=== PATIENT | male | born 1935 | race Hispanic/Latino ===

== ENCOUNTER 2018-04-14 13:17 | Inpatient (IN) | payer MEDICARE, MEDICAID ==
[2018-04-14 14:29] LABS: #Eosinphils 0.1 thou/uL (0.0-0.7); #Lymphocytes 1.3 thou/uL (1.20-3.40); #Monocytes 0.6 thou/uL (0.11-0.59); #Neutrophils 4.5 thou/uL (1.40-6.50); %Basophils 0.2 % (0.0-1.0); %Eosinophils 1.1 % (0.0-10.0); %Monocytes 9.2 % (0.0-10.0); %Neutrophils 69.5 % (42.0-75.0); Hemoglobin 15.2 g/dL (14.0-18.0); Mean Corpuscular HGB CONC 33.5 g/dL (32.0-36.0); Mean Corpuscular Volume 92.3 fL (78.0-98.0); Mean Platelet Volume 9.6 fL (7.4-10.4); Platelet Count 95 thou/uL (130-400); RBC Distribution Width 14.9 % (11.5-14.5); White Blood Cell (WBC) Count 6.5 thou/uL (4.8-10.8)
[2018-04-14 14:57] LABS: Troponin I Less than 0.010 ng/mL (< 0.028)
[2018-04-14 14:59] LABS: CKMB 6.8 ng/mL (0-6.6)
[2018-04-14 15:00] LABS: ALT (SGPT) 12 U/L (8-55); AST (SGOT) 22 U/L (5-34); Albumin 3.9 g/dL (3.4-4.8); Alkaline Phosphatase 89 U/L (40-150); Anion Gap 13 mmol/L (10-20); BUN (Urea Nitrogen) 18 mg/dL (8.4-25.7); Bilirubin, Total 1.6 mg/dL (0.2-1.2); Calc. Creatinine Clearance 0 mL/min (70-130); Calcium 9.3 mg/dL (7.8-10.44); Carbon Dioxide 25 mmol/L (23-31); Chloride 98 mmol/L (98-107); Estimated GFR-MDRD 78; Globulin 3.4 g/dL (2.4-3.5); Glucose 89 mg/dL (83-110); Potassium 4.6 mmol/L (3.5-5.1); Protein, Total 7.3 g/dL (5.8-8.1); Sodium 131 mmol/L (136-145)
--- NOTE | 2018-04-14 15:01 | RAD ---
AP VIEW OF THE CHEST: INDICATION: Dyspnea. COMPARISON: Prior exam dated 03/19/15. FINDINGS: There is stable elevation of the right hemidiaphragm. There is mild right basilar atelectasis. Card iomegaly persists. Vascular calcification of the aortic is similar. No acute osseous abnormality is evident. IMPRESSION: Stable exam. POS: [facility]
[2018-04-14] MEDS ORDERED: Furosemide 40 MG/4 ML VIAL ONE (15:12)
[2018-04-14] MEDS ORDERED: Nitroglycerin 2% Ointment 1 INCH/1 GM Packet ONE (15:12)
--- NOTE | 2018-04-14 15:33 | PDOC.FPRHP ---
- History of Present Illness Chief Complaint: SOB History of Present Illness: Patient is an 83 yo M presenting with SOB since last night. Patient endorses always having trouble breathing, but it worsened last night. He reports trying to go to bed but was unable to due to trouble breathing. He has had a cough but denies fever. He states he has edema in bilateral extremities for about one month. Patient denies missing any doses of medications and denies increasing sodium intake. Patient sees Ted annually and his next appointment is next Saturday. ED Course: - gave nitro and 40mg Lasix IV - Allergies/Adverse Reactions Allergies Allergy/AdvReac Type Severity Reaction Status Date / Time No Known Drug Allergies Allergy Verified 03/19/15 13:31 - Home Medications Medication Instructions Recorded Confirmed Type metFORMIN HCl 1,000 mg PO BID-WM 03/02/13 03/19/15 History Atorvastatin Calcium [Lipitor] 10 mg PO HS 03/19/15 03/19/15 History Doxazosin [Cardura] 2 mg PO HS 03/19/15 03/19/15 History Mirtazapine 7.5 mg PO HS 03/19/15 03/19/15 History traMADol HCl [Ultram] 50 mg PO TID PRN 03/19/15 03/19/15 History Aspirin 325 mg PO DAILY #0 tab 03/21/15 Rx Carvedilol [Coreg] 3.125 mg PO BID- #0 tab 03/21/15 Rx Olmesartan Medoxomil [Benicar] 40 mg PO DAILY #0 tab 03/22/15 Rx - History PMHx: DM, HLD, HTN, NSTEMI 2014 PSHx: left knee and right shoulder, bilateral cataracts FHx: non-contributory Social: denies alcohol, drug and tobacco use - Review of Systems General: denies: fever/chills, weight/appetite/sleep changes, night sweats, fatigue Eyes: denies: eye pain, vision changes ENT: denies: nasal congestion, rhinorrhea Respiratory: reports: cough, shortness of breath, exercise intolerance. denies : congestion Cardiovascular: reports: edema. denies: chest pain, palpitation Gastrointestinal: denies: nausea, vomiting, diarrhea, constipation, abdominal pain Genitourinary: denies: incontinence Skin: denies: rashes, lesions Musculoskeletal: denies: pain, tenderness, stiffness, swelling Neurological: denies: numbness, syncope, seizure, weakness - Vital signs BP: 133/70 HR: 72 RR: 20 Tmax: 98.3 Pox: 100% on 2L Wt: 70.76kg - Physical Exam Constitutional: NAD, awake, alert and oriented, well developed HEENT: normocephalic and atraumatic, EOMI, grossly normal vision, grossly normal hearing, MMM Neck: supple -Neck: JVD noted Chest: no-tender to palpation Heart: pulses present -Heart: S4 gallop -Lungs: diminished breath sounds in right lower lung Abdomen: soft, non-tender, bowel sounds present, no masses/distention Musculoskeletal: normal structure, normal tone -Musculoskeletal: +1 pitting edema in bilateral lower extremities Neurological: no focal deficit, normal sensation Psychiatric: normal mood and affect FMR H&P: Results - Labs Result Diagrams: 04/14/18 14:17 04/14/18 14:17 Lab results: WBC 6.5 thou/uL (4.8-10.8) 04/14/18 14:17 Hgb 15.2 g/dL (14.0-18.0) 04/14/18 14:17 Hct 45.3 % (42.0-52.0) 04/14/18 14:17 MCV 92.3 fL (78.0-98.0) 04/14/18 14:17 Plt Count 95 thou/uL (130-400) L 04/14/18 14:17 Neutrophils % 69.5 % (42.0-75.0) 04/14/18 14:17 Sodium 131 mmol/L (136-145) L 04/14/18 14:17 Potassium 4.6 mmol/L (3.5-5.1) 04/14/18 14:17 Chloride 98 mmol/L (98-107) 04/14/18 14:17 Carbon Dioxide 25 mmol/L (23-31) 04/14/18 14:17 BUN 18 mg/dL (8.4-25.7) 04/14/18 14:17 Creatinine 0.93 mg/dL (0.6-1.3) 04/14/18 14:17 Glucose 89 mg/dL (83-110) 04/14/18 14:17 Calcium 9.3 mg/dL (7.8-10.44) 04/14/18 14:17 Total Bilirubin 1.6 mg/dL (0.2-1.2) H 04/14/18 14:17 AST 22 U/L (5-34) 04/14/18 14:17 ALT 12 U/L (8-55) 04/14/18 14:17 Alkaline Phosphatase 89 U/L (40-150) 04/14/18 14:17 CK-MB (CK-2) 6.8 ng/mL (0-6.6) H* 04/14/18 14:17 B-Natriuretic Peptide 421.3 pg/mL (0-100) H 04/14/18 14:17 Serum Total Protein 7.3 g/dL (5.8-8.1) 04/14/18 14:17 Albumin 3.9 g/dL (3.4-4.8) 04/14/18 14:17 - EKG Interpretation EKG: Possible LA enlargement. Septal infarct. Complete RBBB, T waves, left axis - Radiology Interpretation Chest x-ray Status: image reviewed by me Additional comment: chronic lung changes, stable, right hemidiaphragm FMR H&P: A/P - Problem List (1) CHF exacerbation Current Visit: Yes Status: Acute Code(s): I50.9 - HEART FAILURE, UNSPECIFIED Assessment and Plan: - Patient received 40mg IV lasix in the ED and is already improved as compared to at arrival - Strict I/Os and daily weights - Will order Echo - Trend Trop X 3 - Hold Carvedilol - Continue ASA (2) Diabetes mellitus, type 2 Current Visit: No Status: Acute Assessment and Plan: - continue home medications: metformin and benicar - monitor daily glucose levels (3) HTN (hypertension) Current Visit: No Status: Acute Code(s): I10 - ESSENTIAL (PRIMARY) HYPERTENSION Assessment and Plan: - Continue home medications: triamterene-HCTZ, doxazosin - Monitor BPs (4) HLD (hyperlipidemia) Current Visit: No Status: Acute Code(s): E78.5 - HYPERLIPIDEMIA, UNSPECIFIED Assessment and Plan: - continue home medications: ASA, atorvastatin - Plan DISPO: likely <2 midnights Case discussed with Dr. Naranjo CODE: FULL FMR H&P: Upper Level - Pertinent history 83 yo male here for labored breathing starting last night when laying down. Pt has hx of NSTEMI in 2015, HLD, HTN, DMII, BPH. SOB started last night with no obvious exacerbating factors such as medication non-compliance, increase in fluids, or change in diet. He reports eating a low salt diet. No CP, cough, N/ V. He had NSTEMI in 2015 with ECHO of 50-55% EF. He sees Dr. Jean annually , next appt next week. - Pertinent findings 133/70 HR: 72 Temp: 98.3 Sat: 100% on 2 L Resp: 20 Gen: NAD Resp: CTAB, non labored breathing CARD: RRR, S1, S2, no m/g/r Abd: BSx4, non tender Ext: minimal/trace edema b/l, no tenderness to palpation CKMB: 6.8 Trop: <0.010 BNP: 421 Na: 131 - Plan Date/Time: 04/14/18 1531 ISaul DO, have evaluated this patient and agree with findings/plan as outlined by editing intern resident. Pertinent changes/additions are listed here. new onset CHF exacerbation -lasix 40mg iv in ER improved breathing issues -continue to monitor respiratory status -check ECHO elevated cardiac enzymes with history of NSTEMI in 2014 -trend CE -EKG unremarkable HTN - continue home meds HLD -continue home meds Hyponatremia -patient has history of taking diuretics - will check FeUrea Attending Addendum - Attending Addendum Date/Time: 04/14/18 1940 I personally evaluated the patient and discussed the management with Dr. Herzog I agree with the History, Examination, Assessment and Plan documented above with any addition or exceptions noted below.Patient SSO interviewed through educational interpreter with history of approximately one week progressive dyspnea and lower extremity edema he denies chest pain,N/V or diaphoresis. Patient with good response IV furosemide in ER will place in observation trend troponins and obtain echocardiogram to compare s/p NSTEMI 2015.
[2018-04-14] MEDS ORDERED: Acetaminophen 325 MG TAB PO PRN (18:31)
[2018-04-14] MEDS ORDERED: Acetaminophen 650 MG Suppository PR PRN (18:31)
[2018-04-14 19:28] LABS: CKMB 6.3 ng/mL (0-6.6); Troponin I Less than 0.010 ng/mL (< 0.028)
[2018-04-14 22:55] LABS: Creatinine, Urine 22.57 mg/dL (63-166)
[2018-04-14 23:22] LABS: CKMB 5.4 ng/mL (0-6.6); Troponin I Less than 0.010 ng/mL (< 0.028)
[2018-04-15 05:06] LABS: #Basophils 0.1 thou/uL (0.0-0.2); #Eosinphils 0.1 thou/uL (0.0-0.7); #Lymphocytes 1.3 thou/uL (1.20-3.40); #Monocytes 0.7 thou/uL (0.11-0.59); #Neutrophils 4.7 thou/uL (1.40-6.50); %Eosinophils 1.9 % (0.0-10.0); %Lymphocytes 18.9 % (21.0-51.0); %Monocytes 10.7 % (0.0-10.0); %Neutrophils 67.6 % (42.0-75.0); Hemoglobin 14.4 g/dL (14.0-18.0); Mean Corpuscular HGB CONC 32.3 g/dL (32.0-36.0); Mean Corpuscular Hemoglobin 30.6 pg (27.0-31.0); Mean Corpuscular Volume 94.9 fL (78.0-98.0); Mean Platelet Volume 9.9 fL (7.4-10.4); Platelet Count 91 thou/uL (130-400); RBC Distribution Width 14.9 % (11.5-14.5); White Blood Cell (WBC) Count 6.9 thou/uL (4.8-10.8)
[2018-04-15 05:32] LABS: Anion Gap 15 mmol/L (10-20); BUN (Urea Nitrogen) 20 mg/dL (8.4-25.7); Calc. Creatinine Clearance 51 mL/min (70-130); Calcium 9.4 mg/dL (7.8-10.44); Carbon Dioxide 28 mmol/L (23-31); Chloride 95 mmol/L (98-107); Estimated GFR-MDRD 68; Glucose 132 mg/dL (83-110); Potassium 4.3 mmol/L (3.5-5.1); Sodium 134 mmol/L (136-145)
--- NOTE | 2018-04-15 05:49 | PDOC.FM ---
- Subjective Subjective: Patient is an 83 yo M who has a PMH significant for a prior NSTEMI in 2015, CHF , DM, HTN, and HLD, who presented to the ED yesterday afternoon due to SOB. On exam today, the patient is comfortably resting in bed. He states that he is feeling much better and his symptoms have improved. He no longer reports SOB. Patient is pending echo today, but feels comfortable going home later today. 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 Jean next week. He denies chest pain, fever, NVD. - Objective MAR Reviewed: Yes Vital Signs & Weight: Vital Signs (12 hours) Temp Pulse Resp BP Pulse Ox 04/15/18 03:53 97.2 F L 69 17 99/55 L 93 L 04/14/18 20:15 98.3 F 67 16 98/57 L 94 L Weight Weight 65.317 kg Result Diagrams: 04/15/18 03:44 04/15/18 03:44 <Lucy Herzog - Last Filed: 04/15/18 08:26> - Objective Vital Signs & Weight: Vital Signs (12 hours) Temp Pulse Resp BP Pulse Ox 04/15/18 13:51 74 20 94 L 04/15/18 09:03 97.4 F L 68 16 95 04/15/18 07:20 97.4 F L 68 16 95/49 L 94 L Weight Weight 64.41 kg I&O: 04/14/18 04/15/18 04/16/18 06:59 06:59 06:59 Intake Total 0 Output Total 550 Balance -550 Result Diagrams: 04/15/18 12:36 04/15/18 03:44 <Carla Mirza - Last Filed: 04/15/18 17:31> Phys Exam - Physical Examination Constitutional: NAD HEENT: PERRLA, moist MMs, sclera anicteric Neck: no nodes mild JVD Respiratory: no wheezing, no rales, clear to auscultation bilateral Cardiovascular: RRR, no significant murmur, no rub Gastrointestinal: soft, non-tender, positive bowel sounds Musculoskeletal: no edema, pulses present Neurological: non-focal, normal sensation Psychiatric: normal affect, A&O x 3 Skin: no rash, normal turgor <Lucy Herzog - Last Filed: 04/15/18 08:26> Dx/Plan (1) CHF exacerbation Code(s): I50.9 - HEART FAILURE, UNSPECIFIED Status: Acute Plan: - Continue to monitor respiratory status - CKMD trended down 6.8, 6.3, 5.2 - Trops X 3 neg - CXR stable - pending ECHO today - satting 96% on 2L NC - will ween down as tolerated today (2) Diabetes mellitus, type 2 Status: Acute Plan: - continue home medications (3) HTN (hypertension) Code(s): I10 - ESSENTIAL (PRIMARY) HYPERTENSION Status: Acute Plan: - continue home medications - last BP was 90-99/55-57 (4) HLD (hyperlipidemia) Code(s): E78.5 - HYPERLIPIDEMIA, UNSPECIFIED Status: Acute Plan: - continue home medications - Plan Plan: - DISPO: likley discharge today as patient is much improved CODE: FULL <Lucy Herzog - Last Filed: 04/15/18 08:26> Attending Addendum - Attending Addendum Date/Time: 04/15/18 172 I personally evaluated the patient at 1010 am and discussed the management with Dr. Herzog I agree with the History, Examination, Assessment and Plan documented above with any addition or exceptions noted below. Elevated BNP and symptoms consistent with CHF exacerbation- edema improved to trace bilaterally and lungs ctab this am. However, O2 sats in mid 80s on room air. Continue diuresis with lasix (as bp will tolerate) and await ECHO results. No known diagnosis of CHF per patients history. CAD- troponins negative and no s/s chest pain. h/o COPD- no wheezing on exam. Will give albuterol nebs as needed for dyspnea and wean O2 as tolerated. <Carla Mirza - Last Filed: 04/15/18 17:31>
[2018-04-15] MEDS ORDERED: Aspirin 81 mg Enteric Coated Tablet PO SCH (09:00)
[2018-04-15] MEDS ORDERED: Triamterene/Hydrochlorothiazide 37.5 mg/25 mg Tablet PO SCH (09:00)
[2018-04-15] MEDS: metFORMIN 500 MG TAB PO SCH ×2 (09:03→16:13)
[2018-04-15] MEDS: Aspirin 325 mg Enteric Coated Tablet PO SCH ×2 (09:03→22:05)
[2018-04-15] MEDS: Senokot 8.6 MG TAB PO SCH (09:04)
[2018-04-15] MEDS ORDERED: Furosemide 20 MG/2 ML VIAL SLOW IVP SCH (11:15)
[2018-04-15 13:05] LABS: Band 3 % (5-11); Eosinophils 1 % (0-10); Hemoglobin 15.5 g/dL (14.0-18.0); Lymphocytes 18 % (21-51); MDiff Complete? YES; Mean Corpuscular HGB CONC 32.9 g/dL (32.0-36.0); Mean Corpuscular Hemoglobin 30.8 pg (27.0-31.0); Mean Corpuscular Volume 93.6 fL (78.0-98.0); Mean Platelet Volume 9.3 fL (7.4-10.4); Monocytes 8 % (0-10); Neutrophil 68 % (42-75); PLT Morphology Comment Appears Decreased; Platelet Count 102 thou/uL (130-400); RBC Distribution Width 15.1 % (11.5-14.5); RBC Morphology Normal; Reactive Lymphocytes 2 % (0-10); Red Blood Cell (RBC) Count 5.03 mill/uL (4.70-6.10); Stomatocytes SLIGHT = 2-5 cells (100X) (0-1/hpf)
[2018-04-15] MEDS ORDERED: Doxazosin 2 MG TAB PO SCH (21:00)
[2018-04-15] MEDS: Atorvastatin Calcium 10 MG TAB PO SCH (22:05)
--- NOTE | 2018-04-16 05:56 | PDOC.FM ---
- Subjective Subjective: Patient is an 83 yo M with new onset CHF exacerbation. The patient's SOB has steadily improved. He continues to use 2L nasal cannula, satting well. On exam today, the patient is resting comfortably in bed and in no distress. States he is feeling much better. Patient has been urinating and stooling appropriately. He denies any SOB, dizziness, chest pain, fever, NVD. - Objective MAR Reviewed: Yes Vital Signs & Weight: Vital Signs (12 hours) Temp Pulse Resp BP BP Pulse Ox 04/16/18 03:57 98.9 F 81 14 108/52 L 97 04/15/18 23:25 98.1 F 79 14 91/52 L 90 L 04/15/18 20:00 98.4 F 77 16 93/51 L 94 L Weight Weight 64.41 kg I&O: 04/14/18 04/15/18 04/16/18 06:59 06:59 06:59 Intake Total 0 Output Total 550 Balance -550 Result Diagrams: 04/16/18 06:09 04/16/18 06:09 EKG Reviewed by me: Yes <Lucy Herzog - Last Filed: 04/16/18 08:38> - Objective Vital Signs & Weight: Vital Signs (12 hours) Temp Pulse Resp BP BP Pulse Ox 04/16/18 08:00 98.5 F 84 20 94/51 L 95 04/16/18 03:57 98.9 F 81 14 108/52 L 97 04/15/18 23:25 98.1 F 79 14 91/52 L 90 L Weight Weight 67.903 kg I&O: 04/15/18 04/16/18 04/17/18 06:59 06:59 06:59 Intake Total 0 840 Output Total 550 400 Balance -550 440 Result Diagrams: 04/16/18 06:09 04/16/18 06:09 <Carla Mirza - Last Filed: 04/16/18 10:33> Phys Exam - Physical Examination Constitutional: NAD HEENT: PERRLA, moist MMs, sclera anicteric Neck: no nodes mild JVD Respiratory: no wheezing, no rales, no rhonchi, clear to auscultation bilateral Cardiovascular: no significant murmur, no rub, gallop S4 gallop Gastrointestinal: soft, non-tender, no distention, positive bowel sounds Musculoskeletal: no edema, pulses present Neurological: normal sensation, moves all 4 limbs Psychiatric: normal affect, A&O x 3 Skin: no rash, normal turgor <Lucy Herzog - Last Filed: 04/16/18 08:38> Dx/Plan (1) CHF exacerbation Code(s): I50.9 - HEART FAILURE, UNSPECIFIED Status: Acute Plan: - Continue to monitor respiratory status - Cardiac enzymes neg - CXR stable - pending ECHO results today - satting 90-97% on 2L NC - will try to ween down again today - patient continues to desaturate to the 80% when off O2; home oxygen may be necessary (2) Acute kidney injury Code(s): N17.9 - ACUTE KIDNEY FAILURE, UNSPECIFIED Status: Acute Plan: - BUN: 20->33, Cr: 1.04->1.57 - Will give 500ml fluid bolus - BMP in the AM (3) Thrombocytopenia Code(s): D69.6 - THROMBOCYTOPENIA, UNSPECIFIED Status: Acute Plan: - continuing to trend: 91->102->90 - patient is asymptomatic - pending peripheral smear - CBC in the AM (4) Diabetes mellitus, type 2 Status: Acute Plan: - continue home medications (5) HTN (hypertension) Code(s): I10 - ESSENTIAL (PRIMARY) HYPERTENSION Status: Acute Plan: - will hold triamterene/HCTZ - last BP was 90-99/55-57 - Will give fluids today for low blood pressures (6) HLD (hyperlipidemia) Code(s): E78.5 - HYPERLIPIDEMIA, UNSPECIFIED Status: Acute Plan: - continue home medications - Plan Plan: DISPO: likely discharge today pending weening from O2 CODE: FULL <Lucy Herzog - Last Filed: 04/16/18 08:38> Attending Addendum - Attending Addendum Date/Time: 04/16/18 1029 I personally evaluated the patient and discussed the management with Dr. Herzog I agree with the History, Examination, Assessment and Plan documented above with any addition or exceptions noted below. Presumed CHF but awaiting ECHO results- s/p IV lasix. O2 sats 95% on room air this am. Lungs ctab. still with trace to 1+ pedal edema. HTN- bp now on the low side. Will give 250ml of fluid and hold home bp meds. Pending echo will review home meds. AUDRA- probably secondary to lasix. Will recheck tomorrow am and hold ARB and diuretics today. Thrombocytopenia- patient is asymptomatic and platelets stable between 90-100. Await peripheral smear results. <Carla Mirza - Last Filed: 04/16/18 10:33>
[2018-04-16 06:28] LABS: #Basophils 0.1 thou/uL (0.0-0.2); #Eosinphils 0.1 thou/uL (0.0-0.7); #Lymphocytes 1.1 thou/uL (1.20-3.40); #Monocytes 0.8 thou/uL (0.11-0.59); #Neutrophils 5.4 thou/uL (1.40-6.50); %Basophils 1.2 % (0.0-1.0); %Eosinophils 1.6 % (0.0-10.0); %Lymphocytes 14.7 % (21.0-51.0); %Monocytes 10.5 % (0.0-10.0); Hemoglobin 14.2 g/dL (14.0-18.0); Mean Corpuscular HGB CONC 32.5 g/dL (32.0-36.0); Mean Corpuscular Hemoglobin 30.6 pg (27.0-31.0); Mean Corpuscular Volume 94.3 fL (78.0-98.0); Mean Platelet Volume 9.5 fL (7.4-10.4); Platelet Count 90 thou/uL (130-400); Red Blood Cell (RBC) Count 4.64 mill/uL (4.70-6.10); White Blood Cell (WBC) Count 7.5 thou/uL (4.8-10.8)
[2018-04-16 06:52] LABS: Anion Gap 11 mmol/L (10-20); BUN (Urea Nitrogen) 33 mg/dL (8.4-25.7); Calc. Creatinine Clearance 35 mL/min (70-130); Calcium 9.1 mg/dL (7.8-10.44); Carbon Dioxide 32 mmol/L (23-31); Chloride 95 mmol/L (98-107); Estimated GFR-MDRD 43; Glucose 162 mg/dL (83-110); Potassium 4.8 mmol/L (3.5-5.1); Sodium 133 mmol/L (136-145)
[2018-04-16] MEDS: Aspirin 325 mg Enteric Coated Tablet PO SCH ×2 (09:32→20:40)
[2018-04-16] MEDS: metFORMIN 500 MG TAB PO SCH ×2 (09:32→16:57)
[2018-04-16] MEDS: Senokot 8.6 MG TAB PO SCH (09:34)
[2018-04-16] MEDS ORDERED: Lactated Ringer's 250 ML IV SCH (10:00)
--- NOTE | 2018-04-16 14:39 | CON ---
DATE OF CONSULTATION: 04/16/2018 HISTORY OF PRESENT ILLNESS: Patient is an unfortunate 83-year-old gentleman who presents with dyspnea and increasing lower extremity swelling. The patient has a history of hypertension and diabetes mellitus. He was admitted with atypical chest pain in 2014. He was in his usual state of health when he noticed having increasing dyspnea. The patient denied having any chest discomfort. The patient had increasing lower extremity swelling. PAST MEDICAL HISTORY: 1. Hypertension. 2. Diabetes mellitus. 3. Dyslipidemia. 4. Benign prostatic hypertrophy. PAST SURGICAL HISTORY: Shoulder surgery and knee replacement. ALLERGIES: None. SOCIAL HISTORY: Nonsmoker. MEDICATIONS ON ADMISSION: Benicar 20 daily, aspirin 325 daily, Lipitor 10 at bedtime, doxazosin 2 mg daily, and metformin 1000 b.i.d. REVIEW OF SYSTEMS: Ten-point system otherwise unremarkable. No history of easy bruising or bleeding, bright red blood per rectum. PHYSICAL EXAMINATION: GENERAL APPEARANCE: This is a well-developed gentleman in no acute distress. VITAL SIGNS: Blood pressure 96/50. NECK: Full. LUNGS: Clear to auscultation. HEART: Regular rate and rhythm. Normal S1, S2 with right-sided S3. ABDOMEN: Nondistended. EXTREMITIES: Showed trace edema. VASCULAR: Radial pulses are 2+. NEUROLOGIC: Nonfocal. LABORATORY DATA AND IMAGING DATA: Sodium 133, potassium 4.8, chloride 95, bicarbonate 32, BUN 33, creatinine is 1.57, glucose 162. White blood count 7.5 , hemoglobin 14.2, hematocrit 43.8, platelets are 90. His EKG revealed normal sinus rhythm, right bundle branch block, T-wave abnormality suggestive of ischemia, previous septal infarct. Echocardiogram revealed normal left ejection fraction of 50%-55%. Massively enlarged right ventricular cavity with compression of the left ventricle and an elevated right ventricular systolic pressure. IMPRESSION: 1. Right-sided heart failure. 2. Massively enlarged right ventricle. 3. Diabetes mellitus. 4. Hypertension. 5. Dyslipidemia. This unfortunate gentleman has severe right-sided failure with a markedly enlarged right ventricle. The patient has been diuresed. His creatinine has subsequently been rising and he may need to be rehydrated. Would avoid diuretics and discontinue Benicar. We will obtain V/Q scan to evaluate whether he has chronic pulmonary emboli. The patient's prognosis is very guarded. [facility]
--- NOTE | 2018-04-16 14:42 | PQF ---
CLINICAL DOCUMENTATION IMPROVEMENT CLARIFICATION FORM: ICD-10 Updated PLEASE DO AN ADDENDUM TO THE PROGRESS NOTE WITH ANY DOCUMENTATION UPDATES OR ADDITIONS AND CARRY THROUGH TO DC SUMMARY. THANK YOU. DATE: 04/17/18 ATTN: DR. LANE Please exercise your independent, professional judgment in responding to the clarification form. Clinical indicators are provided on the bottom of this form for your review Please check appropriate box(s): HEART FAILURE: TYPE: [ ] Systolic / HFrEF [ X ] Diastolic / HFpEF [ ] Combined Systolic / Diastolic [ ] Other diagnosis [ ] Unable to determine In addition, please specify: Present on Admission (POA): [ X] Yes [ ] No [ ] Unable to determine For continuity of documentation, please document condition throughout progress notes and discharge summary. Thank You. CLINICAL INDICATORS - SIGNS / SYMPTOMS / LABS 04/16: "NEW ONSET CHF EXACERBATION" BNP (04/14) 421.3 RISKS: HYPERTENSION TREATMENT: CARDIOLOGY CONSULT TELEMETRY MONITORING ECHOCARDIOGRAM LASIX IV (ER 04/14) (This form is maintained as a part of the permanent medical record) 2014 Commissioner. All Rights Reserved DURAN [email or web address] Office: [phone] [facility]
[2018-04-16] MEDS ORDERED: Lorazepam 1 MG TAB PO SCH (15:30)
--- NOTE | 2018-04-16 17:11 | NM ---
NUCLEAR MEDICINE PULMONARY PERFUSION SCAN: 04/16/18 HISTORY: 83-year-old male with dyspnea. TECHNIQUE: The patient is unable to lie supine, and therefore, a ventilation scan cannot be performed. Only a pe rfusion scan could be performed. IV injection of 6.1 millicuries of technetium 99-MAA. Multiview perfusion scintigraphic images obtain ed. FINDINGS: There is elevation of the right hemidiaphragm. There is fluid or thickening of right major fissure. T here are no moderate sized or large perfusion defects otherwise. IMPRESSION: 1. Low probability for pulmonary thromboembolism. 2. Elevated right hemidiaphragm. POS: [facility]
--- NOTE | 2018-04-16 17:13 | RAD ---
TWO VIEWS CHEST: 04/16/18 HISTORY: Possible PE. COMPARISON: 11/28/12, 03/19/15. FINDINGS: Persistent elevation of the right hemidiaphragm. Findings are presumed to be chronic. No consolidatio n or masses. Enlarged cardiac silhouette. No pneumothorax or osseous abnormality. IMPRESSION: Chronic changes. Persistent elevation of the right hemidiaphragm. POS: [facility]
--- NOTE | 2018-04-16 20:09 | PDOC.EVN ---
Event Note - Event Note Event Note: 83yo M with PMH of CHF and COPD admitted for CHF exacerbation had a hypotensive event. Abena shanel called @1940, resident team responded. Pt SBP has typically been in the 90's and Dropped to 68 2.5 hours after administration of 1mg Ativan (given for agitation during attempted imaging). Pt was alert and oriented and sitting on bed on presentation and only had a complaint of headache. Denied SOB , cough, cp, and palpitations. 500ml bolus given and EKG obtained (Normal Sinus rhythm, unchanged from previous ). Pt SBP recovered to high 80's over the span of 20 minutes and pt reported his headache feeling better. Nursing advised to call if SBP < 80. <Chaz Ruiz - Last Filed: 04/16/18 19:59> - Event Note Event Note: Present for abena shanel. BP improved with IVFs. Will continue IVFs as needed. Hold benzos and other peripherally acting agents. Dennis <Юлия Noriega - Last Filed: 04/21/18 11:33>
[2018-04-16] MEDS: Atorvastatin Calcium 10 MG TAB PO SCH (20:40)
[2018-04-17] MEDS ORDERED: Sodium Chloride 0.9% 500 ML IV ONE (00:02)
[2018-04-17 05:56] LABS: #Basophils 0.1 thou/uL (0.0-0.2); #Eosinphils 0.1 thou/uL (0.0-0.7); #Lymphocytes 1.1 thou/uL (1.20-3.40); #Monocytes 0.6 thou/uL (0.11-0.59); #Neutrophils 5.8 thou/uL (1.40-6.50); %Basophils 0.7 % (0.0-1.0); %Lymphocytes 14.2 % (21.0-51.0); %Neutrophils 76.1 % (42.0-75.0); Hemoglobin 14.7 g/dL (14.0-18.0); Mean Corpuscular HGB CONC 32.7 g/dL (32.0-36.0); Mean Corpuscular Hemoglobin 30.7 pg (27.0-31.0); Mean Corpuscular Volume 93.7 fL (78.0-98.0); Mean Platelet Volume 9.8 fL (7.4-10.4); Platelet Count 98 thou/uL (130-400); RBC Distribution Width 14.9 % (11.5-14.5); Red Blood Cell (RBC) Count 4.79 mill/uL (4.70-6.10); White Blood Cell (WBC) Count 7.6 thou/uL (4.8-10.8)
[2018-04-17 05:59] LABS: Anion Gap 9 mmol/L (10-20); BUN (Urea Nitrogen) 36 mg/dL (8.4-25.7); Calc. Creatinine Clearance 43 mL/min (70-130); Calcium 8.9 mg/dL (7.8-10.44); Carbon Dioxide 31 mmol/L (23-31); Chloride 96 mmol/L (98-107); Estimated GFR-MDRD 54; Glucose 114 mg/dL (83-110); Potassium 4.8 mmol/L (3.5-5.1); Sodium 131 mmol/L (136-145)
--- NOTE | 2018-04-17 06:05 | PDOC.FM ---
- Subjective Subjective: Patient is an 83 yo M here for new onset CHF exacerbation. Overnight, patient's SBP went to 60 and 70 and required two 500 mL bolus's. The patient had complained of dizziness and a headache at that time. On exam this morning, the patient is sitting comfortably in a chair wrapped in two blankets and a jacket. He has no complaints at this time. Patient denies SOB, chest pain, fever, NVD. - Objective MAR Reviewed: Yes Vital Signs & Weight: Vital Signs (12 hours) Temp Pulse Pulse Pulse Pulse Pulse Resp 04/17/18 04:00 97.8 F 84 19 04/17/18 00:34 88 04/16/18 23:55 04/16/18 23:33 97.6 F 93 20 04/16/18 22:00 96 04/16/18 20:30 88 04/16/18 20:00 97.9 F 88 20 04/16/18 19:23 94 90 91 93 04/16/18 19:17 88 Resp Resp Resp Resp BP BP BP 04/17/18 04:00 04/17/18 00:34 04/16/18 23:55 04/16/18 23:33 04/16/18 22:00 04/16/18 20:30 04/16/18 20:00 04/16/18 19:23 18 20 18 18 62/41 L 72/50 L 75/56 L 04/16/18 19:17 BP BP BP BP Pulse Ox Pulse Ox Pulse Ox 04/17/18 04:00 93/52 L 93 L 04/17/18 00:34 85/49 L 04/16/18 23:55 70/50 L 04/16/18 23:33 92 L 04/16/18 22:00 103/52 L 04/16/18 20:30 82/48 L 04/16/18 20:00 100 04/16/18 19:23 83/48 L 94 L 100 04/16/18 19:17 68/44 L Pulse Ox 04/17/18 04:00 04/17/18 00:34 04/16/18 23:55 04/16/18 23:33 04/16/18 22:00 04/16/18 20:30 04/16/18 20:00 04/16/18 19:23 100 04/16/18 19:17 Weight Weight 67.903 kg I&O: 04/15/18 04/16/18 04/17/18 06:59 06:59 06:59 Intake Total 0 840 Output Total 550 400 Balance -550 440 Result Diagrams: 04/17/18 05:09 04/17/18 05:09 EKG Reviewed by me: Yes <Lucy Herzog - Last Filed: 04/17/18 12:15> - Objective Vital Signs & Weight: Vital Signs (12 hours) Temp Pulse Pulse Pulse Resp BP BP 04/17/18 09:10 98.2 F 82 16 04/17/18 08:50 71 83 117/65 101/56 L 04/17/18 07:46 98.2 F 82 16 04/17/18 04:00 97.8 F 84 19 04/17/18 00:34 88 BP BP Pulse Ox Pulse Ox Pulse Ox 04/17/18 09:10 94 L 04/17/18 08:50 90 L 92 L 04/17/18 07:46 132/65 94 L 04/17/18 04:00 93/52 L 93 L 04/17/18 00:34 85/49 L Weight Weight 67.903 kg I&O: 04/16/18 04/17/18 04/18/18 06:59 06:59 06:59 Intake Total 840 1400 Output Total 400 200 Balance 440 1200 Result Diagrams: 04/17/18 05:09 04/17/18 05:09 <Malcom Black - Last Filed: 04/17/18 12:24> Phys Exam - Physical Examination Constitutional: NAD HEENT: PERRLA, sclera anicteric Neck: no nodes, supple mild JVD Respiratory: no wheezing, no rales, clear to auscultation bilateral Cardiovascular: RRR, no significant murmur S3 gallop Gastrointestinal: soft, non-tender, no distention, positive bowel sounds Musculoskeletal: pulses present, edema present +1 pitting edema up to the bhatti Neurological: non-focal, normal sensation, moves all 4 limbs Psychiatric: normal affect, A&O x 3 Skin: no rash, normal turgor <Lucy Herzog - Last Filed: 04/17/18 12:15> Dx/Plan (1) CHF exacerbation Code(s): I50.9 - HEART FAILURE, UNSPECIFIED Status: Acute Plan: - Continue to monitor respiratory status - Cardiac enzymes neg - CXR stable on 04/14, repeat on 04/16 stable - Echo results showed a massive RV - Cardiology was consulted - Pulm perfusion scan on 04/16: low probability for PE - satting 92-95% on RA (2) Acute kidney injury Code(s): N17.9 - ACUTE KIDNEY FAILURE, UNSPECIFIED Status: Acute Plan: - BUN: 20->33->36, Cr: 1.04->1.57->1.27 - BMP showed lytes wnl - repeat BMP in the am - may consider another fluid bolus to help kidney fxn and BP status (3) Thrombocytopenia Code(s): D69.6 - THROMBOCYTOPENIA, UNSPECIFIED Status: Acute Plan: - continuing to trend: 91->102->90->98 - patient is asymptomatic - Peripheral smear showed low platelets: due to sequestration or low production - repeat CBC in AM (4) Diabetes mellitus, type 2 Status: Acute Plan: - Discontinued metformin and switched to SS (5) HTN (hypertension) Code(s): I10 - ESSENTIAL (PRIMARY) HYPERTENSION Status: Acute Plan: - will hold triamterene/HCTZ, doxazosin and olmsartan - patient had a blood pressure of 68/44 and then 70/50. A code green was called. The patient received two 500 ml Bolus's at those times. - Will give fluids today as needed - Cardiology is following the case; we greatly appreciate their recommendations (6) HLD (hyperlipidemia) Code(s): E78.5 - HYPERLIPIDEMIA, UNSPECIFIED Status: Acute Plan: - continue home medications - Plan Plan: DISPO: Patient likely to stay another day to watch his kidney function and blood pressure status CODE: FULL <Lucy Herzog - Last Filed: 04/17/18 12:15> Attending Addendum - Attending Addendum Date/Time: 04/17/18 1222 I personally evaluated the patient and discussed the management with Dr. Herzog. I agree with the History, Examination, Assessment and Plan documented above with any addition or exceptions noted below. Patient feels well this morning. Not requiring supplemental O2 and has no shortness of breath. He has new diagnosis of severe RV dysfunction and right sided heart failure of unknown etiology. Awaiting further cardiology recs, but would anticipate need for right heart cath either during hospitalization or as outpatient in near future. Continue O2 therapy as needed as this is likely to be his best treatment for any pulmonary HTN or PA HTN. Ruled out for PE as potential cause of pulmonary HTN. Consider Pulm consult and further chest imaging depending on cardiology recs. Will need to hold on further diuresis and medications that decrease his preload as he is preload dependent. BP low but improved with gentle fluid boluses. He has new thrombocytopenia that is likely due to sequestration from portal and splenic system congestion. Continue monitoring. Renal function somewhat improved. <Malcom Black - Last Filed: 04/17/18 12:24>
[2018-04-17] MEDS ORDERED: HumaLOG 300 UNITS/3 ML VIAL SC PRN ×2 (06:39)
[2018-04-17] MEDS ORDERED: Dextrose 50% Abboject 50 ML SYRINGE SLOW IVP PRN (06:39)
[2018-04-17] MEDS ORDERED: Dextrose 5% in Water 1,000 ML IV PRN (06:39)
--- NOTE | 2018-04-17 10:43 | EKG ---
Test Reason : CODE GREEN Blood Pressure : / mmHG Vent. Rate : 090 BPM Atrial Rate : 090 BPM P-R Int : 162 ms QRS Dur : 148 ms QT Int : 384 ms P-R-T Axes : 043 -68 -54 degrees QTc Int : 469 ms Normal sinus rhythm Left axis deviation Right bundle branch block Abnormal ECG When compared with ECG of 14-APR-2018 13:58, (Unconfirmed) Questionable change in initial forces of Septal leads Confirmed by NYA YOUNG, SKaylie ([id number]) on 04/17/2018 10:42:59 AM Referred By: CONRAD Confirmed By:DR. Shi FAY MD
[2018-04-17] MEDS: Aspirin 325 mg Enteric Coated Tablet PO SCH ×2 (10:59→21:01)
[2018-04-17] MEDS: Senokot 8.6 MG TAB PO SCH (11:00)
--- NOTE | 2018-04-17 14:19 | PDOC.CTH ---
Cardiology Progress Note - Subjective Pt doing well. No current complaints present. Pt with code green yesterday secondary to hypotension after ativan given - Objective Vital Signs Temp Pulse Pulse Pulse Resp BP BP 04/17/18 12:15 97.7 F 86 16 04/17/18 09:10 98.2 F 82 16 04/17/18 08:50 71 83 117/65 101/56 L 04/17/18 07:46 98.2 F 82 16 04/17/18 04:00 97.8 F 84 19 BP Pulse Ox Pulse Ox Pulse Ox 04/17/18 12:15 95/52 L 92 L 04/17/18 09:10 94 L 04/17/18 08:50 90 L 92 L 04/17/18 07:46 132/65 94 L 04/17/18 04:00 93/52 L 93 L Weight 149 lb 11.2 oz 04/16/18 04/17/18 04/18/18 06:59 06:59 06:59 Intake Total 840 1400 Output Total 400 200 Balance 440 1200 - Physical Examination General/Neuro: alert & oriented x3, NAD Neck: no JVD present Lungs: CTA, unlabored respirations Heart: PMI normal, RRR Abdomen: NT/ND, soft - Labs Result Diagrams: 04/17/18 05:09 04/17/18 05:09 Troponin/CKMB CK-MB (CK-2) 5.4 ng/mL (0-6.6) 04/14/18 22:42 Troponin I Less than 0.010 ng/mL (< 0.028) 04/14/18 22:42 - Assessment/Plan 1. Right sided HF 2. Edema 3. Hypotension Discussed proceeding with right and left HC with pt. Pt and family prefer medical therapy for now. VQ scan negative. EF normal. Reasonable to proceed with o/p pulmonary riggs for COPD and DEAN. Pt will likely need a RHC if pulmonary riggs negative.
[2018-04-17] MEDS: Atorvastatin Calcium 10 MG TAB PO SCH (21:01)
[2018-04-18 05:21] LABS: #Basophils 0.1 thou/uL (0.0-0.2); #Eosinphils 0.1 thou/uL (0.0-0.7); #Lymphocytes 1.2 thou/uL (1.20-3.40); #Monocytes 0.8 thou/uL (0.11-0.59); #Neutrophils 5.4 thou/uL (1.40-6.50); %Eosinophils 1.3 % (0.0-10.0); %Lymphocytes 15.7 % (21.0-51.0); %Monocytes 10.9 % (0.0-10.0); %Neutrophils 71.1 % (42.0-75.0); Hemoglobin 15.4 g/dL (14.0-18.0); Mean Corpuscular HGB CONC 33.5 g/dL (32.0-36.0); Mean Corpuscular Hemoglobin 31.1 pg (27.0-31.0); Mean Corpuscular Volume 92.8 fL (78.0-98.0); Mean Platelet Volume 9.3 fL (7.4-10.4); Platelet Count 100 thou/uL (130-400); RBC Distribution Width 15.2 % (11.5-14.5); Red Blood Cell (RBC) Count 4.97 mill/uL (4.70-6.10); White Blood Cell (WBC) Count 7.6 thou/uL (4.8-10.8)
--- NOTE | 2018-04-18 05:22 | PDOC.FM ---
- Subjective Subjective: Patient is an 83 yo M here for CHF exacerbation, accompanied by hypotension and AUDRA. The patient overall is much improved. On exam today, he is resting comfortably in bed. He has no complaints at this time. He was seen by cardiology yesterday who discussed proceeding with a right and left heart cath. The patient and family prefer medical management at this and will follow up with Dr. Jean. The patient will also get a pulmonary work up outpatient for COPD and DEAN and proceed to right heart cath is pulmonary work up is negative. Cardiology recommends close follow up with appointment in one week. This morning the patient denies chest pain, SOB, dizziness, headache, fever, or NVD. The patient states he feels ready to go home. He requests to be sent home with glucose strips and a blood pressure cuff. - Objective MAR Reviewed: Yes Vital Signs & Weight: Vital Signs (12 hours) Temp Pulse Resp BP Pulse Ox 04/17/18 20:00 98.2 F 78 15 100 04/17/18 19:48 98.2 F 78 15 136/75 100 Weight Weight 67.903 kg I&O: 04/16/18 04/17/18 04/18/18 06:59 06:59 06:59 Intake Total 840 1400 Output Total 400 200 Balance 440 1200 Result Diagrams: 04/18/18 04:43 04/18/18 04:43 EKG Reviewed by me: Yes <Lucy Herzog - Last Filed: 04/18/18 08:35> - Objective Vital Signs & Weight: Vital Signs (12 hours) Temp Pulse Resp BP Pulse Ox 04/18/18 07:45 97.4 F L 69 16 94 L 04/18/18 07:24 97.4 F L 69 16 133/75 94 L 04/18/18 04:30 97.8 F 68 15 131/70 100 Weight Weight 68.039 kg I&O: 04/17/18 04/18/18 04/19/18 06:59 06:59 06:59 Intake Total 1400 Output Total 200 Balance 1200 Result Diagrams: 04/18/18 04:43 04/18/18 04:43 <Carla Mirza - Last Filed: 04/18/18 11:56> Phys Exam - Physical Examination Constitutional: NAD HEENT: PERRLA, moist MMs, sclera anicteric Neck: no nodes mild JVD Respiratory: no wheezing, no rales, clear to auscultation bilateral Cardiovascular: RRR, no significant murmur, gallop S3 gallop Gastrointestinal: soft, non-tender, positive bowel sounds Musculoskeletal: pulses present trace edema Neurological: non-focal, normal sensation, moves all 4 limbs Psychiatric: normal affect, A&O x 3 Skin: no rash, normal turgor <Mino,Lucy - Last Filed: 04/18/18 08:35> Dx/Plan (1) CHF exacerbation Code(s): I50.9 - HEART FAILURE, UNSPECIFIED Status: Acute Plan: - Continue to monitor respiratory status - Cardiac enzymes neg - CXR stable on 04/14, repeat on 04/16 stable - Echo results showed a massive RV, EF normal - Cardiology consulted and saw patient - Cardiology recommends: right/left HC, pt and family prefer medical management at this time. Will do outpatient pulm work up for COPD and DEAN. If neg, will proceed with RHC. - Close follow up with Ted. Appointment within one week. - Pulm perfusion scan on 04/16: low probability for PE - satting 92-100% on RA - Consider consulting Pulm while pt here - start on advair and PRN albuterol - Case management consult for home health PT (2) Acute kidney injury Code(s): N17.9 - ACUTE KIDNEY FAILURE, UNSPECIFIED Status: Acute Plan: - Resolved: BUN: 20->33->36->25, Cr: 1.04->1.57->1.27->0.92 - BMP showed lytes wnl (3) Hypotension Status: Acute Plan: - will hold triamterene/HCTZ, doxazosin and olmsartan - BPs have improved: 95/52, 123/66, 136/25 - Close follow up with Ted - Case management consulted to send home BP cuff (4) Thrombocytopenia Code(s): D69.6 - THROMBOCYTOPENIA, UNSPECIFIED Status: Acute Plan: - likely 2/2 to sequestration and is a chronic problem - continuing to trend: 91->102->90->98 - patient is asymptomatic - Peripheral smear showed low platelets: due to sequestration or low production (5) Diabetes mellitus, type 2 Status: Acute Plan: - continue home medication: metformin - Case management consulted to help send Pt home with glucose strips (6) HLD (hyperlipidemia) Code(s): E78.5 - HYPERLIPIDEMIA, UNSPECIFIED Status: Acute Plan: - continue home medications - Plan Plan: - DISPO: likey discharge home today - CODE: FULL <Lucy Herzog - Last Filed: 04/18/18 08:35> Attending Addendum - Attending Addendum Date/Time: 04/18/18 1154 I personally evaluated the patient at 0950 am and discussed the management with Dr. Herzog I agree with the History, Examination, Assessment and Plan documented above with any addition or exceptions noted below. R sided heart failure- presumed secondary to COPD vs DEAN. Patient declined R heart cath at this time and prefers medical treatment. Will get pulm input this am to ensure proper f/u. HTN- bp stable off medications (was low when on ARB). Will discuss with cards prior to discharge. AUDRA-resolved Thrombocytopenia- probably secondary from R heart failure. Asymptomatic and stable plts of 100. <Carla Mirza - Last Filed: 04/18/18 11:56>
[2018-04-18 05:35] LABS: Anion Gap 10 mmol/L (10-20); BUN (Urea Nitrogen) 25 mg/dL (8.4-25.7); Calc. Creatinine Clearance 59 mL/min (70-130); Calcium 9.8 mg/dL (7.8-10.44); Carbon Dioxide 32 mmol/L (23-31); Chloride 98 mmol/L (98-107); Estimated GFR-MDRD 79; Glucose 112 mg/dL (83-110); Potassium 4.6 mmol/L (3.5-5.1); Sodium 135 mmol/L (136-145)
--- NOTE | 2018-04-18 05:50 | PDOC.CTH ---
Cardiology Progress Note - Subjective No complaints. Pt seen eating without issues. - Objective Vital Signs Temp Pulse Resp BP Pulse Ox 04/17/18 20:00 98.2 F 78 15 100 04/17/18 19:48 98.2 F 78 15 136/75 100 Weight 149 lb 11.2 oz 04/16/18 04/17/18 04/18/18 06:59 06:59 06:59 Intake Total 840 1400 Output Total 400 200 Balance 440 1200 - Physical Examination General/Neuro: alert & oriented x3, NAD Neck: no JVD present Lungs: CTA, unlabored respirations Heart: PMI normal, RRR Abdomen: NT/ND, soft - Labs Result Diagrams: 04/18/18 04:43 04/18/18 04:43 Troponin/CKMB CK-MB (CK-2) 5.4 ng/mL (0-6.6) 04/14/18 22:42 Troponin I Less than 0.010 ng/mL (< 0.028) 04/14/18 22:42 - Assessment/Plan 1. Right sided fialure 2. Edema Pt would like to pursue op riggs. Pulmonary has been consulted. Ok from my standpoint to go home with outpatient fu
[2018-04-18] MEDS: Aspirin 325 mg Enteric Coated Tablet PO SCH (09:12)
[2018-04-18] MEDS: Senokot 8.6 MG TAB PO SCH (09:12)
[2018-04-18 12:24] VITALS: BP 153/76; TEMP 97.7
--- NOTE | 2018-04-18 18:15 | CON ---
DATE OF CONSULTATION: 04/18/2018 HISTORY OF PRESENT ILLNESS: An 83-year-old gentleman who speaks no [place]. History was obtained by talking to the granddaughter who states that he has been in the hospital here now for several days with shortness of breath and coughing. No fever or chills. His x-ray showed a markedly elevated right hemidiaphragm. Additionally, a V/Q scan was done which sh ows no evidence of any pulmonary emboli. He had a PFT done in 2014, which showed very severe COPD wi th a reversible component. Patient has smoked a pack a day for at least 30 years. He states he quit smoking about 50 years ago. No prior history of TB, pneumonia or bronchial asthma. PAST MEDICAL HISTORY: Diabetes, COPD, hypertension, high cholesterol. PAST SURGICAL HISTORY: Right shoulder surgery, knee replacement surgery. CHRONIC MEDICATIONS FROM HOME: Includes Cardura 2 mg, Lipitor 10, aspirin, Benicar 20, metformin 100 0 b.i.d. ALLERGIES: None. 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 PHYSICAL EXAMINATION: VITAL SIGNS: Sats are 90% on room air, respirations 16, temperature 97.69. CHEST: Reveal decreased breath sounds with minimal wheezing. CARDIAC: Normal S1, S2, no gallops. ABDOMEN: Soft, no mass. Electrolytes are normal. Renal function normal. LABORATORY DATA: White count 7000, H and H 15 and 46. IMPRESSION: 1. Severe chronic obstructive pulmonary disease, former smoker. 2. Thrombocytopenia. 3. Right heart failure. 4. Former smoker. PLAN: He needs an outpatient full PFT as well as a sleep study if he agrees to do so. In the meanti me, I suggest bronchodilator therapy. We will discuss and follow. Consultation note 70 minutes, 50% in direct patient care.
[2018-04-18] MEDS ORDERED: Mometasone/Formoterol 120 PUFF INHALER INH SCH (18:30)
--- NOTE | 2018-04-19 00:24 | DIS-2 ---
DATE OF ADMISSION: 04/14/2018 DATE OF DISCHARGE: 04/18/2018 RESIDENT: Lucy Herzog MD ADMITTING ATTENDING: Mo Naranjo MD DISCHARGE ATTENDING: Carla Mirza MD CONSULTATIONS: 1. Cardiology - Dr. Jean. 2. Pulmonology - Dr. Hill. PROCEDURES: 1. Chest x-ray on 04/14/2018: Stable elevation of right hemidiaphragm, mild right basilar atelectasis, stable cardiomegaly. 2. Echo on 04/15/2018: EF 50%-55%, decreased left atrium, massively enlarged right ventricle, decreased left ventricle, mild mitral regurgitation, mild-to- moderate tricuspid regurgitation, right ventricular systolic pressure mildly elevated. 3. Nuclear medicine pulmonary perfusion scan on 04/16/2018: Low probability for pulmonary thromboembolism, elevated right hemidiaphragm. 4. Chest x-ray on 04/16/2018: Chronic changes, persistent elevation of right hemidiaphragm. 5. EKG on 04/17/2018: Normal sinus rhythm, left-axis deviation, right bundle branch block. PRIMARY DIAGNOSIS: Congestive heart failure exacerbation. SECONDARY DIAGNOSES: Chronic obstructive pulmonary disease, hypertension, hyperlipidemia, diabetes. DISCHARGE MEDICATIONS: 1. Fluticasone/salmeterol (Advair Diskus) 25-50 1 inhalation twice daily. 2. Albuterol sulfate HFA (Proventil HFA) 1 puff inhalation as needed. 3. Metformin HCL 1000 mg oral twice daily with meals. 4. Doxazosin 2 mg oral at bedtime. 5. Atorvastatin calcium (Lipitor) 10 mg oral at bedtime. 6. Aspirin 325 mg oral twice daily. 7. Olmesartan medoxomil (Benicar) 20 mg oral daily. DISCONTINUED MEDICATIONS: None. HISTORY OF PRESENT ILLNESS AND HOSPITAL COURSE: This is an 83-year-old male who presented on 04/14/2018 with increased shortness of breath for the last day. The patient had endorsed the shortness of breath was more while lying flat and while walking. In the ED, the patient received 40 mg IV Lasix and nitro, which improved his shortness of breath. On day 2, the shortness of breath had significantly improved. The patient was still using nasal cannula to help with oxygen saturation. Another dose of Lasix was given. It was found that the patient had thrombocytopenia - no bruising or bleeding present. On day 3, the patient continued to improve. The patient no longer needed supplemental oxygen and was saturating well on room air. The results of the echo returning, Cardiology was consulted to help with his management. They helped to adjust his medications and recommended pulmonology work up in the outpatient followed by right heart cath if necessary. Later that night, a code green was called on the patient due to low blood pressure. Two hours prior, the patient had received Ativan to ease anxiety during the perfusion scans, which may have led to his hypotension. Two 500 mL boluses were given to help with his blood pressure. Since this event, the patient's blood pressure has steadily improved and he has remained asymptomatic and expressed a desire to go home. He has been encouraged to have close followup with his facility attendant, stamp redemption clerk, and PCP. DISPOSITION: Stable. DISCHARGE INSTRUCTIONS: 1. Location: Home. 2. Diet: Heart healthy, fluid restrict, and sodium restrict. 3. Activity: Ad tangela with fall precautions. 4. Follow up with facility attendant, Dr. Jean, within 1 week. Follow up with stamp redemption clerk, Dr. Hill, in 1 week. Follow up with PCP within 1-2 weeks. TERA
--- NOTE | 2018-04-19 11:56 | EKG ---
Test Reason : SOB Blood Pressure : / mmHG Vent. Rate : 077 BPM Atrial Rate : 077 BPM P-R Int : 160 ms QRS Dur : 172 ms QT Int : 412 ms P-R-T Axes : 043 -70 -46 degrees QTc Int : 466 ms Normal sinus rhythm Possible Left atrial enlargement Left axis deviation Right bundle branch block Septal infarct , age undetermined T wave abnormality, consider inferolateral ischemia Abnormal ECG Confirmed by KAY PARISH ([id number]), state editor NICOLE ATKINS ([id number]) on 04/19/2018 11:56:29 AM Referred By: Confirmed By:KAY PARISH
== END 2018-04-18 14:07 | disposition home health service (06) | DRG 292 ==
LOC: ERS 13:17 → 2NO 15:20
PROVIDERS: ADMIT Family Medicine; ATTEND Family Medicine
DX: I11.0 Hypertensive heart disease with heart failure (principal); J98.11 Atelectasis; N17.9 Acute kidney failure, unspecified; E87.1 Hypo-osmolality and hyponatremia; I50.33 Acute on chronic diastolic (congestive) heart failure; I08.1 Rheumatic disorders of both mitral and tricuspid valves; I45.10 Unspecified right bundle-branch block; J44.9 Chronic obstructive pulmonary disease, unspecified; E78.5 Hyperlipidemia, unspecified; E11.9 Type 2 diabetes mellitus without complications; D69.6 Thrombocytopenia, unspecified; I95.9 Hypotension, unspecified; Z87.891 Personal history of nicotine dependence; I50.810 Right heart failure, unspecified; G47.33 Obstructive sleep apnea (adult) (pediatric); I25.2 Old myocardial infarction
CPT/HCPCS: 36415; 36416; 71045; 71046; 78582; 80048; 80053; 82553; 82570; 83880; 84484; 84540; 85025; 85060; 93005; 93010; 93306; 93798; 94640; 96374; A9540; A9558; J1940; J7620

== ENCOUNTER 2018-07-15 12:42 | Outpatient (CLI) | payer MEDICARE, MEDICAID ==
--- NOTE | 2018-07-15 14:22 | RAD ---
CHEST TWO VIEWS: History: 83-year-old male with history of dyspnea. Comparison: 04-16-18 FINDINGS: Marked right hemidiaphragm elevation with some linear parenchymal changes in the right base, probably some chronic subsegmental atelectasis or fibrosis. Heart size is borderline. Atherosclerosis of the aorta with some ectasia. Old granulomatous disease. IMPRESSION: No significant acute intrathoracic disease. Right hemidiaphragm elevation with chronic stable linear and parenchymal changes in the right base. Atherosclerosis of the aorta with ectasia. POS: SONA
== END 2018-07-15 12:43 | disposition home or self-care (01) ==
LOC: RAD 12:42
PROVIDERS: ATTEND Internal Medicine
DX: R06.00 Dyspnea, unspecified (principal); I70.0 Atherosclerosis of aorta; I77.819 Aortic ectasia, unspecified site
CPT/HCPCS: 71046

== ENCOUNTER 2018-09-03 19:30 | Outpatient (CLI) | payer MEDICARE, MEDICAID | END 2018-09-03 19:31 | disposition home or self-care (01) | LOC: SLEEPLAB 19:30 | PROVIDERS: ATTEND Internal Medicine Pulmonary Disease | DX: G47.33 Obstructive sleep apnea (adult) (pediatric) (principal); E66.9 Obesity, unspecified; I50.9 Heart failure, unspecified; J44.9 Chronic obstructive pulmonary disease, unspecified; Z68.29 Body mass index [BMI] 29.0-29.9, adult | CPT/HCPCS: 95811 ==

== ENCOUNTER 2018-09-11 14:11 | Outpatient (CLI) | payer MEDICARE, MEDICAID ==
--- NOTE | 2018-09-17 11:13 | PFT ---
PATIENT HISTORY: HEIGHT: 62 IN WEIGHT: 154 LBS SMOKER: NO HOW LON YRS PACKS PER DAY PRODUCTIVE COUGH: LUNG DISEASE: PHYSICIAN INTERPRETATION Patient had good effort and cooperation. PATIENT WAS UNABLE TO EXHALE FULLY OR HOLD BREATH DURING DLCO. THOSE DATA MAYBE INACCURATE. PFT data: FVC 1.37 (51%), FEV1 0.98 (50%), FEV1/FVC 0.71 There is a reduction the both the FEV1 and the FVC. The ratio is suggestive of a restrictive profile. Lung volumes and diffusion capacity could not be interpreted. IMPRESSION: Overall, These pulmonary function studies are suggestive of moderate restrictive lung disease lung volumes would be required to clearly establish this. Grinder Operator External Tool: Deputy Assessor: YOLANDE HALEY
== END 2018-09-11 14:12 | disposition home or self-care (01) ==
LOC: CP 14:11
PROVIDERS: ATTEND Internal Medicine Pulmonary Disease
DX: R06.02 Shortness of breath (principal)
CPT/HCPCS: 94060; 94727

== ENCOUNTER 2018-09-30 14:03 | Inpatient (IN) | payer MEDICARE, MEDICAID ==
[2018-09-30] MEDS ORDERED: Furosemide 40 MG/4 ML VIAL ONE (14:39)
[2018-09-30 14:52] LABS: Actual Bicarbonate (HCO3a) 20.8 mEq/L (22-28); Analyzer IN Cardio ER; Base Excess (BEa) -6.4 mEq/L (-2.0 to +3.0); CO2 Tension 47.2 mmHg (35.0-45.0); Calcium, Ionized 1.18 mmol/L (1.12-1.30); Carboxyhemoglobin (COHb) 1.5 gm% (0.0-3.0); Hemoglobin (Hb) 14.2 g/dL (14.0-18.0); O2 Tension (PaO2) 64.3 mmHg (> 60.0); Potassium - ABG Lab 5.19 mmol/L (3.70-5.30); pH, Arterial 7.26 (7.35-7.45)
[2018-09-30 14:54] LABS: Puncture Site L.R.
[2018-09-30 15:00] LABS: #Basophils 0.1 thou/uL (0.0-0.2); #Eosinphils 0.1 thou/uL (0.0-0.7); #Lymphocytes 1.3 thou/uL (1.20-3.40); #Neutrophils 5.9 thou/uL (1.40-6.50); %Eosinophils 1.7 % (0.0-10.0); %Lymphocytes 15.6 % (21.0-51.0); %Monocytes 12.1 % (0.0-10.0); %Neutrophils 69.6 % (42.0-75.0); Hemoglobin 14.3 g/dL (14.0-18.0); Mean Corpuscular HGB CONC 32.2 g/dL (32.0-36.0); Mean Corpuscular Hemoglobin 29.7 pg (27.0-31.0); Mean Corpuscular Volume 92.2 fL (78.0-98.0); Mean Platelet Volume 11.4 fL (7.4-10.4); Platelet Count 88 thou/uL (130-400); RBC Distribution Width 17.4 % (11.5-14.5); Red Blood Cell (RBC) Count 4.81 mill/uL (4.70-6.10); White Blood Cell (WBC) Count 8.5 thou/uL (4.8-10.8)
[2018-09-30] MEDS ORDERED: Atropine Sulfate 1 mg/10 ml Syringe ONE (15:05)
[2018-09-30] MEDS ORDERED: Rocuronium Bromide 10 MG/ML (10ML VIAL) ONE (15:09)
[2018-09-30] MEDS ORDERED: Calcium Chloride 1 GM/10 ML Abboject SYRINGE ONE (15:14)
[2018-09-30] MEDS ORDERED: DOPamine 400 MG/D5W 250 ML 250 ML ONE (15:18)
[2018-09-30] MEDS ORDERED: fentaNYL Citrate/PF 2,000 MCG in Sodium Chloride 0.9% 60 ML IV SCH (15:35)
[2018-09-30 16:00] LABS: ALT (SGPT) 16 U/L (8-55); AST (SGOT) 27 U/L (5-34); Acetaminophen Less than 6.0 mcg/mL (10.0-30.0); Albumin 3.8 g/dL (3.4-4.8); Alcohol Less than 10 mg/dL (Less than 10); Alkaline Phosphatase 129 U/L (40-150); Anion Gap 16 mmol/L (10-20); BUN (Urea Nitrogen) 49 mg/dL (8.4-25.7); Bilirubin, Total 2.1 mg/dL (0.2-1.2); CK (CPK) 69 U/L (30-200); Calc. Creatinine Clearance 0 mL/min (70-130); Calcium 9.4 mg/dL (7.8-10.44); Carbon Dioxide 23 mmol/L (23-31); Chloride 96 mmol/L (98-107); Estimated GFR-MDRD 45; Globulin 3.4 g/dL (2.4-3.5); Glucose 119 mg/dL (83-110); Lipase 70 U/L (8-78); Potassium 5.8 mmol/L (3.5-5.1); Protein, Total 7.2 g/dL (5.8-8.1); Salicylate Less than 8.0 mg/dL (15.0-30.0); Sodium 129 mmol/L (136-145)
[2018-09-30 16:07] LABS: Actual Bicarbonate (HCO3a) 24.1 mEq/L (22-28); Analyzer IN Cardio ER; Base Excess (BEa) -1.2 mEq/L (-2.0 to +3.0); CO2 Tension 42.8 mmHg (35.0-45.0); Calcium, Ionized 1.33 mmol/L (1.12-1.30); Carboxyhemoglobin (COHb) 1.6 gm% (0.0-3.0); O2 Tension (PaO2) 85.7 mmHg (> 60.0); Potassium - ABG Lab 5.42 mmol/L (3.70-5.30); pH, Arterial 7.37 (7.35-7.45)
[2018-09-30 16:09] LABS: Puncture Site LRA
[2018-09-30 16:21] LABS: Bilirubin Negative (Negative); Blood, Urine Small (Negative); Clarity CLEAR (Clear); Glucose, Urine (Dipstick) Negative (Negative); Leukocyte Small (Negative); Nitrite Negative (Negative); Protein, Urine (Dipstick) Negative (Neg-Trace); Specific Gravity, Urine 1.007 (1.002-1.036); Urobilinogen 0.2 mg/dL (0.2-1.0)
[2018-09-30 16:23] LABS: Bacteria/HPF None Seen HPF (None Seen); Hyaline Casts/LPF 0-3 HYALINE CAST LPF (0-3 Hyaline); Pathc Cast-AUWi Flag 0.43 (0-2.49); Squamous Epithelial 0-3 HPF (0-3); WBC/HPF None Seen HPF (0-3)
[2018-09-30 16:30] LABS: Amphetamine Not Detected (NotDetected); Barbiturates Screen Not Detected (NotDetected); Benzodiazepine Screen Not Detected (NotDetected); Cocaine Metabolite Screen Not Detected (NotDetected); Medtox Control Line Valid? VALID (VALID); Medtox Reader # READER 1; Methadone Not Detected (NotDetected); Methamphetamine Not Detected (NotDetected); Opiate Screen Not Detected (NotDetected); Oxycodone Screen Not Detected (NotDetected); Phencyclidine (PCP) Not Detected (NotDetected); THC/Cannabinoid Screen Not Detected (NotDetected); Tricyclic Screen Not Detected (NotDetected)
[2018-09-30] MEDS ORDERED: DOBUTamine 500 mg/250 ml 250 ML ONE (16:54)
[2018-09-30] MEDS ORDERED: Bisacodyl 10 MG SUPP PR PRN (17:07)
[2018-09-30] MEDS ORDERED: Ondansetron ODT 4 MG TAB PO PRN (17:07)
[2018-09-30] MEDS ORDERED: Dextrose 5% in Water 1,000 ML IV PRN (17:07)
[2018-09-30] MEDS ORDERED: Bisacodyl 5 MG TAB PO PRN (17:07)
[2018-09-30] MEDS ORDERED: Acetaminophen 650 MG Suppository PR PRN (17:07)
[2018-09-30] MEDS ORDERED: Dextrose 50% Abboject 50 ML SYRINGE SLOW IVP PRN (17:07)
[2018-09-30] MEDS ORDERED: Senokot S 8.6-50 MG TAB PO PRN (17:07)
[2018-09-30] MEDS ORDERED: Ondansetron PF 4 MG/2 ML Vial IVP PRN (17:07)
--- NOTE | 2018-09-30 17:13 | PDOC.FPRHP ---
- History of Present Illness Chief Complaint: Neck Pain History of Present Illness: Mr. Marvin presents to the ED with a headache, the following history has been obtained from EMS/Medical records as pt is intubated on exam He has had a headache since his fall 6 days ago, since that time the family also reports fatigue, altered mentation, dyspnea on exertion and orthopnea. Denies chest pain, palpitations, syncope, fever, chills, abdominal upset, weakness, or visual disturbance. He recently had PFTs done with Dr. Hill, no reported follow up or testing/procedures with cardiology. He has been taking his medication as prescribed and has no known exposures or sick contacts. ED Course: Atropine, Lasix 40mg IV, CaCl. Persistent respiratory distress, intubated in ED. Aden placed, adequate sedation obtained CBC, CMP, BNP, TSH, Trop, CK, ABG, BCx, Ammonia, Lipase, CT brain/cspine - Allergies/Adverse Reactions Allergies Allergy/AdvReac Type Severity Reaction Status Date / Time No Known Drug Allergies Allergy Verified 03/19/15 13:31 - Home Medications Medication Instructions Recorded Confirmed Type metFORMIN HCl 1,000 mg PO BID- 03/02/13 09/30/18 History Atorvastatin Calcium [Lipitor] 10 mg PO HS 03/19/15 09/30/18 History Doxazosin [Cardura] 2 mg PO HS 03/19/15 09/30/18 History Aspirin 325 mg PO BID 04/14/18 09/30/18 History Olmesartan Medoxomil [Benicar] 20 mg PO DAILY 04/14/18 09/30/18 History Albuterol Sulfate HFA (OR) 1 puff INH PRN PRN #1 inh 04/18/18 09/30/18 Rx [Proventil Hfa (or)] Fluticasone/Salmeterol [Advair 1 inh IH BID #1 disk.w.dev 04/18/18 09/30/18 Rx Diskus 250/50] Benzonatate 100 mg PO DAILY 09/30/18 09/30/18 History Celecoxib 200 mg PO DAILY 09/30/18 09/30/18 History Tamsulosin HCl 0.4 mg PO DAILY 09/30/18 09/30/18 History Triamterene/Hydrochlorothiazid 1 tablet PO DAILY 09/30/18 09/30/18 History [Triamterene-Hctz 37.5-25 mg Tb] - History PMHx:DM, HLD, HTN, NSTEMI 2015 PSHx: left knee and right shoulder, bilateral cataracts FHx: NC Social: denies TAD - Review of Systems ROS unobtainable: due to endotracheal tube - Vital signs BP: 123/60 HR: 62 RR: 16 Tmax: 97.3 Pox: 100% on vent Wt: 71.67kg - Physical Exam Constitutional: other (intubated and sedated) HEENT: normocephalic and atraumatic, conjunctiva clear, no scleral icterus, MMM Neck: supple, trachea midline, other (JVD present) Chest: no lesions Heart: RRR, other (murmer present, pitting edema present) Lungs: other (crackles/ronchi present) Abdomen: soft, no masses/distention, other (fluid wave present) Musculoskeletal: normal structure Skin: no rash/lesions, good turgor Heme/Lymphatic: no unusual bruising or bleeding, no LAD FMR H&P: Results - Labs Result Diagrams: 10/01/18 05:10 10/01/18 05:10 Lab results: WBC 8.5 thou/uL (4.8-10.8) 09/30/18 14:30 Hgb 14.3 g/dL (14.0-18.0) 09/30/18 14:30 Hct 44.4 % (42.0-52.0) 09/30/18 14:30 MCV 92.2 fL (78.0-98.0) 09/30/18 14:30 Plt Count 88 thou/uL (130-400) L 09/30/18 14:30 Neutrophils % 69.6 % (42.0-75.0) 09/30/18 14:30 ABG pH 7.37 (7.35-7.45) 09/30/18 16:03 ABG pCO2 42.8 mmHg (35.0-45.0) 09/30/18 16:03 ABG pO2 85.7 mmHg (> 60.0) H 09/30/18 16:03 Sodium 129 mmol/L (136-145) L 09/30/18 14:30 Potassium 5.8 mmol/L (3.5-5.1) H 09/30/18 14:30 Chloride 96 mmol/L (98-107) L 09/30/18 14:30 Carbon Dioxide 23 mmol/L (23-31) 09/30/18 14:30 BUN 49 mg/dL (8.4-25.7) H 09/30/18 14:30 Creatinine 1.50 mg/dL (0.7-1.3) H 09/30/18 14:30 Glucose 119 mg/dL (83-110) H 09/30/18 14:30 Calcium 9.4 mg/dL (7.8-10.44) 09/30/18 14:30 Total Bilirubin 2.1 mg/dL (0.2-1.2) H 09/30/18 14:30 AST 27 U/L (5-34) 09/30/18 14:30 ALT 16 U/L (8-55) 09/30/18 14:30 Alkaline Phosphatase 129 U/L (40-150) 09/30/18 14:30 Ammonia 60 umol/L (18-72) 09/30/18 14:59 Creatine Kinase 69 U/L (30-200) 09/30/18 14:30 B-Natriuretic Peptide 1026.2 pg/mL (0-100) H 09/30/18 14:30 Serum Total Protein 7.2 g/dL (5.8-8.1) 09/30/18 14:30 Albumin 3.8 g/dL (3.4-4.8) 09/30/18 14:30 Lipase 70 U/L (8-78) 09/30/18 14:30 Urine Ketones Negative mg/dL (Negative) 09/30/18 16:10 Urine Blood Small (Negative) H 09/30/18 16:10 Urine Nitrite Negative (Negative) 09/30/18 16:10 Ur Leukocyte Esterase Small (Negative) H 09/30/18 16:10 Urine RBC 4-6 HPF (0-3) 09/30/18 16:10 Urine WBC None Seen HPF (0-3) 09/30/18 16:10 Ur Squamous Epith Cells 0-3 HPF (0-3) 09/30/18 16:10 Urine Bacteria None Seen HPF (None Seen) 09/30/18 16:10 FMR H&P: A/P - Problem List (1) Acute hypercapnic respiratory failure Current Visit: Yes Status: Acute Code(s): J96.02 - ACUTE RESPIRATORY FAILURE WITH HYPERCAPNIA (2) CHF exacerbation Current Visit: No Status: Acute Code(s): I50.9 - HEART FAILURE, UNSPECIFIED (3) Acute kidney injury Current Visit: No Status: Acute Code(s): N17.9 - ACUTE KIDNEY FAILURE, UNSPECIFIED (4) Third degree atrioventricular block Current Visit: Yes Status: Acute Code(s): I44.2 - ATRIOVENTRICULAR BLOCK, COMPLETE (5) Diabetes mellitus, type 2 Current Visit: No Status: Acute (6) HLD (hyperlipidemia) Current Visit: No Status: Acute Code(s): E78.5 - HYPERLIPIDEMIA, UNSPECIFIED (7) HTN (hypertension) Current Visit: No Status: Chronic Code(s): I10 - ESSENTIAL (PRIMARY) HYPERTENSION (8) Restrictive lung disease Current Visit: Yes Status: Chronic Code(s): J98.4 - OTHER DISORDERS OF LUNG - Plan Acute Hypercapnic respiratory failure with Acidosis - persistent hypoxia and respiratory distress, ABG pH 7.2, intubated in ED with annika and etomidate. - intubation sedation protocol initiated, sedation vacation q12hr, suction airway as needed - monitor repeat ABG - pulmonology consulted, appreciate recommendations CHF exacerbation - primarily R sided failure, EF 50-60% in 04/09 echocardiogram - acute decompensation with hypotension and bradycardia POA, continue dobutamine drip - consider Lasix 40 mg BID IV - strict IOs, monitor vital signs - cardiology consulted, appreciate recommendations - consider ECHO in AM if no cath/echo tonight AUDRA - Lasix and fluid restriction indicated at this time - monitor with daily BMP, hold other nephrotoxic meds - consider dialysis with continued elevation 3rd degree heart block - probable, noted on EKG in ED - possible AICD/pacer placement Restrictive lung disease - noted on recent PFTs, pulmonology consulted - currently intubated DMII - aware, continue home meds - mild SSI HTN - blood pressures low on admission - hold home medications for now HLD - aware, continue home medications Code: full ppx: lovenox, famotidine Disposition/LOS: admit to ICU, maintain perfusion, diurese, monitor pressures. FMR H&P: Upper Level - Pertinent history Patrice Marvin is an 83 year old M with a PMH of right heart failure, COPD, DEAN, HTN, HLD, DM2, BPH who presented to the ED with a 1 day history of headache and malaise. History was obtained primarily from family/ERMD/Medical records as patient was intubated in the ED, prior to admission. states that patient has had headache for about a week, with associated altered mental status and worsened orthopnea and MALAGON. Patient was admitted for CHF exacerbation about 6 months ago. Had Echo done at that time that showed LVEF of 50-55%, but right heart failure with severely dilated RV. Dr. Jean managed patient during that stay, as well as Dr. Hill, pulmonology. Patient recently had outpatient PFTs that showed decreased FEV1 and FVC, suggestive of restrictive process and also had sleep study done, showing severe DEAN. states that patient has not recently been complaining of fevers, chills, chest pain, palpitations, abd pain/n/v/d. In the ED, the patient was hypotensive and bradycardic. EKG in the ED showed 3rd degree heart block. Patient was given atropine, 40 mg IV lasix and CaCl. He had continued respiratory distress and was intubated. Dr. Jean was consulted by ERMD. Patient was started on Dopamine and Dobutamine ggt. BP and HR improved after starting the ggt and patient to be transferred to CCU. - Pertinent findings VS: BP 123/60, HR 53, RR 16, T 97.0, O2 sat 98 on Mech Vent PE: Gen: Intubed on mech ventilation HEENT: PERRL, MMM, JVD present, no lymphadenopathy CV: Bradycardic, regular rhythm, no murmurs Resp: Mild rales, good air movement, b/l breath sounds Abd: soft, nondistended Ext: 2+ pitting edema, no cyanosis Skin: no rashes, lesions Laboratory Tests 09/30/18 09/30/18 09/30/18 14:30 14:30 14:30 WBC 8.5 Hgb 14.3 Hct 44.4 Plt Count 88 L ABG pH ABG pCO2 ABG pO2 Sodium 129 L Potassium 5.8 H Chloride 96 L Carbon Dioxide 23 BUN 49 H Creatinine 1.50 H Estimated GFR (MDRD) 45 Glucose 119 H Total Bilirubin 2.1 H AST 27 ALT 16 Ammonia Creatine Kinase 69 Troponin I B-Natriuretic Peptide 1026.2 H Lipase 70 TSH 3rd Generation Urine pH Urine Protein Urine Glucose (UA) Urine Ketones Urine Blood Urine Nitrite Urine Bilirubin Ur Leukocyte Esterase Urine RBC Urine WBC Ur Squamous Epith Cells Urine Bacteria 09/30/18 09/30/18 09/30/18 14:30 14:30 14:48 WBC Hgb Hct Plt Count ABG pH 7.26 L ABG pCO2 47.2 H ABG pO2 64.3 H Sodium Potassium Chloride Carbon Dioxide BUN Creatinine Estimated GFR (MDRD) Glucose Total Bilirubin AST ALT Ammonia Creatine Kinase Troponin I 0.016 B-Natriuretic Peptide Lipase TSH 3rd Generation 2.8697 Urine pH Urine Protein Urine Glucose (UA) Urine Ketones Urine Blood Urine Nitrite Urine Bilirubin Ur Leukocyte Esterase Urine RBC Urine WBC Ur Squamous Epith Cells Urine Bacteria 09/30/18 09/30/18 09/30/18 14:59 16:03 16:10 WBC Hgb Hct Plt Count ABG pH 7.37 ABG pCO2 42.8 ABG pO2 85.7 H Sodium Potassium Chloride Carbon Dioxide BUN Creatinine Estimated GFR (MDRD) Glucose Total Bilirubin AST ALT Ammonia 60 Creatine Kinase Troponin I B-Natriuretic Peptide Lipase TSH 3rd Generation Urine pH 6.0 Urine Protein Negative Urine Glucose (UA) Negative Urine Ketones Negative Urine Blood Small H Urine Nitrite Negative Urine Bilirubin Negative Ur Leukocyte Esterase Small H Urine RBC 4-6 Urine WBC None Seen Ur Squamous Epith Cells 0-3 Urine Bacteria None Seen EKrd degree heart block, no ST changes CT brain and cervical spine: neg CXR: ET tip 2 cm above andrei, uncomplicated placement of R CVC, new right pleural effusion and mild pulmonary edema - Plan Date/Time: 09/30/18 1711 Bayron Cardoso, have evaluated this patient and agree with findings/plan as outlined by director internal audit resident. Pertinent changes/additions are listed here. 1) Acute hypercapneic, hypoxic respiratory failure: - Likely 2/2 right heart failure exacerbation vs copd exacerbation - Initial ABG: pH 7.236, CO2 47, pO2 64 - Intubated, placed on Mech Vent in ED, Right IJ CVC placed in ED - ABG 1 hr after intubation: pH 7.37, pCO2 42, pO2 85 - Goal to reduce pulmonary vascular resistance, continue mech vent, dopamine ggt, dobumine ggt - Pulmonology, Dr. Delcid, consulted 2) Cardiogenic Shock - likely 2/2 acute decompensated right heart failure - Bradycardic and hypotensive in the ED - EKG showed 3rd degree AV block - Started on dopamine and dobutamine ggt - BP improved in ED after starting ggts, will continue in CCU - Dr. Jean consulted in ED, appreciate recs - strict I/Os, daily weights - holding home BP meds, beta rufina 3) Acute decompensated right heart failure - see above 4) 3rd degree AV block - no hx of AV block on previous EKGs - continuous cardiac monitoring - Cardiology, Dr. Jean, consulted 5) AUDRA - likely hypoperfusion - continue to monitor - AM BMP 6) Electrolyte imbalance - like 2/2 #2 - hyperkalemia and hyponatremia - repeat CMP in AM 7) COPD - 30 pk year smoking hx - duonebs 8) HTN - holding home meds at this time 9) DM2 - Hold home metformin - HgA1c - Accuchecks - consider SSI 10) HLD - increase to high intensity statin 11) Hyperbilirubinemia - likely hepatic congestion 2/2 right heart failure - monitor CODE STATUS: FULL CODE Dispo: Admit to CCU, patient's prognosis is guarded Addendum - Attending - Attending Attestation Date/Time: 09/30/181811 I personally evaluated the patient and discussed the management with Dr. Blanchard and Zac I agree with the History, Examination, Assessment and Plan documented above with any addition or exceptions noted below. 83 yo male admitted for cardiogenic shock with repiratory failure Patient on vent. Admit to ICU. Consult critical care. Cardiogenic shock 2/2 3rd degree heart block and severe cor pulmonale. On pressor support and inotropic support. Cards consulted and managing. Rule out ischemia. Manage other co-morbidities. Adjust home meds as needed. Infectious workup pending. Follow closely throughout the night. Dennis
--- NOTE | 2018-09-30 17:28 | RAD ---
CHEST 1 VIEW: HISTORY: Central line and intubation. COMPARISON: Radiograph 07/15/2018. FINDINGS: Central venous catheter is in place with tip at the right atrium. No pneumothorax. Endotracheal tube tip is poorly seen, although it is felt to be above the clarita approximately 2 cm. Enteric tube tip is in good position. Layering right effusion. Mild edema. Heart size is enlarged. IMPRESSION: 1. Endotracheal tube tip is felt to be approximately 2 cm above the clarita. Repeat a repeat exam wi th removal of the defibrillator pads. 2. New right effusion. 3. Mild pulmonary edema. 4. Uncomplicated placement of a right internal jugular central venous catheter. POS: TPC
[2018-09-30] MEDS ORDERED: DOBUTamine 500 mg/250 ml 250 ML IVPB SCH (18:15)
--- NOTE | 2018-09-30 18:23 | CT ---
NONCONTRAST CT HEAD: 09/30/18 HISTORY: Altered mental status and headache. COMPARISON: None available. FINDINGS: There is no evidence of hemorrhage, acute infarction, mass effect, or midline shift. There is cerebra l volume loss. The ventricular system is normal in size, shape, and position for the degree of sulcal atrophy. A few scattered low density areas are seen in the periventricular white matter which are no nspecific but likely reflective of chronic small vessel ischemic changes. There is scalp soft tissue swelling seen within the right occipital region. No underlying calvarial f racture is present. There is a small increased density focus in a right mastoid air cell which may represent a tiny osteo ma. IMPRESSION: 1. No acute intracranial abnormalities demonstrated. 2. Right parietal scalp hematoma. 3. Cerebral volume loss and mild chronic small vessel ischemic changes. POS: NATASHAH
--- NOTE | 2018-09-30 18:35 | CT ---
NONCONTRAST CT CERVICAL SPINE: 09/30/18 HISTORY: Posterior neck pain which started last night. Patient had a fall six days ago. Trauma. FINDINGS: There are generalized heterogeneity of the bone marrow with multilevel degenerative changes present i ncluding prominent facet hypertrophic changes at multiple levels. There is fusion of the C6 and C7 v ertebral bodies. There is narrowing of the intervertebral disc spaces at all levels with posterior o steophyte formation at multiple levels. The patient's head is rotated to the left. The predental space as well as interspinous distances are within normal limits. There are varying degrees of moderate and severe neural foraminal narrowing sec ondary to bone encroachment and prominent degenerative changes seen throughout the cervical spine. A ventriculoperitoneal shunt catheter is seen on the right partially imaged. Vascular calcifications are seen in the carotid arteries. Endotracheal tube and nasogastric tubes are noted in place. Prevertebral soft tissues are within normal limits. There is varying degrees of central canal narrowing due to bony encroachment. IMPRESSION: 1. Multilevel degenerative changes seen throughout the cervical spine. There is a mottled appear ance of the osseous structures of the cervical spine which is most likely attributable to the degener ative changes and probable osteoporosis. 2. No acute fracture or subluxation is delineated. 3. Fusion of the C6 and C7 vertebral bodies. POS: SONA
--- NOTE | 2018-09-30 19:39 | CON ---
DATE OF CONSULTATION: REASON FOR CONSULTATION: Third degree AV block. HISTORY OF PRESENT ILLNESS: Mr. Marvin is a very pleasant 83-year-old gentleman, last seen and evaluated in the past. He has a history of RV dilatation with mildly elevated pulmonary pressures. He also has a history of lower extremity edema. He has been seen and evaluated for pulmonary workup, which is currently in progress. His states he recently felt weak and fatigued. He had a fall, but she is unknown whether he had a true passing-out spell. She states he has been in a recliner, sleeping. No chest pain or pressure noted. He has had posterior neck discomfort, but no chest pain. He also denies shortness of breath. He has had chronic intermittent lower extremity edema. He was seen and evaluated in the emergency room. The details are vague. He did require intubation, although, states he had no history of shortness of breath. He was in the emergency room, where he was found to be bradycardic with heart rate in the 30s to 40s. He was given atropine, dopamine, and dobutamine with appropriate response. During my visit, he is following commands and awaking to a voice. He also appears to be urinating appropriately. HOME MEDICATIONS: Include: 1. Lasix. 2. Flonase. 3. Aspirin. 4. Celebrex. 5. Benicar. 6. Doxazosin. 7. Metformin. 8. Atorvastatin. 9. Tamsulosin. SOCIAL HISTORY: No current tobacco or alcohol use. ALLERGIES: NONE. PAST MEDICAL HISTORY: Diabetes mellitus, hypertension, RV enlargement, shortness of breath, abnormal stress study with mild ischemia in the anteroseptal region with normal LVEF, and COPD. REVIEW OF SYSTEMS: Not obtainable. He is currently intubated. PHYSICAL EXAMINATION: GENERAL: Patient is a pleasant male, who is in no acute distress. The patient appears their stated age. He is currently intubated and somewhat sedated, but he is following commands. Moving upper and lower extremities to command. VITAL SIGNS: Blood pressure 160/70, pulse 68, respirations 20. NEUROLOGIC: The patient is alert and oriented x3 with no focal neurologic deficits. HEENT: Sclerae without icterus. Mouth has moist mucous membranes with normal pallor. NECK: No JVD. Carotid upstroke brisk. No bruits bilaterally. LUNGS: Clear to auscultation with unlabored respirations. BACK: No scoliosis or kyphosis. CARDIAC: Regular rate and rhythm with normal S1 and S2. No S3 or S4 noted. No significant rubs, murmurs, thrills, or gallops noted throughout the precordium. PMI is not displaced. There is no parasternal heave. ABDOMEN: Soft, nontender, nondistended. No peritoneal signs present. No hepatosplenomegaly. No abnormal striae. EXTREMITIES: 3+ pitting edema. 2+ femoral and 2+ dorsalis pedis pulses. No cyanosis or clubbing. SKIN: No gross abnormalities. PERTINENT LABORATORY DATA: White blood cell count 8.5, hemoglobin 13.3, hematocrit 44.4, platelet count 88. Sodium 129, potassium 5.8, chloride 96, creatinine 1.5, and BUN 49. EKG shows third-degree AV block. IMPRESSION: 1. Third-degree AV block. 2. Right ventricular enlargement. 3. ? syncope. 4. Abnormal stress study. 5. Diabetes mellitus. 6. Respiratory failure. RECOMMENDATIONS: At this point, Mr. Marvin' symptoms may all be related to underlying third-degree AV block. He has lower extremity edema, which may be related to third-degree AV block as well as RV dilation. Pulmonary workup is currently in progress. At this point, I would recommend low-dose diuretic therapy. Continue with dopamine and dobutamine support. He appears to be urinating and answering questions appropriately. At this point, there is no indication for temporary pacemaker. We will need to consider permanent pacemaker once he is improved. I did spend 40 minutes of critical care time both with family, nursing support, and the patient. Job ID: [id number]
[2018-09-30 20:28] LABS: CKMB 9.3 ng/mL (0-6.6)
[2018-09-30] MEDS ORDERED: Famotidine/PF 20 mg/2ml Vial SLOW IVP SCH (21:00)
[2018-09-30] MEDS ORDERED: Propofol 1,000 MG/100 ML VIAL IV ONE (22:34)
[2018-09-30] MEDS ORDERED: Propofol BOLUS 1,000 MG/100 ML VIAL IV PRN (22:55)
[2018-09-30] MEDS: Propofol 1,000 MG/100 ML VIAL IV PRN (23:15)
[2018-09-30 23:17] LABS: Actual Bicarbonate (HCO3a) 25.8 mEq/L (22-28); Base Excess (BEa) -2.4 mEq/L (-2.0 to +3.0); CO2 Tension 58.9 mmHg (35.0-45.0); Calcium, Ionized 1.27 mmol/L (1.12-1.30); Carboxyhemoglobin (COHb) 1.6 gm% (0.0-3.0); Hemoglobin (Hb) 14.7 g/dL (14.0-18.0); Potassium - ABG Lab 5.32 mmol/L (3.70-5.30); pH, Arterial 7.26 (7.35-7.45)
[2018-09-30 23:24] LABS: O2 Tension (PaO2) 47.5 mmHg (> 60.0)
[2018-09-30 23:25] LABS: ALV-art Gradient 306.675 (0-20); Puncture Site LBA
--- NOTE | 2018-10-01 00:26 | CON ---
DATE OF CONSULTATION: 09/30/2018 CONSULTING PHYSICIAN: [facility]. The following encompassed 35 minutes critical care time. HISTORY OF PRESENT ILLNESS: The patient is an 83-year-old male who has been seen by Dr. Hill in the hospital. He was brought in today headache and malaise. He apparently had fallen at some point 6 days ago. When he presented to the emergency room today, he was profoundly bradycardic and had altered mental status. He was intubated. He was placed on dopamine and dobutamine drip. PAST MEDICAL HISTORY: 1. Hyperlipidemia. 2. Hypertension. 3. Chronic obstructive pulmonary disease. PAST SURGICAL HISTORY: 1. Right shoulder surgery. 2. Knee replacement surgery. ALLERGIES: NONE. SOCIAL HISTORY: Not sure about tobacco consumption in the past. Previous PFTs have shown a restrictive pulmonary impairment. Previous sleep study has shown severe obstructive sleep apnea. REVIEW OF SYSTEMS: Cannot be obtained as the patient is on mechanical ventilation. FAMILY MEDICAL HISTORY: Unremarkable. PHYSICAL EXAMINATION: VITAL SIGNS: Pulse 71, blood pressure 141/74, O2 saturation 94%, respiratory rate 16. He is currently obtunded. HEENT: Pupils reactive. Sclerae anicteric. Oropharynx clear. NECK: No JVD. LUNGS: Coarse breath sounds bilaterally. CARDIOVASCULAR: S1 and S2, wide complex but regular. ABDOMEN: Soft and nontender. EXTREMITIES: 2+ edema on the feet. LABORATORY DATA: White blood cell count 8.5, hematocrit 44.4, and platelet count 88. PH 7.37, pCO2 42, PO2 85 on SIMV rate 16, tidal volume 500, PEEP 5, pressure support 10, FiO2 50%. Sodium 129, potassium 5.8, chloride 96, CO2 of 23, BUN 49, creatinine 1.5, glucose 119. BNP 1026. UDS was negative. Previous echocardiogram from 04/16 demonstrated ejection fraction of 50% to 55% with a massively enlarged right ventricle. His chest x-ray shows a chronically elevated right hemidiaphragm. There may be some component of fusion over there. He has a right IJ in place. His ET tube is in good position. ASSESSMENT: 1. Symptomatic bradycardia, now requiring dobutamine and dopamine. 2. History of right-sided heart failure. 3. Severe obstructive sleep apnea. 4. Underlying chronic obstructive pulmonary disease. PLAN: 1. The patient will be weaned off the dopamine as tolerated. He will continue with dobutamine. 2. He is being diuresed. 3. Hopefully, his electrolytes will correct with the Lasix. 4. Breeden nebulization treatments. 5. Continue mechanical ventilation at current settings. Check blood gas in the morning. Check chest x-ray in the morning. Consider CT of the chest to further workup right lower lobe abnormalities. Job ID: [id number]
[2018-10-01] MEDS: DOPamine 400 MG/D5W 250 ML 250 ML IVPB SCH ×3 (05:27→21:32)
[2018-10-01 05:39] LABS: Hemoglobin A1c 6.6 % (4.0-6.0)
[2018-10-01 06:01] LABS: ALT (SGPT) 17 U/L (8-55); AST (SGOT) 26 U/L (5-34); Albumin 3.4 g/dL (3.4-4.8); Alkaline Phosphatase 115 U/L (40-150); Anion Gap 15 mmol/L (10-20); BUN (Urea Nitrogen) 47 mg/dL (8.4-25.7); Bilirubin, Total 3.7 mg/dL (0.2-1.2); Calc. Creatinine Clearance 42 mL/min (70-130); Calcium 9.8 mg/dL (7.8-10.44); Carbon Dioxide 25 mmol/L (23-31); Chloride 94 mmol/L (98-107); Cholesterol 116 mg/dl (< 200 Desired); Estimated GFR-MDRD 47; Globulin 3.1 g/dL (2.4-3.5); Glucose 175 mg/dL (83-110); HDL Cholesterol 58 mg/dL (>60 Neg Risk); LDL Cholesterol, Calculated 42 mg/dL; Potassium 5.5 mmol/L (3.5-5.1); Protein, Total 6.5 g/dL (5.8-8.1); Sodium 128 mmol/L (136-145); Triglycerides 81 mg/dL (Less than 150)
[2018-10-01 06:25] LABS: #Lymphocytes 0.7 thou/uL (1.20-3.40); #Monocytes 1.7 thou/uL (0.11-0.59); #Neutrophils 10.1 thou/uL (1.40-6.50); %Basophils 0.2 % (0.0-1.0); %Eosinophils 0.1 % (0.0-10.0); %Lymphocytes 5.7 % (21.0-51.0); %Monocytes 13.3 % (0.0-10.0); %Neutrophils 80.7 % (42.0-75.0); Hemoglobin 13.9 g/dL (14.0-18.0); Mean Corpuscular HGB CONC 33.1 g/dL (32.0-36.0); Mean Corpuscular Hemoglobin 29.2 pg (27.0-31.0); Mean Corpuscular Volume 88.3 fL (78.0-98.0); Platelet Count 105 thou/uL (130-400); RBC Distribution Width 17.3 % (11.5-14.5); Red Blood Cell (RBC) Count 4.75 mill/uL (4.70-6.10); White Blood Cell (WBC) Count 12.6 thou/uL (4.8-10.8)
[2018-10-01] MEDS: HumaLOG 300 UNITS/3 ML VIAL SC PRN ×3 (06:26→21:30)
[2018-10-01] MEDS ORDERED: Furosemide 20 MG/2 ML VIAL SLOW IVP SCH (06:30)
--- NOTE | 2018-10-01 06:37 | PDOC.FM ---
- Subjective Subjective: Patrice Marvin seen at bedside this morning. Sedated and Intubated on mechanical ventilation. Has continued to require dopamine and dobutamine gtts to maintain adequate HRs and BPs. Patient did have a Temp of 101 early this morning. Blood cultures drawn in ED are pending. Vent Settings: SIMV, FiO2 60, Vt 500, RR 25, PEEP 10 AM ABG: pH- 7.56, pCO2 26.5, pO2 104.9 Lines: Right IJ CVC Day #2 - Objective NOV Reviewed: Yes Vital Signs & Weight: Vital Signs (12 hours) Temp Pulse Resp Pulse Ox 10/01/18 06:00 24 H 10/01/18 04:00 101 F H 24 H 10/01/18 02:40 59 L 24 H 10/01/18 02:00 24 H 10/01/18 00:00 100.6 F H 24 H 09/30/18 23:44 62 24 H 96 09/30/18 22:00 20 09/30/18 20:00 97.2 F L 16 93 L 09/30/18 19:35 59 L 16 95 Weight Weight 75.4 kg Most Recent Monitor Data Heart Rate from ECG 59 NIBP 106/72 NIBP BP-Mean 83 Respiration from ECG 24 SpO2 95 I&O: 09/29/18 09/30/18 10/01/18 06:59 06:59 06:59 Output Total 1645 Balance -1645 Result Diagrams: 10/01/18 05:10 10/01/18 05:10 Phys Exam - Physical Examination Constitutional: NAD HEENT: sclera anicteric, TM's clear Neck: supple, full ROM rales b/l, adequate air movement, b/l breath sounds Cardiovascular: RRR, no significant murmur Gastrointestinal: soft, no distention, positive bowel sounds Musculoskeletal: no edema, pulses present Skin: no rash Dx/Plan (1) Acute hypercapnic respiratory failure Code(s): J96.02 - ACUTE RESPIRATORY FAILURE WITH HYPERCAPNIA Status: Acute (2) CHF exacerbation Code(s): I50.9 - HEART FAILURE, UNSPECIFIED Status: Acute (3) Acute kidney injury Code(s): N17.9 - ACUTE KIDNEY FAILURE, UNSPECIFIED Status: Acute (4) Third degree atrioventricular block Code(s): I44.2 - ATRIOVENTRICULAR BLOCK, COMPLETE Status: Acute (5) Diabetes mellitus, type 2 Status: Acute (6) HLD (hyperlipidemia) Code(s): E78.5 - HYPERLIPIDEMIA, UNSPECIFIED Status: Acute (7) HTN (hypertension) Code(s): I10 - ESSENTIAL (PRIMARY) HYPERTENSION Status: Chronic (8) Restrictive lung disease Code(s): J98.4 - OTHER DISORDERS OF LUNG Status: Chronic - Plan Plan: 1) Acute hypercapneic, hypoxic respiratory failure: - Likely 2/2 right heart failure exacerbation vs copd exacerbation - Initial ABG: pH 7.236, CO2 47, pO2 64 - Intubated, placed on Mech Vent in ED, Right IJ CVC placed in ED - ABG 1 hr after intubation: pH 7.37, pCO2 42, pO2 85 - Goal to reduce pulmonary vascular resistance, continue mech vent, dopamine ggt, dobumine ggt - Pulmonology, Dr. Delcid, consulted 2) Cardiogenic Shock - likely 2/2 acute decompensated right heart failure - Bradycardic and hypotensive in the ED, EKG showed 3rd degree AV block - Started on dopamine and dobutamine ggt - Dr. Jean consulted in ED, appreciate recs - Recommends permanent pacemaker placement when pt is more stable - strict I/Os, daily weights - holding home BP meds, beta rufina - elevated troponins overnight, likely demand ischemia 3) Acute decompensated right heart failure - see above 4) 3rd degree AV block - no hx of AV block on previous EKGs - continuous cardiac monitoring - Cardiology, Dr. Jean, consulted 5) AUDRA - likely hypoperfusion - continue to monitor - AM BMP 6) Electrolyte imbalance - like 2/2 #2, will hopefully correct with diuresis - hyperkalemia and hyponatremia - repeat CMP in AM 7) COPD - 30 pk year smoking hx - duonebs 8) HTN - holding home meds at this time 9) DM2 - Hold home metformin - HgA1c - Accuchecks - consider SSI 10) HLD - increase to high intensity statin 11) Hyperbilirubinemia - likely hepatic congestion 2/2 right heart failure - monitor Addendum - Attending - Attending Attestation Date/Time: 10/01/18 1040 I personally evaluated the patient and discussed the management with Dr. Frank. I agree with the History, Examination, Assessment and Plan documented above with any addition or exceptions noted below. Patient here for suspected cardiovascular compromise 2/2 RV heart failure in setting of untreated COPD and restrictive lung disease. He is also in 3rd degree heart block. Intubated and stable from respiratory standpoint. HR at 60 on Dopamine and Dobutamine and Cardiology has plans for PM placement once stable. Will need to keep close eye on fluid status since he would be pre-load dependent. Trops increased but suspect demand ischemia. He did spike fever overnight, will check FLu and cultures if he re-fevers. Hyperkalemic but hope this improves with gentle diuresis. Further mgmt per Cards recs. Pulm on board.
[2018-10-01 07:49] LABS: CKMB 5.4 ng/mL (0-6.6)
[2018-10-01 08:00] LABS: Base Excess (BEa) 2.2 mEq/L (-2.0 to +3.0); CO2 Tension 26.5 mmHg (35.0-45.0); Carboxyhemoglobin (COHb) 1.6 gm% (0.0-3.0); Hemoglobin (Hb) 14.5 g/dL (14.0-18.0); O2 Tension (PaO2) 104.9 mmHg (> 60.0); Potassium - ABG Lab 5.05 mmol/L (3.70-5.30)
[2018-10-01 08:01] LABS: ALV-art Gradient 289.775 (0-20); Puncture Site LRA; pH, Arterial 7.56 (7.35-7.45)
[2018-10-01] MEDS ORDERED: Famotidine 20 MG TAB PO SCH (09:00)
[2018-10-01] MEDS ORDERED: Enoxaparin Sodium 30 MG/0.3 ML SYRINGE SC SCH (09:00)
--- NOTE | 2018-10-01 09:14 | RAD ---
AP CHEST: Date: 10/01/18 INDICATION: CCU follow-up. COMPARISON: 09/30/18. FINDINGS: Opacification in the right lung base again seen, indicating right effusion and right basilar atelecta sis or consolidation. Mild vascular engorgement. Mild cardiomegaly. Central line unchanged. IMPRESSION: Above findings show no significant change from yesterday. POS: [facility]
--- NOTE | 2018-10-01 09:35 | PRG ---
DATE OF SERVICE: 10/01/2018 SUBJECTIVE: Patrice Marvin is an 83-year-old gentleman, intubated in the vent, sedated. He came into the hospital yesterday after he had headache, he had fallen down several days earlier. He had a bruise on his left leg. He has had difficulty breathing. He was apparently confused. He has marked respiratory distress. He is intubated for symptomatic bradycardia and respiratory failure. He now has dobutamine and dopamine on board. He has history of severe right-sided heart failure, underlying COPD, and sleep apnea. OBJECTIVE: VITAL SIGNS: Blood pressure is 97/34, pulse 61, saturations 97%, respirations 10. CHEST: Decreased breath sounds, extensive rhonchi. CARDIAC: Normal S1 and S2. No gallops. ABDOMEN: No masses. LABORATORY DATA: White count 12,000, hemoglobin and hematocrit of 13 and 42, platelet count is 105. His pO2 is 104, pCO2 creatinine is 1.45. Sodium is 128. IMPRESSION: 1. Respiratory failure. 2. Chronic obstructive pulmonary disease. 3. Congestive heart failure. 4. Abnormal x-ray. 5. Sleep apnea. 6. Renal failure. PLAN: He is not weanable at this stage. Pulmonary youssef, continue neb treatments, steroids, and empiric antibiotics. Await input from Cardiology. Further recommendation thereafter. This is one half hour critical time. Job ID: [id number]
[2018-10-01] MEDS: Propofol 1,000 MG/100 ML VIAL IV PRN ×2 (10:03→21:32)
[2018-10-01] MEDS: cefTRIAXone\\ROCEPHIN 1 GM in Sodium Chloride 0.9% 100 ML IVPB SCH (10:05)
[2018-10-01] MEDS ORDERED: Iopamidol 370 76% 50 ML VIAL FS ONE (13:10)
[2018-10-01] MEDS ORDERED: CEFAZOLIN 2 GM/50 ML BAG ONE (13:55)
[2018-10-01] MEDS ORDERED: Furosemide 40 MG/4 ML VIAL SLOW IVP SCH ×2 (14:00)
--- NOTE | 2018-10-01 15:45 | CON ---
DATE OF CONSULTATION: 10/01/2018 This is an electrophysiology followup note. REFERRING PHYSICIAN: Dr. Dutch Jean. HISTORY OF PRESENT ILLNESS: I am seeing Mr. 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 His problems are: 1. Complete AV block. 2. Right ventricular failure with RV dilation and elevated pulmonary pressures. 3. History of COPD and sleep apnea. 4. Respiratory failure, on ventilator. 5. Risk factors including diabetes and hypertension. 6. Prior history of mild ischemia in anteroseptal region, but normal LVEF in the past. ALLERGIES: NONE NOTED. MEDICATIONS: At home included: 1. Metformin. 2. Doxazosin. 3. Atorvastatin. 4. Aspirin. 5. Olmesartan. 6. Fluticasone. 7. Albuterol. 8. Celecoxib. 9. Tamsulosin. 10. Triamterene/hydrochlorothiazide. 11. Benzonatate. SUBJECTIVE: Mr. Marvin is intubated and sedated. History obtained from the chart. This gentleman had significant headaches for the last 6 days, significant fatigue, and altered mentation, dyspnea was noted mostly on exertion, but also some orthopnea seen. The patient was brought to the ER and found to be markedly bradycardic. Atropine was given. He was found to be acidotic with acute hypercapnic respiratory failure and eventually was intubated. Workup revealed normal LVEF, but right sided failure, required dopamine for heart rate and blood pressure support. Currently, he is reasonably stable in the ICU, but still has EKG suggestive of complete AV block with ventricular escape rhythm. REVIEW OF SYSTEMS: Rest of review of systems, otherwise unremarkable. PAST MEDICAL HISTORY: As above. The patient had prior history of right-sided heart failure with normal EF as noted above. He had a sleep study in August 2018, positive for obstructive sleep apnea. SOCIAL HISTORY: The patient denies smoking, EtOH, or drug use. FAMILY HISTORY: Not contributory. OBJECTIVE DATA: VITAL SIGNS: Blood pressure is 103/50, heart rate 54, respiratory rate 16, and temperature 98.6 degrees Fahrenheit. GENERAL: Reveals intubated and sedated man, in no apparent distress. NECK: Supple. Jugular veins distended. CHEST: No crackles. HEART: Sounds are regular, but bradycardic. No murmur or gallop. ABDOMEN: Benign. Bowel sounds positive. EXTREMITIES: Lower extremities without edema, clubbing, or cyanosis. Pulses are adequate. NEUROLOGIC: The patient is nonfocal. MUSCULOSKELETAL: Without joint swelling or deformity. SKIN: Without rash. DATABASE: Chest x-ray from this morning reveals right lung base opacification indicating right effusion and some atelectasis, mild vascular engorgement, mild cardiomegaly, central line in place. LABORATORY DATA: Reveals white cell count initially 8.5, now 12.6; hemoglobin 14.3, now 13.9; platelet count is 88, now 105. Blood gas; initial pH 7.26, now 7.56; the pCO2 of 47, now 26.5; pO2 of 64, now 104.9. Two sets of blood cultures obtained are not resulted yet, overall to date from yesterday. Sodium 128 this morning, potassium 5.5, BUN is 47, creatinine is 1.45. Troponin levels are 0.86 and 1.3 consecutively. AST and ALT are 26 and 17. Estimated GFR is 47. TSH 2.86. BNP is 1026. ASSESSMENT AND PLAN: Mr. Marvin is an 83-year-old man with prior history of right-sided heart failure with preserved LV systolic function, chronic obstructive pulmonary disease, obstructive sleep apnea, who now presents with a complete AV block. His symptoms are largely explainable by his marked bradycardia and progressive cardiac decompensation. At this point, he is reasonably stable on intubated state and with pressor support. I discussed with nurse and Dr. Jean the case. I think it is reasonable to proceed with a pacemaker implantation near date and I am not expecting recovery without pacing support. As a preserved LV function, single-chamber pacemaker likely is reasonable to proceed with. Monitor for LV dysfunction in the future. At this point, I do not see any major reversible cause of his bradycardia. It is likely senile progression. Obstructive sleep apnea, as for primary speciality. Renal insufficiency, stable, monitor. We will schedule him for a pacemaker placement in the near date. Job ID: [id number]
[2018-10-01] MEDS: Heparin 5,000 UNITS/ML VIAL SC SCH (21:27)
[2018-10-02 04:38] LABS: #Basophils 0.1 thou/uL (0.0-0.2); #Lymphocytes 1.3 thou/uL (1.20-3.40); #Monocytes 0.5 thou/uL (0.11-0.59); #Neutrophils 11.7 thou/uL (1.40-6.50); %Basophils 0.4 % (0.0-1.0); %Eosinophils 0.1 % (0.0-10.0); %Lymphocytes 9.4 % (21.0-51.0); %Monocytes 3.4 % (0.0-10.0); %Neutrophils 86.7 % (42.0-75.0); Hemoglobin 14.8 g/dL (14.0-18.0); Mean Corpuscular HGB CONC 32.3 g/dL (32.0-36.0); Mean Corpuscular Hemoglobin 28.9 pg (27.0-31.0); Mean Corpuscular Volume 89.6 fL (78.0-98.0); Mean Platelet Volume 11.6 fL (7.4-10.4); Platelet Count 92 thou/uL (130-400); RBC Distribution Width 17.5 % (11.5-14.5); Red Blood Cell (RBC) Count 5.11 mill/uL (4.70-6.10); White Blood Cell (WBC) Count 13.5 thou/uL (4.8-10.8)
[2018-10-02 05:08] LABS: Anion Gap 14 mmol/L (10-20); BUN (Urea Nitrogen) 35 mg/dL (8.4-25.7); Calc. Creatinine Clearance 54 mL/min (70-130); Carbon Dioxide 29 mmol/L (23-31); Chloride 98 mmol/L (98-107); Estimated GFR-MDRD 62; Glucose 200 mg/dL (83-110); Sodium 137 mmol/L (136-145)
--- NOTE | 2018-10-02 06:03 | PDOC.FM ---
- Subjective Subjective: Patrice Marvin seen at bedside this morning. He is sedated and intubated on mechanical ventilation. Had single chamber pace maker placed yesterday by Dr. Gan. His dobutamine was discontinued yesterday, this morning he is being titrated down on the dopamine. Dr. Hill plans to wean patient off mechanical ventilation this morning. - Objective MAR Reviewed: Yes Vital Signs & Weight: Vital Signs (12 hours) Temp Pulse Resp BP Pulse Ox 10/02/18 04:00 98.0 F 10/02/18 02:44 81 115/68 10/02/18 02:43 82 15 94 L 10/02/18 00:00 98.7 F 10/01/18 22:45 98 134/80 10/01/18 22:44 98 15 94 L 10/01/18 20:00 98.7 F 95 10/01/18 18:47 63 130/74 10/01/18 18:45 64 15 97 Weight Admit Weight 75.296 kg Weight 75.5 kg Most Recent Monitor Data Heart Rate from ECG 91 NIBP 118/73 NIBP BP-Mean 88 Respiration from ECG 15 SpO2 92 I&O: 09/30/18 10/01/18 10/02/18 06:59 06:59 06:59 Intake Total 472.7 812.2 Output Total 1870 5125 Balance -1397.3 -4312.8 Result Diagrams: 10/02/18 04:26 10/02/18 04:26 Phys Exam - Physical Examination Constitutional: NAD HEENT: moist MMs, sclera anicteric Neck: supple, full ROM Respiratory: no wheezing, no rales, no rhonchi, clear to auscultation bilateral Cardiovascular: RRR, no significant murmur Gastrointestinal: soft, no distention Musculoskeletal: no edema, pulses present Skin: no rash Dx/Plan (1) Acute hypercapnic respiratory failure Code(s): J96.02 - ACUTE RESPIRATORY FAILURE WITH HYPERCAPNIA Status: Acute (2) CHF exacerbation Code(s): I50.9 - HEART FAILURE, UNSPECIFIED Status: Acute (3) Acute kidney injury Code(s): N17.9 - ACUTE KIDNEY FAILURE, UNSPECIFIED Status: Acute (4) Third degree atrioventricular block Code(s): I44.2 - ATRIOVENTRICULAR BLOCK, COMPLETE Status: Acute (5) Diabetes mellitus, type 2 Status: Acute (6) HLD (hyperlipidemia) Code(s): E78.5 - HYPERLIPIDEMIA, UNSPECIFIED Status: Acute (7) HTN (hypertension) Code(s): I10 - ESSENTIAL (PRIMARY) HYPERTENSION Status: Chronic (8) Restrictive lung disease Code(s): J98.4 - OTHER DISORDERS OF LUNG Status: Chronic - Plan Plan: 1) Acute hypercapneic, hypoxic respiratory failure: - Likely 2/2 right heart failure exacerbation vs copd exacerbation - Initial ABG: pH 7.236, CO2 47, pO2 64 - Intubated, placed on Mech Vent in ED, Right IJ CVC placed in ED - ABG 1 hr after intubation: pH 7.37, pCO2 42, pO2 85 - - Pulmonology, Dr. Delcid, consulted 2) Cardiogenic Shock - likely 2/2 acute decompensated right heart failure - Bradycardic and hypotensive in the ED, EKG showed 3rd degree AV block - Started on dopamine and dobutamine ggt - Dr. Jean consulted in ED, appreciate recs - Dr. Gan, EP, consulted - Plan to get single chamber pace maker - strict I/Os, daily weights - holding home BP meds, beta rufina - elevated troponins overnight, likely demand ischemia 3) Acute decompensated right heart failure - see above 4) 3rd degree AV block - no hx of AV block on previous EKGs - continuous cardiac monitoring - Cardiology, Dr. Jean, consulted - EP, Dr. Gan, consulted 5) AUDRA-stable - likely hypoperfusion - continue to monitor - AM BMP 6) Electrolyte imbalance - like 2/2 #2, will hopefully correct with diuresis - hyperkalemia and hyponatremia - repeat CMP in AM 7) COPD - 30 pk year smoking hx - duonebs 8) HTN - holding home meds at this time 9) DM2 - Hold home metformin - HgA1c - Accuchecks - consider SSI 10) HLD - increase to high intensity statin 11) Hyperbilirubinemia - likely hepatic congestion 2/2 right heart failure - monitor Addendum - Attending - Attending Attestation Date/Time: 10/02/18 1121 I personally evaluated the patient and discussed the management with Dr. Frank. I agree with the History, Examination, Assessment and Plan documented above with any addition or exceptions noted below. Patient doing well, s/p recent extubation. He went for PM placement yesterday and HR is stable. Awaiting further recs from Cardiology and Pulm. Diuresed well yesterday and BP stable.
[2018-10-02] MEDS: HumaLOG 300 UNITS/3 ML VIAL SC PRN ×2 (06:30→11:30)
[2018-10-02 07:30] LABS: Actual Bicarbonate (HCO3a) 27.6 mEq/L (22-28); Base Excess (BEa) 4.4 mEq/L (-2.0 to +3.0); CO2 Tension 36.6 mmHg (35.0-45.0); Calcium, Ionized 1.24 mmol/L (1.12-1.30); Carboxyhemoglobin (COHb) 1.4 gm% (0.0-3.0); Hemoglobin (Hb) 15.3 g/dL (14.0-18.0); O2 Tension (PaO2) 61.6 mmHg (> 60.0); Potassium - ABG Lab 3.92 mmol/L (3.70-5.30)
[2018-10-02 07:31] LABS: Puncture Site LRA
[2018-10-02] MEDS ORDERED: DC Sedation Protocol FS ONE (08:37)
--- NOTE | 2018-10-02 08:45 | RAD ---
PORTABLE CHEST: History: CCU follow up. On ventilator. Comparison: 10-01-18 FINDINGS/IMPRESSION: ET tube, NG tube, and central line unchanged. Elevated right hemidiaphragm with atelectasis in the right lung base, unchanged. The lungs otherwise appear clear and unchanged in appearance. POS: [facility]
--- NOTE | 2018-10-02 09:50 | PRG ---
DATE OF SERVICE: 10/02/2018 SUBJECTIVE: This morning, he is awake, alert, and responsive. OBJECTIVE: VITAL SIGNS: Blood pressure is 111/84, pulse 103, sats 90%, and respirations 20. CHEST: Decreased breath sounds without any wheezing. CARDIAC: Normal S1 and S2. No gallops. ABDOMEN: No masses. LABORATORY DATA: White count 13,000, H and H 14 and 45, platelet count is low 92. PO2 of 61, pCO2 of 30, pH 7.50 on a rate of 10. Creatinine 1.3. X-ray shows hemidiaphragm elevation. IMPRESSION: 1. Respiratory failure. 2. Chronic obstructive pulmonary disease. 3. Sick sinus. PLAN: Continue steroids, neb treatment, and antibiotics. Wean and extubate. One half hour critical time. Job ID: [id number]
[2018-10-02] MEDS: cefTRIAXone\\ROCEPHIN 1 GM in Sodium Chloride 0.9% 100 ML IVPB SCH (09:59)
[2018-10-02] MEDS: Famotidine/PF 20 mg/2ml Vial SLOW IVP SCH (10:00)
[2018-10-02] MEDS: Heparin 5,000 UNITS/ML VIAL SC SCH ×2 (10:58→22:17)
--- NOTE | 2018-10-02 14:05 | PDOC.CTH ---
Cardiology Progress Note - Subjective Pt intubated. Plan on extubation this am - Objective Vital Signs Temp Pulse Resp BP Pulse Ox 10/02/18 12:00 98.8 F 10/02/18 11:56 93 L 10/02/18 11:39 113 H 30 H 93 L 10/02/18 09:13 112 H 24 H 88 L 10/02/18 08:45 92 L 10/02/18 08:00 98.8 F 15 10/02/18 07:04 90 150/86 H 10/02/18 07:03 90 15 93 L 10/02/18 04:00 98.0 F 10/02/18 02:44 81 115/68 10/02/18 02:43 82 15 94 L Admit Weight 166 lb Weight 166 lb 7.184 oz 10/01/18 10/02/18 10/03/18 06:59 06:59 06:59 Intake Total 472.7 812.2 148.4 Output Total 1870 5185 600 Balance -1397.3 -4372.8 -451.6 - Physical Examination General/Neuro: alert & oriented x3, NAD, other: (follwoing commands) Neck: carotid US brisk, no JVD present Lungs: CTA, unlabored respirations Heart: RRR Abdomen: NT/ND, soft Extremities: + femoral B - Telemetry Telemetry Rhythm: paced - Labs Result Diagrams: 10/02/18 04:26 10/02/18 04:26 Troponin/CKMB CK-MB (CK-2) 5.4 ng/mL (0-6.6) 10/01/18 05:10 Troponin I 1.130 ng/mL (< 0.028) H* 10/01/18 05:10 - Assessment/Plan 3rd degree AVB Pulmonary HTN COPD Respiratory failure Plan is extubation today pacer placed yesterday lasix pulmonary support per Dr. ann
--- NOTE | 2018-10-02 17:02 | EKG ---
Test Reason : Blood Pressure : / mmHG Vent. Rate : 070 BPM Atrial Rate : 111 BPM P-R Int : 000 ms QRS Dur : 156 ms QT Int : 522 ms P-R-T Axes : 000 110 -66 degrees QTc Int : 563 ms Ventricular-paced rhythm with occasional AV dual-paced complexes Abnormal ECG When compared with ECG of 30-SEP-2018 14:20, (Unconfirmed) Electronic ventricular pacemaker has replaced Sinus rhythm Vent. rate has increased BY [address] Mariusz WILKINSON ([id number]) on 10/02/2018 5:02:12 PM Referred By: KAL Confirmed By:DR. Mariusz WILKINSON
[2018-10-02] MEDS: Acetaminophen 325 MG TAB PO PRN (23:27)
[2018-10-03 04:50] LABS: #Lymphocytes 0.3 thou/uL (1.20-3.40); #Monocytes 0.4 thou/uL (0.11-0.59); #Neutrophils 11.8 thou/uL (1.40-6.50); %Basophils 0.1 % (0.0-1.0); %Eosinophils 0.1 % (0.0-10.0); %Lymphocytes 2.7 % (21.0-51.0); %Monocytes 3.2 % (0.0-10.0); Hemoglobin 12.9 g/dL (14.0-18.0); Mean Corpuscular HGB CONC 32.7 g/dL (32.0-36.0); Mean Corpuscular Hemoglobin 29.7 pg (27.0-31.0); Mean Corpuscular Volume 90.8 fL (78.0-98.0); Mean Platelet Volume 11.8 fL (7.4-10.4); Platelet Count 77 thou/uL (130-400); RBC Distribution Width 17.1 % (11.5-14.5); Red Blood Cell (RBC) Count 4.36 mill/uL (4.70-6.10); White Blood Cell (WBC) Count 12.5 thou/uL (4.8-10.8)
[2018-10-03 05:18] LABS: Anion Gap 16 mmol/L (10-20); BUN (Urea Nitrogen) 40 mg/dL (8.4-25.7); Calc. Creatinine Clearance 57 mL/min (70-130); Calcium 9.4 mg/dL (7.8-10.44); Carbon Dioxide 28 mmol/L (23-31); Chloride 100 mmol/L (98-107); Estimated GFR-MDRD 67; Glucose 132 mg/dL (83-110); Potassium 4.6 mmol/L (3.5-5.1); Sodium 139 mmol/L (136-145)
--- NOTE | 2018-10-03 06:15 | PDOC.FM ---
- Subjective Subjective: Patrice Marvin seen at bedside this morning. Per RN, no acute events overnight, discontinued Dopamine ggt at about 11 pm last night. MAP since that time has remained above 65. Family has been very present during this hospital stay. Single chamber pacer placed on 10/01. - Objective MAR Reviewed: Yes Vital Signs & Weight: Vital Signs (12 hours) Temp Pulse Resp Pulse Ox 10/03/18 04:00 98.2 F 10/03/18 01:50 91 L 10/03/18 01:49 103 H 24 H 91 L 10/03/18 00:00 98.7 F 10/02/18 22:20 107 H 22 H 90 L 10/02/18 20:00 94 L 10/02/18 19:00 98.8 F 10/02/18 18:16 108 H 20 92 L Weight Admit Weight 75.296 kg Weight 75.5 kg Most Recent Monitor Data Heart Rate from ECG 103 NIBP 111/59 NIBP BP-Mean 76 Respiration from ECG 17 SpO2 95 I&O: 10/01/18 10/02/18 10/03/18 06:59 06:59 06:59 Intake Total 472.7 812.2 644.1 Output Total 1870 5185 1055 Balance -1397.3 -4372.8 -410.9 Result Diagrams: 10/03/18 04:40 10/03/18 04:40 Phys Exam - Physical Examination Constitutional: NAD HEENT: moist MMs, sclera anicteric Neck: supple, full ROM Respiratory: no wheezing, no rales, no rhonchi, clear to auscultation bilateral Cardiovascular: RRR, no significant murmur Gastrointestinal: soft, non-tender Musculoskeletal: no edema, pulses present Neurological: normal sensation, moves all 4 limbs Psychiatric: normal affect Skin: no rash Dx/Plan (1) Acute hypercapnic respiratory failure Code(s): J96.02 - ACUTE RESPIRATORY FAILURE WITH HYPERCAPNIA Status: Resolved (2) CHF exacerbation Code(s): I50.9 - HEART FAILURE, UNSPECIFIED Status: Acute (3) Acute kidney injury Code(s): N17.9 - ACUTE KIDNEY FAILURE, UNSPECIFIED Status: Resolved (4) Third degree atrioventricular block Code(s): I44.2 - ATRIOVENTRICULAR BLOCK, COMPLETE Status: Acute (5) Diabetes mellitus, type 2 Status: Chronic (6) HLD (hyperlipidemia) Code(s): E78.5 - HYPERLIPIDEMIA, UNSPECIFIED Status: Chronic (7) HTN (hypertension) Code(s): I10 - ESSENTIAL (PRIMARY) HYPERTENSION Status: Chronic (8) Restrictive lung disease Code(s): J98.4 - OTHER DISORDERS OF LUNG Status: Chronic - Plan Plan: 1) Acute hypercapneic, hypoxic respiratory failure: - Likely 2/2 right heart failure exacerbation vs copd exacerbation - Initial ABG: pH 7.236, CO2 47, pO2 64 - Intubated, placed on Mech Vent in ED, Right IJ CVC placed in ED - Pulmonology, Dr. Delcid, consulted - Patient extubated on 10/02 - Patient maintaining sats in low 90s on high flow nasal canula 2) Cardiogenic Shock - likely 2/2 acute decompensated right heart failure - Bradycardic and hypotensive in the ED, EKG showed 3rd degree AV block - Started on dopamine and dobutamine ggt - Dr. Jean consulted in ED, appreciate recs - Dr. Gan, EP, consulted - strict I/Os, daily weights - Single chamber pacer placed on 10/01 - Dobutamine d/c'd on 10/01, dopamine d/c'd night of 10/02 - BPs have been low but MAP >65 3) Acute decompensated right heart failure - see above - management per Dr. Jean 4) 3rd degree AV block - no hx of AV block on previous EKGs - continuous cardiac monitoring - Cardiology, Dr. Jean, consulted - EP, Dr. Gan, consulted - s/p placement of single chamber pacemaker 5) AUDRA-stable - likely hypoperfusion - continue to monitor - AM BMP 6) Electrolyte imbalance-resolved - like 2/2 #2, will hopefully correct with diuresis - hyperkalemia and hyponatremia on admission - repeat CMP in AM 7) COPD - 30 pk year smoking hx - duonebs 8) HTN - holding home meds at this time 9) DM2 - Hold home metformin - HgA1c - Accuchecks - consider SSI 10) HLD - increase to high intensity statin 11) Hyperbilirubinemia - likely hepatic congestion 2/2 right heart failure - monitor Addendum - Attending - Attending Attestation Date/Time: 10/03/18 1016 I personally evaluated the patient and discussed the management with Dr. Frank. I agree with the History, Examination, Assessment and Plan documented above with any addition or exceptions noted below. Patient improved, doing well s/p extubation. His HR continues to be elevated and will discuss the need for beta blockade with cardiology but allow them to make final decision on that. Otherwise doing well, anticipate he can be transferred from CCU today. Platelets low but stable, possible due to sequestration as no other identifiable cause at this time. May need outpatient workup if persists.
--- NOTE | 2018-10-03 07:22 | PRG ---
DATE OF SERVICE: 10/02/2018 SUBJECTIVE: Mr. Marvin continues to be intubated and sedated. He seems to be doing well with no new issues. He has spent the night without events. After his pacemaker implantation, he continues to receive low-dose dopamine administration, for BP support. OBJECTIVE: VITAL SIGNS: Blood pressure is 106/71, heart rate 110, respiration is 12. The patient is afebrile. GENERAL: Reveals alert and oriented man, in no apparent distress. NECK: Supple. Jugular veins mildly distended. CHEST: Coarse without crackles. The pacemaker site is without reaction. ABDOMEN: Benign. Bowel sounds are positive. EXTREMITIES: Lower extremities; no edema, clubbing, or cyanosis. DATABASE: The pacemaker interrogation revealed adequately functioning [employer] dual chamber pacemaker. The parameters are adequate, impedence 475 and 589 ohms respectively. He has underlying atrial fibrillation at 115 to 120 beats per minute currently. DIAGNOSTIC DATA: The chest x-ray from this morning reveals no new changes, no pneumothorax. Pacemaker is in adequate position. ASSESSMENT AND PLAN: Mr. Marvin is a pleasant 83-year-old man with history of RV dilation, elevated pulmonary pressures possibly related to pulmonary disease. He is presented with mental status changes and near syncope. He was found to have complete AV block and underwent a dual-chamber pacemaker implantation yesterday. This morning, he is recovering well from procedure. Of note, atrial fibrillation is noted to be present in the atrial channel, but ventricular rates are adequate. If continues, would consider anticoagulation as elevated CHADS-VASc score is due to the patient's age and comorbidities unless bleeding issues occur. We will see the patient back in 2 weeks for wound check. A one-week oral antibiotic prophylaxis is requested. Job ID: [id number] [facility]
--- NOTE | 2018-10-03 09:22 | RAD ---
PORTABLE CHEST: History: CCU follow up. Recent extubation. Comparison: 10-02-18 FINDINGS/IMPRESSION: Elevated right hemidiaphragm again noted. There is now confluent infiltrate seen in the left midlung field which is a new finding when compared to yesterday. Right CP angle is blunted consistent with possible subpulmonary effusion on the right with right basi lar atelectasis or consolidation. ET tube and NG tube have been removed. Pacemaker leads and central line unchanged. New infiltrate in the left midlung field is seen today. POS: OFF
--- NOTE | 2018-10-03 10:00 | PRG ---
DATE OF SERVICE: 10/03/2018 SUBJECTIVE: This morning, he is in the ICU, on high-flow nasal O2. OBJECTIVE: VITAL SIGNS: Saturations 95%, pulse 101, blood pressure 133/45, and respiratory rate 28. LUNGS: Denies any difficulty breathing. CHEST: Decreased breath sounds. No wheezing. CARDIAC: Normal S1 and S2. No gallops. ABDOMEN: Soft. LABORATORY DATA: His BUN and creatinine are unremarkable. White count 12,000. His chest x-ray shows a new left-sided infiltrate, status post pacemaker for bradycardia. IMPRESSION: 1. Respiratory failure. 2. Chronic obstructive pulmonary disease. 3. Pneumonia. PLAN: He can be transferred out of the ICU to a monitored bed. Continue PT and supportive care. We will follow. Job ID: [id number]
[2018-10-03] MEDS: Heparin 5,000 UNITS/ML VIAL SC SCH ×2 (11:12→21:10)
[2018-10-03] MEDS: Famotidine/PF 20 mg/2ml Vial SLOW IVP SCH (11:13)
[2018-10-03] MEDS: cefTRIAXone\\ROCEPHIN 1 GM in Sodium Chloride 0.9% 100 ML IVPB SCH (11:25)
--- NOTE | 2018-10-03 14:00 | PDOC.CTH ---
Cardiology Progress Note - Subjective EP PROGRESS NOTE: 10/03/18 Seeing patient as follow up for third degree heart block s/p pacemaker implantation on 10/01/18. He is extubated and on HF O2. Awaiting transfer to tele. Family bedside. feeling well. minimal pain at PPM implant site. No new cardiac concerns or complaints - Objective Vital Signs Temp Pulse Resp Pulse Ox 10/03/18 12:12 96 10/03/18 12:11 100 28 H 10/03/18 08:23 91 L 10/03/18 08:21 101 H 27 H 10/03/18 08:00 97.9 F 10/03/18 04:00 98.2 F Admit Weight 166 lb Weight 166 lb 7.184 oz 10/02/18 10/03/18 10/04/18 06:59 06:59 06:59 Intake Total 812.2 948.2 Output Total 5185 1135 65 Balance -4372.8 -186.8 -65 - Physical Examination General/Neuro: alert & oriented x3, NAD Neck: carotid US brisk, no JVD present Lungs: unlabored respirations Heart: PMI normal, RRR Abdomen: NT/ND - Telemetry Telemetry Rhythm: SR, demand pacing - Labs Result Diagrams: 10/03/18 04:40 10/03/18 04:40 Troponin/CKMB CK-MB (CK-2) 5.4 ng/mL (0-6.6) 10/01/18 05:10 Troponin I 1.130 ng/mL (< 0.028) H* 10/01/18 05:10 - Assessment/Plan 1. Third degree heart block s/p dual chamber PPM 2. Pneumonia 3. COPD Device check stable yesterday. Rhythm stable with demand pacing when appropriate. Ok with EP to transfer or discharge when ok with other providers. Wound check at [facility] in 10-14 days. Continue Keflex 500mg PO QID x 7 days post implant. Signing off. If further EP issues are seen do not hesitate to contact me.
--- NOTE | 2018-10-03 14:04 | PDOC.CTH ---
Cardiology Progress Note - Subjective Pt extubated. Doing well. Following commands. - Objective Vital Signs Temp Pulse Resp Pulse Ox 10/03/18 12:12 96 10/03/18 12:11 100 28 H 10/03/18 08:23 91 L 10/03/18 08:21 101 H 27 H 10/03/18 08:00 97.9 F 10/03/18 04:00 98.2 F Admit Weight 166 lb Weight 166 lb 7.184 oz 10/02/18 10/03/18 10/04/18 06:59 06:59 06:59 Intake Total 812.2 948.2 Output Total 5185 1135 65 Balance -4372.8 -186.8 -65 - Physical Examination General/Neuro: alert & oriented x3, NAD Neck: carotid US brisk, no JVD present Lungs: unlabored respirations Heart: RRR Abdomen: NT/ND, soft Extremities: + femoral B - Labs Result Diagrams: 10/03/18 04:40 10/03/18 04:40 Troponin/CKMB CK-MB (CK-2) 5.4 ng/mL (0-6.6) 10/01/18 05:10 Troponin I 1.130 ng/mL (< 0.028) H* 10/01/18 05:10 - Assessment/Plan 3rd degree AVB Respiratory failure RV dilation 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
[2018-10-03] MEDS: HumaLOG 300 UNITS/3 ML VIAL SC PRN (16:21)
[2018-10-03] MEDS: Atorvastatin Calcium 10 MG TAB PO SCH (21:10)
[2018-10-04 04:23] LABS: #Lymphocytes 0.4 thou/uL (1.20-3.40); #Monocytes 0.3 thou/uL (0.11-0.59); #Neutrophils 9.9 thou/uL (1.40-6.50); %Basophils 0.1 % (0.0-1.0); %Eosinophils 0.1 % (0.0-10.0); %Lymphocytes 3.8 % (21.0-51.0); %Neutrophils 93.1 % (42.0-75.0); Hemoglobin 13.3 g/dL (14.0-18.0); Mean Corpuscular HGB CONC 31.6 g/dL (32.0-36.0); Mean Corpuscular Hemoglobin 29.1 pg (27.0-31.0); Mean Corpuscular Volume 92.3 fL (78.0-98.0); Mean Platelet Volume 7.3 fL (7.4-10.4); Platelet Count 72 thou/uL (130-400); RBC Distribution Width 17.1 % (11.5-14.5); Red Blood Cell (RBC) Count 4.56 mill/uL (4.70-6.10); White Blood Cell (WBC) Count 10.6 thou/uL (4.8-10.8)
[2018-10-04 04:28] LABS: Anion Gap 13 mmol/L (10-20); BUN (Urea Nitrogen) 58 mg/dL (8.4-25.7); Calc. Creatinine Clearance 44 mL/min (70-130); Calcium 9.4 mg/dL (7.8-10.44); Carbon Dioxide 30 mmol/L (23-31); Chloride 99 mmol/L (98-107); Estimated GFR-MDRD 50; Glucose 210 mg/dL (83-110); Potassium 4.6 mmol/L (3.5-5.1); Sodium 137 mmol/L (136-145)
--- NOTE | 2018-10-04 06:18 | PDOC.FM ---
- Subjective Subjective: Patient with SBP's in 70's at periods during the night. MAPs less than 65. This AM, BP's and MAPs improved. Patient up at bedside this AM. He states that he is feeling fine. He denies chest pain or shortness of breath. Patient does endorse right arm pain this morning. He states he is having difficulty raising his right arm. - Objective MAR Reviewed: Yes Vital Signs & Weight: Vital Signs (12 hours) Temp Pulse Resp Pulse Ox 10/04/18 02:32 93 L 10/04/18 02:22 102 H 20 93 L 10/04/18 00:00 98.9 F 10/03/18 22:30 108 H 22 H 93 L 10/03/18 19:10 94 L 10/03/18 19:00 99.3 F Weight Admit Weight 75.296 kg Weight 75.5 kg Most Recent Monitor Data Heart Rate from ECG 102 NIBP 90/58 NIBP BP-Mean 68 Respiration from ECG 31 SpO2 94 I&O: 10/02/18 10/03/18 10/04/18 06:59 06:59 06:59 Intake Total 812.2 948.2 985 Output Total 5185 1135 780 Balance -4372.8 -186.8 205 Result Diagrams: 10/04/18 04:00 10/04/18 04:00 EKG Reviewed by me: Yes Radiology Reviewed by me: Yes Phys Exam - Physical Examination Constitutional: NAD Up at bedside this AM. HEENT: moist MMs JVD Rales on lower left lung base. Rhonchi throughout anteriorly. Cardiovascular: RRR, no significant murmur Heart sounds difficult to assess Gastrointestinal: soft, non-tender Musculoskeletal: no edema, pulses present Neurological: non-focal Difficulty raising right arm 2/2 pain Psychiatric: normal affect, A&O x 3 Skin: no rash, cap refill <2 seconds Dx/Plan (1) Third degree atrioventricular block Code(s): I44.2 - ATRIOVENTRICULAR BLOCK, COMPLETE Status: Acute (2) Restrictive lung disease Code(s): J98.4 - OTHER DISORDERS OF LUNG Status: Chronic (3) Acute hypercapnic respiratory failure Code(s): J96.02 - ACUTE RESPIRATORY FAILURE WITH HYPERCAPNIA Status: Resolved (4) Thrombocytopenia Code(s): D69.6 - THROMBOCYTOPENIA, UNSPECIFIED Status: Acute (5) Diabetes mellitus, type 2 Status: Chronic (6) HLD (hyperlipidemia) Code(s): E78.5 - HYPERLIPIDEMIA, UNSPECIFIED Status: Chronic (7) HTN (hypertension) Code(s): I10 - ESSENTIAL (PRIMARY) HYPERTENSION Status: Chronic (8) Pneumonia Code(s): J18.9 - PNEUMONIA, UNSPECIFIED ORGANISM Status: Suspected (9) Pneumothorax on left Code(s): J93.9 - PNEUMOTHORAX, UNSPECIFIED Status: Acute - Plan Plan: 1) Acute hypercapneic, hypoxic respiratory failure: - Likely 2/2 right heart failure 2/2 COPD exacerbation vs. severe DEAN vs. underlying lung disease - Initial ABG: pH 7.236, CO2 47, pO2 64; Most recent ABG: pH 7.5, CO2 36.6, pO2 61.6 - Intubated, placed on Mech Vent in ED from 09/30-10/02, Right IJ CVC placed in ED on 09/30 (day #5) - Pulmonology consulted; appreciate recs - Patient maintaining sats in low 90s on high flow nasal canula; patient did not require O2 previously - CT of chest may be beneficial to further evaluate elevation in right hemidiaphragm and underlying etiology of lung disease - Will order CT chest to further investigate - Moderate size left pneumothorax seen on CXR this morning; patient stable currently, Dr. Dye has been notified 2) Cardiogenic Shock - likely 2/2 acute decompensated right heart failure - Bradycardic and hypotensive in the ED, EKG showed 3rd degree AV block - Dopamine (09/30-10/02) and dobutamine ggt (09/30-10/01) have been d/c'd; patient with a few low BP's in 70's with MAPs <65 last night; improved this AM - Dr. Jean consulted in ED, appreciate recs - Dr. Gan, EP, consulted - strict I/Os, daily weights - Single chamber pacer placed on 10/01 3) Acute decompensated right heart failure - see above - management per Dr. Jean 4) 3rd degree AV block - no hx of AV block on previous EKGs - continuous cardiac monitoring - Cardiology, Dr. Jean, consulted - EP, Dr. Gan, consulted - s/p placement of single chamber pacemaker on 10/01 5) AUDRA - likely hypoperfusion - continue to monitor - Cr 1.37 form 1.06; this may be secondary to hypoperfusion overnight; continue to monitor 6) Electrolyte imbalance-resolved - like 2/2 #2 - hyperkalemia and hyponatremia on admission 7) COPD - 30 pk year smoking hx - duonebs 8) HTN - holding home meds at this time 9) DM2 - Hold home metformin - HgA1c - Accuchecks 10) HLD - increase to high intensity statin 11) Hyperbilirubinemia - likely hepatic congestion 2/2 right heart failure - monitor 12) Possible PNA - New left lobe infiltrate - Patient has been on rocephin since admission - Remains afebrile, some episodes of tachycardia and hypotension overnight - WBC 10.6 this AM which is improved from admission - Will check procalcitonin - Will do CT chest to further investigate right sided hemidiaphragm, new infiltrates, and pneumothorax - Continue rocephin, consider addition of broad spectrum antibiotic for possible HAP should patient become febrile or acutely decompensate 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 CT chest pending. Will continue to follow pulm recs. Anticipate LOS >48 hours. Addendum - Attending - Attending Attestation Date/Time: 10/04/18 1632 I personally evaluated the patient and discussed the management with Dr. Prado. I agree with the History, Examination, Assessment and Plan documented above with any addition or exceptions noted below. The patient has a pneumothorax on CXR this morning. He is stable on high flow O2. Pulmonology is aware and I believe plans a chest tube. Checked procal with the new infiltrate. Considering CT chest.
[2018-10-04] MEDS: Famotidine/PF 20 mg/2ml Vial SLOW IVP SCH (08:35)
[2018-10-04] MEDS: Heparin 5,000 UNITS/ML VIAL SC SCH ×2 (08:35→21:03)
--- NOTE | 2018-10-04 08:50 | RAD ---
FRONTAL RADIOGRAPH CHEST: DATE: 10/04/2018. COMPARISON: 10/03/2018 and prior. HISTORY: Ventilated patient. FINDINGS: There is a pneumothorax on the left with an apical component and a basilar component extending into t he left costophrenic angle, evidence of a moderate-size left-sided pneumothorax. No mediastinal shif t. There is a dual-lead transvenous pacing device, inserted via left subclavian approach. There is a right-sided vascular catheter, distal tip overlying the region of the proximal right atrium. There is airspace disease in the left perihilar region. There is increased density in the right base with obscuration of the right heart border and right costophrenic angle suggesting right middle lobe and right lower lobe collapse with associated right pleural fluid. IMPRESSION: Moderate left-sided pneumothorax. Dense opacity in right base and left perihilar airspace disease no josé miguel. Moderate-sized pneumothorax called to CCU nurse, Myla Call, at 8:05 a.m. 10/04/2018. CODE CR POS: SONA
[2018-10-04] MEDS: cefTRIAXone\\ROCEPHIN 1 GM in Sodium Chloride 0.9% 100 ML IVPB SCH (09:02)
--- NOTE | 2018-10-04 10:26 | PRG ---
DATE OF SERVICE: 10/04/2018 SUBJECTIVE: This morning, he is awake, alert, and responsive. OBJECTIVE: VITAL SIGNS: High-flow O2 saturations 98, blood pressure 101/65, temperature 99, and respirations 30. CHEST: Decreased breath sounds left lung and right unremarkable. CARDIAC: Normal S1 and S2. No gallops. ABDOMEN: No masses. LABORATORY DATA: White count 10,000, H and H 13 and 42, and platelet count is 72,000. His creatinine 1.37. IMPRESSION: Left-sided pneumothorax, status post pacemaker insertion. PLAN: Continue antibiotics, neb treatments, and steroids. Consider insertion of a small-bore chest tube. Job ID: [id number]
[2018-10-04 10:43] LABS: Bilirubin, Direct 1.6 mg/dL (0.1-0.3); Bilirubin, Total 2.3 mg/dL (0.2-1.2)
[2018-10-04] MEDS: Acetaminophen 325 MG TAB PO PRN (11:54)
[2018-10-04] MEDS: HumaLOG 300 UNITS/3 ML VIAL SC PRN ×3 (12:36→21:04)
--- NOTE | 2018-10-04 13:10 | RAD ---
FRONTAL RADIOGRAPH CHEST: DATE: 10/04/2018. TIME: 11:32 a.m. COMPARISON: 10/04/2018, 4:00 a.m. HISTORY: Status post left-sided chest tube placement. FINDINGS: Interval placement of a small caliber chest tube present in left lung apex. No definite residual lef t-sided pneumothorax is seen. There is elevation of the right hemidiaphragm limiting evaluation of t he right base. Dual-lead transvenous pacing device present on the left. Increased density in the le ft lower lobe suggests consolidation/collapse. IMPRESSION: Interval placement of a left-sided chest tube with resolution of previously noted left pneumothorax. POS: NATASHA
[2018-10-04] MEDS: Atorvastatin Calcium 10 MG TAB PO SCH (21:03)
--- NOTE | 2018-10-04 23:13 | EKG ---
Test Reason : Blood Pressure : / mmHG Vent. Rate : 046 BPM Atrial Rate : 046 BPM P-R Int : 168 ms QRS Dur : 146 ms QT Int : 530 ms P-R-T Axes : 047 015 -71 degrees QTc Int : 463 ms Sinus bradycardia 2nd degree AV block Indeterminate axis Right bundle branch block Septal infarct , age undetermined T wave abnormality, consider inferolateral ischemia Abnormal ECG No changes from MAR 2018 Confirmed by MARITZA YOUNG, JIM ([id number]), newspaper or periodical editor VIC PARR ([id number]) on 10/04/2018 11:12:59 PM Referred By: Confirmed By:JIM SALAS MD
[2018-10-05 04:31] LABS: #Lymphocytes 0.5 thou/uL (1.20-3.40); #Monocytes 0.3 thou/uL (0.11-0.59); #Neutrophils 8.1 thou/uL (1.40-6.50); %Lymphocytes 5.8 % (21.0-51.0); %Monocytes 3.2 % (0.0-10.0); %Neutrophils 90.9 % (42.0-75.0); Hemoglobin 13.2 g/dL (14.0-18.0); Mean Corpuscular HGB CONC 30.8 g/dL (32.0-36.0); Mean Corpuscular Volume 94.2 fL (78.0-98.0); Mean Platelet Volume 11.9 fL (7.4-10.4); Platelet Count 62 thou/uL (130-400); RBC Distribution Width 17.1 % (11.5-14.5); Red Blood Cell (RBC) Count 4.57 mill/uL (4.70-6.10); White Blood Cell (WBC) Count 8.9 thou/uL (4.8-10.8)
[2018-10-05 04:47] LABS: Anion Gap 10 mmol/L (10-20); BUN (Urea Nitrogen) 67 mg/dL (8.4-25.7); Calc. Creatinine Clearance 44 mL/min (70-130); Calcium 9.3 mg/dL (7.8-10.44); Carbon Dioxide 33 mmol/L (23-31); Chloride 100 mmol/L (98-107); Estimated GFR-MDRD 49; Glucose 224 mg/dL (83-110); Potassium 5.1 mmol/L (3.5-5.1); Sodium 138 mmol/L (136-145)
--- NOTE | 2018-10-05 06:30 | PDOC.FM ---
- Subjective Subjective: Patient doing well this AM. No significant overnight events. BP improved. Patient resting comfortably in bed. - Objective MAR Reviewed: Yes Vital Signs & Weight: Vital Signs (12 hours) Temp Pulse Resp Pulse Ox 10/05/18 02:27 91 20 100 10/04/18 21:54 90 18 100 10/04/18 19:00 98.8 F 10/04/18 18:50 100 Weight Admit Weight 75.296 kg Weight 75.5 kg Most Recent Monitor Data Heart Rate from ECG 90 NIBP 112/66 NIBP BP-Mean 81 Respiration from ECG 14 SpO2 100 I&O: 10/03/18 10/04/18 10/05/18 06:59 06:59 06:59 Intake Total 948.2 1443 1004 Output Total 1135 820 761 Balance -186.8 623 243 Result Diagrams: 10/05/18 04:08 10/05/18 04:08 EKG Reviewed by me: Yes Radiology Reviewed by me: Yes Phys Exam - Physical Examination Constitutional: NAD HEENT: moist MMs Neck: supple decreased breath sounds in left lung base Cardiovascular: RRR, no significant murmur Gastrointestinal: soft, non-tender, no distention Musculoskeletal: no edema, pulses present Neurological: non-focal Psychiatric: normal affect, A&O x 3 Skin: no rash, cap refill <2 seconds Dx/Plan (1) Third degree atrioventricular block Code(s): I44.2 - ATRIOVENTRICULAR BLOCK, COMPLETE Status: Acute (2) Restrictive lung disease Code(s): J98.4 - OTHER DISORDERS OF LUNG Status: Chronic (3) Acute hypercapnic respiratory failure Code(s): J96.02 - ACUTE RESPIRATORY FAILURE WITH HYPERCAPNIA Status: Resolved (4) Thrombocytopenia Code(s): D69.6 - THROMBOCYTOPENIA, UNSPECIFIED Status: Acute (5) Diabetes mellitus, type 2 Status: Chronic (6) HLD (hyperlipidemia) Code(s): E78.5 - HYPERLIPIDEMIA, UNSPECIFIED Status: Chronic (7) HTN (hypertension) Code(s): I10 - ESSENTIAL (PRIMARY) HYPERTENSION Status: Chronic (8) Pneumonia Code(s): J18.9 - PNEUMONIA, UNSPECIFIED ORGANISM Status: Suspected (9) Pneumothorax on left Code(s): J93.9 - PNEUMOTHORAX, UNSPECIFIED Status: Acute - Plan Plan: 1) Acute hypercapneic, hypoxic respiratory failure: - Likely 2/2 right heart failure 2/2 COPD exacerbation vs. severe DEAN vs. underlying lung disease - Initial ABG: pH 7.236, CO2 47, pO2 64; Most recent ABG: pH 7.5, CO2 36.6, pO2 61.6 - Intubated, placed on Mech Vent in ED from 09/30-10/02, Right IJ CVC placed in ED on 09/30-10/04 - Pulmonology consulted; appreciate recs - Patient maintaining sats in low 90s on high flow nasal canula; patient did not require O2 previously - CT of chest in 2014 showed granulomatous disease - Heimlich valve placed yesterday for left sided pneumothorax; lung expansion noted on CXR - Continue steroids PO 2) Cardiogenic Shock, resolved - likely 2/2 acute decompensated right heart failure - Bradycardic and hypotensive in the ED, EKG showed 3rd degree AV block - Dopamine (09/30-10/02) and dobutamine ggt (09/30-10/01) have been d/c'd; patient with a few low BP's in 70's with MAPs <65 last night; improved this AM - Dr. Jean consulted in ED, appreciate recs - Dr. Gan, EP, consulted - strict I/Os, daily weights - Single chamber pacer placed on 10/01 3) Acute decompensated right heart failure - see above - management per Dr. Jean 4) 3rd degree AV block - no hx of AV block on previous EKGs - continuous cardiac monitoring - Cardiology, Dr. Jean, consulted - EP, Dr. Gan, consulted - s/p placement of single chamber pacemaker on 10/01 5) AUDRA - likely hypoperfusion - continue to monitor - Cr 1.37 form 1.39; patient may need maintenance fluids at this time 6) Electrolyte imbalance-resolved - like 2/2 #2 - hyperkalemia and hyponatremia on admission 7) COPD exacerbation - 30 pk year smoking hx - duonebs - Continue steroids PO 8) HTN - holding home meds at this time 9) DM2 - Hold home metformin - HgA1c - Accuchecks 10) HLD - increase to high intensity statin 11) Hyperbilirubinemia - likely hepatic congestion 2/2 right heart failure - Isolated conjugated hyperbilirubinemia with elevated GTT, indicating liver etiology - May be 2/2 bebeto mc or rotor syndrome 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 BP's improved. Transition to PO medications. Will transfer to telemetry. Addendum - Attending - Attending Attestation Date/Time: 10/05/18 1232 I personally evaluated the patient and discussed the management with Dr. Prado. I agree with the History, Examination, Assessment and Plan documented above with any addition or exceptions noted below. The patient is doing well after chest tube yesterday. Lung re-expanded. Blood pressure is stable. He can transfer to telemetry.
--- NOTE | 2018-10-05 09:10 | RAD ---
PORTABLE SEMIUPRIGHT FRONTAL CHEST RADIOGRAPH: DATE: 10/05/2018. COMPARISON: 10/04/2018. HISTORY: Respiratory distress. FINDINGS: Stable left-sided chest tube. No pneumothorax is apparent on either side. Inspiration is shallow, l imiting assessment of both lung bases. Increased density in bilateral lung bases suggests infiltrate or volume loss. There is atherosclerotic calcification in the aortic arch. IMPRESSION: No significant interval change when compared to the most recent prior examination. POS: SONA
--- NOTE | 2018-10-05 09:26 | PRG ---
DATE OF SERVICE: 10/05/2018 SUBJECTIVE: This morning, he is awake, alert, and responsive. No pain, no shortness of breath. OBJECTIVE: VITAL SIGNS: Pulse 90, blood pressure 106/68, sats 90% on 2 L, respiratory rate 23. CHEST: Decreased breath sounds without any wheezing. CARDIAC: Normal S1 and S2. No gallops. ABDOMEN: No masses. LABORATORY DATA: X-ray shows resolution of his left-sided pneumothorax, elevated right hemidiaphragm, chronic. Creatinine 1.3, potassium 5. White count 8000, H and H . IMPRESSION: 1. Status post permanent pacemaker. 2. Left pneumothorax, resolved with small bore chest tube, Heimlich. 3. Chronic obstructive pulmonary disease. PLAN: He can be transferred out of the ICU. Antibiotics, neb treatments, supportive care. Job ID: [id number]
[2018-10-05] MEDS: Cefdinir 300 MG CAP PO SCH ×2 (10:22→21:31)
[2018-10-05] MEDS: Heparin 5,000 UNITS/ML VIAL SC SCH ×2 (10:22→21:32)
[2018-10-05] MEDS: Famotidine/PF 20 mg/2ml Vial SLOW IVP SCH (10:22)
[2018-10-05] MEDS: Lactated Ringer's 1,000 ML IV SCH ×2 (10:23→22:33)
[2018-10-05] MEDS ORDERED: Benzonatate 100 MG CAP PO SCH (11:00)
[2018-10-05] MEDS ORDERED: Tamsulosin HCl 0.4 MG CAP PO SCH (11:00)
[2018-10-05] MEDS ORDERED: PROVENTIL INHALER 6.7 G (200 INHALATIONS) INH PRN (11:15)
[2018-10-05] MEDS: HumaLOG 300 UNITS/3 ML VIAL SC PRN ×2 (12:47→17:52)
[2018-10-05] MEDS: metFORMIN 500 MG TAB PO SCH (17:49)
[2018-10-05] MEDS: Mometasone/Formoterol 120 PUFF INHALER INH SCH (20:12)
--- NOTE | 2018-10-05 20:41 | PDOC.EVN ---
Event Note - Event Note Event Note: S- 83yo M here with acute hypercapnic respiratory failure 2/2 decompensated R heart failure. Jolly ugarte was called on pt immediately after transfer from CCU as pt had decreased BPs (SBP 72) and complaint of SOB requiring increased O2 requirement (up to 4L from 2L). SBP had remained above 100 throughout the day. On arrival of residents pt BP was 83/54 and pt was complaining of some chest discomfort although he was referring to the site of his chest heimlich valve ( placed for pneumo after placement of pacemaker). CXR was ordered which showed no evidence of pneumothorax, fluid, or other acute processes. O- Vt: BP 83/54 -> 100/60 over the span of 10 min while in the room with pt. GEN: no acute distress CARD: RRR no rhythm PULM: slight diminished breath sounds. CTAB, no cracles or wheezing A/P- Pt has had intermittent low pressures throughout hospital stay, though not any throughout today. Case was discussed with Cardiology Dr. Rodriguez who recommended CXR to r/o pneumothorax and give small bolus IVF - f/u on BMP, BNP, and cardiac enzymes - give 250ml bolus NS - monitor respiratory status - will consider transfer back to unit if pt has another episode Addendum - Attending - Attending Attestation Date/Time: 10/06/18 0841 I personally evaluated the patient and discussed the management with Dr. Ruiz and Mickey on 10/05/2018 at time of code green. I agree with and repeated the History, Examination, Assessment and Plan documented above with any addition or exceptions noted below. Patient stable and asymptomatic on my arrival. Nearly tachy, regular, with crackles and rhonchi bilaterally. Edema BLE. BP had increased with SBP > 100. 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 I would monitor his fluid status closely and consider POCUS if any further episodes. Continue O2 for pulm HTN. I would evaluate closely for diuresis in AM. Guarded prognosis.
[2018-10-05 20:51] LABS: Anion Gap 15 mmol/L (10-20); BUN (Urea Nitrogen) 67 mg/dL (8.4-25.7); Calc. Creatinine Clearance 36 mL/min (70-130); Calcium 9.5 mg/dL (7.8-10.44); Carbon Dioxide 28 mmol/L (23-31); Chloride 102 mmol/L (98-107); Estimated GFR-MDRD 39; Glucose 256 mg/dL (83-110); Sodium 140 mmol/L (136-145)
[2018-10-05 21:15] LABS: CKMB 2.9 ng/mL (0-6.6)
[2018-10-05] MEDS: Aspirin 325 MG TAB PO SCH (21:31)
[2018-10-05] MEDS: Atorvastatin Calcium 10 MG TAB PO SCH (21:31)
--- NOTE | 2018-10-05 22:53 | RAD ---
CHEST ONE VIEW: History: Respiratory distress. Comparison: 10-05-18 FINDINGS: Marked right hemidiaphragm elevation. Left ICD. Small caliber tube overlies the left upper chest cons istent with a small chest tube. Stable from most recent study. No significant residual pneumothorax. IMPRESSION: Stable chest. Marked right hemidiaphragm elevation. Small caliber left chest tube in place with no si gnificant residual pneumothorax. Continued short term follow up. POS: SONA
[2018-10-05] MEDS: Acetaminophen 325 MG TAB PO PRN (22:54)
[2018-10-06 05:36] LABS: #Lymphocytes 0.4 thou/uL (1.20-3.40); #Monocytes 0.9 thou/uL (0.11-0.59); #Neutrophils 10.5 thou/uL (1.40-6.50); %Eosinophils 0.1 % (0.0-10.0); %Lymphocytes 3.2 % (21.0-51.0); %Neutrophils 88.7 % (42.0-75.0); Hemoglobin 13.3 g/dL (14.0-18.0); Mean Corpuscular HGB CONC 30.5 g/dL (32.0-36.0); Mean Corpuscular Hemoglobin 28.7 pg (27.0-31.0); Mean Corpuscular Volume 94.2 fL (78.0-98.0); Platelet Count 61 thou/uL (130-400); RBC Distribution Width 17.1 % (11.5-14.5); Red Blood Cell (RBC) Count 4.65 mill/uL (4.70-6.10); White Blood Cell (WBC) Count 11.9 thou/uL (4.8-10.8)
[2018-10-06 05:52] LABS: Anion Gap 10 mmol/L (10-20); BUN (Urea Nitrogen) 70 mg/dL (8.4-25.7); Calc. Creatinine Clearance 37 mL/min (70-130); Calcium 9.6 mg/dL (7.8-10.44); Carbon Dioxide 32 mmol/L (23-31); Chloride 102 mmol/L (98-107); Estimated GFR-MDRD 40; Glucose 231 mg/dL (83-110); Potassium 5.2 mmol/L (3.5-5.1); Sodium 139 mmol/L (136-145)
[2018-10-06] MEDS: Mometasone/Formoterol 120 PUFF INHALER INH SCH ×2 (06:46→19:52)
--- NOTE | 2018-10-06 07:42 | PDOC.CTH ---
Cardiology Progress Note - Subjective Doing much better. Seen on tele. Doing well. - Objective Vital Signs Temp Pulse Pulse Pulse Pulse Pulse Pulse 10/06/18 06:46 100 10/06/18 03:56 10/06/18 03:39 98 F 88 10/05/18 23:28 10/05/18 20:13 10/05/18 20:12 10/05/18 20:11 86 10/05/18 20:02 90 99 90 96 97 Pulse Pulse Pulse Resp Resp Resp Resp 10/06/18 06:46 14 10/06/18 03:56 10/06/18 03:39 18 10/05/18 23:28 10/05/18 20:13 10/05/18 20:12 10/05/18 20:11 21 H 10/05/18 20:02 97 97 99 20 20 20 Resp Resp Resp Resp Resp BP BP 10/06/18 06:46 10/06/18 03:56 10/06/18 03:39 10/05/18 23:28 10/05/18 20:13 10/05/18 20:12 10/05/18 20:11 10/05/18 20:02 22 H 24 H 20 20 20 70/42 L 78/48 L BP BP BP BP BP BP Pulse Ox 10/06/18 06:46 10/06/18 03:56 93 L 10/06/18 03:39 133/83 96 10/05/18 23:28 93 L 10/05/18 20:13 90 L 10/05/18 20:12 90 L 10/05/18 20:11 86 L 10/05/18 20:02 83/54 L 84/51 L 95/53 L 100/60 102/61 95 Pulse Ox Pulse Ox Pulse Ox Pulse Ox Pulse Ox Pulse Ox Pulse Ox 10/06/18 06:46 10/06/18 03:56 10/06/18 03:39 10/05/18 23:28 10/05/18 20:13 10/05/18 20:12 10/05/18 20:11 10/05/18 20:02 94 L 94 L 87 L 94 L 94 L 96 96 Pulse Ox 10/06/18 06:46 10/06/18 03:56 10/06/18 03:39 10/05/18 23:28 10/05/18 20:13 10/05/18 20:12 10/05/18 20:11 10/05/18 20:02 97 Admit Weight 166 lb Weight 160 lb 4 oz 10/05/18 10/06/18 10/07/18 06:59 06:59 06:59 Intake Total 1004 1350 Output Total 761 475 Balance 243 875 - Physical Examination General/Neuro: alert & oriented x3, NAD Neck: carotid US brisk, no JVD present Lungs: unlabored respirations Heart: RRR Abdomen: NT/ND, soft Extremities: + femoral B - Labs Result Diagrams: 10/06/18 04:48 10/06/18 04:48 Troponin/CKMB CK-MB (CK-2) 2.9 ng/mL (0-6.6) 10/05/18 20:23 Troponin I 0.075 ng/mL (< 0.028) H 10/05/18 20:23 - Assessment/Plan 3rd degree AVB Respiratory failure RV dilation Likely DEAN s/p pacer Slowly improving on cv meds Will need o/p sleep study
--- NOTE | 2018-10-06 08:14 | PDOC.FM ---
- Subjective Subjective: Pt is doing well this morning, he has some anxiety about being out of the [facility]. He did have a code green overnight with some hypoxia (high 80's) and hypotension (initially hypotensive to 70's systolic then up to 100's systolic). Was given 250ml bolus. reports he was off oxygen for some time after his transfer from [facility] and thinks this is what prompted code green. Today feeling better, BP 120's systolic in exam room, AOx4, in NAD. Denies CP, MANJARREZ and reports no trouble with bowels or bladder. - Objective MAR Reviewed: Yes Vital Signs & Weight: Vital Signs (12 hours) Temp Pulse Resp BP Pulse Ox 10/06/18 06:46 100 14 10/06/18 03:56 93 L 10/06/18 03:39 98 F 88 18 133/83 96 10/05/18 23:28 93 L 10/05/18 20:13 90 L Weight Admit Weight 75.296 kg Weight 72.688 kg Most Recent Monitor Data Heart Rate from ECG 104 NIBP 132/69 NIBP BP-Mean 90 Respiration from ECG 26 SpO2 95 I&O: 10/05/18 10/06/18 10/07/18 06:59 06:59 06:59 Intake Total 1004 1350 Output Total 761 475 Balance 243 875 Result Diagrams: 10/06/18 04:48 10/06/18 04:48 Radiology Reviewed by me: Yes Phys Exam - Physical Examination Constitutional: NAD HEENT: moist MMs Neck: no nodes Respiratory: clear to auscultation bilateral distant breath sounds Cardiovascular: RRR, no significant murmur Gastrointestinal: soft, non-tender 2+ edema b/l Neurological: non-focal Psychiatric: normal affect, A&O x 3 Skin: cap refill <2 seconds Dx/Plan (1) Right heart failure Status: Acute (2) Pneumothorax on left Code(s): J93.9 - PNEUMOTHORAX, UNSPECIFIED Status: Acute (3) Third degree atrioventricular block Code(s): I44.2 - ATRIOVENTRICULAR BLOCK, COMPLETE Status: Acute (4) Acute hypercapnic respiratory failure Code(s): J96.02 - ACUTE RESPIRATORY FAILURE WITH HYPERCAPNIA Status: Resolved (5) Thrombocytopenia Code(s): D69.6 - THROMBOCYTOPENIA, UNSPECIFIED Status: Acute (6) HLD (hyperlipidemia) Code(s): E78.5 - HYPERLIPIDEMIA, UNSPECIFIED Status: Chronic (7) HTN (hypertension) Code(s): I10 - ESSENTIAL (PRIMARY) HYPERTENSION Status: Chronic - Plan Plan: Acute hypercapneic, hypoxic respiratory failure: - Likely 2/2 right heart failure 2/2 COPD exacerbation vs. severe DEAN vs. underlying lung disease (consider TB with prior evidence of granulomatous disease on CT and spontaneous pneumothorax) - Initial ABG: pH 7.236, CO2 47, pO2 64; Most recent ABG: pH 7.5, CO2 36.6, pO2 61.6 - Intubated, placed on Mech Vent in ED from 09/30-10/02, Right IJ CVC placed in ED on 09/30-10/04 - Pulmonology consulted; appreciate recs - Patient maintaining sats in low 90s on 4L, patient did not require O2 previously - CT of chest in 2014 showed granulomatous disease - Heimlich valve placed yesterday for left sided pneumothorax; lung expansion noted on CXR, plan to dc chest tube today - Continue steroids PO 2) Cardiogenic Shock, resolved - likely 2/2 acute decompensated right heart failure - Bradycardic and hypotensive in the ED, EKG showed 3rd degree AV block - Dopamine (09/30-10/02) and dobutamine ggt (09/30-10/01) have been d/c'd; patient with continued low pressures overnight, improved this AM - Dr. Jean consulted in ED, appreciate recs - Dr. Gan, EP, consulted - strict I/Os, daily weights - Single chamber pacer placed on 10/01 Acute decompensated right heart failure - see above - management per Dr. Jean 3rd degree AV block - no hx of AV block on previous EKGs - continuous cardiac monitoring - Cardiology, Dr. Jean, consulted - EP, Dr. Gan, consulted - s/p placement of single chamber pacemaker on 10/01 AUDRA - likely hypoperfusion - continue to monitor - Improving Electrolyte imbalance-resolved - like 2/2 #2 - hyperkalemia and hyponatremia on admission COPD exacerbation - 60 pk year smoking hx - duonebs - Continue steroids PO - Cefdinir per pulm recs HTN - holding home meds at this time DM2 - Restart home metformin - Accuchecks running high but likely 2/2 prednisone. Mild SSI. 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 Thrombocytopenia - Downtrending, continue to monitor Dispo: Patient stable. BP's improved. Continue to monitor for further improvement. Likely will need to go home on O2 and need placement for rehab.
--- NOTE | 2018-10-06 08:35 | RAD ---
PORTABLE UPRIGHT FRONTAL CHEST RADIOGRAPH; Date: 10/06/18 COMPARISON: 10/05/18. HISTORY: Respiratory distress. FINDINGS: There is hazy increased density in both lung bases, right greater than left. Findings may signify ple ural fluid, volume loss, or infectious pneumonitis. PA and lateral chest imaging could better assess opacity within the lung bases. Heart and mediastinal contours are stable. Stable left-sided chest tub e. Stable dual lead transvenous pacing device. IMPRESSION: Nonspecific bibasilar density as above. No pneumothorax seen. POS: [facility]
[2018-10-06] MEDS: Tamsulosin HCl 0.4 MG CAP PO SCH (10:26)
[2018-10-06] MEDS: metFORMIN 500 MG TAB PO SCH ×2 (10:26→17:24)
[2018-10-06] MEDS: Cefdinir 300 MG CAP PO SCH ×2 (10:27→21:52)
[2018-10-06] MEDS: Aspirin 325 MG TAB PO SCH ×2 (10:27→21:52)
[2018-10-06] MEDS: Famotidine 20 MG TAB PO SCH (10:29)
[2018-10-06] MEDS: predniSONE 20 MG TAB PO SCH (10:29)
[2018-10-06] MEDS: Benzonatate 100 MG CAP PO SCH (10:29)
[2018-10-06] MEDS: Heparin 5,000 UNITS/ML VIAL SC SCH ×2 (10:30→21:53)
--- NOTE | 2018-10-06 11:08 | PRG ---
DATE OF SERVICE: 10/06/2018 SUBJECTIVE: This morning his x-ray shows resolution of his pneumothorax. OBJECTIVE: VITAL SIGNS: Saturations are 100% on room air, respiratory rate 20, temperature 99, blood pressure 120/80. CHEST: Decreased breath sounds. No wheezing. CARDIAC: Normal S1 and S2. ABDOMEN: Negative mass. LABORATORY DATA: White count unremarkable. BUN and creatinine are 70 and 1.64. IMPRESSION: Chronic obstructive pulmonary disease, left pneumothorax, azotemia. PLAN: Continue present treatment. Remove small bore chest tube tomorrow. Job ID: [id number]
[2018-10-06] MEDS ORDERED: Iopamidol 370 76% 100 ML VIAL ONE (11:18)
--- NOTE | 2018-10-06 11:56 | OP ---
DATE OF PROCEDURE: 10/04/2018 PROCEDURE PERFORMED: Insertion of a small-bore chest tube, 8-[place] catheter with a Heimlich valve. INDICATION: Left-sided pneumothorax secondary to a pacemaker insertion. DESCRIPTION OF PROCEDURE: After informed consent from the patient, the left infraclavicular area was cleaned with chlorhexidine. 1% Xylocaine was infiltrated in this second intercostal space in the midclavicular area up to the pleura. A small incision was made with a #15 blade and a small-bore chest tube was placed inside the second intercostal space. The catheter was threaded in and attached to a Heimlich valve with good fluctuation of Heimlich valve. Stat chest x-ray was obtained, which showed the lung had expanded. The patient tolerated the procedure well. The catheter was sutured in place. Job ID: [id number]
[2018-10-06 13:35] VITALS: BMI 31.3
--- NOTE | 2018-10-06 16:15 | CT ---
CONTRAST ENHANCED CTA CHEST: HISTORY: Patient with low blood pressure, shortness of breath, and chest pain. TECHNIQUE: Contrast enhanced CTA chest performed, and 2D and 3D reconstructed images performed. FINDINGS: CTA images demonstrate no evidence of filling defects seen within the pulmonary arteries to suggest p ulmonary emboli. No definite evidence of a lung parenchymal mass is seen. Calcifications seen in th e aorta and coronary arteries. 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 No acute intrathoracic abnormality is seen. There do appear to be numerous left shoulder collateral venous formations. I suspect there is left s ubclavian stenosis at the insertion site of the intracardiac pacing leads, with secondary subclavian stenosis. There does appear to be some elevation of the right hemidiaphragm. IMPRESSION: No evidence of pulmonary emboli seen. POS: [facility]
[2018-10-06] MEDS: HumaLOG 300 UNITS/3 ML VIAL SC PRN ×2 (17:26→21:55)
[2018-10-06] MEDS: Atorvastatin Calcium 10 MG TAB PO SCH (21:52)
[2018-10-06] MEDS: Acetaminophen 325 MG TAB PO PRN (22:46)
[2018-10-06] MEDS ORDERED: Menthol/Camphor Lotion 222 ml Bottle TOP PRN (23:30)
[2018-10-07] MEDS ORDERED: Melatonin 3 MG TAB PO PRN (00:25)
--- NOTE | 2018-10-07 05:30 | PDOC.CTH ---
Cardiology Progress Note - Objective Vital Signs Temp Pulse Resp BP Pulse Ox 10/07/18 04:00 98.5 F 92 18 135/75 97 10/07/18 02:02 90 16 91 L 10/06/18 23:58 100 16 95 10/06/18 21:51 95 10/06/18 19:52 77 16 96 10/06/18 19:48 77 16 96 Admit Weight 166 lb 3.657 oz Weight 160 lb 4 oz 10/05/18 10/06/18 10/07/18 06:59 06:59 06:59 Intake Total 1004 1350 Output Total 761 475 Balance 243 875 - Physical Examination General/Neuro: alert & oriented x3, NAD Neck: carotid US brisk, no JVD present Lungs: unlabored respirations Heart: RRR Abdomen: NT/ND, soft Extremities: + femoral B - Labs Result Diagrams: 10/06/18 04:48 10/06/18 04:48 Troponin/CKMB CK-MB (CK-2) 2.9 ng/mL (0-6.6) 10/05/18 20:23 Troponin I 0.075 ng/mL (< 0.028) H 10/05/18 20:23 - Assessment/Plan SSS s/p pacer pneumothorax right sided failure likely secondary to DEAN hypotension
[2018-10-07 05:32] LABS: #Lymphocytes 0.7 thou/uL (1.20-3.40); #Monocytes 1.1 thou/uL (0.11-0.59); #Neutrophils 10.4 thou/uL (1.40-6.50); %Basophils 0.1 % (0.0-1.0); %Eosinophils 0.3 % (0.0-10.0); %Lymphocytes 5.9 % (21.0-51.0); %Monocytes 8.7 % (0.0-10.0); Hemoglobin 12.8 g/dL (14.0-18.0); Mean Corpuscular HGB CONC 29.1 g/dL (32.0-36.0); Mean Corpuscular Hemoglobin 27.2 pg (27.0-31.0); Mean Corpuscular Volume 93.3 fL (78.0-98.0); Mean Platelet Volume 11.7 fL (7.4-10.4); Platelet Count 63 thou/uL (130-400); Red Blood Cell (RBC) Count 4.73 mill/uL (4.70-6.10); White Blood Cell (WBC) Count 12.3 thou/uL (4.8-10.8)
[2018-10-07 05:44] LABS: Anion Gap 9 mmol/L (10-20); BUN (Urea Nitrogen) 48 mg/dL (8.4-25.7); Calc. Creatinine Clearance 57 mL/min (70-130); Calcium 9.6 mg/dL (7.8-10.44); Carbon Dioxide 35 mmol/L (23-31); Chloride 102 mmol/L (98-107); Estimated GFR-MDRD 69; Glucose 183 mg/dL (83-110); Potassium 4.9 mmol/L (3.5-5.1); Sodium 141 mmol/L (136-145)
--- NOTE | 2018-10-07 07:52 | PDOC.FM ---
- Subjective Subjective: Pt is doing well this morning, family reports waxing and waning mental status overnight with fidgiting and pulling on tele leads and o2 cannula. On further questioning is Aox2 today and reports baseline- likely has underlying dementia. Tolerating diet, breathing is unlabored. - Objective MAR Reviewed: Yes Vital Signs & Weight: Vital Signs (12 hours) Temp Pulse Resp BP Pulse Ox 10/07/18 07:07 100 14 10/07/18 04:00 98.5 F 92 18 135/75 97 10/07/18 02:02 90 16 91 L 10/06/18 23:58 100 16 95 10/06/18 21:51 95 10/06/18 19:52 77 16 96 Weight Admit Weight 75.4 kg Weight 73.936 kg Most Recent Monitor Data Heart Rate from ECG 104 NIBP 132/69 NIBP BP-Mean 90 Respiration from ECG 26 SpO2 95 I&O: 10/06/18 10/07/18 10/08/18 06:59 06:59 06:59 Intake Total 1350 300 Output Total 475 Balance 875 300 Result Diagrams: 10/07/18 04:45 10/07/18 04:45 Phys Exam - Physical Examination Constitutional: NAD HEENT: moist MMs Neck: no nodes Respiratory: no wheezing, no rales, clear to auscultation bilateral Cardiovascular: RRR, no significant murmur Gastrointestinal: soft, non-tender 2+ pitting edema Neurological: non-focal, normal sensation, moves all 4 limbs Psychiatric: normal affect Deviation from normal: aox2 Skin: cap refill <2 seconds Dx/Plan (1) Right heart failure Status: Acute (2) Pneumothorax on left Code(s): J93.9 - PNEUMOTHORAX, UNSPECIFIED Status: Acute (3) Third degree atrioventricular block Code(s): I44.2 - ATRIOVENTRICULAR BLOCK, COMPLETE Status: Acute (4) Acute hypercapnic respiratory failure Code(s): J96.02 - ACUTE RESPIRATORY FAILURE WITH HYPERCAPNIA Status: Resolved (5) Thrombocytopenia Code(s): D69.6 - THROMBOCYTOPENIA, UNSPECIFIED Status: Acute (6) HLD (hyperlipidemia) Code(s): E78.5 - HYPERLIPIDEMIA, UNSPECIFIED Status: Chronic (7) HTN (hypertension) Code(s): I10 - ESSENTIAL (PRIMARY) HYPERTENSION Status: Chronic (8) Delirium Code(s): R41.0 - DISORIENTATION, UNSPECIFIED Status: Acute - Plan Plan: Acute hypercapneic, hypoxic respiratory failure: - Likely 2/2 right heart failure 2/2 COPD exacerbation vs. severe DEAN vs. underlying lung disease (consider TB with prior evidence of granulomatous disease on CT and spontaneous pneumothorax) - Initial ABG: pH 7.236, CO2 47, pO2 64; Most recent ABG: pH 7.5, CO2 36.6, pO2 61.6 - Intubated, placed on Mech Vent in ED from 09/30-10/02, Right IJ CVC placed in ED on 09/30-10/04 - Pulmonology consulted; appreciate recs - Patient maintaining sats in high 90s on 2L, patient did not require O2 previously - CT of chest in 2014 showed granulomatous disease - Heimlich valve in place for left sided pneumothorax; lung expansion noted on CXR, plan to dc chest tube today - Continue steroids PO 2) Cardiogenic Shock, resolved - likely 2/2 acute decompensated right heart failure - Bradycardic and hypotensive in the ED, EKG showed 3rd degree AV block - Dopamine (09/30-10/02) and dobutamine ggt (09/30-10/01) have been d/c'd; patient with continued low pressures overnight, improved this AM - Dr. Jean consulted in ED, appreciate recs - Dr. Gan, EP, consulted - strict I/Os, daily weights - Single chamber pacer placed on 10/01 Acute decompensated right heart failure - see above - management per Dr. Jean SSS s/p pacemaker and 3rd Degree AV block - no hx of AV block on previous EKGs - continuous cardiac monitoring - Cardiology, Dr. Jean, consulted - EP, Dr. Gan, consulted - s/p placement of single chamber pacemaker on 10/01 AUDRA, improving - likely hypoperfusion - continue to monitor COPD exacerbation - 60 pk year smoking hx - duonebs - Continue steroids PO - Cefdinir per pulm recs HTN - holding home meds at this time DM2 - Restart home metformin - Accuchecks running high but likely 2/2 prednisone. Mild SSI. 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 Thrombocytopenia - Downtrending, continue to monitor Electrolyte imbalance-resolved - like 2/2 #2 - hyperkalemia and hyponatremia on admission Delirium - orientation, shades up during the day - remove tele monitor and tx to medical - outpt eval for dementia Dispo: Patient stable. BP's improved. Continue to monitor for further improvement. Likely will need to go home on O2. Has placement at SNF when ready for d/c. Likely 1 more hospital day.
--- NOTE | 2018-10-07 08:09 | RAD ---
CHEST 1 VIEW: Date: 10/07/18 HISTORY: Pneumothorax. Chest tube. Follow-up. COMPARISON: 10/06/18 at 0631 hours. FINDINGS: Cardiac silhouette is magnified, enlarged, and partially obscured by the elevated right hemidiaphragm . Left hemidiaphragm is better defined on the current exam. Mediastinum is midline with aortic calcif ication and a dual lead cardiac electronic device. Small caliber left anterior thoracostomy tube remains in place. No evidence of pneumothorax. IMPRESSION: 1. No evidence of recurrent left pneumothorax. 2. Interval clearing of left lung base. POS: [facility]
--- NOTE | 2018-10-07 09:02 | PRG ---
DATE OF SERVICE: 10/06/2018 SUBJECTIVE: Mr. Marvin this morning is pleasant, awake, and alert. He is not speaking [place]. He had initially been admitted with an acute hypercapnic respiratory failure secondary to restrictive lung disease and probable COPD. He has an approximate [id number] history of smoking, although, he quit. He states approximately 30 years ago. He did have a mild drop in his blood pressure yesterday when not wearing his O2. OBJECTIVE: VITAL SIGNS: His vital signs this morning have improved. GENERAL: He is awake and alert. We will continue to follow with Dr. Hill as well. This is an addendum to the note of Dr. Ivana Interiano. Job ID: [id number]
[2018-10-07] MEDS: Cefdinir 300 MG CAP PO SCH ×2 (10:11→20:51)
[2018-10-07] MEDS: predniSONE 20 MG TAB PO SCH (10:12)
[2018-10-07] MEDS: metFORMIN 500 MG TAB PO SCH ×2 (10:12→17:22)
[2018-10-07] MEDS: Benzonatate 100 MG CAP PO SCH (10:12)
[2018-10-07] MEDS: Tamsulosin HCl 0.4 MG CAP PO SCH (10:12)
[2018-10-07] MEDS: Famotidine 20 MG TAB PO SCH (10:12)
[2018-10-07] MEDS: Aspirin 325 MG TAB PO SCH ×2 (10:13→20:51)
[2018-10-07] MEDS: Heparin 5,000 UNITS/ML VIAL SC SCH ×2 (10:13→20:55)
[2018-10-07] MEDS: Mometasone/Formoterol 120 PUFF INHALER INH SCH ×2 (10:45→19:29)
--- NOTE | 2018-10-07 11:53 | PRG ---
DATE OF SERVICE: 10/07/2018 SUBJECTIVE: Mr. Marvin is sitting quietly in his chair, receiving a breathing treatment. There have been no significant changes in his condition. We will continue to follow with Dr. Hill. Job ID: [id number]
--- NOTE | 2018-10-07 12:09 | PRG ---
DATE OF SERVICE: 10/07/2018 SUBJECTIVE: This morning, he is awake, alert, and responsive. X-ray shows still no evidence for pneumothorax. OBJECTIVE: VITAL SIGNS: Temperature is 97, sats are 97% on 3 L, pulse 91, blood pressure 158/84. CHEST: Good breath sounds. Left lung and right lung unremarkable. CARDIAC: Normal S1 and S2. No gallops. ABDOMEN: No masses. LABORATORY DATA: White count 12,000. Lytes are normal. IMPRESSION: 1. Status post pacemaker for bradycardia. 2. Left pneumothorax following pacemaker insertion, small-bore chest tube. PLAN: The patient appears to be improved. No further air leak. Small bore chest tube is removed. Continue neb treatment and supportive care. Follow up chest x-ray, empiric antibiotics. Job ID: [id number]
[2018-10-07] MEDS: HumaLOG 300 UNITS/3 ML VIAL SC PRN (17:21)
[2018-10-07] MEDS: Atorvastatin Calcium 10 MG TAB PO SCH (20:51)
[2018-10-08] MEDS: Mometasone/Formoterol 120 PUFF INHALER INH SCH (07:44)
--- NOTE | 2018-10-08 08:03 | RAD ---
PORTABLE CHEST: HISTORY: Respiratory distress. COMPARISON: Prior day's exam. FINDINGS: Heart size is enlarged with a pacemaker in place. Elevation of the right hemidiaphragm and parenchym al changes in the right base are stable. IMPRESSION: Stable overall exam. POS: [facility]
[2018-10-08] MEDS: Benzonatate 100 MG CAP PO SCH (08:26)
[2018-10-08] MEDS: Famotidine 20 MG TAB PO SCH (08:26)
[2018-10-08] MEDS: Aspirin 325 MG TAB PO SCH (08:26)
[2018-10-08] MEDS: Cefdinir 300 MG CAP PO SCH (08:26)
[2018-10-08] MEDS: predniSONE 20 MG TAB PO SCH (08:27)
[2018-10-08] MEDS: Tamsulosin HCl 0.4 MG CAP PO SCH (08:27)
--- NOTE | 2018-10-08 08:32 | PDOC.FM ---
- Subjective Subjective: Patient just completed a breathing treatment. He reports some continued SOB, but states that he feels overall improved from yesterday. He denies any chest pain. He does endorse a cough, but states that it is mild. He denies any fever, chills. He does reports some LE swelling, but states that it has not worsened. He reports tolerating PO well and denies N/V. - Objective MAR Reviewed: Yes Vital Signs & Weight: Vital Signs (12 hours) Temp Pulse Resp BP BP Pulse Ox 10/08/18 08:00 98.1 F 92 18 137/74 95 10/08/18 07:35 95 10/08/18 07:32 93 16 93 L 10/08/18 04:00 97.8 F 92 20 164/73 H 95 10/08/18 02:34 90 16 93 L 10/08/18 00:00 97.8 F 106 H 20 163/80 H 10/07/18 22:15 88 16 92 L Weight Admit Weight 75.4 kg Weight 73.936 kg Most Recent Monitor Data Heart Rate from ECG 104 NIBP 132/69 NIBP BP-Mean 90 Respiration from ECG 26 SpO2 95 I&O: 10/07/18 10/08/18 10/09/18 06:59 06:59 06:59 Intake Total 300 Balance 300 Result Diagrams: 10/07/18 04:45 10/07/18 04:45 Radiology Reviewed by me: Yes (Stable CXR) Phys Exam - Physical Examination Constitutional: NAD HEENT: moist MMs, sclera anicteric Respiratory: no wheezing, no rales, no rhonchi diminished breath sounds in all lung tolentino. Cardiovascular: RRR, no significant murmur, no rub Gastrointestinal: soft, non-tender, no distention, positive bowel sounds 2+ pitting edema in bilateral lower extremities to the lower tibia Neurological: non-focal, moves all 4 limbs Psychiatric: normal affect, A&O x 3 Skin: normal turgor, cap refill <2 seconds Dx/Plan (1) Acute hypercapnic respiratory failure Code(s): J96.02 - ACUTE RESPIRATORY FAILURE WITH HYPERCAPNIA Status: Resolved (2) COPD exacerbation Code(s): J44.1 - CHRONIC OBSTRUCTIVE PULMONARY DISEASE W (ACUTE) EXACERBATION Status: Acute (3) Delirium Code(s): R41.0 - DISORIENTATION, UNSPECIFIED Status: Acute (4) Pneumothorax on left Code(s): J93.9 - PNEUMOTHORAX, UNSPECIFIED Status: Acute (5) Right heart failure Status: Acute Qualifiers: Heart failure chronicity: acute on chronic Qualified Code(s): I50.813 - Acute on chronic right heart failure (6) Third degree atrioventricular block Code(s): I44.2 - ATRIOVENTRICULAR BLOCK, COMPLETE Status: Acute (7) CHF exacerbation Code(s): I50.9 - HEART FAILURE, UNSPECIFIED Status: Acute Qualifiers: Heart failure type: diastolic Qualified Code(s): I50.33 - Acute on chronic diastolic (congestive) heart failure (8) Thrombocytopenia Code(s): D69.6 - THROMBOCYTOPENIA, UNSPECIFIED Status: Acute (9) Diabetes mellitus, type 2 Status: Chronic (10) HLD (hyperlipidemia) Code(s): E78.5 - HYPERLIPIDEMIA, UNSPECIFIED Status: Chronic Qualifiers: Hyperlipidemia type: unspecified Qualified Code(s): E78.5 - Hyperlipidemia , unspecified (11) HTN (hypertension) Code(s): I10 - ESSENTIAL (PRIMARY) HYPERTENSION Status: Chronic Qualifiers: Hypertension type: essential hypertension Qualified Code(s): I10 - Essential (primary) hypertension (12) Acute kidney injury Code(s): N17.9 - ACUTE KIDNEY FAILURE, UNSPECIFIED Status: Resolved - Plan Plan: Acute hypercapneic, hypoxic respiratory failure Likely 2/2 right heart failure and COPD exacerbation vs. severe DEAN - Initial ABG: pH 7.236, CO2 47, pO2 64; Most recent ABG: pH 7.5, CO2 36.6, pO2 61.6 - Intubated, placed on Mech Vent in ED from 09/30-10/02, Right IJ CVC 09/30-10/04 - Pulmonology consulted; appreciate recs - Patient maintaining sats in mid 90s on 2L, patient did not require O2 previously - CT of chest in 2014 showed granulomatous disease - Heimlich valve in place for left sided pneumothorax; lung expansion noted on CXR, Heimlich valve removed on 10/07 - Continue steroids PO and duonebs Cardiogenic Shock, resolved likely 2/2 acute decompensated right heart failure - Bradycardic and hypotensive in the ED, EKG showed 3rd degree AV block - Dopamine (09/30-10/02) and dobutamine ggt (09/30-10/01) have been d/c'd; patient with improved BP's. - Dr. Jean consulted in ED, appreciate recs - Dr. Gan, EP, consulted - strict I/Os, daily weights - Single chamber pacer placed on 10/01 Acute decompensated right heart failure - see above - management per Dr. Jean Sick Sinus Syndrome s/p pacemaker and 3rd Degree AV block no hx of AV block on previous EKGs - Cardiology, Dr. Jean, consulted - EP, Dr. Gan, consulted - s/p placement of single chamber pacemaker on 10/01 COPD exacerbation 60 pk year smoking hx - duonebs - Continue steroids PO - Cefdinir per pulm recs HTN - holding home meds at this time DM2 - Cont metformin - Accuchecks running high but likely 2/2 prednisone. Mild SSI. HLD - increased to high intensity statin Hyperbilirubinemia Isolated conjugated hyperbilirubinemia with elevated GTT, indicating liver etiology. 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 BP's improved. Continue to monitor for further improvement. Likely will need to go home on O2. Has placement at SNF when ready for d/c. Possible d/c today vs tomorrow.
[2018-10-08] MEDS ORDERED: metFORMIN 500 MG TAB PO SCH ×3 (08:46→17:00)
[2018-10-08] MEDS ORDERED: predniSONE 20 MG TAB PO SCH (09:00)
--- NOTE | 2018-10-08 09:30 | PRG ---
DATE OF SERVICE: 10/08/2018 SUBJECTIVE: This morning, he is awake, alert, and responsive. He is doing well. His x-ray shows complete resolution of pneumothorax. A small-bore chest tube was removed yesterday. OBJECTIVE: VITAL SIGNS: Saturations are 95% on 1 L, respiratory rate 18, temperature 98, blood pressure 137/74. CHEST: Decreased breath sounds. No wheezing. CARDIAC: Normal S1 and S2. No gallops. ABDOMEN: No masses. IMPRESSION: 1. Chronic obstructive pulmonary disease. 2. Left pneumothorax status post pacemaker insertion. 3. Elevated diaphragm. PLAN: Pulmonary youssef, he can be discharged home or to rehab. Antibiotics for 5 days. Taper prednisone. Job ID: [id number]
[2018-10-08] MEDS: Heparin 5,000 UNITS/ML VIAL SC SCH (09:53)
[2018-10-08] MEDS: metFORMIN 500 MG TAB PO SCH (09:54)
[2018-10-08 11:15] VITALS: TEMP 97.9
--- NOTE | 2018-10-08 12:12 | PRG ---
DATE OF SERVICE: 10/08/2018 ADDENDUM: This is an addendum to the note of Dr. Kiki Baez. Mr. Marvin is sitting quietly in bed, in no distress. Evidently, he did not get much sleep last night, but otherwise no new complaints. He is not short of breath. He does not have any chest discomfort. He still has a mild thrombocytopenia, which we are working up by reviewing his medications. Given the fact that he has had heparin in the past, this could still be hip, and we will stop his Lovenox. From a pulmonary standpoint, Dr. Hill says he is ready for discharge. If discharged, we will continue his thrombocytopenic workup as an outpatient and notify the patient's PCP. Job ID: [id number]
[2018-10-08] MEDS: HumaLOG 300 UNITS/3 ML VIAL SC PRN (13:10)
[2018-10-08 15:54] VITALS: BP 152/78
[2018-10-08] MEDS ORDERED: Melatonin 3 MG TAB PO SCH (21:00)
--- NOTE | 2018-10-09 02:30 | DIS ---
DATE OF ADMISSION: 09/30/2018 DATE OF DISCHARGE: 10/08/2018 CONSULTS: 1. Dr. Hill with Pulmonology. 2. Dr. Jean with Cardiology. 3. Dr. Gan with electrophysiology. PROCEDURES: 1. Intubation on 10/10/2018. 2. Right IJ central line on 09/30/2018. 3. Single chamber pacemaker placement on 10/01/2018. 4. Chest tube with Heimlich valve placement on 10/04/2018. PRIMARY DIAGNOSES: 1. Acute hypoxic hypercapnic respiratory failure. 2. Cardiogenic shock. 3. Sick sinus syndrome. 4. Third-degree arteriovenous block. 5. Restrictive lung disease. 6. Thrombocytopenia. 7. Chronic obstructive pulmonary disease exacerbation. 8. Heart failure with preserved ejection fraction exacerbation. 9. Delirium. 10. Left-sided pneumothorax. 11. Acute kidney injury. SECONDARY DIAGNOSIS: Hypertension. DISCHARGE MEDICATIONS: 1. Albuterol sulfate 1 puff inhaled p.r.n. shortness of breath or wheezing. 2. Aspirin 325 mg p.o. b.i.d. 3. Atorvastatin 10 mg p.o. at bedtime. 4. Benzonatate 100 mg p.o. daily. 5. Cefdinir 300 mg p.o. b.i.d. for 2 days. 6. Advair Diskus 1 inhaled b.i.d. 7. DuoNeb q.4 hours p.r.n. 8. Melatonin 30 mg p.o. at bedtime p.r.n. 9. Insomnia. 10. Tamsulosin 0.4 mg p.o. daily. 11. Celecoxib 200 mg p.o. daily. 12. Doxazosin 2 mg p.o. at bedtime. 13. Metformin 1000 mg p.o. b.i.d. with meals. 14. Prednisone 5 mg p.o. daily for 3 days followed by 2.5 mg p.o. daily for 4 days. DISCONTINUED MEDICATIONS: 1. Triamterene/hydrochlorothiazide. 2. Benicar. HISTORY OF PRESENT ILLNESS/ HOSPITAL COURSE: This is an 83-year-old gentleman who presented to the ER in acute respiratory failure that has persisted and required intubation. The patient developed cardiogenic shock secondary to third-degree AV block that is decompensating and required dobutamine and dopamine. The patient had a pacemaker placed on 10/01/2018 and was able to extubated on 10/02/2018. The patient continued to have respiratory symptoms requiring nasal cannula oxygen supplementation. The patient has likely obstructive sleep apnea and would benefit from an outpatient sleep study. The patient was able to be weaned off dopamine and dobutamine. The patient continued to have blood pressures on the lower side during his hospitalization until last day, so his home blood pressure medicines remained held. The patient developed a left-sided pneumothorax on 10/04/2018 and had a chest tube with Heimlich valve placed at that time. The patient continued to symptomatically improve. He was on Rocephin and then Cefdinir for antibiotic therapy after his surgeries. The patient was started on prednisone and DuoNebs for COPD exacerbation. Of note, the patient did have a thrombocytopenia. The patient's initial platelet count was 88 and this throughout the course of his hospitalization trended to low as 61. There was no definitive reason found for this during his hospitalization, only speculation regarding medications versus HIT. The chest tube was able to removed on 10/07/2018 and the patient did not have recurrence of his pneumothorax. The patient was able to be discharged to [facility] facility on continuous oxygen supplementation at about 2 liters. DISPOSITION: Guarded. DISCHARGE INSTRUCTIONS: Location: [facility] [place]. Activity as tolerated. Diet: Heart healthy. Follow up with Dr. Sequeira in 7 days and continue discussing options for outpatient sleep study and causes of thrombocytopenia. Job ID: [id number]
[2018-10-09] MEDS ORDERED: predniSONE 20 MG TAB PO SCH (08:00)
== END 2018-10-08 17:10 | DRG 242 ==
LOC: ERS 14:03 → CCU 16:20 → 2NO 10-05 19:03 → T4-A 10-07 15:27
PROVIDERS: ADMIT Student in an Organized Health Care Education/Training Program; ATTEND Student in an Organized Health Care Education/Training Program
PROC: 5A1945Z Respiratory Ventilation, 24-96 Consecutive Hours (ICD-10-PCS; principal; 2018-09-30)
PROC: 0BH17EZ Insertion of Endotracheal Airway into Trachea, Via Natural or Artificial Opening (ICD-10-PCS; 2018-09-30)
PROC: 05HM33Z Insertion of Infusion Device into Right Internal Jugular Vein, Percutaneous Approach (ICD-10-PCS; 2018-09-30)
PROC: B513ZZA Fluoroscopy of Right Jugular Veins, Guidance (ICD-10-PCS; 2018-09-30)
PROC: 0JH604Z Insertion of Pacemaker, Single Chamber into Chest Subcutaneous Tissue and Fascia, Open Approach (ICD-10-PCS; 2018-10-01)
PROC: 02H63JZ Insertion of Pacemaker Lead into Right Atrium, Percutaneous Approach (ICD-10-PCS; 2018-10-01)
PROC: 02HK3JZ Insertion of Pacemaker Lead into Right Ventricle, Percutaneous Approach (ICD-10-PCS; 2018-10-01)
PROC: 0W9B30Z Drainage of Left Pleural Cavity with Drainage Device, Percutaneous Approach (ICD-10-PCS; 2018-10-04)
DX: I49.5 Sick sinus syndrome (principal); J96.02 Acute respiratory failure with hypercapnia; I50.33 Acute on chronic diastolic (congestive) heart failure; R57.0 Cardiogenic shock; J18.9 Pneumonia, unspecified organism; J96.01 Acute respiratory failure with hypoxia; I44.2 Atrioventricular block, complete; I24.8 Other forms of acute ischemic heart disease; J93.9 Pneumothorax, unspecified; N17.9 Acute kidney failure, unspecified; J44.1 Chronic obstructive pulmonary disease with (acute) exacerbation; E87.1 Hypo-osmolality and hyponatremia; I10 Essential (primary) hypertension; E78.5 Hyperlipidemia, unspecified; E11.9 Type 2 diabetes mellitus without complications; D69.6 Thrombocytopenia, unspecified; R41.0 Disorientation, unspecified; Z79.84 Long term (current) use of oral hypoglycemic drugs; Z79.899 Other long term (current) drug therapy; Z79.82 Long term (current) use of aspirin; Z79.51 Long term (current) use of inhaled steroids; G47.33 Obstructive sleep apnea (adult) (pediatric); E87.5 Hyperkalemia; I27.20 Pulmonary hypertension, unspecified; J98.4 Other disorders of lung; I25.2 Old myocardial infarction; Z96.652 Presence of left artificial knee joint
CPT/HCPCS: 31500; 33208; 36005; 36415; 36416; 36556; 51702; 70450; 71045; 71275; 72125; 75820; 80048; 80053; 80061; 80306; 80307; 81003; 81015; 82140; 82247; 82550; 82553; 82805; 82977; 83036; 83690; 83880; 84145; 84443; 84484; 85025; 87040; 93005; 93010; 93798; 94002; 94003; 94640; 94664; 96365; 96366; 96375; C1785; C1898; J0461; J0696; J1250; J1265; J1610; J1644; J1940; J2704; J2920; J3010; J3490; J7050; J7506; J7620; S0028

== ENCOUNTER 2018-10-17 22:35 | Inpatient (IN) | payer MEDICARE, MEDICAID ==
[2018-10-17 23:01] LABS: #Eosinphils 0.1 thou/uL (0.0-0.7); #Lymphocytes 0.7 thou/uL (1.20-3.40); #Monocytes 1.1 thou/uL (0.11-0.59); #Neutrophils 7.7 thou/uL (1.40-6.50); %Basophils 0.4 % (0.0-1.0); %Lymphocytes 7.4 % (21.0-51.0); %Monocytes 11.2 % (0.0-10.0); Hemoglobin 11.9 g/dL (14.0-18.0); Mean Corpuscular HGB CONC 31.1 g/dL (32.0-36.0); Mean Corpuscular Hemoglobin 29.2 pg (27.0-31.0); Mean Corpuscular Volume 93.7 fL (78.0-98.0); Platelet Count 118 thou/uL (130-400); RBC Distribution Width 17.3 % (11.5-14.5); Red Blood Cell (RBC) Count 4.08 mill/uL (4.70-6.10); White Blood Cell (WBC) Count 9.6 thou/uL (4.8-10.8)
--- NOTE | 2018-10-17 23:14 | RAD ---
CHEST ONE VEIW: 10/17/18 HISTORY: CHF. Dyspnea. COMPARISON: 10/08/18. FINDINGS: The cardiac silhouette is magnified and remains predominantly obscured by an elevated right hemidiaph ragm. Atelectasis at the lung bases is similar in appearance to the prior study. Mediastinum is midli ne with aortic calcification and a dual lead left subclavian cardiac electronic device. No evidence o f pneumothorax. IMPRESSION: Atherosclerosis. Chronic type findings are stable. No radiographic evidence of active CHF. POS: SONA
[2018-10-17 23:19] LABS: ALT (SGPT) 19 U/L (8-55); AST (SGOT) 24 U/L (5-34); Albumin 3.4 g/dL (3.4-4.8); Alkaline Phosphatase 140 U/L (40-150); Anion Gap 16 mmol/L (10-20); BUN (Urea Nitrogen) 21 mg/dL (8.4-25.7); Bilirubin, Total 2.3 mg/dL (0.2-1.2); Calc. Creatinine Clearance 0 mL/min (70-130); Calcium 9.1 mg/dL (7.8-10.44); Carbon Dioxide 28 mmol/L (23-31); Chloride 99 mmol/L (98-107); Estimated GFR-MDRD 87; Glucose 173 mg/dL (83-110); Potassium 4.5 mmol/L (3.5-5.1); Protein, Total 6.4 g/dL (5.8-8.1); Sodium 138 mmol/L (136-145)
[2018-10-17 23:20] LABS: Bilirubin Small (Negative); Blood, Urine Negative (Negative); Clarity CLEAR (Clear); Glucose, Urine (Dipstick) Negative (Negative); Leukocyte Small (Negative); Nitrite Negative (Negative); Protein, Urine (Dipstick) Trace mg/dL (Neg-Trace); Specific Gravity, Urine 1.016 (1.002-1.036)
[2018-10-17 23:21] LABS: Bacteria/HPF None Seen HPF (None Seen); Hyaline Casts/LPF 0-3 HYALINE CAST LPF (0-3 Hyaline); Squamous Epithelial None Seen HPF (0-3); WBC/HPF 0-3 HPF (0-3)
[2018-10-17] MEDS ORDERED: Furosemide 40 MG/4 ML VIAL ONE (23:59)
[2018-10-17] MEDS ORDERED: Clindamycin/D5W 900 mg/50 ml Premix Bag ONE (23:59)
[2018-10-17] MEDS ORDERED: Piperacillin/Tazobactam 4.5 GM VIAL ONE (23:59)
[2018-10-18 01:10] LABS: Actual Bicarbonate (HCO3a) 32.7 mEq/L (22-28); Analyzer IN Cardio ER; Base Excess (BEa) 6.3 mEq/L (-2.0 to +3.0); CO2 Tension 56.1 mmHg (35.0-45.0); Calcium, Ionized 1.15 mmol/L (1.12-1.30); Carboxyhemoglobin (COHb) 0.8 gm% (0.0-3.0); Hemoglobin (Hb) 12.2 g/dL (14.0-18.0); O2 Tension (PaO2) 79.7 mmHg (> 60.0); pH, Arterial 7.38 (7.35-7.45)
[2018-10-18] MEDS ORDERED: Vancomycin HCl 1.5 GM in Sodium Chloride 0.9% 250 ML 300 ML IVPB SCH (01:15)
[2018-10-18 01:17] LABS: ALV-art Gradient 78.335 (0-20); Puncture Site LRA
--- NOTE | 2018-10-18 01:31 | PDOC.FPRHP ---
- History of Present Illness Chief Complaint: Urinary complaint History of Present Illness: 83 yo M with PMH COPD, DM, HTN, HFpEF presented from inpatient rehab for acute urinary retention x6 days. ED report says he had been urinating minimally with inability to feel like he could fully empty bladder. While in ED patient's respiratory status decline with significant tachypnea, respiratory distress, requiring bipap. History difficult to obtain from patient as he was lethargic and tachypneic. Denies fever, CP, difficulty breathing, N/V. Only complaint is chills. Nephew notes decreased PO intake over past couple days but otherwise no new complaints. Nephew says LE edema is same if not better compared to prior admission. No acute worsening. Patient was admitted earlier this month with acute hypoxic hypercap respiratory failure requiring intubation, 3rd degree AV block, SSS and cardiogenic shock on dopamine and dobutamine drips, pacemaker placement 10/01, L pneumothorax with chest tube placed for 3 days. Discharge summary notes pt likely has DEAN and could benefit from sleep study. Also had thrombocytopenia, platelets in 70s, possibly 2/2 heparin though full workup deferred to outpatient setting. Discharge problem list includes both COPD exacerbation and restrictive lung disease. ED Course: lasix 40, clindamycin, vanc, zosyn - Allergies/Adverse Reactions Allergies Allergy/AdvReac Type Severity Reaction Status Date / Time No Known Drug Allergies Allergy Verified 10/18/18 02:35 - Home Medications Medication Instructions Recorded Confirmed Type metFORMIN HCl 1,000 mg PO BID- 03/02/13 10/18/18 History Atorvastatin Calcium [Lipitor] 10 mg PO HS 03/19/15 10/18/18 History Aspirin 325 mg PO BID 04/14/18 10/18/18 History Albuterol Sulfate HFA (OR) 1 puff INH PRN PRN #1 inh 04/18/18 10/18/18 Rx [Proventil Hfa (or)] Benzonatate 100 mg PO DAILY 09/30/18 10/18/18 History Tamsulosin HCl 0.4 mg PO DAILY 09/30/18 10/18/18 History Ipratropium/Albuterol Sulfate 3 ml NEB X1SI-SE #60 neb 10/08/18 10/18/18 Rx [DuoNeb] Melatonin 3 mg PO HS #30 tab 10/08/18 10/18/18 Rx Fluticasone/Salmeterol [Advair 1 inh IH BID 10/18/18 10/18/18 History Diskus 250/50] Magnesium Hydroxide [Milk of 400 mg PO BID PRN 10/18/18 10/18/18 History Magnesia] Menthol [Biofreeze 4% Gel] 1 applic TOP TID PRN 10/18/18 10/18/18 History Olmesartan Medoxomil [Benicar] 20 mg PO DAILY 10/18/18 10/18/18 History Psyllium Husk [Metamucil] 0.4 gm PO BID 10/18/18 10/18/18 History Sennosides/Docusate Sodium 2 tab PO BID PRN 10/18/18 10/18/18 History [Senokot S] Triamterene/Hydrochlorothiazid 1 tablet PO DAILY 10/18/18 10/18/18 History [Triamterene-Hctz 37.5-25 mg Tb] - History PMHx: DM2, HLD, HTN, NSTEMI 2014, SSS, COPD, HFpEF, cardiogenic shock with 3rd degree AV block 09/2018, hx pneumothorax w/ chest tube, BPH PSHx: L knee, R shoulder, bilateral cataract, pacemaker 10/01/18 FHx: Unknown Social: No current tobacco, alcohol, drug use - Review of Systems General: reports: fever/chills (chills only), weight/appetite/sleep changes ENT: denies: nasal congestion Respiratory: reports: shortness of breath. denies: cough Cardiovascular: reports: edema. denies: chest pain, palpitation Gastrointestinal: denies: nausea, vomiting, diarrhea, abdominal pain Genitourinary: reports: other (retention) Skin: denies: rashes Musculoskeletal: denies: pain, tenderness Neurological: denies: syncope - Vital signs BP: 100/77 HR: 109 RR: 58 Tmax: 98.6 Pox: 97% on bipap Wt: 70 kg - Physical Exam Constitutional: other (respiratory distress, lethargic, follows commands, speaks in short phrases) HEENT: normocephalic and atraumatic, PERRLA, grossly normal vision, grossly normal hearing, other (mucus membranes dry) Heart: RRR, normal S1/S2, no murmurs/rubs/gallops, other (4+ pitting edema b/l LE. edema extends up to knees) Lungs: other (respiratory distress, supraclavicular retractions, tachypnea, decreased air movement) Abdomen: soft, non-tender, bowel sounds present Musculoskeletal: normal structure, normal tone Neurological: no focal deficit Skin: other (b/l LE edema, mild erythema more consistent with venous stasis) Heme/Lymphatic: no unusual bruising or bleeding FMR H&P: Results - Labs Result Diagrams: 10/18/18 03:23 10/18/18 03:23 Lab results: WBC 9.6 thou/uL (4.8-10.8) 10/17/18 22:56 Hgb 11.9 g/dL (14.0-18.0) L 10/17/18 22:56 Hct 38.3 % (42.0-52.0) L 10/17/18 22:56 MCV 93.7 fL (78.0-98.0) 10/17/18 22:56 Plt Count 118 thou/uL (130-400) L 10/17/18 22:56 Neutrophils % 80.0 % (42.0-75.0) H 10/17/18 22:56 Sodium 138 mmol/L (136-145) 10/17/18 22:48 Potassium 4.5 mmol/L (3.5-5.1) 10/17/18 22:48 Chloride 99 mmol/L (98-107) 10/17/18 22:48 Carbon Dioxide 28 mmol/L (23-31) 10/17/18 22:48 BUN 21 mg/dL (8.4-25.7) 10/17/18 22:48 Creatinine 0.84 mg/dL (0.7-1.3) 10/17/18 22:48 Glucose 173 mg/dL (83-110) H 10/17/18 22:48 Lactic Acid 3.5 mmol/L (0.5-2.2) H 10/17/18 22:50 Calcium 9.1 mg/dL (7.8-10.44) 10/17/18 22:48 Total Bilirubin 2.3 mg/dL (0.2-1.2) H 10/17/18 22:48 AST 24 U/L (5-34) 10/17/18 22:48 ALT 19 U/L (8-55) 10/17/18 22:48 Alkaline Phosphatase 140 U/L (40-150) 10/17/18 22:48 B-Natriuretic Peptide 410.5 pg/mL (0-100) H 10/17/18 22:48 Serum Total Protein 6.4 g/dL (5.8-8.1) 10/17/18 22:48 Albumin 3.4 g/dL (3.4-4.8) 10/17/18 22:48 Urine Ketones Negative mg/dL (Negative) 10/17/18 23:07 Urine Blood Negative (Negative) 10/17/18 23:07 Urine Nitrite Negative (Negative) 10/17/18 23:07 Ur Leukocyte Esterase Small (Negative) H 10/17/18 23:07 Urine RBC 4-6 HPF (0-3) 10/17/18 23:07 Urine WBC 0-3 HPF (0-3) 10/17/18 23:07 Ur Squamous Epith Cells None Seen HPF (0-3) 10/17/18 23:07 Urine Bacteria None Seen HPF (None Seen) 10/17/18 23:07 FMR H&P: A/P - Problem List (1) Acute hypercapnic respiratory failure Current Visit: Yes Status: Resolved Code(s): J96.02 - ACUTE RESPIRATORY FAILURE WITH HYPERCAPNIA (2) COPD (chronic obstructive pulmonary disease) Current Visit: Yes Status: Acute (3) Lactic acidosis Current Visit: Yes Status: Acute Code(s): E87.2 - ACIDOSIS (4) Heart failure with preserved left ventricular function (HFpEF) Current Visit: Yes Status: Acute Code(s): I50.30 - UNSPECIFIED DIASTOLIC ( CONGESTIVE) HEART FAILURE (5) Thrombocytopenia Current Visit: No Status: Acute Code(s): D69.6 - THROMBOCYTOPENIA, UNSPECIFIED (6) Diabetes mellitus, type 2 Current Visit: No Status: Chronic (7) HLD (hyperlipidemia) Current Visit: No Status: Chronic Code(s): E78.5 - HYPERLIPIDEMIA, UNSPECIFIED Qualifiers: Hyperlipidemia type: unspecified Qualified Code(s): E78.5 - Hyperlipidemia , unspecified (8) HTN (hypertension) Current Visit: No Status: Chronic Code(s): I10 - ESSENTIAL (PRIMARY) HYPERTENSION Qualifiers: Hypertension type: essential hypertension Qualified Code(s): I10 - Essential (primary) hypertension - Plan Acute Hypoxic Hypercapneic Respiratory Failure likely 2/2 COPD exacerbation - On 2L at rehab. In ED has increase O2 requirement of 3-4L then Bipap. ABG prior to bipap 7.38//. - in ED was treated as fluid overload, received 40 mg IV Lasix. However, CXR with no signs of vol overload, BNP 415 (1900 on previous admission). Patient appeared clinically volume down with dry MM and very dark perfecto urine. - CTA ordered to rule out PE, but unable to obtain - suspect COPD exacerbation etiology more likely. - s/p 1 dose solumedrol. Continue PO prednisone - Received vanc, zosyn, clindamycin in ED 10/18. Transition to PO doxy tomorrow. - duoneb q4h blas, q2h prn - pending procalcitonin Lactic acidosis - 3.5 in ED, will trend - blood and urine cultures pending - Given 250 bolus, then LR @ 75 Urinary Retention - catheter in place - UA pos only for small leuks - discharged on tamsulosin previously. BPH possible cause. Continue tamsulosin. HFpEF - BNP 410, significantly less than previous - do not suspect exacerbation Thrombocytopenia - Platelets 118, improved compared to discharge - unknown cause, heparin previously suspected with deferral to outpatient workup. This has not been completed - SCDs for VTE ppx T2DM - accuchecks, SSI - continue home metformin HTN - continue home olmesartan, triamterene/hctz Normocytic anemia - Hgb 11.9 - stable, at baseline HLD - continue home statin CAD - continue home aspirin Hyperbilirubinemia - T bili 2.3. At baseline. Hx SSS s/p pacemaker Diet: CC Ppx: SCDs FMR H&P: Upper Level - Pertinent history 83 y/o M w/ PMHx of recent hospitalization for acute hypoxic respiratory failure requiring intubation and sebsequent development of cardiogenic shock presents to the ER for eval of urinary retention from inpatient rehab. Pt denies any SOB/CP/F/Chills/LE Pain, but notes that he feels cold and like he cant move. Per son, pt has had a cold over the past few days and notes that there was an issue w/ his hernandez possibly coming out some and them being unable to put it back in. Son notes LE swelling is significantly improved from recent hospitalization. Reportedly doing well at rehab. Per Son. In the ER patient was given 40 IV lasix, Vanc, Zosyn, Clinda for presumed CHF exacerbation and LE cellulitus. - Pertinent findings BP 100/77 Pulse 112 RR 48 - 54 O2Sat 95% on BiPap CXR - NAD. No pulmonary edema or pulmonary vascular congestion noted BNP - 410 (BNP was 1945 on 10/05/18) Trop I - 0.013 LA - 3.5 BUN - 21 Cr - 0.84 GEN: Sitting slumped to the right in bed, shallow rapid breathing. Only giving short answers to questions. Unable to speak in full sentences HEENT: Normocephalic, atraumatic. Dry MM. CARD: Tachycardic, no mumurs PULM: Shollow breaths, no rales, wheezes, or rhonci noted. Poor air movement. Pt w/ supraclavicular retractions noted EXT: 3+ pitting edema LE b/l to knees, mild redness top of feet b/l. No signficant erythema or drainage noted. TTP MCP joint L-foot. : Dark urine noted in hernandez bag - Plan Date/Time: 10/18/18 010 I, B. David Conde MD, have evaluated this patient and agree with findings/plan as outlined by marketing intern resident. Pertinent changes/additions are listed here. 83 y/o M w/: 1) Acute on Chronic Hypoxic Hypercapneic Resp Failure - Pt w/ significant tachypnea during interview w/ manual measurements up to 54 and noted supraclavicular retractions noted - ABG was obtained showing slight respiratory acidosis, but patient appared to be compensating w/ pH of 7.38. However, w/ signficant tachypnea, there is signficant concern for impending respiratory failure in the 89 y/o M who is DNR/ DNI - Patient was placed on BiPap and upgraded from initial tele from ER to IMCU for close monitoring. DuoNeb was also administered during this time - We will go ahead and schedule Duonebs q4 hours w/ q2hr PRN available and wean off BiPap as tolerated - Will obtain CTA as well w/ persistent tachycardia and recent hospitalization and immobility 2/2 significant LE edema - Concern for possible COPD exacerbation and son notes patient has had a cold recently. Will go ahead and administer IV solu-medrol 125 mg and treat as a COPD exacerbation as patient is likely not moving enough air for significant wheezing to be noticed on exam. - Will plan on consulting pulmonology in the AM for further recommendations. 2) Elevated Lactic Acid - There was initially concern for LE cellulitus in the ER and patient was started on broad spectrum abx - Due to pt w/ hx of CHF and mildly elevated BNP (as compared to 10/05/18 read), he was not given any IVF and administered 40 mg of IV lasix in the ER prior to admission - Pt's urine is perfecto in color and w/ dry MM on exam, my concern is LA is due to him being volume down and 3rd spacing fluid into his LE's given his normal CXR and dry MM on exam - Will give baby bolus of 250 cc of LR and place on gentle IVF w/ repeat LA in 3 -4 hours - Monitor fluid status w/ strict I/O's - Can give small doses of lasix if pt starts becoming overloaded 3) dCHF - Pt w/ BNP of 410 and noted LE edema improved from recent hospitalization per son and no evidence of pulmonary vascular congestion noted on CXR and no rales noted on exam - Pt was given 40 mg of lasix 2/2 this w/ notes worsening of his tachycardia - Will give patient baby bolus of 250 mL of fluid and place on gentle fluid to help prevent iatrogenic exacerbation/overload - Pt does have hx of hypotension requiring dobutamine gtt during recent hosptalization. Will monitor BP closely as he recieved 40 mg of IV lasix in the ER prior to admission in likely an already volume depleted state 4) Venous Stasis Dermatitis vs Gout - Pt's exam consistent w/ stasis dermatitis and not cellulitis w/ bilateral nature and no erythema noted - Pt does not have a WBC and no left shift indicative of systemic disease - Will obtain a pro-yaya to further eval possible bacterial infection that the ER was concerned about - As he already received broad spectrum abx in the ER, will hold off on further abx administration pending procal and uric acid 4) LBBB - EKG stable from prior admission, negative trops x1. Will continue to monitor w / continuous telemetry and cardiac enzymes x3 5) Other chronic medical conditions per marketing intern note Assessment and Plan Discussed w/ Dr. Mirza who is in agreement Addendum - Attending - Attending Attestation Date/Time: 10/18/18 0221 I personally evaluated the patient in the ICU from [id number] and discussed the management with Drs. Mclaughlin and Amaya. H&P reviewed and repeated by me. I agree with the History, Examination, Assessment and Plan documented above with any addition or exceptions noted below. Acute on chronic hypoxic and hypercapnic respiratory failure secondary to COPD exacerbation- patient requiring 3-4L NC to keep sats >90% (baseline 2L) and tachypnia to 40-50s with CO2 of 56 on ABG. Poor air movement on exam. Will treat with IV solumedrol, duonebs and if air movement doesn't increase give IV mag. Bipap has improved RR and patient much more alert and comfortable. Thought about PE as recent hospitalization- pt didn't tolerate CTA secondary to tachypnea. Will check d-dimer for now. h/o HFpEF- bnp lower than baseline and no crackles on exam and cxr without overload- received lasix in ER. Will give sm amount of IVF as not consistent with CHF and elevated lactic acid (see below) Elevated lactic acid- give small fluid bolus (250 ml) and then 75 ml per hour and recheck lactate in the am. Check procalcitonin. L foot erythema over MTP- ER called it cellulitis and started Clinda/Vanc/ Zosyn. Will check uric acid as it is tender and consistent with gout location. Blood cx pending Urinary retention- no sign of infection on UA- hernandez for now and start flomax. Will attempt voiding trial once respiratory status improves. Patient seen again at 925 am and was on bipap but still tachypneic- Mg had been started and he had received solumedrol. Air movement improved slightly. Had long discussion with patients two daughters and granddaughter about his prognosis and options of continued bipap vs hospice/comfort measures. The patient is DNR but family wants to talk about options before removing bipap.
[2018-10-18 01:34] LABS: Troponin I 0.016 ng/mL (< 0.028)
[2018-10-18] MEDS ORDERED: Ondansetron ODT 4 MG TAB PO PRN (01:36)
[2018-10-18] MEDS ORDERED: Acetaminophen 325 MG TAB PO PRN ×2 (01:36→02:19)
[2018-10-18] MEDS ORDERED: Lactated Ringer's 250 ML IV SCH (01:45)
[2018-10-18] MEDS ORDERED: Ondansetron ODT 4 MG TAB SL PRN (02:19)
[2018-10-18] MEDS ORDERED: Ondansetron PF 4 MG/2 ML Vial IVP PRN (02:19)
[2018-10-18] MEDS ORDERED: HYDROcodone/Acetaminophen 5/325 mg Tablet PO PRN ×2 (02:19)
[2018-10-18] MEDS ORDERED: Tamsulosin HCl 0.4 MG CAP PO SCH (02:30)
[2018-10-18] MEDS ORDERED: methylPREDNISolone Sod Succ/PF 125 MG/2 ML VIAL IVP SCH (02:45)
[2018-10-18] MEDS ORDERED: Enoxaparin Sodium 40 MG/0.4 ML SYRINGE SC SCH (03:00)
[2018-10-18 03:27] VITALS: BMI 26.8
[2018-10-18 03:35] LABS: #Basophils 0.1 thou/uL (0.0-0.2); #Eosinphils 0.1 thou/uL (0.0-0.7); #Lymphocytes 0.7 thou/uL (1.20-3.40); #Monocytes 1.3 thou/uL (0.11-0.59); #Neutrophils 8.9 thou/uL (1.40-6.50); %Basophils 0.7 % (0.0-1.0); %Eosinophils 0.8 % (0.0-10.0); %Lymphocytes 6.4 % (21.0-51.0); %Monocytes 11.9 % (0.0-10.0); %Neutrophils 80.3 % (42.0-75.0); Hemoglobin 11.7 g/dL (14.0-18.0); Mean Corpuscular HGB CONC 31.6 g/dL (32.0-36.0); Mean Corpuscular Hemoglobin 29.9 pg (27.0-31.0); Mean Corpuscular Volume 94.7 fL (78.0-98.0); Platelet Count 118 thou/uL (130-400); RBC Distribution Width 17.2 % (11.5-14.5); White Blood Cell (WBC) Count 11.1 thou/uL (4.8-10.8)
[2018-10-18 03:50] LABS: Anion Gap 12 mmol/L (10-20); BUN (Urea Nitrogen) 20 mg/dL (8.4-25.7); Calc. Creatinine Clearance 66 mL/min (70-130); Calcium 9.1 mg/dL (7.8-10.44); Carbon Dioxide 33 mmol/L (23-31); Chloride 97 mmol/L (98-107); Estimated GFR-MDRD 85; Glucose 118 mg/dL (83-110); Potassium 4.1 mmol/L (3.5-5.1); Sodium 138 mmol/L (136-145)
[2018-10-18] MEDS: Lactated Ringer's 1,000 ML IV SCH ×2 (04:01→16:25)
[2018-10-18] MEDS ORDERED: Milk Of Magnesia 30 ML UDCUP PO PRN (04:56)
[2018-10-18] MEDS ORDERED: Senokot S 8.6-50 MG TAB PO PRN (04:56)
[2018-10-18] MEDS ORDERED: Dextrose 5% in Water 1,000 ML IV PRN (05:27)
[2018-10-18] MEDS ORDERED: Dextrose 50% Abboject 50 ML SYRINGE SLOW IVP PRN (05:27)
[2018-10-18] MEDS ORDERED: HumaLOG 300 UNITS/3 ML VIAL SC PRN (05:27)
[2018-10-18 05:38] LABS: Lactic Acid 1.1 mmol/L (0.5-2.2)
[2018-10-18 05:47] LABS: Troponin I 0.023 ng/mL (< 0.028)
[2018-10-18] MEDS ORDERED: Magnesium 2 GM/50 ML 2 GM in Premix Bag 1 BAG IVPB SCH (07:30)
[2018-10-18 08:32] LABS: Troponin I 0.021 ng/mL (< 0.028)
[2018-10-18] MEDS: metFORMIN 500 MG TAB PO SCH ×2 (08:56→16:21)
[2018-10-18] MEDS: Triamterene/Hydrochlorothiazide 37.5 mg/25 mg Tablet PO SCH (08:57)
[2018-10-18] MEDS: Benzonatate 100 MG CAP PO SCH (08:57)
[2018-10-18] MEDS: predniSONE 20 MG TAB PO SCH (08:57)
[2018-10-18] MEDS: Aspirin 325 MG TAB PO SCH ×2 (08:57→20:36)
[2018-10-18] MEDS ORDERED: Enoxaparin Sodium 30 MG/0.3 ML SYRINGE SC SCH (09:00)
--- NOTE | 2018-10-18 14:18 | CON ---
DATE OF CONSULTATION: 10/18/2018 This is 50 minutes of the time, of that time, greater than 50% spent with the patient and/or the patient's unit in the hospital. CONSULT PHYSICIANS: [facility]. REASON FOR CONSULTATION: COPD with exacerbation. HISTORY OF PRESENT ILLNESS: This is an 83-year-old male with an extensive history, who came in last night with difficulty emptying his bladder. He is found to be in respiratory distress. He was placed on BiPAP. PAST MEDICAL HISTORY: 1. Hyperlipidemia. 2. Hypertension. 3. Chronic obstructive pulmonary disease. 4. Recent third-degree AV block with sick sinus syndrome. 5. Recent left pneumothorax. PAST SURGICAL HISTORY: 1. Right shoulder surgery. 2. Knee replacement. ALLERGIES: NONE. SOCIAL HISTORY: Previous smoker. Does not currently smoke. FAMILY MEDICAL HISTORY: Unremarkable. REVIEW OF SYSTEMS: Twelve-point review of systems is otherwise negative. MEDICATIONS: Prior to admission; 1. Triamterene/hydrochlorothiazide. 2. Benicar. 3. Tamsulosin. 4. Senokot. 5. Milk of magnesia. 6. ProAir. 7. Metformin. 8. Metamucil. 9. Melatonin. 10. Ipratropium/albuterol. 11. Benzonatate. 12. Atorvastatin. 13. Advair. 14. Aspirin. PHYSICAL EXAMINATION: VITAL SIGNS: Temperature 96.9, pulse 78, respirations 20, O2 sat 92% on BiPAP, and blood pressure 131/63. GENERAL: He is awake and alert and does not appear to be in any distress. He is wearing the BiPAP comfortably. HEENT: Unremarkable. NECK: No adenopathy, JVD, or bruits. LUNGS: He has fairly poor air movement. CARDIAC: S1 and S2. Regular. ABDOMEN: Soft. EXTREMITIES: No edema. IMAGING DATA: His chest x-ray shows a persistently elevated right hemidiaphragm. LABORATORY DATA: White blood cell count 11, hematocrit 36.9, and platelet count 118. PH of 7.38, pCO2 of 56, pO2 of 79. D-dimer 1.25. ASSESSMENT: 1. Acute on chronic hypercapnic respiratory failure, requiring noninvasive mechanical ventilation. 2. Extreme deconditioning. 3. Congestive heart failure, acute diastolic. RECOMMENDATIONS: 1. Come off BiPAP as tolerated. 2. Nebulization treatments as needed. 3. Wean steroids rapidly. Job ID: [id number]
[2018-10-18] MEDS: Atorvastatin Calcium 10 MG TAB PO SCH (20:35)
[2018-10-18] MEDS: Tamsulosin HCl 0.4 MG CAP PO SCH (20:36)
[2018-10-18] MEDS: Melatonin 3 MG TAB PO SCH (20:36)
[2018-10-19] MEDS: Lactated Ringer's 1,000 ML IV SCH (04:03)
[2018-10-19 05:01] LABS: #Lymphocytes 0.3 thou/uL (1.20-3.40); #Monocytes 0.4 thou/uL (0.11-0.59); #Neutrophils 8.2 thou/uL (1.40-6.50); %Basophils 0.4 % (0.0-1.0); %Lymphocytes 2.8 % (21.0-51.0); %Monocytes 4.6 % (0.0-10.0); %Neutrophils 92.2 % (42.0-75.0); Hemoglobin 10.8 g/dL (14.0-18.0); Mean Corpuscular Hemoglobin 29.7 pg (27.0-31.0); Mean Platelet Volume 9.8 fL (7.4-10.4); Platelet Count 104 thou/uL (130-400); RBC Distribution Width 16.9 % (11.5-14.5); Red Blood Cell (RBC) Count 3.64 mill/uL (4.70-6.10); White Blood Cell (WBC) Count 8.9 thou/uL (4.8-10.8)
[2018-10-19 05:19] LABS: Anion Gap 9 mmol/L (10-20); BUN (Urea Nitrogen) 21 mg/dL (8.4-25.7); Calc. Creatinine Clearance 71 mL/min (70-130); Carbon Dioxide 34 mmol/L (23-31); Chloride 95 mmol/L (98-107); Estimated GFR-MDRD Greater than 90; Glucose 180 mg/dL (83-110); Potassium 4.3 mmol/L (3.5-5.1); Sodium 134 mmol/L (136-145)
--- NOTE | 2018-10-19 06:01 | PDOC.FM ---
Addendum entered and electronically signed by Babak Lau MD 10/19/18 07: 50: Patient has not required BIPAP overnight or this AM. Patient having O2 saturations in high 90s on NC and will continue to titrate back to his 2L baseline. Original Note: - Subjective Subjective: Patient's daughter used as online producer this AM. Patient doing much better than yesterday. Currently sitting on the the side of the bed getting a nebulizer. He states he is doing much better. He is asking to have a diet of food from his . He is cautioned on salt intake as well as fluid intake. He states that he is not having chest pain, n/v/d, cough, or fevers. No other complaints. - Objective Vital Signs & Weight: Vital Signs (12 hours) Temp Pulse Resp BP Pulse Ox 10/19/18 04:03 98.2 F 83 20 99/56 L 98 10/19/18 02:25 98 10/19/18 00:00 98.2 F 86 17 96/57 L 98 10/18/18 23:29 97 10/18/18 19:33 98.3 F 89 29 H 131/64 97 10/18/18 18:56 97 10/18/18 18:55 97 Weight Weight 70.817 kg I&O: 10/17/18 10/18/18 10/19/18 06:59 06:59 06:59 Intake Total 741 2550 Output Total 1200 1950 Balance -459 600 Result Diagrams: 10/19/18 04:45 10/19/18 04:45 Phys Exam - Physical Examination Constitutional: NAD HEENT: moist MMs Nebulizer mask in place Neck: no nodes Diminished breath sounds bilaterally. No wheezing Cardiovascular: RRR, no significant murmur Gastrointestinal: soft, non-tender, no distention, positive bowel sounds Musculoskeletal: edema present Neurological: non-focal, normal sensation, moves all 4 limbs Psychiatric: A&O x 3 Skin: no rash Dx/Plan (1) Acute hypercapnic respiratory failure Code(s): J96.02 - ACUTE RESPIRATORY FAILURE WITH HYPERCAPNIA Status: Resolved (2) Physical deconditioning Code(s): R53.81 - OTHER MALAISE Status: Acute (3) COPD exacerbation Code(s): J44.1 - CHRONIC OBSTRUCTIVE PULMONARY DISEASE W (ACUTE) EXACERBATION Status: Acute (4) COPD (chronic obstructive pulmonary disease) Status: Acute (5) Heart failure with preserved left ventricular function (HFpEF) Code(s): I50.30 - UNSPECIFIED DIASTOLIC (CONGESTIVE) HEART FAILURE Status: Acute (6) Thrombocytopenia Code(s): D69.6 - THROMBOCYTOPENIA, UNSPECIFIED Status: Acute (7) Diabetes mellitus, type 2 Status: Chronic (8) HLD (hyperlipidemia) Code(s): E78.5 - HYPERLIPIDEMIA, UNSPECIFIED Status: Chronic Qualifiers: Hyperlipidemia type: unspecified Qualified Code(s): E78.5 - Hyperlipidemia , unspecified (9) HTN (hypertension) Code(s): I10 - ESSENTIAL (PRIMARY) HYPERTENSION Status: Chronic Qualifiers: Hypertension type: essential hypertension Qualified Code(s): I10 - Essential (primary) hypertension (10) Lactic acidosis Code(s): E87.2 - ACIDOSIS Status: Acute (11) Urinary retention Code(s): R33.9 - RETENTION OF URINE, UNSPECIFIED Status: Acute - Plan Plan: Acute Hypoxic Hypercapneic Respiratory Failure likely 2/2 COPD exacerbation and severe deconditioning - On 2L at rehab. In ED has increase O2 requirement of 3-4L then Bipap. ABG prior to bipap 7.38/56/79. - in ED was treated as fluid overload, received 40 mg IV Lasix. However, CXR with no signs of vol overload, BNP 415 (1900 on previous admission). Patient appeared clinically volume down with dry MM and very dark perfecto urine. - CTA ordered to rule out PE, but unable to obtain due to patient condition - suspect COPD exacerbation etiology more likely. - s/p 1 dose solumedrol. Continue PO prednisone - Continue Doxycycline. - duoneb q4h blas, q2h prn - Procalcitonin negative. Lactic acidosis - Resolved - blood and urine cultures pending - IVF discontinued Urinary Retention - catheter in place - UA pos only for small leuks, culture pending - discharged on tamsulosin previously. BPH possible cause. Continue tamsulosin. - Will consider voiding trial today. HFpEF - BNP 410, significantly less than previous - do not suspect exacerbation - continue home medications Thrombocytopenia - Platelets 104, improved compared to discharge - unknown cause, heparin previously suspected with deferral to outpatient workup. This has not been completed - SCDs for VTE ppx T2DM - accuchecks, SSI - continue home metformin HTN - continue home olmesartan, triamterene/hctz Normocytic anemia - Hgb 10.8 - stable, at baseline HLD - continue home statin CAD - continue home aspirin Hyperbilirubinemia - T bili 2.3. At baseline. Disposition: Stable, will likely be stable for transfer to medical floor today. Patient plans to return to inpatient rehab on discharge. Addendum - Attending - Attending Attestation Date/Time: 10/19/18 9914 I personally evaluated the patient at 1010am and discussed the management with Dr. Lau. I agree with the History, Examination, Assessment and Plan documented above with any addition or exceptions noted below. Acute on chronic hypoxic resp failure secondary to COPD exac- steroids, nebs, doxycycline Low normal bp- patient asymptomatic- hold meds as needed- if bp improves stable for transfer to medical floor. chronic CHF- no acute exacerbation-continue home meds
[2018-10-19] MEDS: Benzonatate 100 MG CAP PO SCH (10:37)
[2018-10-19] MEDS: Triamterene/Hydrochlorothiazide 37.5 mg/25 mg Tablet PO SCH (10:37)
[2018-10-19] MEDS: metFORMIN 500 MG TAB PO SCH ×2 (10:38→17:12)
[2018-10-19] MEDS: predniSONE 20 MG TAB PO SCH (10:38)
[2018-10-19] MEDS: Aspirin 325 MG TAB PO SCH ×2 (10:38→21:37)
[2018-10-19] MEDS: Doxycycline 100 MG CAP PO SCH ×2 (10:38→21:42)
--- NOTE | 2018-10-19 14:08 | PRG ---
DATE OF SERVICE: 10/19/2018 SUBJECTIVE: He is off the BiPAP, looks good, has no complaints. OBJECTIVE: VITAL SIGNS: On exam, temperature 98.5, pulse 94, respirations 25, O2 saturation 96%, and blood pressure 102/51. HEENT: Unremarkable. NECK: No JVD. CHEST: Clear. CARDIAC: S1, S2. Regular. ABDOMEN: Soft. EXTREMITIES: No edema. LABORATORY DATA: White blood cell count 8.9, hematocrit 34, platelet count 104. Sodium 134, potassium 4.3, BUN 21, creatinine 0.8, glucose 180. ASSESSMENT: 1. Status post acute respiratory failure. 2. Congestive heart failure-acute diastolic. PLAN: He no longer needs the BiPAP. I think he can be safely transferred out to the medical floor. I would not think he needs BiPAP anymore at this point. Job ID: [id number]
[2018-10-19] MEDS: Melatonin 3 MG TAB PO SCH (21:37)
[2018-10-19] MEDS: Tamsulosin HCl 0.4 MG CAP PO SCH (21:37)
[2018-10-19] MEDS: Atorvastatin Calcium 10 MG TAB PO SCH (21:37)
[2018-10-20] MEDS ORDERED: predniSONE 20 MG TAB PO SCH (09:14)
[2018-10-20] MEDS: metFORMIN 500 MG TAB PO SCH ×2 (09:15→16:58)
[2018-10-20] MEDS: Benzonatate 100 MG CAP PO SCH (09:15)
[2018-10-20] MEDS: Aspirin 325 MG TAB PO SCH ×2 (09:15→19:56)
[2018-10-20] MEDS: Doxycycline 100 MG CAP PO SCH ×2 (09:15→19:56)
[2018-10-20] MEDS: Enoxaparin Sodium 40 MG/0.4 ML SYRINGE SC SCH (09:16)
[2018-10-20] MEDS: predniSONE 20 MG TAB PO SCH ×2 (09:17→09:29)
--- NOTE | 2018-10-20 09:37 | PRG ---
DATE OF SERVICE: 10/20/2018 OBJECTIVE: This morning, his saturations are 99% on 3 L, respiratory rate 20, temperature 98, pulse 81, blood pressure . CHEST: Decreased breath sounds. No wheezing. CARDIAC: Normal S1 and S2. No gallops. ABDOMEN: No masses. IMPRESSION: 1. Kjlkh-rm-xkjtekn respiratory failure pneumonia. 2. Congestive heart failure. 3. Chronic obstructive pulmonary disease. 4. Elevated diaphragm. 5. Diabetes. 6. Urinary tract infection. PLAN: From pulmonary standpoint of view, he appears to be stable enough to be [facility]. Continue neb treatments, Dulera, supportive care. We will follow while in the hospital. Job ID: [id number]
--- NOTE | 2018-10-20 09:48 | PDOC.FM ---
- Subjective Subjective: Pt questioned with poll clerk. Pt reports doing well. Denies any acute events overnight. Denies any chest pain or acute SOB. Denies any fever or chills. Pt having blood in his hernandez. Pt states he is not having any pain. States he has never noticed blood in his urine before. Pt having some bilateral swelling in his LE. Pt reports he has had that for awhile. States it is about the same. - Objective MAR Reviewed: Yes Vital Signs & Weight: Vital Signs (12 hours) Temp Pulse Resp BP BP Pulse Ox 10/20/18 08:00 99 10/20/18 07:52 97.4 F L 81 20 124/69 99 10/20/18 07:44 83 16 100 10/20/18 04:00 97.7 F 83 16 135/73 100 10/20/18 00:50 16 10/20/18 00:45 98.6 F 90 20 126/75 97 10/19/18 22:28 88 16 94 L Weight Weight 70.817 kg I&O: 10/19/18 10/20/18 10/21/18 06:59 06:59 06:59 Intake Total 2550 1890 240 Output Total 1950 1450 Balance 600 440 240 Result Diagrams: 10/20/18 12:41 10/20/18 12:41 Radiology Reviewed by me: Yes (No new imaging to review) Phys Exam - Physical Examination Constitutional: NAD HEENT: PERRLA, moist MMs Neck: no nodes, supple, full ROM Some mild rales noted bilaterally Cardiovascular: RRR, no significant murmur, no rub Gastrointestinal: soft, non-tender, no distention, positive bowel sounds Has bloody urine in his hernandez Musculoskeletal: pulses present Neurological: normal sensation, moves all 4 limbs Lymphatic: no nodes Psychiatric: normal affect Skin: no rash Dx/Plan (1) Acute hypercapnic respiratory failure Code(s): J96.02 - ACUTE RESPIRATORY FAILURE WITH HYPERCAPNIA Status: Resolved (2) COPD exacerbation Code(s): J44.1 - CHRONIC OBSTRUCTIVE PULMONARY DISEASE W (ACUTE) EXACERBATION Status: Acute (3) Urinary retention Code(s): R33.9 - RETENTION OF URINE, UNSPECIFIED Status: Acute (4) Lactic acidosis Code(s): E87.2 - ACIDOSIS Status: Acute (5) Thrombocytopenia Code(s): D69.6 - THROMBOCYTOPENIA, UNSPECIFIED Status: Acute (6) Diabetes mellitus, type 2 Status: Chronic (7) HLD (hyperlipidemia) Code(s): E78.5 - HYPERLIPIDEMIA, UNSPECIFIED Status: Chronic Qualifiers: Hyperlipidemia type: unspecified Qualified Code(s): E78.5 - Hyperlipidemia , unspecified (8) HTN (hypertension) Code(s): I10 - ESSENTIAL (PRIMARY) HYPERTENSION Status: Chronic Qualifiers: Hypertension type: essential hypertension Qualified Code(s): I10 - Essential (primary) hypertension - Plan Plan: Acute Hypoxic Hypercapneic Respiratory Failure likely 2/2 COPD exacerbation and severe deconditioning - On 2L at rehab. In ED has increase O2 requirement of 3-4L then Bipap. ABG prior to bipap 7.38/56/79. Weaned off BIPAP. On 3 L O2 at this time. - in ED was treated as fluid overload, received 40 mg IV Lasix. However, CXR with no signs of vol overload, BNP 415 (1900 on previous admission). Patient appeared clinically volume down with dry MM and very dark perfecto urine. - suspect COPD exacerbation etiology more likely. - s/p 1 dose solumedrol. Continue PO prednisone - Continue Doxycycline. -Pulmonology consulted- Dr. Hill- States pt stable to transition back to rehab from his point. - duoneb q4h blas, q2h prn - Procalcitonin negative. Lactic acidosis - Resolved - blood and urine cultures pending- NGTD - IVF discontinued Urinary Retention - catheter in place - UA pos only for small leuks, culture pending - Pt having bloody urine in hernandez today. -Urology- Dr. Ashton consulted- follow recs. - discharged on tamsulosin previously. BPH possible cause. Continue tamsulosin. HFpEF - BNP 410, significantly less than previous - do not suspect exacerbation - continue home medications Thrombocytopenia - Platelets 104, improved compared to discharge. CBC pending today. - unknown cause, heparin previously suspected with deferral to outpatient workup. This has not been completed - SCDs for VTE ppx T2DM - accuchecks, SSI - continue home metformin HTN - continue home olmesartan, triamterene/hctz. BP stable will continue to monitor and adjust as needed. Normocytic anemia - stable, at baseline. continue to monitor HLD - continue home statin CAD - continue home aspirin Hyperbilirubinemia - T bili 2.3. At baseline. Addendum - Attending - Attending Attestation Date/Time: 10/20/18 526 I personally evaluated the patient and discussed the management with Dr. Morse I agree with the History, Examination, Assessment and Plan documented above with any addition or exceptions noted below.
[2018-10-20 12:57] LABS: #Lymphocytes 0.4 thou/uL (1.20-3.40); #Monocytes 0.4 thou/uL (0.11-0.59); #Neutrophils 7.6 thou/uL (1.40-6.50); %Basophils 0.1 % (0.0-1.0); %Eosinophils 0.2 % (0.0-10.0); %Lymphocytes 4.9 % (21.0-51.0); %Monocytes 5.1 % (0.0-10.0); %Neutrophils 89.8 % (42.0-75.0); Hemoglobin 11.6 g/dL (14.0-18.0); Mean Corpuscular HGB CONC 31.9 g/dL (32.0-36.0); Mean Corpuscular Hemoglobin 29.8 pg (27.0-31.0); Mean Corpuscular Volume 93.5 fL (78.0-98.0); Mean Platelet Volume 10.4 fL (7.4-10.4); Platelet Count 118 thou/uL (130-400); Red Blood Cell (RBC) Count 3.89 mill/uL (4.70-6.10); White Blood Cell (WBC) Count 8.5 thou/uL (4.8-10.8)
[2018-10-20 13:05] LABS: Anion Gap 15 mmol/L (10-20); BUN (Urea Nitrogen) 24 mg/dL (8.4-25.7); Calc. Creatinine Clearance 68 mL/min (70-130); Carbon Dioxide 27 mmol/L (23-31); Chloride 96 mmol/L (98-107); Estimated GFR-MDRD 87; Glucose 168 mg/dL (83-110); Potassium 4.6 mmol/L (3.5-5.1); Sodium 133 mmol/L (136-145)
[2018-10-20] MEDS: Mometasone/Formoterol 120 PUFF INHALER INH SCH (19:31)
[2018-10-20] MEDS: Melatonin 3 MG TAB PO SCH (19:56)
[2018-10-20] MEDS: Atorvastatin Calcium 10 MG TAB PO SCH (19:56)
[2018-10-20] MEDS: Tamsulosin HCl 0.4 MG CAP PO SCH (19:56)
[2018-10-20 21:58] LABS: Bilirubin Negative (Negative); Blood, Urine Large (Negative); Clarity CLOUDY (Clear); Glucose, Urine (Dipstick) Negative (Negative); Leukocyte Moderate (Negative); Nitrite Negative (Negative); Protein, Urine (Dipstick) 30 mg/dL (Neg-Trace); Specific Gravity, Urine 1.017 (1.002-1.036); pH, Urine 5.5 (5.0-9.0)
[2018-10-20 22:01] LABS: Bacteria/HPF None Seen HPF (None Seen); Hyaline Casts/LPF 0-3 HYALINE CAST LPF (0-3 Hyaline); Pathc Cast-AUWi Flag 0.43 (0-2.49); RBC/HPF GREATER THAN 50-TNTC HPF (0-3); Squamous Epithelial 0-3 HPF (0-3)
[2018-10-20 22:15] LABS: Transitional Epithelial 0-3 HPF (0-3)
--- NOTE | 2018-10-21 02:29 | CON ---
DATE OF CONSULTATION: 10/20/2018 REASON FOR CONSULTATION: 1. Urinary retention. 2. Gross hematuria. HISTORY OF PRESENT ILLNESS: Mr. Patrice Marvin is a very pleasant 83-year-old, Slovak-speaking only male with a past history of 9-fhec-hyr-day cigarette smoking, who underwent catheter placement for urinary retention. The patient subsequently developed gross hematuria. The patient was brought to the emergency room on 10/18/2018 apparently for urinary retention present for about six days. The patient has had a longstanding history of obstructive voiding symptoms and was on Flomax as an outpatient. He has in addition heart disease and has undergone a recent pacemaker implant. The patient has a history of COPD secondary to cigarette smoking, diabetes mellitus, hypertension, and his BPH history. The patient was admitted with respiratory failure earlier in the month with intubation, third-degree AV block and cardiogenic shock. He did undergo a pacemaker placement on October 01 and also he had a left pneumothorax with a chest tube which was placed for three days as well. The patient reports that he feels well and felt that he was voiding normally at home. ALLERGIES: NO KNOWN DRUG ALLERGIES. HOME MEDICATION LIST: 1. Metformin. 2. Hydrochloride. 3. Atorvastatin 10 mg p.o. at bedtime. 4. Aspirin 325 mg twice daily. 5. Albuterol sulfate one puff inhalation p.r.n. 6. Benzonatate 100 mg p.o. daily. 7. Tamsulosin 0.4 mg p.o. daily, started on 09/30/2018. 8. Ipratropium/albuterol, DuoNeb nebulizers 3 mL q.4 hours. 9. Melatonin 3 mg p.o. at bedtime. 10. Advair Diskus 250/50 one inhalation b.i.d. 11. Milk of magnesia 400 mg twice daily. 12. Benicar 20 mg per day. 13. Psyllium. 14. Docusate. 15. Triamterene/hydrochlorothiazide 37.5/25 mg p.o. daily. PAST MEDICAL HISTORY: Significant for 1. Recent cardiogenic shock with third-degree AV block in September of 2018. 2. History of associated pneumothorax and chest tube. 3. History of BPH, treated as outpatient on Flomax. No history of urologic consultation. 4. Diabetes mellitus, type 2. 5. Hypertension. 6. Non ST elevation CA in 2014. 7. COPD. PAST SURGICAL HISTORY: 1. The patient has had a left total knee replacement. 2. Right shoulder replacement. 3. Bilateral cataract surgery. 4. Pacemaker placement on 10/01/2018. FAMILY HISTORY: Unknown. SOCIAL HISTORY: The patient has in excess of a 50-pack year cigarette smoking history and quit about 20 years ago. He was a 3-dgqf-xtt-day smoker. Does not currently consume alcohol, but exam findings suggest he may have been a significant alcohol drinker in the past. REVIEW OF SYSTEMS: CONSTITUTIONAL: The patient has had complained of some chills at home. No overt fevers. HEAD, EARS, NOSE, AND THROAT: Negative. PULMONARY: Does report ongoing issues with shortness of breath secondary to COPD. CARDIOVASCULAR: The patient reports edema and/or orthopnea. No current complaints of chest pain or lateralizing chest pain symptoms. GASTROINTESTINAL: Negative for diarrhea, vomiting, and nausea. GENITOURINARY: The patient had frequent small volume voids prior to catheter placement. He does not report gross blood in his urine prior to his hospital admission. He does report that he did not have any gross hematuria, but did have frequent small volume voids and was having progressively more trouble voiding at home. MUSCULOSKELETAL: Negative. NEUROLOGIC: Negative. No history of stroke. PHYSICAL EXAMINATION: VITAL SIGNS: Pulse is 81, respirations 18, temperature is 98 Fahrenheit, O2 saturations 98% on 3 L by nasal cannula, blood pressure is 128/70. GENERAL: This is a pleasant, normocephalic, male, in no apparent distress. He is ambulatory with assistance. HEAD, EARS, NOSE AND THROAT: Extraocular movements are intact. Sclerae are anicteric. Oropharynx is clear. NECK: Supple. LUNGS: Clear to auscultation bilaterally. CARDIAC: Regular rate and rhythm. A left chest wall pacemaker is present, this appears relatively fresh. ABDOMEN: Soft, obese, nontender with some varices present, overall abdominal wall is relatively thin. GENITOURINARY: Testes are found present bilaterally in the scrotum. They are smooth, anodular, and nontender to palpation. The inguinal canal has no evidence of hernia. Phallus is uncircumcised. There is a fair amount of smegma about the patient's urethral meatus. An indwelling Aden catheter is in place. The urine has a more or less urine type coloration with some blood present. Digital rectal examination is performed, finds a massively enlarged prostate gland which is conservatively more than 60 g in size. It is rock hard and highly suspicious for malignancy. EXTREMITIES: There has been a left knee replacement operation. There is some edema of the bilateral lower extremities. LABORATORY STUDIES: A urinalysis showed a small amount of bilirubin and a small amount of leukocyte esterase at admission, there were 4 to 6 red cells per high-power field and 0 to 3 white cells per high-power field. No bacteria were seen on the urinalysis from 10/17/2018. At admission, urine gravity was 1.016. A urine culture from 10/17/2018 shows no growth at 36 hours. Blood cultures x2 were also negative at 48 hours. The patient does not appear to have had a PSA test performed in the [facility]. Estimated glomerular filtration rate is 87, creatinine of 0.84, blood urea nitrogen of 24. BNP was markedly elevated on 10/17/2018 at 410. ASSESSMENT AND PLAN: 1. Gross hematuria, likely secondary to catheter placement. At present time, the patient requires a catheter and I would recommend leaving this indwelling. The patient does have prostate specific issues based on physical examination findings with a rock-hard induration of the prostate gland present. Although this could represent chronic prostatitis, this is possibly a malignancy. Ordinarily, we do not check PSA in a setting where a catheter was placed or in the presence of an acute infection. This patient does not appear to be acutely infected and requires catheter drainage. At the present time, I think it would be appropriate to check his PSA to see what his baseline number is. If this is markedly elevated, then this would point a direction toward his problem. 2. Gross hematuria. The patient does have substantial cigarette smoking history, which is in excess of 50-pack years. He is at high risk for developing bladder cancer. Based on that, should undergo cystoscopic evaluation in an appropriate setting. 3. Short-term management of urinary retention will be initially with Aden catheter. The patient may benefit from being on both finasteride and tamsulosin in addition to a possible course of antibiotics. The patient should undergo appropriately monitored voiding trial as well. These suggestions can be followed as an outpatient in the urology clinic. Over 80 minutes of initial consultation and assessment time was spent in evaluation and assessment of the patient and his multiple records. Job ID: [id number]
[2018-10-21] MEDS: Mometasone/Formoterol 120 PUFF INHALER INH SCH (05:51)
--- NOTE | 2018-10-21 06:33 | PDOC.FM ---
- Subjective Subjective: Pt reports doing well this morning. No acute concerns overnight. no acute SOB. denies any fever or chills. Denies any pain with urination. Pt has no other questions or concerns at this time. - Objective MAR Reviewed: Yes Vital Signs & Weight: Vital Signs (12 hours) Temp Pulse Resp BP Pulse Ox 10/21/18 05:51 81 13 99 10/21/18 05:49 81 13 99 10/20/18 22:15 82 12 10/20/18 20:05 98 F 81 18 128/70 98 10/20/18 20:00 96 10/20/18 19:31 90 16 94 L 10/20/18 19:17 12 Weight Weight 70.817 kg I&O: 10/19/18 10/20/18 10/21/18 06:59 06:59 06:59 Intake Total 2550 1890 1320 Output Total 1950 1450 2200 Balance 600 440 -880 Result Diagrams: 10/21/18 08:33 10/21/18 08:33 Radiology Reviewed by me: Yes (No new imaging to review) Phys Exam - Physical Examination Constitutional: NAD HEENT: PERRLA, moist MMs Neck: no nodes, supple, full ROM Some mild rales noted bilaterally Cardiovascular: RRR, no significant murmur, no rub Gastrointestinal: soft, no distention, positive bowel sounds some blood and small clots still noted in hernandez. Musculoskeletal: pulses present Some trace edema noted Neurological: non-focal, normal sensation, moves all 4 limbs Lymphatic: no nodes Psychiatric: normal affect Skin: no rash, normal turgor Dx/Plan (1) Acute hypercapnic respiratory failure Code(s): J96.02 - ACUTE RESPIRATORY FAILURE WITH HYPERCAPNIA Status: Resolved (2) COPD exacerbation Code(s): J44.1 - CHRONIC OBSTRUCTIVE PULMONARY DISEASE W (ACUTE) EXACERBATION Status: Acute (3) Urinary retention Code(s): R33.9 - RETENTION OF URINE, UNSPECIFIED Status: Acute (4) Lactic acidosis Code(s): E87.2 - ACIDOSIS Status: Acute (5) Thrombocytopenia Code(s): D69.6 - THROMBOCYTOPENIA, UNSPECIFIED Status: Acute (6) Diabetes mellitus, type 2 Status: Chronic (7) HLD (hyperlipidemia) Code(s): E78.5 - HYPERLIPIDEMIA, UNSPECIFIED Status: Chronic Qualifiers: Hyperlipidemia type: unspecified Qualified Code(s): E78.5 - Hyperlipidemia , unspecified (8) HTN (hypertension) Code(s): I10 - ESSENTIAL (PRIMARY) HYPERTENSION Status: Chronic Qualifiers: Hypertension type: essential hypertension Qualified Code(s): I10 - Essential (primary) hypertension - Plan Plan: Acute Hypoxic Hypercapneic Respiratory Failure likely 2/2 COPD exacerbation and severe deconditioning - On 2L at rehab. In ED has increase O2 requirement of 3-4L then Bipap. ABG prior to bipap 7.38/56/79. Weaned off BIPAP. On 2L O2 at this time - in ED was treated as fluid overload, received 40 mg IV Lasix. However, CXR with no signs of vol overload, BNP 415 (1900 on previous admission). Patient appeared clinically volume down with dry MM and very dark perfecto urine. - suspect COPD exacerbation etiology more likely. - s/p 1 dose solumedrol. Continue PO prednisone - Continue Doxycycline. -Pulmonology consulted- Dr. Hill- States pt stable to transition back to rehab from his point. - duoneb q4h blas, q2h prn - Procalcitonin negative. Lactic acidosis (Resolved) - Resolved - blood and urine cultures-NGTD - IVF discontinued Urinary Retention - catheter in place - UA pos only for small leuks. Culture negative at this point - Pt having bloody urine in hernandez yesterday. -Urology- Dr. Ashton consulted- follow recs. PSA pending. Recommends keeping hernandez in place for short term. - On tamsulosin. Added finasteride as well. HFpEF - BNP 410, significantly less than previous - do not suspect exacerbation - continue home medications Thrombocytopenia - Platelets 118 yesterday, improved compared to discharge. CBC pending today. - unknown cause, heparin previously suspected with deferral to outpatient workup. This has not been completed - SCDs for VTE ppx T2DM - accuchecks, SSI - continue home metformin HTN - continue home olmesartan, triamterene/hctz. BP stable will continue to monitor and adjust as needed. Normocytic anemia - stable, at baseline. continue to monitor HLD - continue home statin CAD - continue home aspirin Hyperbilirubinemia - T bili 2.3. At baseline. Addendum - Attending - Attending Attestation Date/Time: 10/21/18 1166 I personally evaluated the patient and discussed the management with Dr. Morse I agree with the History, Examination, Assessment and Plan documented above with any addition or exceptions noted below.
[2018-10-21 08:52] LABS: #Lymphocytes 0.9 thou/uL (1.20-3.40); #Monocytes 0.8 thou/uL (0.11-0.59); #Neutrophils 6.2 thou/uL (1.40-6.50); %Basophils 0.4 % (0.0-1.0); %Eosinophils 0.6 % (0.0-10.0); %Lymphocytes 11.7 % (21.0-51.0); %Monocytes 9.5 % (0.0-10.0); %Neutrophils 77.8 % (42.0-75.0); Hemoglobin 11.4 g/dL (14.0-18.0); Mean Corpuscular Hemoglobin 28.6 pg (27.0-31.0); Mean Corpuscular Volume 92.3 fL (78.0-98.0); Platelet Count 125 thou/uL (130-400); RBC Distribution Width 16.9 % (11.5-14.5); Red Blood Cell (RBC) Count 3.99 mill/uL (4.70-6.10)
[2018-10-21] MEDS ORDERED: Finasteride 5 MG TAB PO SCH (09:00)
[2018-10-21] MEDS: predniSONE 20 MG TAB PO SCH (09:16)
[2018-10-21] MEDS: Doxycycline 100 MG CAP PO SCH (09:16)
[2018-10-21] MEDS: metFORMIN 500 MG TAB PO SCH (09:16)
[2018-10-21] MEDS: Benzonatate 100 MG CAP PO SCH (09:16)
[2018-10-21 09:17] LABS: Anion Gap 9 mmol/L (10-20); BUN (Urea Nitrogen) 20 mg/dL (8.4-25.7); Calc. Creatinine Clearance 71 mL/min (70-130); Calcium 9.4 mg/dL (7.8-10.44); Carbon Dioxide 34 mmol/L (23-31); Chloride 95 mmol/L (98-107); Estimated GFR-MDRD Greater than 90; Glucose 116 mg/dL (83-110); Potassium 4.1 mmol/L (3.5-5.1); Sodium 134 mmol/L (136-145)
[2018-10-21] MEDS: Aspirin 325 MG TAB PO SCH (09:17)
[2018-10-21] MEDS: Enoxaparin Sodium 40 MG/0.4 ML SYRINGE SC SCH (09:17)
--- NOTE | 2018-10-21 11:28 | PRG ---
DATE OF SERVICE: 10/21/2018 SUBJECTIVE: This morning, he is better, less short of breath. OBJECTIVE: VITAL SIGNS: His sats are 99% on 2 L, temperature 96, pulse 87, and blood pressure 104/60. CHEST: Decreased breath sounds. No wheezing. CARDIAC: Normal S1 and S2. No gallops. ABDOMEN: Soft. LABORATORY DATA: His lytes are normal. White count 8000. IMPRESSION: 1. Chronic obstructive pulmonary disease. 2. Respiratory failure. 3. Abnormal chest x-ray. 4. Diastolic dysfunction. PLAN: He is going to the rehab. Continue supportive care, PT. Job ID: [id number]
[2018-10-21 12:04] VITALS: BP 117/64; TEMP 98.4
--- NOTE | 2018-10-21 22:14 | DIS ---
DATE OF ADMISSION: 10/18/2018 DATE OF DISCHARGE: 10/21/2018 RESIDENT: Foster Morse MD, PGY-2. CONSULTS: Include Pulmonology Group, Dr. Bhavin Ashton and Dr. Hill; Urology, Dr. Sherwin Ashton. PROCEDURES: None. IMAGING: Chest x-ray on 10/17/2018 showed atherosclerosis, chronic type. Findings are stable. Non-radiographic evidence of active congestive heart failure. DISCHARGE DIAGNOSES: Include: 1. Acute hypoxic hypercapnic respiratory failure, secondary to chronic obstructive pulmonary disease exacerbation. 2. Lactic acidosis. 3. Urinary retention, likely secondary to BPH. 4. Heart failure with preserved ejection fraction. 5. Thrombocytopenia, stable from previous hospitalization. 6. Type 2 diabetes mellitus. 7. Hypertension. 8. Normocytic anemia, stable. 9. Hyperlipidemia. 10. Hyperbilirubinemia, stable. DISCHARGE MEDICATION: 1. No medicines were discontinued. The patient was started on finasteride 5 mg p.o. daily. We will continue his prednisone 20 mg for 2 more days. 2. Tamsulosin 0.4 mg daily. 3. Aspirin 325 mg p.o. b.i.d. 4. Lipitor 10 mg p.o. at bedtime. 5. Benzonatate 100 mg p.o. daily. 6. He would continue his doxycycline 100 mg b.i.d. for 4 more days. 7. Milk of Mag 400 mg p.o. b.i.d. 8. Melatonin 3 mg p.o. at bedtime. 9. Metformin 1000 mg p.o. b.i.d. 10. Senokot 2 tabs p.o. b.i.d. 11. Albuterol sulfate HFA one puff inhaler p.r.n. 12. Advair Diskus 250/50 one inhaler b.i.d. 13. DuoNeb 3 mL nebs q.4 hours as needed. 14. Menthol Biofreeze 4% gel one application topical p.r.n. t.i.d. as needed. 15. Benicar 20 mg p.o. daily. 16. Metamucil PO b.i.d. 17. Triamterene HCTZ 37.5-25 mg tab, one tab p.o. daily. HISTORY OF PRESENT ILLNESS/BRIEF HOSPITAL COURSE: This is an 83-year-old male, who came in from inpatient rehab for acute urinary retention x6 days. He was found to be distended with minimal irritating. While he was in the ED, his respiratory status declined with significant tachypnea and respiratory distress, eventually required him to be put on BiPAP. His ABG at that time showed a pH of 7.38, CO2 of 56.7, and O2 of 79.7. The patient was then admitted to [facility] for BiPAP, would get DuoNeb and breathing treatments as needed. They gave him some Lasix in the ER thinking he was fluid overloaded, but his BNP was 415 and from previous admission was 1900. They gave him a dose of Solu-Medrol and then continued him on prednisone, started him on doxycycline. He received vancomycin, Zosyn and clindamycin in the ER. On 10/18 , we transitioned him to oral doxy. On 10/19, procalcitonin was negative. White blood cell count was never really elevated. Lactic acid was 3.5 in the ED, but would then trend down into normal range by the next day. We got UA which was only positive for small leuks. Urinary culture would come back negative. They placed a catheter in place for urinary retention. On 10/20/2018, his catheter started to have bloody urine. The patient denied any pain. At this time, we consulted Dr. Sherwin Ashton , who suggested catheter placement. We would start the patient on finasteride along with tamsulosin and Dr. Ashton would get a PSA level. Dr. Ashton recommended keeping the catheter in place for another week and following up with him outpatient with followup with RN PSY[facility]IATR[facility]. There is concern for possible cancer process, but Dr. Ashton will continue to follow this up outpatient. His urine was still little bit bloody today, but the Aden was still draining appropriately. The patient would wean off BiPAP by 10/19, would be transferred to the floor later that day. The patient came in on 2 L of oxygen from rehab facility. He was on 3 to 4 L and then was weaned down to 2 L by the end of 10/20/2018, satting at his baseline. The patient did not have any complaints. No fevers or anything like that. Dr. Hill recommended on 2018 from his standpoint, the patient was stable for discharge. We would continue his prednisone for 2 more days. He will receive 3 days of it and will continue his doxy for 4 days for a total of 7 days of antibiotic treatment. The patient will transition back to rehab. DISPOSITION: Fair. DISCHARGE LOCATION: Back to [facility]. ACTIVITY: Will need to continue with PT and OT and Rehab as needed. DIET: Will have a heart healthy diet. FOLLOWUP: Will need to follow up with primary care within 2 weeks for hospital followup visit. Job ID: [id number] TERA
== END 2018-10-21 15:49 | DRG 189 ==
LOC: ERS 22:35 → IMCU/EMU 10-18 01:58 → T4-A 10-19 20:25
PROVIDERS: ADMIT Family Medicine; ATTEND Family Medicine
DX: J96.21 Acute and chronic respiratory failure with hypoxia (principal); E87.2 Acidosis; J44.1 Chronic obstructive pulmonary disease with (acute) exacerbation; E11.9 Type 2 diabetes mellitus without complications
CPT/HCPCS: 36415; 36416; 51703; 71045; 71275; 80048; 80053; 81001; 81003; 81015; 82805; 83605; 83880; 84145; 84153; 84484; 84550; 85025; 85379; 87040; 87086; 93005; 94640; 94760; 96365; 96367; 96368; 96375; J1650; J1940; J2543; J2930; J3370; J3475; J3490; J7050; J7506; J7620

== ENCOUNTER 2018-11-03 08:31 | Inpatient (IN) | payer MEDICARE, MEDICAID ==
[2018-11-03 09:09] LABS: #Eosinphils 0.1 thou/uL (0.0-0.7); #Monocytes 1.3 thou/uL (0.11-0.59); #Neutrophils 15.3 thou/uL (1.40-6.50); %Basophils 0.2 % (0.0-1.0); %Eosinophils 0.3 % (0.0-10.0); %Lymphocytes 5.4 % (21.0-51.0); %Monocytes 7.2 % (0.0-10.0); Hemoglobin 13.2 g/dL (14.0-18.0); Mean Corpuscular HGB CONC 32.2 g/dL (32.0-36.0); Mean Corpuscular Hemoglobin 29.7 pg (27.0-31.0); Mean Platelet Volume 9.2 fL (7.4-10.4); Platelet Count 143 thou/uL (130-400); RBC Distribution Width 17.1 % (11.5-14.5); Red Blood Cell (RBC) Count 4.46 mill/uL (4.70-6.10); White Blood Cell (WBC) Count 17.6 thou/uL (4.8-10.8)
--- NOTE | 2018-11-03 09:19 | RAD ---
PORTABLE CHEST 1 VIEW: Date: 11/03/18 Time: 0846 hours HISTORY: Dyspnea. FINDINGS: Comparison made with exam of 10/17/18. There is continued elevation of the right hemidiaphragm. Heart size is stable. Left-sided pacing martha ce remains in place. The aorta is tortuous. Calcified granuloma is again seen in the right upper lobe . No confluent areas of consolidation, pneumothoraces, alo pulmonary edema, or pleural effusions ar e seen. IMPRESSION: No acute process. POS: [facility]
[2018-11-03 09:22] LABS: Bilirubin Negative (Negative); Blood, Urine Large (Negative); Glucose, Urine (Dipstick) Negative (Negative); Leukocyte Trace (Negative); Nitrite Negative (Negative); Protein, Urine (Dipstick) Trace mg/dL (Neg-Trace); Specific Gravity, Urine 1.015 (1.005-1.030)
[2018-11-03 09:23] LABS: Clarity Hazy (Clear)
[2018-11-03 09:31] LABS: ALT (SGPT) 21 U/L (8-55); AST (SGOT) 26 U/L (5-34); Albumin 3.7 g/dL (3.4-4.8); Alkaline Phosphatase 119 U/L (40-150); Anion Gap 14 mmol/L (10-20); BUN (Urea Nitrogen) 33 mg/dL (8.4-25.7); Bilirubin, Total 1.6 mg/dL (0.2-1.2); Calc. Creatinine Clearance 0 mL/min (70-130); Calcium 9.9 mg/dL (7.8-10.44); Carbon Dioxide 27 mmol/L (23-31); Chloride 92 mmol/L (98-107); Estimated GFR-MDRD 79; Glucose 97 mg/dL (83-110); Potassium 4.9 mmol/L (3.5-5.1); Protein, Total 6.7 g/dL (5.8-8.1); Sodium 128 mmol/L (136-145)
[2018-11-03 09:42] LABS: Actual Bicarbonate (HCO3a) 30.3 mEq/L (22-28); Base Excess (BEa) 5.7 mEq/L (-2.0 to +3.0); Calcium, Ionized 1.19 mmol/L (1.12-1.30); Carboxyhemoglobin (COHb) 1.3 gm% (0.0-3.0); Hemoglobin (Hb) 13.3 g/dL (14.0-18.0); O2 Tension (PaO2) 89.2 mmHg (> 60.0); Potassium - ABG Lab 4.83 mmol/L (3.70-5.30); pH, Arterial 7.46 (7.35-7.45)
[2018-11-03] MEDS ORDERED: Acetaminophen 500 MG TAB ONE (09:42)
[2018-11-03 09:43] LABS: Puncture Site RA
[2018-11-03 09:44] LABS: Bacteria/HPF None Seen HPF (None Seen); Hyaline Casts/LPF NONE SEEN LPF (0-3 Hyaline); Squamous Epithelial 0-3 HPF (0-3)
[2018-11-03] MEDS ORDERED: Piperacillin/Tazobactam 4.5 GM VIAL ONE (10:27)
[2018-11-03] MEDS ORDERED: Vancomycin HCl 1.5 GM in Sodium Chloride 0.9% 250 ML 300 ML IVPB SCH (10:45)
--- NOTE | 2018-11-03 12:16 | PDOC.PN ---
- Subjective Encounter Start Date: 11/03/18 Encounter Start Time: 10:39 - Objective Vital Signs & Weight: Weight Weight 67.7 kg Result Diagrams: 11/03/18 08:40 11/03/18 08:40 Dx/Plan - Plan * .
[2018-11-03] MEDS ORDERED: HumaLOG 300 UNITS/3 ML VIAL SC PRN (15:44)
[2018-11-03] MEDS ORDERED: Bisacodyl 5 MG TAB PO PRN (15:44)
[2018-11-03] MEDS ORDERED: cloNIDine 0.1 MG TAB PO PRN ×2 (15:44→16:31)
[2018-11-03] MEDS ORDERED: Ondansetron PF 4 MG/2 ML Vial IVP PRN (15:44)
[2018-11-03] MEDS ORDERED: Dextrose 5% in Water 1,000 ML IV PRN (15:44)
[2018-11-03] MEDS ORDERED: Ondansetron ODT 4 MG TAB PO PRN (15:44)
[2018-11-03] MEDS ORDERED: Dextrose 50% Abboject 50 ML SYRINGE SLOW IVP PRN (15:44)
[2018-11-03] MEDS ORDERED: hydrALAZINE 20 MG/ML VIAL SLOW IVP PRN (15:44)
[2018-11-03] MEDS ORDERED: Vancomycin HCl 1 GM in Sodium Chloride 0.9% 250 ML 300 ML IVPB SCH (21:00)
--- NOTE | 2018-11-03 21:12 | HP ---
PRIMARY CARE PROVIDER: Dr. Sequeira. Primary attending at [facility], Dr. Forbes. CHIEF COMPLAINT: Fever and confusion. HISTORY OF PRESENT ILLNESS: This is an 83-year-old male, who is a current resident at [facility] over the last 4 to 5 weeks. The history is obtained after discussions with the patient's family at the bedside as well as discussion with the emergency room attending. The patient was recently admitted 10/18/2018 to 10/21/2018 to [facility] after a diagnosis of hypercapnic and hypoxic respiratory failure due to chronic obstructive pulmonary disease exacerbation. The patient was also noted with urinary retention with a chronic Aden catheter placement due to benign prostatic hyperplasia. The patient has been receiving physical therapy at [facility], ambulating with a rolling walker according the patient's son. The patient was noted with some altered mentation, confusion, as well as a rectal temperature of 101 degrees Fahrenheit. The patient was transferred to the emergency room for further evaluation. In the emergency room, the patient was noted with elevated temperature of 101 degrees Fahrenheit as well as tachycardia, tachypnea, and elevated white blood cell count concerning for sepsis. The patient received IV vancomycin, Zosyn, Tylenol, and intravenous normal saline in the emergency room. Initial urinalysis suspicious for possible urinary tract infection in the context of indwelling Aden catheter. The patient's family reports the patient had the catheter placed approximately 2 weeks prior to this evaluation due to urinary retention. PAST MEDICAL HISTORY: 1. Chronic obstructive pulmonary disease. 2. Chronic hypercapnic respiratory failure. 3. Urinary retention secondary to benign prostatic hyperplasia. 4. Thrombocytopenia, chronic. 5. Diabetes mellitus, type 2. 6. Hypertension. 7. Chronic normocytic anemia. 8. Hyperlipidemia. 9. Insomnia. 10. Deconditioning. 11. [id number] myocardial infarction in 2014. PAST SURGICAL HISTORY: 1. Status post left knee surgery. 2. Status post right shoulder repair. 3. Status post bilateral cataract removal. CURRENT MEDICATIONS: 1. Aspirin 325 mg daily. 2. Lipitor 10 mg p.o. at bedtime. 3. Advair Diskus 250/50 one inhalation b.i.d. 4. Metformin 1000 mg p.o. b.i.d. 5. Olmesartan 20 mg p.o. daily. 6. Tamsulosin 0.4 mg p.o. daily. 7. Triamterene/hydrochlorothiazide 37.5/25 mg one tablet p.o. daily. 8. Albuterol sulfate 1 puff inhaled daily p.r.n. 9. Doxycycline 100 mg p.o. b.i.d. 10. Prednisone 20 mg p.o. daily. 11. Melatonin 10 mg p.o. at bedtime. ALLERGIES: NO KNOWN DRUG ALLERGIES. FAMILY HISTORY: Positive for hypertension and diabetes. SOCIAL HISTORY: The patient resides in the [facility]. No current alcohol, tobacco, or illicit drug use. Accompanied by multiple family members in the emergency department. Ambulates with the use of a rolling walker. Currently resides at [facility]. REVIEW OF SYSTEMS: CONSTITUTIONAL: Negative for weight loss or gain, ability to conduct usual activities. SKIN: Negative for rash, itching. EYES: Negative for double vision, pain. ENT/MOUTH: Negative for nose bleeding, neck stiffness, pain, tenderness. CARDIOVASCULAR: Negative for palpitations, dyspnea on exertion, orthopnea. RESPIRATORY: Negative for shortness of breath, wheezing, cough, hemoptysis, fever or night sweats. GASTROINTESTINAL: Negative for poor appetite, abdominal pain, heartburn, nausea, vomiting, constipation, or diarrhea. GENITOURINARY: Negative for urgency, frequency, dysuria, nocturia. MUSCULOSKELETAL: Negative for pain, swelling. NEUROLOGIC/PSYCHIATRIC: Negative for anxiety, depression. ALLERGY/IMMUNOLOGIC: Negative for skin rash, bleeding tendency. Otherwise negative except as stated per HPI. PHYSICAL EXAMINATION: VITAL SIGNS: Currently, blood pressure 105/61, pulse 90, respiratory rate 18, temperature 98 degrees Fahrenheit, T-max 101.7 degrees Fahrenheit rectally, and O2 saturation 98% on room air. GENERAL APPEARANCE: This is an 83-year-old male, alert, responsive, and smiling, in no acute distress. HEENT: Pupils are equal, round, and reactive to light and accommodation. Extraocular muscles are intact. No scleral icterus. No conjunctival injection. Nares patent. OP is clear. Teeth in fair repair. NECK: Supple. No cervical adenopathy. No thyromegaly. No carotid bruits. No JVD appreciated. Cervical spine with full active and passive range of motion. No meningeal signs noted. CHEST: Lungs are clear to auscultation bilaterally. CARDIOVASCULAR: S1 and S2 without noted murmur, rub, or gallop. ABDOMEN: Rounded, soft, and protuberant. Bowel sounds positive in all 4 quadrants. No palpable mass. No rebound or guarding appreciated. EXTREMITIES: Warm and dry with fair turgor. Edema noted at the distal shins and ankle region bilaterally. Pulses palpable distally at the dorsalis pedis, posterior tibial, and popliteal arteries bilaterally. Capillary refill less than 2 seconds. NEUROLOGIC: Cranial nerves 2 through 12 are grossly intact. No focal or lateralizing signs appreciated. : Aden catheter in place with dark perfecto urine. PERTINENT LAB AND X-RAY FINDINGS: Sodium 128, potassium 4.9, chloride 92, CO2 of 27, BUN 33, creatinine 0.92, estimated GFR 79, glucose 97. Lactic acid level 1.3, calcium 9.9, total bilirubin 1.6. LFTs within normal limits. BNP 380 previously noted 411 on 10/17/2018. Troponin I negative x1. CBC showed a white blood cell count of 17.6, hemoglobin 13.2, hematocrit 41, platelet count 143 with 87% neutrophilia. ABG dated 11/03/2018 showed a pH 7.46, pCO2 of 44, pO2 of 89, bicarb of 30, O2 saturation 97% on 2 L/minute by nasal cannula. Urinalysis dated 11/03/2018 showed positive blood and trace leukocyte esterase with 7 to 10 rbc's per high-power field and 4 to 6 wbc's per high-power field. Influenza A and B antigen dated 11/03/2018, negative. Portable chest x-ray dated 11/03/2018 showed no acute cardiopulmonary process. EKG dated 11/03/2018 by my interpretation shows sinus tachycardia with heart rates in the 120s. Attenuated R-waves noted in the precordial leads. Left axis deviation. Right bundle branch block pattern noted. ASSESSMENT AND PLAN: 1. Sepsis. The patient will be admitted to the telemetry unit. Suspected urinary source, though given chronic indwelling Aden catheter. We will continue general sepsis protocol. Continue cefepime 2 g IV q.12 hours with additional vancomycin 1 g IV q.12 hours. The patient received initial fluid resuscitation in the emergency department. Lactic acid level 1.3 initially. Continue to monitor blood and urine culture results. 2. Acute metabolic encephalopathy. Suspect secondary to #1. Improved with volume resuscitation and IV antibiotics. Continue general supportive management and monitor clinically. 3. Chronic indwelling Aden catheter secondary to urinary retention. We will consult Urology Service for further evaluation and determination of ongoing need for catheter placement. 4. Hyponatremia. Suspect multifactorial given the patient's presentation. Status post 2 L of intravenous normal saline. Repeat sodium level in the a.m. 5. Sick sinus syndrome. Status post pacemaker placement, 10/01/2018. We will consult for pacemaker interrogation. Continue telemetry monitoring. 6. Deconditioning. PT/OT consultation in the a.m. General fall risk precautions. 7. Diabetes mellitus, type 2. Insulin sliding scale for reflexive coverage. ADA diet. Serial Accu-Cheks before meals and at bedtime. 8. Prophylaxis. SCDs while in bed. Pepcid 20 mg p.o. b.i.d. General fall risk precautions. CODE STATUS: Full. Surrogate medical decision maker is the patient's spouse. Job ID: [id number]
[2018-11-03] MEDS: Acetaminophen 500 MG TAB PO PRN (22:28)
[2018-11-03] MEDS: Cefepime 2 GM in Sodium Chloride 0.9% 100 ML IVPB SCH (22:28)
[2018-11-03] MEDS: Temazepam 15 MG CAP PO PRN (22:28)
[2018-11-03] MEDS: Famotidine 20 MG TAB PO SCH (22:28)
[2018-11-04 05:47] LABS: Band 11 % (5-11); Hemoglobin 13.6 g/dL (14.0-18.0); Lymphocytes 13 % (21-51); MDiff Complete? YES; Mean Corpuscular HGB CONC 31.5 g/dL (32.0-36.0); Mean Corpuscular Hemoglobin 29.4 pg (27.0-31.0); Mean Corpuscular Volume 93.5 fL (78.0-98.0); Mean Platelet Volume 10.1 fL (7.4-10.4); Monocytes 5 % (0-10); Neutrophil 70 % (42-75); Platelet Count 121 thou/uL (130-400); Platelet Morphology Comment Appears Decreased; RBC Distribution Width 17.2 % (11.5-14.5); Reactive Lymphocytes 1 % (0-10); Red Blood Cell (RBC) Count 4.62 mill/uL (4.70-6.10)
[2018-11-04 06:02] LABS: Anion Gap 14 mmol/L (10-20); BUN (Urea Nitrogen) 35 mg/dL (8.4-25.7); Calc. Creatinine Clearance 57 mL/min (70-130); Calcium 9.3 mg/dL (7.8-10.44); Carbon Dioxide 24 mmol/L (23-31); Chloride 95 mmol/L (98-107); Estimated GFR-MDRD 76; Glucose 120 mg/dL (83-110); Potassium 4.6 mmol/L (3.5-5.1); Sodium 128 mmol/L (136-145)
[2018-11-04] MEDS: Famotidine 20 MG TAB PO SCH ×2 (08:37→22:51)
[2018-11-04] MEDS: Cefepime 2 GM in Sodium Chloride 0.9% 100 ML IVPB SCH ×2 (08:37→22:51)
[2018-11-04] MEDS: Acetaminophen 500 MG TAB PO PRN (08:50)
[2018-11-04] MEDS: Senokot S 8.6-50 MG TAB PO PRN (08:53)
--- NOTE | 2018-11-04 09:43 | PDOC.PN ---
- Subjective Encounter Start Date: 11/04/18 Encounter Start Time: 09:35 Subjective: f/u for sepsis suspected from UTI with initial blood cx 1 of 2 with gram -: + cocci. Currently on Cefepime/Vancomycin. PM interrogation showed -: normal functioning device. Pt feels much better today. - Objective Resuscitation Status - Order Detail: 11/03/18 14:18 Resuscitation Status Routine Resuscitation Status: FULL: Full Resuscitation MAR Reviewed: Yes Vital Signs & Weight: Vital Signs (12 hours) Temp Pulse Resp BP Pulse Ox 11/04/18 07:54 97.7 F 100 18 104/71 90 L 11/04/18 04:00 97.6 F 95 16 88/61 L 94 L 11/04/18 00:00 98.5 F 104 H 16 85/54 L 97 11/03/18 22:20 99 Weight Weight 149 lb 4.047 oz I&O: 11/03/18 11/04/18 11/05/18 06:59 06:59 06:59 Intake Total 360 Output Total 700 Balance -340 Result Diagrams: 11/04/18 05:02 11/04/18 05:02 Additional Labs: Accuchecks 11/04/18 11/04/18 05:17 00:32 POC Glucose 119 H 176 H Microbiology 11/03/18 08:46 Nasal swab Influenza Types A,B Direct EIA - Final 11/03/18 08:50 Venous blood - Left Arm Blood Culture - Preliminary Gram Positive Cocci 11/03/18 08:40 Venous blood - Right Arm Blood Culture - Preliminary Enterococcus faecalis Laboratory Tests 11/03/18 11/03/18 11/04/18 08:40 08:40 05:02 WBC 17.6 H Plt Count 143 Neutrophils % 87.0 H Neutrophils % (Manual) 70 Sodium 128 L EKG Reviewed by me: Yes (Tele - Sinus tachycardia) Phys Exam - Physical Examination Constitutional: NAD smiling, alert HEENT: PERRLA, sclera anicteric, oral pharynx no lesions Neck: no nodes, no JVD, supple, full ROM L upper chest wall with PM device in place, no fluctuance, +ecchymosis Respiratory: no wheezing, no rales, no rhonchi, clear to auscultation bilateral + tachycardia Cardiovascular: no significant murmur, no rub, gallop Gastrointestinal: soft, non-tender, no distention, positive bowel sounds mild peripheral edema Musculoskeletal: pulses present, edema present Neurological: normal sensation, moves all 4 limbs Skin: normal turgor, cap refill <2 seconds Deviation from normal: Aden with perfecto urine Dx/Plan (1) Sepsis Code(s): A41.9 - SEPSIS, UNSPECIFIED ORGANISM Status: Acute Comment: Secondary to Enterococcus spp in 2/2 blood cx, continue Vancomycin, consult ID service, concern for bacteremia in context of recent PM insertion (2) Bacteremia due to Enterococcus Code(s): R78.81 - BACTEREMIA; B95.2 - ENTEROCOCCUS THE CAUSE OF DISEASES CLASSIFIED ELSEWHERE Status: Acute Comment: See above, may need removal of PM device given bacteremia (3) Chronic indwelling Aden catheter Code(s): Z92.89 - PERSONAL HISTORY OF OTHER MEDICAL TREATMENT Status: Acute Comment: Continue Cefepime, await final Ucx results, catheter placed due to urinary retention and BPH (4) Physical deconditioning Code(s): R53.81 - OTHER MALAISE Status: Chronic Comment: PT for mobilization and ambulation (5) Third degree atrioventricular block Code(s): I44.2 - ATRIOVENTRICULAR BLOCK, COMPLETE Status: Acute Comment: s/ p PM placement, normal functioning device after interrogation, consult EP service regarding bacteremia and potential need to remove (6) Diabetes mellitus, type 2 Status: Chronic Comment: ISS, hold Metformin another 24h, ADA - Plan plan discussed w/ family, continue antibiotics, PT/OT, health care social worker, out of bed/ambulate, DVT proph w/SCDs Stable currently -: Continue Cefepime/Vancomycin -: Consult ID service regarding Enterococcus bacteremia/Pacemaker -: Consult EP service -: AM lab: BMP, CBC * 2D echo to assess PM leads, r/o endocarditis
[2018-11-04] MEDS: Vancomycin HCl 1 GM in Premix Bag 1 BAG IVPB SCH (09:52)
[2018-11-04] MEDS ORDERED: Non-Formulary Item 1 EACH (Albuterol Sulfate Hfa (Or) 1 PUFF) INH PRN (09:55)
[2018-11-04] MEDS ORDERED: PROVENTIL INHALER 6.7 G (200 INHALATIONS) INH PRN (10:47)
[2018-11-04] MEDS: HumaLOG 300 UNITS/3 ML VIAL SC PRN (11:41)
--- NOTE | 2018-11-04 17:06 | CON ---
DATE OF CONSULTATION: 11/04/2018 REASON FOR CONSULTATION: Bacteremia, recent pacemaker implantation. HISTORY OF PRESENT ILLNESS: Mr. Marvin is an 83-year-old gentleman initially referred to EP for intermittent complete heart block, right ventricular failure with RV dilation and elevated PAP and underwent a dual-chamber pacemaker implantation on 10/01/2018. He did not follow up for 2-week wound check with an outpatient clinic. He was prescribed a 1-week course of cephalexin following device implant. Mr. Marvin presented to [facility] from a senior living facility with a chief complaint of fever and confusion. This has been a progressive issue, eventually prompting further evaluation. He is currently a resident at [facility] for the past 4 to 5 weeks. As mentioned above, he was recently hospitalized for hypercapnic and hypoxic respiratory failure secondary to COPD exacerbation. He also had urinary retention and chronic Aden catheter that was placed a few weeks ago secondary to BPH. He was also found to have a fever of 101 in the ER with tachycardia, tachypnea and elevated white blood cell count. He had blood cultures drawn two out of two, preliminary reports are positive for gram-positive cocci. Infectious Disease has been consulted. There is concern with his bacteremia given his recent pacemaker implantation. Mr. Marvin is currently sitting upright in a chair with his daughter and at bedside to translate. He is feeling better. He denies any fevers or chills currently. He has not been aware of heart racing or palpitations, chest pain, pressure, or any dizziness today, but does endorse that he will have occasional dizziness like it can happen at anytime or with associated to position changes. REVIEW OF SYSTEMS: A 12-point review of systems is conducted and is negative except that listed above in HPI. PAST MEDICAL HISTORY: 1. Complete AV block. 2. 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 3. COPD. 4. Sleep apnea. 5. Diabetes. 6. Hypertension. 7. Paroxysmal atrial fibrillation (seen during September hospitalization). ALLERGIES: NO KNOWN DRUG ALLERGIES. HOME MEDICATIONS: Include; 1. Aspirin 325 mg daily. 2. Lipitor 10 mg at bedtime. 3. Advair Diskus 1 inhalation b.i.d. 4. Metformin 1000 mg b.i.d. 5. Olmesartan 20 mg p.o. daily. 6. Tamsulosin 0.4 mg p.o. daily. 7. Triamterene/hydrochlorothiazide 37.5-25 mg p.o. daily. 8. Albuterol sulfate 1 puff inhaled as needed. 9. Doxycycline 100 mg p.o. b.i.d. 10. Prednisone 20 mg p.o. daily. 11. Melatonin 10 mg p.o. at bedtime. FAMILY HISTORY: Positive for hypertension and diabetes. Negative for sudden cardiac . SOCIAL HISTORY: [facility] facility resident in [facility]. Denies alcohol, tobacco, or illicit drug use. Strong family support. OBJECTIVE: VITAL SIGNS: Most recent vital signs; temperature 97.8, pulse 98, blood pressure 102/68, respirations 18, and oxygen is 94% on room air. PHYSICAL EXAMINATION: GENERAL: The patient is alert and oriented. Fair historian. He is in no apparent distress. HEENT: He is normocephalic and atraumatic. Sclerae anicteric. EOMs are intact. Oral mucosa is moist and pink with fair dentition. NECK: Supple without jugular venous distention. Thyroid is not palpable. LUNGS: Clear to auscultation bilaterally. HEART: Rate is irregularly irregular without murmur, rub, or gallop. Device is seen at the left infraclavicular fossa, which shows adequate healing and no concern for infection. There is no swelling, bruising, redness, streaking, or drainage present. There are no areas of fluctuance suggesting induration or purulence/abscess. ABDOMEN: Soft and nontender without palpable masses. Hepatojugular reflux is negative. EXTREMITIES: Warm and dry to touch without clubbing, cyanosis, or edema. NEUROLOGIC: Grossly intact and nonfocal. There is a Aden catheter in place. Gait was not assessed. DATABASE: EKG today demonstrates sinus rhythm. Laboratory; WBC 16.0, hemoglobin 13.6, hematocrit 43.2, platelet count 121. Potassium 4.6 and creatinine 0.95. BNP 379 and troponin 0.022. Device check [employer] dual-chamber pacemaker with adequate functioning, currently DDDR at a temporary DDD with a lower rate limit of 60. Currently shows approximately 35% ventricular pacing. Paroxysmal atrial fibrillation is seen with a 4% burden approximately 1 hour per day. No EGMs are available for review. This initial interrogation of device is functioning normally. IMPRESSION: 1. Third-degree/complete AV block status post dual-chamber pacemaker in September of 2018 with adequate functioning after adequate function and also a well-healed site. 2. Paroxysmal atrial fibrillation. 3. Elevated CHADS-VASc score of greater than or equal to 5 (advanced age, diabetes, hypertension, and vascular disease). Oral anticoagulation is indicated, but currently not ordered. 4. Bacteremia, positive blood cultures x2 with gram-positive cocci prompting Infectious Disease consult. RECOMMENDATIONS: We will have the pacemaker lower rate limit reduced to 40 beats per minute to assess true dependence on the device. At this point, a moderate amount of ventricular pacing is required, although this may be requirement during his paroxysmal atrial fibrillation episodes. We will require more data from the device interrogation and review EGMs from AF episodes. We appreciate Infectious Disease recommendations. I suspect though a please add to the impression urinary tract infection with chronic indwelling Aden catheter. Continue recommendations we suspect that the bacteremia is secondary to his indwelling catheter and hopefully can avoid pacemaker extraction. We will continue to monitor his rhythm, currently he is in a sinus mechanism, but does have a low burden of atrial fibrillation, paroxysmal atrial fibrillation, episodes which terminated spontaneously. Ultimately, he will likely require oral anticoagulation initiated prior to discharge, but for now, we will abstain in lieu of any possible procedures clean-out. Thank you for allowing us to participate in care of this patient. Job ID: [id number]
--- NOTE | 2018-11-04 20:53 | CON ---
DATE OF CONSULTATION: 11/04/2018 REASON FOR CONSULTATION: Bacteremia. HISTORY OF PRESENT ILLNESS: An 83-year-old, who has a history of degenerative joint disease, type 2 diabetes and hypertension as well as benign prostatic hypertrophy and ischemic cardiomyopathy with a prior non ST-segment elevation MN. In September 30, he presented to the emergency room with acute respiratory failure which required an intubation. The patient had third-degree AV block, was treated with dobutamine and dopamine and a pacemaker was placed on October 01. He was weaned off pressors and remained with low blood pressures, he developed a left-sided pneumothorax on October 04, managed with a chest tube and a Heimlich valve. He was discharged to rehab and then transferred from inpatient rehab because of acute urinary retention for 6 days. In the emergency room, he developed tachypnea and was placed on BiPAP, and admitted to [facility]. He was given Lasix and inhalers and Solu-Medrol. Subsequently, vancomycin, Zosyn, and clindamycin were administered. He had a urine culture which was negative. Catheter was placed because of urinary retention with some hematuria noted. Consultation with Urology, Dr. Ashton was obtained and he recommended leaving the indwelling catheter in place. He noted that the prostate gland was markedly indurated, it could be either a chronic prostatitis or malignancy. The PSA was not elevated, was only 2.01. At this time, he was brought in yesterday from a fpc unit with altered mental status, fever, tachycardia. He was given broad-spectrum antimicrobial coverage. Initial findings included a blood pressure of 105/61, pulse 90, respirations 18, temperature 98, T-max 101.7. HEENT exam, noncontributory. Neck was supple without jugular venous distention. Chest with clear lungs. Heart exam, no findings of significance. Abdomen was soft. No tenderness. Initial sodium 128, creatinine 0.92. Lactic acid 1.3, bilirubin 1.6. BNP 380. CBC with a white cell count of 17.6, hemoglobin 13, platelets 143, 87% neutrophils, pH 7.46, pCO2 44, PO2 89. Urinalysis with fairly minor changes with only 4-6 wbc's, protein trace. There was blood, but only 7-10 rbc's. We have 2 sets of blood cultures with Enterococcus faecalis. Urine culture, no growth of 24 hours. Previous urine cultures from the end of September, no growth as well. Currently, Mr. Mavrin is sitting by the bedside. He knows that he is in [place]. He is oriented to time, I think his is in the room as well. He denies any headaches. No visual symptoms. Intermittent back pain pretty much along the thoracic and lumbar spine, but not persistent. No sore throat, odynophagia, or dysphagia. No vomiting. No dyspnea or chest pain. No abdominal pain. Had some issues with urination which were related to his BPH, managed with catheterization. Weakness in all four extremities, but no focal weakness. PAST MEDICAL HISTORY: Type 2 diabetes, ischemic cardiomyopathy, complete heart block with pacemaker placement in September of this year, urinary retention due to BPH requiring indwelling Aden catheterization, hypertension, COPD. PAST SURGICAL HISTORY: Includes left knee arthroscopy, right shoulder repair, cataracts. ALLERGIES: NONE. FAMILY HISTORY: Hypertension and diabetes. SOCIAL HISTORY: Former smoker. He used to drink daily according to the . 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 CURRENT MEDICATIONS: 1. Tylenol. 2. Proventil. 3. Lipitor. 4. Dulcolax. 5. Cefepime. 6. Clonidine. 7. Finasteride. 8. Insulin. 9. Ondansetron. 10. Senna. 11. Flomax. 12. Restoril. 13. Ultram. 14. Vancomycin. PHYSICAL EXAMINATION: VITAL SIGNS: T-max 98.5, BP 102/68, pulse 98, respirations 18, O2 saturation 94%, previously 90% on room air. SKIN: Areas of bruising in the upper extremity peripheral IV access and the area of the pacemaker without inflammatory changes. The pocket is not tender. The incision is healed and without drainage. The patient has a Aden catheter in place with urine with a little bit of red tinge. HEENT: No lymphadenopathy. Ocular movements conjugate. Sclerae white. Pupils are equal. Conjunctivae normal. Nasal and ear examination normal. Oral cavity with a few missing teeth. The remainder ones with some decay and gum disease, not much. NECK: Supple. No jugular vein distention or carotid bruits. LUNGS: With symmetric air entry. Faint basilar crackles on the left side. HEART: S1 and S2. Regular rate. No S3 or S4. No murmurs. ABDOMEN: Soft, not distended or tender. No bladder distention. No ascites. EXTREMITIES: No joint inflammatory activity noted. Pulses are 1+ in dorsalis pedis, 2+ edema in lower extremities. Moves extremities equally. Plantar responses are flexor. No clonus. NEUROLOGIC: He is awake, knows his name. He knew where he was. Recollection needs a little bit prompting. LABORATORY DATA: White cell count now is down to 16,000, hemoglobin 13, platelets 121,000, 70% neutrophils, 13% lymphocytes, previously 87% neutrophils. Chemistry with a sodium of 128, creatinine 0.95. BNP 379, albumin 3.7, globulin 3.0, bilirubin 1.6, AST 26, ALT 21. Microbiology as noted above. IMAGING STUDIES: Chest x-ray from admission, elevation of right hemidiaphragm. Heart size is stable. Pacing device is in place, left side, no acute process. ASSESSMENT: 1. Type 2 diabetes, ischemic cardiomyopathy, third-degree atrioventricular with block with recent pacemaker placement, episodes of respiratory failure requiring BiPAP and even intubation in the recent past. 2. Benign prostatic hypertrophy with urinary obstruction requiring indwelling Aden catheter. 3. Enterococcus species bacteremia, negative urine culture and minor changes in the urinalysis. DISCUSSION: Differential diagnosis includes colonization of pacemaker by E faecalis, possible endocarditis versus a urinary tract involvement with bacteremia. We will evaluate the echocardiogram results. May need a ALANNA. Await on results of urine cultures. If positive, then we would tend to blame the urinary tract for the episode. If the urine cultures are negative and the echocardiogram/ALANNA do not show vegetations, then one would assume a transient bacteremia from prostatitis perhaps without confirmatory evidence, still we might be dealing with a more complicated process. The duration of therapy will depend on the results of the above. Other sites of involvement are not apparent at this time. Job ID: [id number]
[2018-11-04] MEDS: Atorvastatin Calcium 10 MG TAB PO SCH (22:51)
[2018-11-04] MEDS: Temazepam 15 MG CAP PO PRN (22:51)
[2018-11-05 06:10] LABS: Band 1 % (5-11); Hemoglobin 12.9 g/dL (14.0-18.0); Hypochromia SLIGHT = 6-15 cells (100X) (0-5/hpf); Lymphocytes 5 % (21-51); MDiff Complete? YES; Mean Corpuscular HGB CONC 31.7 g/dL (32.0-36.0); Mean Corpuscular Hemoglobin 29.3 pg (27.0-31.0); Mean Corpuscular Volume 92.4 fL (78.0-98.0); Mean Platelet Volume 9.7 fL (7.4-10.4); Monocytes 4 % (0-10); Neutrophil 89 % (42-75); Platelet Count 114 thou/uL (130-400); Platelet Morphology Comment Appears Decreased; Reactive Lymphocytes 1 % (0-10); White Blood Cell (WBC) Count 12.6 thou/uL (4.8-10.8)
[2018-11-05 06:18] LABS: Anion Gap 12 mmol/L (10-20); BUN (Urea Nitrogen) 25 mg/dL (8.4-25.7); Calc. Creatinine Clearance 66 mL/min (70-130); Calcium 9.3 mg/dL (7.8-10.44); Carbon Dioxide 27 mmol/L (23-31); Chloride 99 mmol/L (98-107); Estimated GFR-MDRD 89; Glucose 117 mg/dL (83-110); Potassium 4.1 mmol/L (3.5-5.1); Sodium 134 mmol/L (136-145)
[2018-11-05] MEDS: Cefepime 2 GM in Sodium Chloride 0.9% 100 ML IVPB SCH ×2 (09:32→21:21)
[2018-11-05] MEDS: Finasteride 5 MG TAB PO SCH (09:35)
[2018-11-05] MEDS: Famotidine 20 MG TAB PO SCH ×2 (09:35→21:21)
[2018-11-05] MEDS: Tamsulosin HCl 0.4 MG CAP PO SCH (09:36)
[2018-11-05] MEDS: HumaLOG 300 UNITS/3 ML VIAL SC PRN (11:33)
[2018-11-05] MEDS: Vancomycin HCl 1 GM in Premix Bag 1 BAG IVPB SCH (12:53)
--- NOTE | 2018-11-05 13:03 | PDOC.CTH ---
Cardiology Progress Note - Subjective EP PROGRESS NOTE: 11/05/18 Seen as follow up for atrial fibrillation and device management. Now new cardiac concerns or complaints. - Objective Vital Signs Temp Pulse Resp BP Pulse Ox 11/05/18 11:57 97.3 F L 96 22 H 118/58 L 96 11/05/18 07:53 98.1 F 96 22 H 127/73 97 11/05/18 07:50 96 11/05/18 04:00 98.3 F 98 19 128/68 100 Weight 149 lb 4.047 oz 11/04/18 11/05/18 11/06/18 06:59 06:59 06:59 Intake Total 360 1400 300 Output Total 700 2550 500 Balance -340 -1150 -200 - Physical Examination General/Neuro: alert & oriented x3, NAD Neck: carotid US brisk, no JVD present Lungs: CTA, unlabored respirations Heart: PMI normal, RRR Abdomen: NT/ND, soft - Telemetry Telemetry Rhythm: SR - Labs Result Diagrams: 11/05/18 05:36 11/05/18 05:36 Troponin/CKMB Troponin I 0.022 ng/mL (< 0.028) 11/03/18 08:50 - Assessment/Plan 1. Bacteremia - consider ALANNA to rule out vegetation/endocarditis - vanc/cefepime. 2. Atrial fibrillation, seen after PM placed last month, not anticoagulated - consider starting lovenox for anticoagulation. Not urgent as he remains in sinus rhythm currently. - Recommend OAC started and continued upon DC 3. Third degree heart block, intermittent 4. Dual chamber PPM - lower rate limit dropped to 40bpm yesterday, no pacing seen overnight. Not device dependent in case PPM needs to be explanted 5. Urinary tract infection -correction indwelling hernandez catheter. Continue current plan of treatment. Will continue to monitor
--- NOTE | 2018-11-05 13:25 | PDOC.PN ---
- Subjective Encounter Start Date: 11/05/18 Encounter Start Time: 13:25 Subjective: f/u for enterococcus bacteremia on current Vanc/Cefepime. Feels ok -: overall. No fever noted. Appetite depressed. - Objective Resuscitation Status - Order Detail: 11/03/18 14:18 Resuscitation Status Routine Resuscitation Status: FULL: Full Resuscitation MAR Reviewed: Yes Vital Signs & Weight: Vital Signs (12 hours) Temp Pulse Resp BP Pulse Ox 11/05/18 11:57 97.3 F L 96 22 H 118/58 L 96 11/05/18 07:53 98.1 F 96 22 H 127/73 97 11/05/18 07:50 96 11/05/18 04:00 98.3 F 98 19 128/68 100 Weight Weight 149 lb 4.047 oz I&O: 11/04/18 11/05/18 11/06/18 06:59 06:59 06:59 Intake Total 360 1400 300 Output Total 700 2550 500 Balance -340 -1150 -200 Result Diagrams: 11/06/18 10:58 11/06/18 10:58 Additional Labs: Accuchecks 11/05/18 11/05/18 11/04/18 10:42 05:38 23:01 POC Glucose 238 H 109 234 H 11/04/18 16:56 POC Glucose 130 H Microbiology 11/03/18 08:49 Urine hernandez catheter Urine Culture - Final NO GROWTH AT 48 HOURS 11/03/18 08:46 Nasal swab Influenza Types A,B Direct EIA - Final 11/03/18 08:50 Venous blood - Left Arm Blood Culture - Preliminary Presumptive Enterococcus sp. 11/03/18 08:50 Venous blood - Left Arm Blood Culture - Preliminary Gram Positive Cocci 11/03/18 08:40 Venous blood - Right Arm Blood Culture - Preliminary Enterococcus faecalis 11/03/18 08:40 Venous blood - Right Arm Blood Culture - Preliminary Enterococcus faecalis Laboratory Tests 11/03/18 11/03/18 11/04/18 08:40 08:40 05:02 WBC 17.6 H Plt Count 143 Neutrophils % 87.0 H Neutrophils % (Manual) 70 Sodium 128 L Radiology Reviewed by me: Yes (2D echo - EF 60-65%, RV enlargement, mod MR/TR) EKG Reviewed by me: Yes (Tele - SR) Phys Exam - Physical Examination Constitutional: NAD smiling, alert HEENT: PERRLA, sclera anicteric, oral pharynx no lesions Neck: no nodes, no JVD, supple, full ROM few basilar crackles Respiratory: no wheezing, no rhonchi II/ DEO in RUSB Cardiovascular: RRR, no rub, gallop Gastrointestinal: soft, non-tender, no distention, positive bowel sounds mild edema LE's Musculoskeletal: pulses present Neurological: normal sensation, moves all 4 limbs Skin: normal turgor, cap refill <2 seconds Deviation from normal: Hernandez with clear urine Dx/Plan (1) Sepsis Code(s): A41.9 - SEPSIS, UNSPECIFIED ORGANISM Status: Acute Comment: Secondary to Enterococcus spp in 2/2 blood cx, continue Vancomycin, consult ID service, concern for bacteremia in context of recent PM insertion, plan for Amoxicillin po for 2 weeks with repeat blood cx after completion of abx (2) Bacteremia due to Enterococcus Code(s): R78.81 - BACTEREMIA; B95.2 - ENTEROCOCCUS THE CAUSE OF DISEASES CLASSIFIED ELSEWHERE Status: Acute Comment: See above, may need removal of PM device given bacteremia, pt declines ALANNA currently, see above for mgmt (3) Chronic indwelling Hernandez catheter Code(s): Z92.89 - PERSONAL HISTORY OF OTHER MEDICAL TREATMENT Status: Acute Comment: Continue Cefepime, Ucx neg x 48h, catheter placed due to urinary retention and BPH (4) Physical deconditioning Code(s): R53.81 - OTHER MALAISE Status: Chronic Comment: PT for mobilization and ambulation (5) Third degree atrioventricular block Code(s): I44.2 - ATRIOVENTRICULAR BLOCK, COMPLETE Status: Acute Comment: s/ p PM placement, normal functioning device after interrogation, consult EP service regarding bacteremia and potential need to remove, no current evidence to suggest endocarditis (6) Diabetes mellitus, type 2 Status: Chronic Comment: ISS, hold Metformin another 24h, ADA - Plan plan discussed w/ family, continue antibiotics, PT/OT, social work nurse, out of bed/ambulate, DVT proph w/SCDs Stable currently -: Continue Vancomycin/Cefepime -: ALANNA to r/o vegetations -: Appreciate EP/ID recommendations and assistance -: AM lab: BMP, CBC * .
--- NOTE | 2018-11-05 17:20 | PRG ---
DATE OF SERVICE: 11/05/2018 SUBJECTIVE: Mr. Marvin is seen by the bedside. Again, he does not feel very comfortable when he is lying down on his back. He complains that he does not like to have his mouth dry and he has to drink water to feel comfortable. Otherwise, he gets short of breath. No headaches. No visual symptoms. No cough. No abdominal pain or diarrhea. Voiding without difficulty. OBJECTIVE: VITAL SIGNS: Temperature max 98.3, blood pressure 111/69, pulse 86, respirations 19 to 22, and O2 saturation 93% to 96%. GENERAL: Appears in no distress. Appears chronically ill, oriented. HEENT: Ocular movements conjugate. Oral cavity moist. LUNGS: Symmetric air entry. No obvious crackles or wheezing. HEART: S1 and S2, regular rate. No S3 or S4. ABDOMEN: Soft without distention. EXTREMITIES: No joint inflammatory activity. LABORATORY DATA: White cell count is 12.6, hemoglobin 12.9, platelets 114,000 with 89% neutrophils. Sodium 134, creatinine 0.83. AST 26, ALT 21, and alkaline phosphatase is 119. DIAGNOSTIC DATA: The echocardiogram report was reviewed and it showed EF 60% to 65%, severe dilated RV with reduced RV systolic function, pacer wire in right ventricle, calcified aortic valve with reduced cusp opening, moderate tricuspid regurgitation, elevated right ventricular systolic pressure estimated at 65, consistent with pulmonary hypertension. We have these 2 blood cultures from November 03 with Enterococcus faecalis, pending final susceptibility results. Urine culture, no growth at 48 hours. ASSESSMENT AND DISCUSSION: Type 2 diabetes, ischemic cardiomyopathy with third-degree AV block with recent pacemaker placement, benign prostatic hyperplasia with urinary obstruction requiring indwelling Aden catheter, Enterococcus species bacteremia with negative urine cultures. The patient will have ALANNA. If ALANNA negative, treat as UTI with 2 weeks course of hopefully oral amoxicillin. If the ALANNA is positive, then we will have to treat with IV Rocephin, ampicillin, PICC line placement, and potential removal of the device. Job ID: [id number]
[2018-11-05] MEDS: Atorvastatin Calcium 10 MG TAB PO SCH (21:21)
[2018-11-05 22:48] VITALS: BMI 26.2
[2018-11-06] MEDS: traMADol HCl 50 MG TAB PO PRN ×2 (04:47→18:33)
[2018-11-06] MEDS: Acetaminophen 500 MG TAB PO PRN (06:21)
[2018-11-06] MEDS: Cefepime 2 GM in Sodium Chloride 0.9% 100 ML IVPB SCH ×2 (08:39→20:43)
[2018-11-06] MEDS: Finasteride 5 MG TAB PO SCH (08:44)
[2018-11-06] MEDS: Tamsulosin HCl 0.4 MG CAP PO SCH (08:44)
[2018-11-06] MEDS: Famotidine 20 MG TAB PO SCH ×2 (08:44→20:36)
[2018-11-06] MEDS: Vancomycin HCl 1 GM in Premix Bag 1 BAG IVPB SCH (10:31)
[2018-11-06] MEDS: HumaLOG 300 UNITS/3 ML VIAL SC PRN ×2 (10:58→17:35)
[2018-11-06 11:34] LABS: Vancomycin, Trough 34.4 ug/mL
[2018-11-06 11:42] LABS: Anion Gap 11 mmol/L (10-20); BUN (Urea Nitrogen) 20 mg/dL (8.4-25.7); Calc. Creatinine Clearance 67 mL/min (70-130); Calcium 9.1 mg/dL (7.8-10.44); Carbon Dioxide 25 mmol/L (23-31); Chloride 98 mmol/L (98-107); Estimated GFR-MDRD 87; Glucose 207 mg/dL (83-110); Potassium 4.3 mmol/L (3.5-5.1); Sodium 130 mmol/L (136-145)
[2018-11-06 11:43] LABS: Band 5 % (5-11); Hemoglobin 12.5 g/dL (14.0-18.0); Lymphocytes 7 % (21-51); MDiff Complete? YES; Mean Corpuscular HGB CONC 31.5 g/dL (32.0-36.0); Mean Corpuscular Hemoglobin 28.8 pg (27.0-31.0); Mean Corpuscular Volume 91.3 fL (78.0-98.0); Mean Platelet Volume 9.5 fL (7.4-10.4); Monocytes 5 % (0-10); Neutrophil 82 % (42-75); Platelet Count 105 thou/uL (130-400); Platelet Morphology Comment Appears Decreased; Promyelocytes 1 % (0-0); RBC Distribution Width 17.1 % (11.5-14.5); RBC Morphology Normal; Red Blood Cell (RBC) Count 4.33 mill/uL (4.70-6.10); White Blood Cell (WBC) Count 9.5 thou/uL (4.8-10.8)
--- NOTE | 2018-11-06 12:13 | PDOC.CTH ---
Cardiology Progress Note - Subjective EP PROGRESS NOTE: 11/06/18 Seen as follow up for atrial fibrillation and device management with concerns for infected PPM with recent bacteremia. Now new cardiac concerns or complaints. - Objective Vital Signs Temp Pulse Resp BP Pulse Ox 11/06/18 12:00 97.8 F 88 20 142/65 H 93 L 11/06/18 08:00 99 F 84 20 135/64 93 L 11/06/18 07:48 92 L 11/06/18 04:00 97.5 F L 92 19 159/86 H 90 L Weight 153 lb 11/05/18 11/06/18 11/07/18 06:59 06:59 06:59 Intake Total 1400 840 Output Total 2550 1860 Balance -1150 -1020 - Physical Examination General/Neuro: alert & oriented x3, NAD Neck: carotid US brisk, no JVD present Lungs: CTA, unlabored respirations Heart: PMI normal, RRR Abdomen: NT/ND, soft - Telemetry Telemetry Rhythm: SR - Labs Result Diagrams: 11/06/18 10:58 11/06/18 10:58 Troponin/CKMB Troponin I 0.022 ng/mL (< 0.028) 11/03/18 08:50 - Assessment/Plan 1. Bacteremia - consider ALANNA to rule out vegetation/endocarditis - vanc/cefepime. 2. Atrial fibrillation, seen after PM placed last month, not anticoagulated - consider starting lovenox for anticoagulation. Not urgent as he remains in sinus rhythm currently. - Recommend OAC started and continued upon DC 3. Third degree heart block, intermittent 4. Dual chamber PPM - lower rate limit dropped to 40bpm yesterday, no pacing seen overnight. Not device dependent in case PPM needs to be explanted 5. 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 Continue current plan of treatment. Will sign off. If ID recommends device to be explanted or further arrhythmia issues are seen do not hesitate to contact me.
--- NOTE | 2018-11-06 17:50 | PRG ---
DATE OF SERVICE: 11/06/2018 SUBJECTIVE: The patient ended up hesitating to have a ALANNA done and the procedure was not done. He does not have any chest pain, no shortness of breath. No abdominal pain or diarrhea. No genitourinary symptoms. OBJECTIVE: VITAL SIGNS: His vital signs showed a T-max of 99, blood pressure 110/55, pulse 78, respirations 16, and O2 saturation is 92%. GENERAL: He appears in no distress. LUNGS: Symmetric air entry. Faint basilar crackles. HEART: S1, S2. Regular rate. ABDOMEN: Soft, not distended or tender. No bladder distention. LABORATORY DATA: White cell count 9.5, hemoglobin 12.5, platelets 105,000 with 82% neutrophils. Sodium 130, creatinine 0.84. Blood cultures again with Enterococcus faecalis. Urine culture, no growth at 48 hours. ASSESSMENT AND DISCUSSION: Type 2 diabetes, ischemic cardiomyopathy with third-degree atrioventricular block, recent pacemaker placement, benign prostatic hyperplasia with urinary obstruction requiring indwelling Aden catheter placement and Enterococcus species bacteremia with negative urine cultures. ALANNA was not able to be done, I still think it would be a good idea before we decide on treatment course. If it cannot be done, I would put him on oral amoxicillin 1 g q.8 for 2 weeks and follow up with me in the outpatient setting where I will repeat his clinical examination, repeat blood cultures, and then re-discuss the ALANNA with the patient. Evidently, if he has recrudescence of bacteremia, then the device will have to be removed and the patient treated as endocarditis/pacer colonization. Job ID: [id number]
[2018-11-06] MEDS: Atorvastatin Calcium 10 MG TAB PO SCH (20:36)
--- NOTE | 2018-11-06 22:09 | PDOC.PN ---
- Subjective Encounter Start Date: 11/06/18 Encounter Start Time: 18:20 Subjective: f/u for Enterococcus bacteremia on Cefepime/Vancomycin. Feels ok -: overall except for some back pain. Not interested in ALANNA currently - Objective Resuscitation Status - Order Detail: 11/03/18 14:18 Resuscitation Status Routine Resuscitation Status: FULL: Full Resuscitation MAR Reviewed: Yes Vital Signs & Weight: Vital Signs (12 hours) Temp Pulse Resp BP Pulse Ox 11/06/18 19:00 98.6 F 64 16 145/65 H 94 L 11/06/18 16:00 98.3 F 78 16 110/55 L 92 L 11/06/18 12:00 97.8 F 88 20 142/65 H 93 L Weight Weight 153 lb I&O: 11/05/18 11/06/18 11/07/18 06:59 06:59 06:59 Intake Total 1400 840 600 Output Total 2550 1860 650 Balance -1150 -1020 -50 Result Diagrams: 11/06/18 10:58 11/06/18 10:58 Additional Labs: Accuchecks 11/06/18 11/06/18 11/06/18 17:23 10:41 05:59 POC Glucose 169 H 189 H 104 Microbiology 11/03/18 08:49 Urine hernandez catheter Urine Culture - Final NO GROWTH AT 48 HOURS 11/03/18 08:46 Nasal swab Influenza Types A,B Direct EIA - Final 11/03/18 08:50 Venous blood - Left Arm Blood Culture - Preliminary Presumptive Enterococcus sp. 11/03/18 08:50 Venous blood - Left Arm Blood Culture - Preliminary Gram Positive Cocci 11/03/18 08:40 Venous blood - Right Arm Blood Culture - Preliminary Enterococcus faecalis 11/03/18 08:40 Venous blood - Right Arm Blood Culture - Preliminary Enterococcus faecalis Laboratory Tests 11/03/18 11/03/18 11/04/18 08:40 08:40 05:02 WBC 17.6 H Plt Count 143 Neutrophils % 87.0 H Neutrophils % (Manual) 70 Sodium 128 L Radiology Reviewed by me: Yes (2D echo - EF 60-65%, pulm HTN, RV dilation) EKG Reviewed by me: Yes (Tele - SR) Phys Exam - Physical Examination Constitutional: NAD HEENT: PERRLA, sclera anicteric, oral pharynx no lesions Neck: no nodes, no JVD, supple, full ROM Respiratory: no wheezing, no rales, no rhonchi, clear to auscultation bilateral S1, S2 Cardiovascular: RRR, no rub, gallop Gastrointestinal: soft, non-tender, no distention, positive bowel sounds Musculoskeletal: pulses present, edema present Neurological: normal sensation, moves all 4 limbs Psychiatric: A&O x 3 Skin: normal turgor, cap refill <2 seconds Dx/Plan (1) Sepsis Code(s): A41.9 - SEPSIS, UNSPECIFIED ORGANISM Status: Acute Comment: Secondary to Enterococcus spp in 2/2 blood cx, continue Vancomycin, consult ID service, concern for bacteremia in context of recent PM insertion, plan for Amoxicillin po for 2 weeks with repeat blood cx after completion of abx (2) Bacteremia due to Enterococcus Code(s): R78.81 - BACTEREMIA; B95.2 - ENTEROCOCCUS THE CAUSE OF DISEASES CLASSIFIED ELSEWHERE Status: Acute Comment: See above, may need removal of PM device given bacteremia, pt declines ALANNA currently, see above for mgmt (3) Chronic indwelling Hernandez catheter Code(s): Z92.89 - PERSONAL HISTORY OF OTHER MEDICAL TREATMENT Status: Acute Comment: Continue Cefepime, Ucx neg x 48h, catheter placed due to urinary retention and BPH (4) Physical deconditioning Code(s): R53.81 - OTHER MALAISE Status: Chronic Comment: PT for mobilization and ambulation (5) Third degree atrioventricular block Code(s): I44.2 - ATRIOVENTRICULAR BLOCK, COMPLETE Status: Acute Comment: s/ p PM placement, normal functioning device after interrogation, consult EP service regarding bacteremia and potential need to remove, no current evidence to suggest endocarditis (6) Diabetes mellitus, type 2 Status: Chronic Comment: ISS, hold Metformin another 24h, ADA - Plan plan discussed w/ family, continue antibiotics, PT/OT, mental health social worker, out of bed/ambulate Stable currently -: Continue Vancomycin/Cefepime another 24h -: OOB with PT -: Transition to Amoxicillin in 24 -: Likely d/c to [facility] in am * .
[2018-11-07] MEDS: Famotidine 20 MG TAB PO SCH (09:20)
[2018-11-07] MEDS: Finasteride 5 MG TAB PO SCH (09:20)
[2018-11-07] MEDS: Tamsulosin HCl 0.4 MG CAP PO SCH (09:20)
[2018-11-07] MEDS: Senokot S 8.6-50 MG TAB PO PRN (09:30)
[2018-11-07] MEDS: traMADol HCl 50 MG TAB PO PRN (09:31)
[2018-11-07] MEDS: Cefepime 2 GM in Sodium Chloride 0.9% 100 ML IVPB SCH (09:31)
[2018-11-07 10:38] LABS: Vancomycin, Trough 11.5 ug/mL
--- NOTE | 2018-11-07 11:32 | DIS ---
DATE OF ADMISSION: 11/03/2018 DATE OF DISCHARGE: 11/07/2018 DISCHARGE DIAGNOSES: 1. Sepsis secondarily to bacteremia, resolving. 2. Bacteremia secondarily to Enterococcus species. 3. Chronic indwelling Adne catheter secondarily to urinary retention and benign prostatic hyperplasia. 4. Physical deconditioning. 5. Third-degree atrioventricular block, status post pacemaker placement with normal functioning device. 6. Diabetes mellitus, type 2, stable. 7. Ischemic cardiomyopathy with preserved ejection fraction of 60% to 65%. CONSULTATIONS: 1. Dr. Dickey with Infectious Disease Service. 2. Dr. Gan with Electrophysiology Service. PERTINENT LABORATORY AND X-RAY FINDINGS: Sodium ranged between 128 to 134, creatinine 0.84. Lactic acid level 1.3. BNP 380, previously noted 411 on 10/17/2018. CBC showed a white blood cell count ranging between 9.5 to 17.6, hemoglobin ranged between 12.5 to 13.6. Blood cultures x2 dated 11/03/2018, showed Enterococcus faecalis. Influenza A and B antigen dated 11/03/2018, negative. Urine culture dated 11/03/2018, showed no growth at 48 hours. Portable chest x-ray dated 11/03/2018, showed no acute cardiopulmonary process. 2D transthoracic echocardiogram dated 11/04/2018, showed ejection fraction of 60% to 65%. Severely dilated right ventricle. Right atrial enlargement. Moderate tricuspid valve regurgitation. Elevated right ventricular systolic pressure at 65 mmHg. HOSPITAL COURSE: The patient was admitted to the telemetry unit after initially presenting with fever and confusion. The patient underwent extensive evaluation including metabolic screening with evidence of meeting sepsis criteria. The patient with chronic indwelling Aden catheter with suspected urinary source of infection. The patient was placed on empiric treatment with IV cefepime and vancomycin with initial lactic acid level of 1.3. Blood cultures were positive 2/2 for Enterococcus faecalis, initially suspected from urinary source. However, urine culture was negative as stated previously. Chief concern for potential endocarditis was noted, given patient's bacteremia and recent pacemaker placement. The patient underwent evaluation by the Electrophysiology Service and Infectious Disease Service, undergoing pacemaker interrogation showing a normal functioning device. The patient had minor adjustments to his pacemaker device settings per EP Service recommendations and otherwise remained clinically stable in regard to cardiac status. The patient underwent 2D transthoracic echocardiogram showing no evidence for overt endocarditis or valvular involvement. However, the patient was recommended to undergo transesophageal echocardiogram to further define coronary anatomy and more accurate visualization of valves. The patient did not want to proceed with the transesophageal echocardiogram and declined this study at this time. Current recommendations are to transition to amoxicillin 1 g p.o. q.8 hours x2 weeks and repeat blood cultures at the end of antibiotic therapy. I have examined the patient at the time of discharge and discussed followup instructions. The patient verbalizes understanding and in agreement and ready for discharge to [facility] on 11/07/2018. DISCHARGE MEDICATIONS: 1. Lipitor 10 mg p.o. at bedtime. 2. Tessalon Perles 100 mg p.o. daily. 3. Advair Diskus one inhalation b.i.d. 4. Melatonin 10 mg p.o. at bedtime p.r.n. 5. Metformin 1000 mg p.o. b.i.d. 6. Tamsulosin 0.4 mg p.o. daily. 7. Tramadol 50 mg p.o. b.i.d. p.r.n. 8. Proventil HFA 1 puff inhaled q.6 hours p.r.n. 9. Amoxicillin 1 g p.o. q.8 hours x2 weeks, completing on 11/21/2018. 10. Proscar 5 mg p.o. daily. 11. Lisinopril 5 mg p.o. daily. 12. DuoNeb 3 mL nebulized q.4 hours p.r.n. 13. Restoril 15 mg p.o. at bedtime p.r.n. insomnia. FOLLOWUP: This patient may follow up with his primary care provider, Dr. Sequeira within 7 days of discharge. The patient will follow up with Dr. Dutch Dickey with Infectious Disease Service within 10 days of discharge. The patient may follow up with Dr. Sherwin Ashton with Urology Service and to call his office for appointment, time, and date. CONDITION ON DISCHARGE: Guarded. ACTIVITY: Ad tangela, rolling walker with standby/contact guard assistance. DIET: Heart healthy. CODE STATUS: Full. SPECIAL INSTRUCTIONS: Continue Aden catheter with plans for outpatient urology evaluation. CODE STATUS: Full. DISPOSITION: Discharged to [facility] on 11/07/2018. TIME SPENT: Total time preparing and coordinating discharge is 35 minutes. Job ID: [id number]
[2018-11-07 11:50] VITALS: BP 149/72; TEMP 97.8
[2018-11-07] MEDS ORDERED: Vancomycin HCl 1.5 GM in Sodium Chloride 0.9% 250 ML 300 ML IVPB SCH (12:00)
[2018-11-07] MEDS: HumaLOG 300 UNITS/3 ML VIAL SC PRN (12:17)
[2018-11-07] MEDS: Vancomycin HCl 1 GM in Premix Bag 1 BAG IVPB SCH (12:26)
== END 2018-11-07 14:50 | DRG 871 ==
LOC: ERS 08:31 → ERHOLD 10:33 → 2SE 14:35
PROVIDERS: ADMIT Family Medicine; ATTEND Family Medicine
DX: A41.81 Sepsis due to Enterococcus (principal); G93.41 Metabolic encephalopathy; J96.12 Chronic respiratory failure with hypercapnia; E87.1 Hypo-osmolality and hyponatremia; I44.2 Atrioventricular block, complete; J44.9 Chronic obstructive pulmonary disease, unspecified; N40.1 Benign prostatic hyperplasia with lower urinary tract symptoms; R33.8 Other retention of urine; E11.9 Type 2 diabetes mellitus without complications; I10 Essential (primary) hypertension; D64.9 Anemia, unspecified; E78.5 Hyperlipidemia, unspecified; G47.00 Insomnia, unspecified; I49.5 Sick sinus syndrome; I25.5 Ischemic cardiomyopathy; G47.30 Sleep apnea, unspecified; I48.0 Paroxysmal atrial fibrillation; Z79.82 Long term (current) use of aspirin; Z79.84 Long term (current) use of oral hypoglycemic drugs; I25.2 Old myocardial infarction; Z95.0 Presence of cardiac pacemaker; Z82.49 Family history of ischemic heart disease and other diseases of the circulatory system; Z83.3 Family history of diabetes mellitus
CPT/HCPCS: 36415; 36416; 71045; 80048; 80053; 80202; 81003; 81015; 82805; 83605; 83880; 84484; 85007; 85025; 85027; 87040; 87077; 87086; 87149; 87186; 87804; 93005; 93306; 96365; J0692; J2543; J3370; J7050

== ENCOUNTER 2019-03-07 06:30 | Inpatient (IN) | payer MEDICARE, MEDICAID ==
[2019-03-07] MEDS ORDERED: Lorazepam 2 MG/ML VIAL ONE (06:54)
[2019-03-07] MEDS ORDERED: methylPREDNISolone Sod Succ/PF 125 MG/2 ML VIAL ONE (07:19)
[2019-03-07] MEDS ORDERED: Magnesium 2 GM/50 ML BAG (IN WATER) ONE (07:19)
[2019-03-07] MEDS ORDERED: cefTRIAXone\\ROCEPHIN 1 GM VIAL ONE (07:19)
[2019-03-07] MEDS ORDERED: Furosemide 40 MG/4 ML VIAL ONE (07:19)
[2019-03-07 07:21] LABS: Hemoglobin 12.2 g/dL (14.0-18.0); Mean Corpuscular HGB CONC 31.3 g/dL (32.0-36.0); Mean Corpuscular Hemoglobin 28.7 pg (27.0-31.0); Mean Corpuscular Volume 91.8 fL (78.0-98.0); RBC Distribution Width 16.7 % (11.5-14.5); Red Blood Cell (RBC) Count 4.26 mill/uL (4.70-6.10)
[2019-03-07 07:24] LABS: Actual Bicarbonate (HCO3a) 33.8 mEq/L (22-28); Analyzer IN Cardio ER; Base Excess (BEa) 6.5 mEq/L (-2.0 to +3.0); Calcium, Ionized 1.19 mmol/L (1.12-1.30); Carboxyhemoglobin (COHb) 0.7 gm% (0.0-3.0); Hemoglobin (Hb) 12.8 g/dL (14.0-18.0); O2 Tension (PaO2) 114.9 mmHg (> 60.0); Potassium - ABG Lab 4.27 mmol/L (3.70-5.30); pH, Arterial 7.36 (7.35-7.45)
[2019-03-07 07:26] LABS: CO2 Tension 61.6 mmHg (35.0-45.0); Puncture Site RR
[2019-03-07 07:29] LABS: ALT (SGPT) 30 U/L (8-55); AST (SGOT) 37 U/L (5-34); Albumin 3.9 g/dL (3.4-4.8); Alkaline Phosphatase 210 U/L (40-150); Anion Gap 9 mmol/L (10-20); BUN (Urea Nitrogen) 26 mg/dL (8.4-25.7); Bilirubin, Total 1.7 mg/dL (0.2-1.2); Calc. Creatinine Clearance 0 mL/min (70-130); Calcium 9.6 mg/dL (7.8-10.44); Carbon Dioxide 35 mmol/L (23-31); Chloride 95 mmol/L (98-107); Estimated GFR-MDRD 84; Globulin 3.4 g/dL (2.4-3.5); Glucose 172 mg/dL (83-110); Magnesium 1.8 mg/dL (1.6-2.6); Potassium 4.2 mmol/L (3.5-5.1); Protein, Total 7.3 g/dL (5.8-8.1); Sodium 135 mmol/L (136-145)
[2019-03-07 07:51] LABS: #Basophils 0.1 thou/uL (0.0-0.2); #Eosinphils 0.1 thou/uL (0.0-0.7); #Lymphocytes 1.2 thou/uL (1.20-3.40); #Monocytes 1.4 thou/uL (0.11-0.59); #Neutrophils 10.4 thou/uL (1.40-6.50); %Basophils 0.4 % (0.0-1.0); %Eosinophils 0.5 % (0.0-10.0); %Monocytes 10.9 % (0.0-10.0); %Neutrophils 79.2 % (42.0-75.0); Hypochromia SLIGHT = 6-15 cells (100X) (0-5/hpf); MDiff Complete? YES; Mean Platelet Volume 11.4 fL (7.4-10.4); Microcytosis SLIGHT = 6-15 cells (100X) (0-5/hpf); Platelet Count 99 thou/uL (130-400); Platelet Morphology Comment Appears Decreased; Polychromasia SLIGHT = 2-3 cells (100X) (0-2/hpf); White Blood Cell (WBC) Count 13.1 thou/uL (4.8-10.8)
--- NOTE | 2019-03-07 08:21 | RAD ---
EXAM: Single view of the chest HISTORY: Dyspnea COMPARISON: 11/03/2018 FINDINGS: Single view of the chest shows a normal sized cardiomediastinal silhouette. Atheroscleroti c calcifications are seen in the aorta. There is elevation of the right hemidiaphragm. The pacemaker is unchanged in position. There is no evidence of consolidation, mass, or pleural effusion. The bones are unremarkable. IMPRESSION: No evidence of acute cardiopulmonary disease
[2019-03-07 08:38] LABS: Bilirubin Negative (Negative); Blood, Urine Negative (Negative); Clarity CLEAR (Clear); Glucose, Urine (Dipstick) Negative (Negative); Leukocyte Negative (Negative); Nitrite Negative (Negative); Protein, Urine (Dipstick) Negative (Neg-Trace); Specific Gravity, Urine 1.013 (1.002-1.036); Urobilinogen 0.2 mg/dL (0.2-1.0)
[2019-03-07 09:29] VITALS: BMI 34.1
[2019-03-07] MEDS ORDERED: Aspirin 81 mg Enteric Coated Tablet PO SCH (09:30)
[2019-03-07 10:08] LABS: Troponin I Less than 0.010 ng/mL (< 0.028)
[2019-03-07] MEDS ORDERED: Lorazepam 2 MG/ML VIAL SLOW IVP SCH (10:45)
[2019-03-07] MEDS ORDERED: Guaifenesin DM 100-10/5 ML UDCUP PO PRN (11:30)
[2019-03-07] MEDS ORDERED: Dextrose 50% Abboject 50 ML SYRINGE SLOW IVP PRN (11:30)
[2019-03-07] MEDS ORDERED: Bisacodyl 10 MG SUPP PR PRN (11:30)
[2019-03-07] MEDS ORDERED: Dextrose 5% in Water 1,000 ML IV PRN (11:30)
[2019-03-07] MEDS ORDERED: Acetaminophen 325 MG TAB PO PRN (11:30)
[2019-03-07] MEDS ORDERED: Senokot S 8.6-50 MG TAB PO PRN ×2 (11:30)
[2019-03-07] MEDS ORDERED: Ondansetron PF 4 MG/2 ML Vial IVP PRN (11:30)
--- NOTE | 2019-03-07 13:43 | CON ---
DATE OF CONSULTATION: 03/07/2019 REASON FOR CONSULTATION: Congestive heart failure with hypoxemia. HISTORY OF PRESENT ILLNESS: The patient is an 84-year-old male who is well known to our service. He has been followed by Dr. Hill in our practice in the past. He came in today with increasing shortness of breath of one day duration. He was placed on high-flow oxygen and has done reasonably well. PAST MEDICAL HISTORY: 1. Diabetes mellitus. 2. Congestive heart failure. 3. Chronic obstructive pulmonary disease. 4. Right-sided heart failure. PAST SURGICAL HISTORY: 1. Right shoulder surgery. 2. Knee replacement. ALLERGIES: NONE. SOCIAL HISTORY: Nonsmoker. Does not consume alcohol. Previous sleep study has shown severe sleep apnea. REVIEW OF SYSTEMS: The patient essentially would not talk to me at this time. 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 OBJECTIVE: VITAL SIGNS: Temperature 97.9, pulse 85, blood pressure 133/75, and O2 saturation is 100% on 100% nonrebreather. HEENT: Unremarkable. NECK: No adenopathy or JVD. LUNGS: Slight diminished breath sounds at right side, compared to left. CARDIAC: S1 and S2 regular without murmur. ABDOMEN: Soft, nontender. EXTREMITIES: No edema. DIAGNOSTIC DATA: X-ray shows cardiomegaly. He has a persistently elevated right-sided hemidiaphragm. He has pulmonary edema in the left base. LABORATORY DATA: BNP is 1147. Sodium 135, potassium 4.2, chloride 95, CO2 of 35, BUN 26, creatinine 0.8, and glucose 172. White blood cell count 13.1, hematocrit 39, and platelet count 99. The pH 7.36, PCO2 of 61, and PO2 of 115. Previous echocardiogram from October demonstrated right-sided volume overload, mild mitral regurgitation, calcified aortic valve. No mention of left-sided heart failure. ASSESSMENT: The patient is presenting with evidence of biventricular heart failure and has improved significantly with diuretics and oxygen. PLAN: Wean oxygen as tolerated. Continue diuresis. Noninvasive ventilation if he decompensates. Above encompassed 50 minutes time, of that greater than 50% spent with the patient and/or the patient's unit in the ICU. Job ID: [id number]
[2019-03-07] MEDS: methylPREDNISolone Sod Succ 40 MG VIAL IVP SCH ×2 (15:16→20:22)
[2019-03-07] MEDS: Furosemide 40 MG/4 ML VIAL SLOW IVP SCH (15:16)
--- NOTE | 2019-03-07 16:00 | HP ---
REASON FOR ADMISSION: Acute respiratory failure with hypoxia and hypercapnia, CHF exacerbation, and acute encephalopathy. HISTORY OF PRESENTING ILLNESS: Please note, majority of this history is obtained by talking to patient's granddaughter, Ms. Dann Belcher. The patient is not oriented. He is confused as well. He apparently started having shortness of breath from last 2 days. This morning, he started to wheeze badly and the family saw that he was struggling to breathe with venous engorgement in his neck as well. He was also confused, could not recognize his who was right next to him and asking for her. Mr. Marvin has not slept for 2 days per family. He has chronic cough with green sputum. He needs to wear 3 L of oxygen at home and was trying to pull it off and essentially was not wearing them. Finally, the drove him to the emergency room here. On arrival, the patient was placed on BiPAP after blood gas showed respiratory acidosis, but the patient refused to wear one. He was placed on a non-rebreather. No complaints of chest pain, fever, or palpitation. PAST MEDICAL AND SURGICAL HISTORY: COPD, dyslipidemia, diabetes mellitus type 2 , history of congestive heart failure with diastolic dysfunction, likely pulmonary hypertension/cor pulmonale, benign prostatic hypertrophy, chronic thrombocytopenia, chronic anemia, history of insomnia, left knee surgery, right shoulder repair, and bilateral cataract removal. PERSONAL HISTORY: Quit smoking more than 20 years ago. Does not abuse alcohol or drugs. The patient ambulates with a walker. FAMILY HISTORY: There is a history of hypertension and diabetes in the family. ALLERGIES: NO KNOWN DRUG ALLERGIES. CURRENT MEDICATION: The patient is on: 1. Aspirin 325 mg daily. 2. Atorvastatin 10 mg p.o. at bedtime. 3. Advair inhaler twice daily. 4. Lasix 20 mg daily. 5. Melatonin 10 mg p.o. at bedtime. 6. Metformin 500 mg p.o. daily. 7. Potassium chloride 10 mEq p.o. daily. 8. Senna 2 tablets twice daily p.r.n. 9. Flomax 0.4 mg daily. 10. Proscar 5 mg daily. 11. DuoNeb q.4 hourly p.r.n. 12. Lisinopril 5 mg daily. CODE STATUS: The patient is a do not attempt to resuscitate. This was confirmed with the patient's granddaughter, Ms. Dann Belcher and the patient's , Ms. Navya Marvin, both are POA. Number to reach Ms. Quigley is [phone]. REVIEW OF SYSTEMS: Cannot be obtained as the patient is not oriented. PHYSICAL EXAMINATION: GENERAL: The patient is an 84-year-old male, who is currently on a non- rebreather and is not in any acute distress. He is not oriented at present. The patient was very anxious prior to my examination and was given a dose of Ativan to calm him down, which has made him more somnolent at present. VITAL SIGNS: Blood pressure 122/60, pulse 94 per minute, respiratory rate 26 per minute, temperature 98.1 degrees Fahrenheit, and saturating 94% on non- rebreather. NECK: Supple. There is elevated JVD. HEENT: Eyes; extraocular muscles intact. Pupils reacting to light. Oral cavity, mucous membranes are dry. No exudates or congestion. CARDIOVASCULAR: S1 and S2 heard. Regular rhythm. RESPIRATORY: Air entry 1+ bilateral. Scattered rales plus in the infraaxillary area and infrascapular area. ABDOMEN: Soft. Bowel sounds heard. No tenderness, rigidity, or guarding. EXTREMITIES: There is peripheral edema. No calf tenderness. VASCULAR: Peripheral pulses 1+ bilateral. No ischemic ulcerations or gangrene. CENTRAL NERVOUS SYSTEM: The patient is not oriented and is confused at present. No gross focal deficits noted clinically. PSYCHIATRIC: Very anxious earlier this morning, but currently is very somnolent. No obvious hallucinations or delusions. LABORATORY DATA: EKG done shows sinus rhythm at 70 beats per minute. There are frequent PVCs seen. There are nonspecific ST-T wave changes noted. White count of 13, H and H 12 and 39, platelet count is 99, MCV is 91 with 79% neutrophils. Blood gas done shows a pH of 7.36, pCO2 of 61, pO2 of 114. Serum bicarb 35, BUN 26, creatinine 0.8, serum glucose 172, total bilirubin 1.7, AST 37, ALT 30, and alkaline phosphatase 210. BNP 1147. Albumin is 3.9. Troponin x2 is negative. Influenza A and B antigens are negative. Chest x-ray done shows pulmonary vascular congestion. CLINICAL IMPRESSION AND PLAN: The patient will be admitted to [facility] for acute respiratory failure with hypercarbia and hypoxia, acute congestive heart failure exacerbation with diastolic dysfunction. He will be gently diuresed. The patient has received 40 mg IV in the ER on arrival and will be given another dose at 2 p.m. we will continue his DuoNeb and add steroids. The patient can be slowly titrated to his 3 L nasal cannula for SpO2 of more than 90%. We will continue his aspirin, Lipitor, finasteride, metformin, lisinopril, melatonin, and Flomax as before. The patient will be on clear liquid diet and will be slowly advanced as tolerated once he is more awake and alert. I have spoken to Dr. Delcid for pulmonology consultation. Job ID: [id number] MTDD
[2019-03-07] MEDS: Mometasone/Formoterol 120 PUFF INHALER INH SCH (18:27)
[2019-03-07] MEDS: Melatonin 3 MG TAB PO SCH (20:22)
[2019-03-07] MEDS: Atorvastatin Calcium 10 MG TAB PO SCH (20:22)
[2019-03-07] MEDS: HumaLOG 300 UNITS/3 ML VIAL SC PRN (20:23)
[2019-03-08 04:16] LABS: #Lymphocytes 0.5 thou/uL (1.20-3.40); #Monocytes 0.3 thou/uL (0.11-0.59); #Neutrophils 12.8 thou/uL (1.40-6.50); %Basophils 0.1 % (0.0-1.0); %Eosinophils 0.1 % (0.0-10.0); %Lymphocytes 3.9 % (21.0-51.0); %Monocytes 2.4 % (0.0-10.0); %Neutrophils 93.6 % (42.0-75.0); Hemoglobin 12.3 g/dL (14.0-18.0); Mean Corpuscular HGB CONC 31.3 g/dL (32.0-36.0); Mean Corpuscular Hemoglobin 28.8 pg (27.0-31.0); Mean Platelet Volume 11.5 fL (7.4-10.4); Platelet Count 101 thou/uL (130-400); RBC Distribution Width 16.4 % (11.5-14.5); Red Blood Cell (RBC) Count 4.26 mill/uL (4.70-6.10); White Blood Cell (WBC) Count 13.6 thou/uL (4.8-10.8)
[2019-03-08 04:39] LABS: BUN (Urea Nitrogen) 28 mg/dL (8.4-25.7); Calc. Creatinine Clearance 65 mL/min (70-130); Calcium 9.8 mg/dL (7.8-10.44); Estimated GFR-MDRD 71; Glucose 226 mg/dL (83-110)
[2019-03-08 04:49] LABS: Anion Gap 16 mmol/L (10-20); Carbon Dioxide 36 mmol/L (23-31); Chloride 91 mmol/L (98-107); Sodium 139 mmol/L (136-145)
[2019-03-08] MEDS: Furosemide 40 MG/4 ML VIAL SLOW IVP SCH ×2 (06:17→15:53)
[2019-03-08] MEDS: HumaLOG 300 UNITS/3 ML VIAL SC PRN ×2 (06:18→17:20)
[2019-03-08] MEDS: methylPREDNISolone Sod Succ 40 MG VIAL IVP SCH ×3 (06:18→21:03)
[2019-03-08] MEDS: Acetaminophen 325 MG TAB PO PRN (06:21)
[2019-03-08] MEDS: Mometasone/Formoterol 120 PUFF INHALER INH SCH ×2 (07:31→18:29)
--- NOTE | 2019-03-08 10:04 | PRG ---
DATE OF SERVICE: 03/08/2019 SUBJECTIVE: The patient is doing better. He is up in a chair. OBJECTIVE: VITAL SIGNS: On exam; temperature 98.4, pulse 67, blood pressure 108/80, and O2 saturation 100% on nasal cannula. HEENT: Unremarkable. NECK: No adenopathy or JVD. LUNGS: Slightly diminished breath sounds at both bases. CARDIAC: S1 and S2. Regular. ABDOMEN: Soft. EXTREMITIES: Trace edema. LABORATORY DATA: Sodium 139, potassium 4, chloride 91, CO2 of 36, BUN 28, creatinine 1.0, and glucose 226. White blood cell count 13.6, hematocrit 39.2, and platelet count 101. Cultures showed no growth to date. ASSESSMENT: Acute on chronic systolic heart failure. PLAN: This patient can be transferred out to the medical floor. He is a DNR. Continue low-flow oxygen. Hopefully discharge home soon. Job ID: [id number]
[2019-03-08] MEDS: metFORMIN 500 MG TAB PO SCH (10:43)
[2019-03-08] MEDS: Lisinopril 5 MG TAB PO SCH (10:43)
[2019-03-08] MEDS: Tamsulosin HCl 0.4 MG CAP PO SCH (10:43)
[2019-03-08] MEDS: Finasteride 5 MG TAB PO SCH (10:43)
[2019-03-08] MEDS: Potassium Chloride 10 MEQ TAB PO SCH (10:43)
[2019-03-08] MEDS: Famotidine 20 MG TAB PO SCH (10:43)
[2019-03-08] MEDS: Aspirin 325 MG TAB PO SCH (10:44)
[2019-03-08] MEDS: Benzonatate 100 MG CAP PO SCH (10:44)
[2019-03-08] MEDS: Enoxaparin Sodium 40 MG/0.4 ML SYRINGE SC SCH (10:45)
--- NOTE | 2019-03-08 13:34 | PDOC.PN ---
- Subjective Encounter Start Date: 03/08/19 Encounter Start Time: 10:15 Subjective: pt up in chair feels better - Objective Resuscitation Status - Order Detail: 03/07/19 11:24 Resuscitation Status Routine Resuscitation Status: DNAR: NO Resuscitation Discussed with: d/w POA: Ms.Alandra Belcher and Mrs.Martha Marvin Vital Signs & Weight: Vital Signs (12 hours) Temp Pulse Resp Pulse Ox 03/08/19 12:04 98.0 F 03/08/19 10:43 85 03/08/19 10:32 85 20 100 03/08/19 08:00 100 03/08/19 07:36 100 03/08/19 07:35 88 20 100 03/08/19 07:34 98.4 F 03/08/19 07:31 88 20 100 03/08/19 03:00 98.2 F 03/08/19 02:47 88 14 100 Weight Weight 180 lb 12.465 oz Most Recent Monitor Data Heart Rate from ECG 101 NIBP 125/86 NIBP BP-Mean 99 Respiration from ECG 25 SpO2 97 I&O: 03/07/19 03/08/19 03/09/19 06:59 06:59 06:59 Intake Total 695 Output Total 300 100 Balance 395 -100 Result Diagrams: 03/08/19 03:45 03/08/19 03:45 Additional Labs: Accuchecks 03/08/19 03/08/19 03/07/19 10:25 05:41 20:23 POC Glucose 195 H 203 H 210 H 03/07/19 16:36 POC Glucose 203 H Phys Exam - Physical Examination Neck: no nodes, no JVD, supple, full ROM Respiratory: no wheezing, no rales, no rhonchi, wheezing present, clear to auscultation bilateral Cardiovascular: RRR, no significant murmur, no rub, gallop, irregular Gastrointestinal: soft, non-tender, no distention, positive bowel sounds Dx/Plan (1) Acute respiratory failure with hypoxia and hypercapnia Code(s): J96.01 - ACUTE RESPIRATORY FAILURE WITH HYPOXIA; J96.02 - ACUTE RESPIRATORY FAILURE WITH HYPERCAPNIA Status: Acute (2) Right heart failure Status: Acute Qualifiers: (3) HTN (hypertension) Code(s): I10 - ESSENTIAL (PRIMARY) HYPERTENSION Status: Chronic Qualifiers: - Plan will continue lasix for now -: pt has moderate pulmonary HTN -: will conitnue duonebs * . Review of Systems - Review of Systems Respiratory: Shortness of Breath Cardiovascular: negative: chest pain, palpitations, orthopnea, paroxysmal nocturnal dyspnea, edema, light headedness, other Gastrointestinal: negative: Nausea, Vomiting, Abdominal Pain, Diarrhea, Constipation, Melena, Hematochezia, Other - Medications/Allergies Allergies/Adverse Reactions: Allergies Allergy/AdvReac Type Severity Reaction Status Date / Time No Known Drug Allergies Allergy Verified 03/07/19 09:30 Medications: Current Medications Acetaminophen (Tylenol) 650 mg PO Q4H PRN PRN Reason: Headache/Fever/Mild Pain (1-3) Last Admin: 03/08/19 06:21 Dose: 650 mg Albuterol/Ipratropium (Duoneb) 3 ml NEB [id number] [facility] Last Admin: 03/08/19 10:32 Dose: 3 ml Aspirin (Aspirin) 325 mg PO DAILY [facility] Last Admin: 03/08/19 10:44 Dose: 325 mg Atorvastatin Calcium (Lipitor) 10 mg PO HS [facility] Last Admin: 03/07/19 20:22 Dose: 10 mg Benzonatate (Tessalon) 100 mg PO DAILY [facility] Last Admin: 03/08/19 10:44 Dose: 100 mg Bisacodyl (Dulcolax) 10 mg FL DAILYPRN PRN PRN Reason: Constipation Dextrose/Water (Dextrose 50%) 25 gm SLOW IVP PRN PRN PRN Reason: Hypoglycemia Enoxaparin Sodium (Lovenox) 40 mg SC 0900 [facility] Last Admin: 03/08/19 10:45 Dose: 40 mg Famotidine (Pepcid) 20 mg PO DAILY [facility] Last Admin: 03/08/19 10:43 Dose: 20 mg Finasteride (Proscar) 5 mg PO DAILY [facility] Last Admin: 03/08/19 10:43 Dose: 5 mg Furosemide (Lasix) 40 mg SLOW IVP 0600,1400 [facility] Last Admin: 03/08/19 06:17 Dose: 40 mg Glucagon (Glucagon) 1 mg IM PRN PRN PRN Reason: Hypoglycemia Guaifenesin/Dextromethorphan (Robitussin Dm) 15 ml PO Q4H PRN PRN Reason: Cough Dextrose/Water (D5w) 1,000 mls @ 0 mls/hr IV .Q0M PRN PRN Reason: Hypoglycemia Insulin Human Lispro (Humalog) 0 units SC .MODERATE SLIDING SC PRN PRN Reason: Moderate Correctional Scale Last Admin: 03/08/19 06:18 Dose: 4 units Insulin Human Lispro (Humalog) 0 units SC .BEDTIME SLIDING SC PRN PRN Reason: Bedtime Correctional Scale Last Admin: 03/07/19 20:23 Dose: 2 units Lisinopril (Zestril) 5 mg PO DAILY [facility] Last Admin: 03/08/19 10:43 Dose: 5 mg Melatonin (Melatonin) 9 mg PO HS [facility] Last Admin: 03/07/19 20:22 Dose: 9 mg Metformin HCl (Glucophage) 500 mg PO QAM-[facility] Last Admin: 03/08/19 10:43 Dose: 500 mg Methylprednisolone Sodium Succinate (Solu-Medrol) 20 mg IVP Q8HR [facility] Last Admin: 03/08/19 06:18 Dose: 20 mg Mometasone Furoate/Formoterol Fumar (Dulera 200 Mcg/5 Mcg Inhaler) 2 puff INH BID-RT [facility] Last Admin: 03/08/19 07:31 Dose: 2 puff Ondansetron HCl (Zofran) 4 mg IVP Q6H PRN PRN Reason: Nausea/Vomiting Potassium Chloride (Klor-Con 10) 10 meq PO QAM-[facility] Last Admin: 03/08/19 10:43 Dose: 10 meq Senna/Docusate Sodium (Senokot S) 2 tab PO BID PRN PRN Reason: Constipation Tamsulosin HCl (Flomax) 0.4 mg PO DAILY [facility] Last Admin: 03/08/19 10:43 Dose: 0.4 mg
[2019-03-08] MEDS: Atorvastatin Calcium 10 MG TAB PO SCH (21:02)
[2019-03-08] MEDS: Melatonin 3 MG TAB PO SCH (21:03)
[2019-03-09] MEDS: Furosemide 40 MG/4 ML VIAL SLOW IVP SCH ×2 (06:14→14:16)
[2019-03-09] MEDS: HumaLOG 300 UNITS/3 ML VIAL SC PRN ×3 (06:14→16:14)
[2019-03-09] MEDS: methylPREDNISolone Sod Succ 40 MG VIAL IVP SCH (06:14)
[2019-03-09] MEDS: Mometasone/Formoterol 120 PUFF INHALER INH SCH ×2 (07:50→18:54)
--- NOTE | 2019-03-09 08:33 | PRG ---
DATE OF SERVICE: 03/09/2019 SUBJECTIVE: This morning, he is sitting on the bedside less short of breath. He came in over the weekend with saturations of 88% on 2 L. No coughing or wheezing. His chest x-ray looks unchanged. His right hemidiaphragm is elevated , but no acute infiltrates. He has acute on chronic diastolic dysfunction with associated severe pulmonary hypertension. OBJECTIVE: VITAL SIGNS: His saturations are 94% on 4 L, respirations 18, temperature 98, pulse 95, blood pressure 120/80. CHEST: Decreased breath sounds. No wheezing. CARDIAC: Normal S1, S2 no gallops. ABDOMEN: Soft. IMPRESSION: 1. Respiratory failure, multifactorial. 2. Acute on chronic diastolic/systolic dysfunction. 3. Abnormal chest x-ray. 4. Chronic obstructive pulmonary disease. He is a DNR. We will switch him over to oral steroids. Continue PT, neb treatments, supportive care. Transferred out of the MICU to an unmonitored bed. We will follow. Job ID: [id number] [facility]
[2019-03-09] MEDS: Potassium Chloride 10 MEQ TAB PO SCH (08:43)
[2019-03-09] MEDS: Aspirin 325 MG TAB PO SCH (08:43)
[2019-03-09] MEDS: metFORMIN 500 MG TAB PO SCH (08:43)
[2019-03-09] MEDS: Benzonatate 100 MG CAP PO SCH (08:43)
[2019-03-09] MEDS: Famotidine 20 MG TAB PO SCH (08:44)
[2019-03-09] MEDS: Finasteride 5 MG TAB PO SCH (08:44)
[2019-03-09] MEDS: Enoxaparin Sodium 40 MG/0.4 ML SYRINGE SC SCH (08:44)
[2019-03-09] MEDS: Lisinopril 5 MG TAB PO SCH (08:44)
[2019-03-09] MEDS: Tamsulosin HCl 0.4 MG CAP PO SCH (08:45)
--- NOTE | 2019-03-09 12:30 | PDOC.PN ---
- Subjective Encounter Start Date: 03/09/19 Encounter Start Time: 13:10 Subjective: Patient feeling better. Decreased trouble breathing. Urinating well. - Objective Resuscitation Status - Order Detail: 03/07/19 11:24 Resuscitation Status Routine Resuscitation Status: DNAR: NO Resuscitation Discussed with: d/w POA: Ms.Alandra Belcher and Mrs.Martha Yon BEE Reviewed: Yes Vital Signs & Weight: Vital Signs (12 hours) Temp Pulse Resp BP Pulse Ox 03/09/19 12:00 96 03/09/19 11:09 79 19 97 03/09/19 10:22 98.6 F 03/09/19 08:44 95 147/77 H 03/09/19 07:50 94 L 03/09/19 07:47 95 18 94 L 03/09/19 07:19 96 03/09/19 07:07 98.4 F 03/09/19 04:00 98.7 F 03/09/19 03:00 88 18 97 Weight Weight 145 lb 15.136 oz Most Recent Monitor Data Heart Rate from ECG 90 NIBP 124/66 NIBP BP-Mean 85 Respiration from ECG 22 SpO2 92 I&O: 03/08/19 03/09/19 03/10/19 06:59 06:59 06:59 Intake Total 695 1705 Output Total 300 550 Balance 395 1155 Result Diagrams: 03/08/19 03:45 03/08/19 03:45 Additional Labs: Accuchecks 03/09/19 03/09/19 03/08/19 10:00 05:51 20:07 POC Glucose 223 H 228 H 148 H 03/08/19 16:50 POC Glucose 300 H Phys Exam - Physical Examination Constitutional: NAD HEENT: moist MMs mild increased WOB, mild rales in bases Cardiovascular: RRR Gastrointestinal: soft, positive bowel sounds Musculoskeletal: edema present 1+ edema to bilateral lower extremities (much decreased per nursing) Neurological: non-focal Psychiatric: normal affect, A&O x 3 Dx/Plan (1) Acute respiratory failure with hypoxia and hypercapnia Code(s): J96.01 - ACUTE RESPIRATORY FAILURE WITH HYPOXIA; J96.02 - ACUTE RESPIRATORY FAILURE WITH HYPERCAPNIA Status: Acute Comment: improved (2) CHF exacerbation Code(s): I50.9 - HEART FAILURE, UNSPECIFIED Status: Acute Qualifiers: Heart failure type: diastolic Qualified Code(s): I50.33 - Acute on chronic diastolic (congestive) heart failure Comment: Diuresing, fluid restriction (3) COPD exacerbation Code(s): J44.1 - CHRONIC OBSTRUCTIVE PULMONARY DISEASE W (ACUTE) EXACERBATION Status: Acute Comment: oral steroids, nebs, oxygen (4) Diabetes mellitus, type 2 Status: Chronic Comment: ISS, ADA, blood sugar elevated due to steroids (5) HLD (hyperlipidemia) Code(s): E78.5 - HYPERLIPIDEMIA, UNSPECIFIED Status: Chronic Qualifiers: Hyperlipidemia type: unspecified Qualified Code(s): E78.5 - Hyperlipidemia , unspecified (6) HTN (hypertension) Code(s): I10 - ESSENTIAL (PRIMARY) HYPERTENSION Status: Chronic Qualifiers: - Plan cont current plan of care, PT/OT, respiratory therapy, DVT proph w/lovenox * . - Discharge Day Encounter end time: 13:25
[2019-03-09] MEDS: Atorvastatin Calcium 10 MG TAB PO SCH (21:22)
[2019-03-09] MEDS: Melatonin 3 MG TAB PO SCH (21:23)
[2019-03-10] MEDS: Furosemide 40 MG/4 ML VIAL SLOW IVP SCH ×2 (06:19→13:54)
[2019-03-10 06:52] LABS: #Basophils 0.1 thou/uL (0.0-0.2); #Monocytes 1.4 thou/uL (0.11-0.59); #Neutrophils 8.6 thou/uL (1.40-6.50); %Basophils 0.5 % (0.0-1.0); %Eosinophils 0.1 % (0.0-10.0); %Lymphocytes 8.9 % (21.0-51.0); %Monocytes 12.5 % (0.0-10.0); Hemoglobin 11.6 g/dL (14.0-18.0); Mean Corpuscular HGB CONC 31.2 g/dL (32.0-36.0); Mean Corpuscular Hemoglobin 28.6 pg (27.0-31.0); Mean Corpuscular Volume 91.6 fL (78.0-98.0); Mean Platelet Volume 11.1 fL (7.4-10.4); Platelet Count 114 thou/uL (130-400); RBC Distribution Width 16.4 % (11.5-14.5); Red Blood Cell (RBC) Count 4.07 mill/uL (4.70-6.10)
[2019-03-10 07:04] LABS: BUN (Urea Nitrogen) 37 mg/dL (8.4-25.7); Calc. Creatinine Clearance 53 mL/min (70-130); Calcium 9.5 mg/dL (7.8-10.44); Estimated GFR-MDRD 74; Glucose 189 mg/dL (83-110)
[2019-03-10 07:14] LABS: Anion Gap 14 mmol/L (10-20); Carbon Dioxide 39 mmol/L (23-31); Chloride 86 mmol/L (98-107); Potassium 3.7 mmol/L (3.5-5.1); Sodium 135 mmol/L (136-145)
[2019-03-10] MEDS: Mometasone/Formoterol 120 PUFF INHALER INH SCH ×2 (08:26→18:11)
[2019-03-10] MEDS: Potassium Chloride 10 MEQ TAB PO SCH (09:26)
[2019-03-10] MEDS: metFORMIN 500 MG TAB PO SCH (09:26)
[2019-03-10] MEDS: Benzonatate 100 MG CAP PO SCH (09:27)
[2019-03-10] MEDS: Famotidine 20 MG TAB PO SCH (09:27)
[2019-03-10] MEDS: Finasteride 5 MG TAB PO SCH (09:27)
[2019-03-10] MEDS: Tamsulosin HCl 0.4 MG CAP PO SCH (09:27)
[2019-03-10] MEDS: predniSONE 20 MG TAB PO SCH (09:27)
[2019-03-10] MEDS: Lisinopril 5 MG TAB PO SCH (09:27)
[2019-03-10] MEDS: Aspirin 325 MG TAB PO SCH (09:27)
[2019-03-10] MEDS: Enoxaparin Sodium 40 MG/0.4 ML SYRINGE SC SCH (09:28)
--- NOTE | 2019-03-10 10:00 | PRG ---
DATE OF SERVICE: 03/10/2019 SUBJECTIVE: Patrice Marvin, 84-year-old gentleman, is less short of breath this morning. OBJECTIVE: VITAL SIGNS: His temperature is 98, blood pressure is 143/89, pulse is 82, oxygen saturation is 94% on 2 L, respirations 17. Denies difficulty breathing. CHEST: No wheezing or crackles. CARDIAC: Normal S1 and S2. No gallops. ABDOMEN: No masses. LABORATORY DATA: Lytes are normal. CBC unremarkable. ASSESSMENT: Chronic obstructive pulmonary disease, congestive heart failure. PLAN: He appears to have improved enough to be transferred out of the MICU to regular medical floor. Continue supportive care. Consider switching over to oral Lasix. Job ID: [id number]
[2019-03-10] MEDS: HumaLOG 300 UNITS/3 ML VIAL SC PRN ×3 (10:24→20:50)
--- NOTE | 2019-03-10 16:55 | CON ---
DATE OF CONSULTATION: REASON FOR CONSULTATION: Shortness of breath and congestive heart failure. HISTORY OF PRESENT ILLNESS: Mr. Marvin is an 84-year-old gentleman, who I have seen and evaluated in the past. He recently presented with shortness of breath and lower extremity edema. Unfortunately, Mr. Marvin has had five hospitalizations over the last year. He has a previous history of diastolic dysfunction in addition to markedly enlarged right ventricle, likely due to obstructive sleep apnea. He also has severe pulmonary hypertension. He has had a workup by Dr. Melvin Hill in the past. He states he is feeling better, but continues to be short of breath with little exertion. 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 SOCIAL HISTORY: No current tobacco or alcohol use. ALLERGIES: NONE. HOME MEDICATIONS: Include; 1. Albuterol. 2. Finasteride. 3. Tamsulosin. 4. Trazodone. 5. Ventolin. 6. Lisinopril. 7. Lasix. 8. Potassium. 9. Proventil. 10. Aspirin. 11. Metformin. 12. Atorvastatin. REVIEW OF SYSTEMS: 10-point review of systems is reviewed and as above, otherwise negative. PHYSICAL EXAMINATION: GENERAL: Patient is a pleasant male, who is in no acute distress. The patient appears their stated age. VITAL SIGNS: Blood pressure 119/58, pulse 81, temperature afebrile. NEUROLOGIC: The patient is alert and oriented x3 with no focal neurologic deficits. HEENT: Sclerae without icterus. Mouth has moist mucous membranes with normal pallor. NECK: No JVD. Carotid upstroke brisk. No bruits bilaterally. LUNGS: Crackles noted bilaterally. BACK: No scoliosis or kyphosis. CARDIAC: Regular rate and rhythm with normal S1 and S2. No S3 or S4 noted. No significant rubs, murmurs, thrills, or gallops noted throughout the precordium. PMI is not displaced. There is no parasternal heave. 2+ pitting edema noted bilaterally. ABDOMEN: Soft, nontender, nondistended. No peritoneal signs present. No hepatosplenomegaly. No abnormal striae. EXTREMITIES: 2+ femoral and 2+ dorsalis pedis pulses. No cyanosis, clubbing. SKIN: No gross abnormalities. DIAGNOSTIC DATA: Cardiac PET study dated 06/24/2018 with mild ischemia present along the anteroseptal region with LVEF 64%. IMPRESSION: 1. Congestive heart failure. 2. Abnormal stress study. RECOMMENDATIONS: Mr. Marvni' congestive heart failure type symptoms are likely multifactorial. He has a markedly enlarged right ventricle on multiple echos performed in the past. He likely has RV dysfunction. He also has severe pulmonary hypertension. He likely has a component of obstructive sleep apnea in addition to diastolic dysfunction. From my standpoint, we will recommend continued aggressive treatment from a medical standpoint. We will increase Lasix to 80 mg IV b.i.d. I would continue lisinopril. We will also consider low-dose beta rufina therapy, but the patient does have significant COPD and asthma and may worsen. We will decrease aspirin to 81 q.a.m. Job ID: [id number]
--- NOTE | 2019-03-10 17:08 | PDOC.PN ---
- Subjective Encounter Start Date: 03/10/19 Encounter Start Time: 17:00 Subjective: f/u for dyspnea likely multifactorial including COPD and diastolic -: dysfunction. Feels good overall. Ambulated with PT, remains on 3L O2 via NC - Objective Resuscitation Status - Order Detail: 03/07/19 11:24 Resuscitation Status Routine Resuscitation Status: DNAR: NO Resuscitation Discussed with: d/w POA: Ms.Alandra Belcher and Mrs.Martha Yon BEE Reviewed: Yes Vital Signs & Weight: Vital Signs (12 hours) Temp Pulse Resp BP Pulse Ox Pulse Ox Pulse Ox 03/10/19 14:51 97.0 F L 03/10/19 14:07 90 20 98 03/10/19 10:47 75 20 98 03/10/19 10:22 97.8 F 03/10/19 09:27 91 122/63 03/10/19 08:45 92 L 94 L 03/10/19 08:27 95 03/10/19 08:25 85 22 H 95 03/10/19 08:00 95 03/10/19 07:10 98.6 F Weight Weight 141 lb 15.643 oz Most Recent Monitor Data Heart Rate from ECG 81 NIBP 119/58 NIBP BP-Mean 78 Respiration from ECG 20 SpO2 98 I&O: 03/09/19 03/10/19 03/11/19 06:59 06:59 06:59 Intake Total 1705 1474 Output Total 550 450 Balance 1155 1024 Result Diagrams: 03/10/19 06:00 03/10/19 06:00 Additional Labs: Accuchecks 03/10/19 03/09/19 10:09 21:22 POC Glucose 275 H 182 H Microbiology 03/07/19 08:10 Nasal swab Influenza Types A,B Direct EIA - Final 11/03/18 08:49 Urine hernandez catheter Urine Culture - Final NO GROWTH AT 48 HOURS 11/03/18 08:46 Nasal swab Influenza Types A,B Direct EIA - Final 03/07/19 07:03 Venous blood - Right Arm Blood Culture - Preliminary NO GROWTH AT 48 HOURS 03/07/19 06:54 Venous blood - Left Arm Blood Culture - Preliminary NO GROWTH AT 48 HOURS 11/03/18 08:50 Venous blood - Left Arm Blood Culture - Preliminary Presumptive Enterococcus sp. 11/03/18 08:50 Venous blood - Left Arm Blood Culture - Preliminary Gram Positive Cocci 11/03/18 08:40 Venous blood - Right Arm Blood Culture - Preliminary Enterococcus faecalis 11/03/18 08:40 Venous blood - Right Arm Blood Culture - Preliminary Enterococcus faecalis Laboratory Tests 11/03/18 11/03/18 11/04/18 08:40 08:40 05:02 WBC 17.6 H Hgb Plt Count 143 Neutrophils % 87.0 H Neutrophils % (Manual) 70 Sodium 128 L 03/07/19 03/08/19 06:54 03:45 WBC 13.1 H 13.6 H Hgb 12.2 L 12.3 L Plt Count 99 L 101 L Neutrophils % Neutrophils % (Manual) Sodium EKG Reviewed by me: Yes (Tele - SR) Phys Exam - Physical Examination Constitutional: NAD HEENT: PERRLA, sclera anicteric, oral pharynx no lesions Neck: no nodes, no JVD, supple, full ROM diminished in bases Respiratory: no wheezing, no rales, no rhonchi S1, S2 Cardiovascular: RRR, no significant murmur, no rub, gallop Gastrointestinal: soft, non-tender, no distention, positive bowel sounds mild LE edema at ankles Musculoskeletal: pulses present Neurological: normal sensation, moves all 4 limbs Psychiatric: A&O x 3 Skin: normal turgor, cap refill <2 seconds Dx/Plan (1) Diastolic CHF, acute on chronic Code(s): I50.33 - ACUTE ON CHRONIC DIASTOLIC (CONGESTIVE) HEART FAILURE Status : Acute Comment: Continue Lasix 80mg IV BID, daily weight, I/O's, EF 60% (2) Acute respiratory failure with hypoxia and hypercapnia Code(s): J96.01 - ACUTE RESPIRATORY FAILURE WITH HYPOXIA; J96.02 - ACUTE RESPIRATORY FAILURE WITH HYPERCAPNIA Status: Acute Comment: Baseline O2 3L/ min NC, continue pulmonary support, Duonebs, Prednisone (3) Physical deconditioning Code(s): R53.81 - OTHER MALAISE Status: Chronic Comment: PT for mobilization and ambulation, Rehab screening (4) Diabetes mellitus, type 2 Status: Chronic Comment: ISS, ADA, blood sugar elevated due to steroids, Metformin - Plan plan discussed w/ family, PT/OT, licensed social worker, out of bed/ambulate, DVT proph w/SCDs Stable currently -: OOB with PT -: Rehab screening -: Continue Lasix 80mg IV BID -: AM lab: BMP, CBC * Transfer to medical floor
[2019-03-10] MEDS: Atorvastatin Calcium 10 MG TAB PO SCH (20:49)
[2019-03-10] MEDS: Melatonin 3 MG TAB PO SCH (20:49)
[2019-03-11 05:28] LABS: BUN (Urea Nitrogen) 37 mg/dL (8.4-25.7); Calc. Creatinine Clearance 53 mL/min (70-130); Calcium 9.6 mg/dL (7.8-10.44); Estimated GFR-MDRD 75; Glucose 186 mg/dL (83-110)
[2019-03-11 05:39] LABS: Anion Gap 14 mmol/L (10-20); Chloride 86 mmol/L (98-107); Potassium 3.7 mmol/L (3.5-5.1); Sodium 139 mmol/L (136-145)
[2019-03-11] MEDS: HumaLOG 300 UNITS/3 ML VIAL SC PRN ×3 (05:41→20:37)
[2019-03-11] MEDS: Furosemide 100 MG/10 ML VIAL SLOW IVP SCH ×2 (05:41→14:41)
[2019-03-11 05:42] LABS: Band 1 % (5-11); Hemoglobin 12.5 g/dL (14.0-18.0); Lymphocytes 12 % (21-51); MDiff Complete? YES; Mean Corpuscular HGB CONC 31.6 g/dL (32.0-36.0); Mean Corpuscular Hemoglobin 28.7 pg (27.0-31.0); Mean Platelet Volume 11.5 fL (7.4-10.4); Monocytes 12 % (0-10); Neutrophil 75 % (42-75); Platelet Count 122 thou/uL (130-400); Platelet Morphology Comment Appears Decreased; RBC Distribution Width 16.4 % (11.5-14.5); Red Blood Cell (RBC) Count 4.36 mill/uL (4.70-6.10); White Blood Cell (WBC) Count 10.4 thou/uL (4.8-10.8)
[2019-03-11 05:45] LABS: Carbon Dioxide 43 mmol/L (23-31)
[2019-03-11] MEDS: Mometasone/Formoterol 120 PUFF INHALER INH SCH ×2 (06:48→19:13)
[2019-03-11] MEDS ORDERED: predniSONE 20 MG TAB PO SCH ×2 (08:43→09:00)
--- NOTE | 2019-03-11 09:08 | PRG ---
DATE OF SERVICE: 03/11/2019 SUBJECTIVE: This morning, he is better. He denies any complaints. OBJECTIVE: VITAL SIGNS: His sats are 97% on 3 L, respiratory rate 24, pulse 73, blood pressure 130/61. His I's and O's have been consistently negative. CHEST: Decreased breath sounds. No wheezing. CARDIAC: Normal S1, S2. No gallops. ABDOMEN: No masses. LABORATORY DATA: His bicarb is 43, severe metabolic alkalosis secondary to marked CO2 retention. IMPRESSION: 1. Acute on chronic respiratory failure, marked respiratory acidosis. 2. Severe metabolic alkalosis, probably aggravated by diuretics and CHF. PLAN: I would add Diamox for several days. Otherwise, continue supportive care. Steroids, neb treatment, and eventually placement. Job ID: [id number]
[2019-03-11] MEDS: metFORMIN 500 MG TAB PO SCH (10:31)
[2019-03-11] MEDS: Potassium Chloride 10 MEQ TAB PO SCH (10:31)
[2019-03-11] MEDS: Tamsulosin HCl 0.4 MG CAP PO SCH (10:31)
[2019-03-11] MEDS: Benzonatate 100 MG CAP PO SCH (10:31)
[2019-03-11] MEDS: Famotidine 20 MG TAB PO SCH (10:31)
[2019-03-11] MEDS: Aspirin Chewable 81 MG TAB PO SCH (10:32)
[2019-03-11] MEDS: Lisinopril 5 MG TAB PO SCH (10:32)
[2019-03-11] MEDS: Enoxaparin Sodium 40 MG/0.4 ML SYRINGE SC SCH (10:33)
[2019-03-11] MEDS: Finasteride 5 MG TAB PO SCH (10:33)
[2019-03-11] MEDS: AcetaZOLAMIDE 250 MG TAB PO SCH (10:47)
[2019-03-11] MEDS: predniSONE 20 MG TAB PO SCH (11:23)
--- NOTE | 2019-03-11 17:30 | PDOC.PN ---
- Subjective Encounter Start Date: 03/11/19 Encounter Start Time: 17:25 Subjective: f/u for acute/chronic hypoxic resp failure, CHF. Overall feels better. -: Weak but ambulated short distances in room. Family requeting -: SNF options. - Objective Resuscitation Status - Order Detail: 03/07/19 11:24 Resuscitation Status Routine Resuscitation Status: DNAR: NO Resuscitation Discussed with: d/w POA: Ms.Alandra Belcher and Mrs.Martha Yon BEE Reviewed: Yes Vital Signs & Weight: Vital Signs (12 hours) Temp Pulse Resp BP BP Pulse Ox Pulse Ox 03/11/19 15:42 98 F 85 19 116/72 93 L 03/11/19 14:31 85 22 H 93 L 03/11/19 11:29 98 F 83 16 120/70 94 L 03/11/19 11:00 88 L 03/11/19 10:32 78 03/11/19 10:20 78 22 H 98 03/11/19 08:10 97 03/11/19 06:42 73 24 H 99 Pulse Ox 03/11/19 15:42 03/11/19 14:31 03/11/19 11:29 03/11/19 11:00 94 L 03/11/19 10:32 03/11/19 10:20 03/11/19 08:10 03/11/19 06:42 Weight Weight 140 lb 14.006 oz Most Recent Monitor Data Heart Rate from ECG 76 NIBP 135/61 NIBP BP-Mean 85 Respiration from ECG 21 SpO2 97 I&O: 03/10/19 03/11/19 03/12/19 06:59 06:59 06:59 Intake Total 1474 1340 Output Total 450 Balance 1024 1340 Result Diagrams: 03/11/19 04:40 03/11/19 04:40 Additional Labs: Accuchecks 03/11/19 03/11/19 03/11/19 15:48 11:30 05:34 POC Glucose 303 H 257 H 167 H 03/10/19 03/10/19 19:37 16:06 POC Glucose 313 H 286 H Microbiology 03/07/19 08:10 Nasal swab Influenza Types A,B Direct EIA - Final 11/03/18 08:49 Urine hernandez catheter Urine Culture - Final NO GROWTH AT 48 HOURS 11/03/18 08:46 Nasal swab Influenza Types A,B Direct EIA - Final 03/07/19 07:03 Venous blood - Right Arm Blood Culture - Preliminary NO GROWTH AT 48 HOURS 03/07/19 06:54 Venous blood - Left Arm Blood Culture - Preliminary NO GROWTH AT 48 HOURS 11/03/18 08:50 Venous blood - Left Arm Blood Culture - Preliminary Presumptive Enterococcus sp. 11/03/18 08:50 Venous blood - Left Arm Blood Culture - Preliminary Gram Positive Cocci 11/03/18 08:40 Venous blood - Right Arm Blood Culture - Preliminary Enterococcus faecalis 11/03/18 08:40 Venous blood - Right Arm Blood Culture - Preliminary Enterococcus faecalis Laboratory Tests 11/03/18 11/03/18 11/04/18 08:40 08:40 05:02 WBC 17.6 H Hgb Plt Count 143 Neutrophils % 87.0 H Neutrophils % (Manual) 70 Sodium 128 L 03/07/19 03/08/19 06:54 03:45 WBC 13.1 H 13.6 H Hgb 12.2 L 12.3 L Plt Count 99 L 101 L Neutrophils % Neutrophils % (Manual) Sodium Phys Exam - Physical Examination Constitutional: NAD HEENT: PERRLA, sclera anicteric, oral pharynx no lesions Neck: no nodes, no JVD, supple, full ROM diminished in bases Respiratory: no wheezing S1, S2 Cardiovascular: RRR, no significant murmur, no rub, gallop Gastrointestinal: soft, non-tender, no distention, positive bowel sounds Musculoskeletal: pulses present, edema present Neurological: normal sensation, moves all 4 limbs Psychiatric: A&O x 3 Skin: normal turgor, cap refill <2 seconds Dx/Plan (1) Diastolic CHF, acute on chronic Code(s): I50.33 - ACUTE ON CHRONIC DIASTOLIC (CONGESTIVE) HEART FAILURE Status : Acute Comment: Continue Lasix 80mg IV BID, daily weight, I/O's, EF 60% (2) Acute respiratory failure with hypoxia and hypercapnia Code(s): J96.01 - ACUTE RESPIRATORY FAILURE WITH HYPOXIA; J96.02 - ACUTE RESPIRATORY FAILURE WITH HYPERCAPNIA Status: Acute Comment: Baseline O2 3L/ min NC, continue pulmonary support, Duonebs, Prednisone (3) Physical deconditioning Code(s): R53.81 - OTHER MALAISE Status: Chronic Comment: PT for mobilization and ambulation, Rehab screening (4) Diabetes mellitus, type 2 Status: Chronic Comment: ISS, ADA, blood sugar elevated due to steroids, Metformin (5) Metabolic alkalosis with respiratory acidosis Code(s): E87.4 - MIXED DISORDER OF ACID-BASE BALANCE Status: Acute Comment: Trial Diamox x 72h - Plan plan discussed w/ family, PT/OT, social media editor, respiratory therapy, out of bed/ambulate, DVT proph w/SCDs Stable currently -: Trial Diamox -: PT for mobilization -: CM for SNF options -: AM lab: BMP * .
[2019-03-11] MEDS: Melatonin 3 MG TAB PO SCH (20:31)
[2019-03-11] MEDS: Atorvastatin Calcium 10 MG TAB PO SCH (20:31)
[2019-03-12] MEDS: Mometasone/Formoterol 120 PUFF INHALER INH SCH ×3 (06:45→19:08)
--- NOTE | 2019-03-12 09:16 | PRG ---
DATE OF SERVICE: 03/12/2019 SUBJECTIVE: This morning, he is awake, alert, and responsive, sitting on the side of the bed. OBJECTIVE: VITAL SIGNS: Saturations are 99% on 3 L, respirations 16, temperature 98, pulse 78, blood pressure 99/64. No lab this morning. CHEST: Decreased breath sounds. Minimal wheezing. CARDIAC: Normal S1 and S2. No gallops. No masses. ASSESSMENT: Severe pulmonary hypertension, etiology unclear, probably secondary to diastolic dysfunction versus sleep apnea versus chronic obstructive pulmonary disease, diabetes, severe metabolic alkalosis. PLAN: 1. Await lab results. 2. Disposition as per primary care physician. 3. We will follow. Job ID: [id number]
--- NOTE | 2019-03-12 09:30 | PDOC.PN ---
- Subjective Encounter Start Date: 03/12/19 Encounter Start Time: 09:15 pt is feeling better. and him would like to transition to [facility] rehab facility as soon as he is medically stable. Been working with PT and has be able to ambulate with minimal SOB. - Objective Resuscitation Status - Order Detail: 03/07/19 11:24 Resuscitation Status Routine Resuscitation Status: DNAR: NO Resuscitation Discussed with: d/w POA: Ms.Alandra Belcher and Mrs.Martha Marvin Vital Signs & Weight: Vital Signs (12 hours) Temp Pulse Resp BP Pulse Ox 03/12/19 08:00 98.1 F 78 16 99/64 99 Weight Weight 63.9 kg Most Recent Monitor Data Heart Rate from ECG 76 NIBP 135/61 NIBP BP-Mean 85 Respiration from ECG 21 SpO2 97 I&O: 03/11/19 03/12/19 03/13/19 06:59 06:59 06:59 Intake Total 1340 Balance 1340 Result Diagrams: 03/11/19 04:40 03/12/19 15:29 Additional Labs: Accuchecks 03/12/19 03/11/19 03/11/19 05:09 20:20 15:48 POC Glucose 185 H 253 H 303 H 03/11/19 11:30 POC Glucose 257 H Phys Exam - Physical Examination HEENT: PERRLA Respiratory: no wheezing, no rales, no rhonchi, clear to auscultation bilateral Cardiovascular: RRR, no significant murmur Musculoskeletal: no edema, pulses present Trace edema of BLE's Psychiatric: normal affect Dx/Plan (1) Right heart failure due to pulmonary hypertension Code(s): I27.29 - OTHER SECONDARY PULMONARY HYPERTENSION; I50.810 - RIGHT HEART FAILURE, UNSPECIFIED Status: Acute (2) Hypotension Status: Acute (3) HLD (hyperlipidemia) Code(s): E78.5 - HYPERLIPIDEMIA, UNSPECIFIED Status: Chronic Qualifiers: Hyperlipidemia type: unspecified Qualified Code(s): E78.5 - Hyperlipidemia , unspecified (4) HTN (hypertension) Code(s): I10 - ESSENTIAL (PRIMARY) HYPERTENSION Status: Chronic Qualifiers: (5) Physical deconditioning Code(s): R53.81 - OTHER MALAISE Status: Chronic Comment: PT for mobilization and ambulation, Rehab screening - Plan plan discussed w/ family, PT/OT, social media content manager * . Continue diuretics continue Nebs PRN consult with CM to get placement in [facility] if continued medical stability, consider d/c today or tomorrow I have personally seen this patient and developed the assessment and plan. I agree with the documentation by the medical student. This afternoon, he had an episode of hypotension with systolic in the 70's. Improved to 90's spontaneously. Asymptomatic. Holding diuresis. Stable for transfer to rehab when bed available.
[2019-03-12] MEDS: metFORMIN 500 MG TAB PO SCH (10:32)
[2019-03-12] MEDS: Famotidine 20 MG TAB PO SCH (10:33)
[2019-03-12] MEDS: Tamsulosin HCl 0.4 MG CAP PO SCH (10:33)
[2019-03-12] MEDS: AcetaZOLAMIDE 250 MG TAB PO SCH (10:33)
[2019-03-12] MEDS: Enoxaparin Sodium 40 MG/0.4 ML SYRINGE SC SCH (10:33)
[2019-03-12] MEDS: predniSONE 20 MG TAB PO SCH (10:33)
[2019-03-12] MEDS: Finasteride 5 MG TAB PO SCH (10:33)
[2019-03-12] MEDS: Potassium Chloride 10 MEQ TAB PO SCH (10:34)
[2019-03-12] MEDS: Benzonatate 100 MG CAP PO SCH (10:34)
[2019-03-12] MEDS: Aspirin Chewable 81 MG TAB PO SCH (10:34)
[2019-03-12] MEDS: Lisinopril 5 MG TAB PO SCH (10:35)
[2019-03-12] MEDS: Furosemide 100 MG/10 ML VIAL SLOW IVP SCH ×2 (11:19→16:30)
[2019-03-12] MEDS: HumaLOG 300 UNITS/3 ML VIAL SC PRN ×2 (12:34→20:56)
[2019-03-12] MEDS: Acetaminophen 325 MG TAB PO PRN (15:30)
[2019-03-12 16:24] LABS: BUN (Urea Nitrogen) 61 mg/dL (8.4-25.7); Calc. Creatinine Clearance 32 mL/min (70-130); Calcium 9.8 mg/dL (7.8-10.44); Chloride 87 mmol/L (98-107); Estimated GFR-MDRD 42; Glucose 139 mg/dL (83-110); Potassium 3.7 mmol/L (3.5-5.1); Sodium 137 mmol/L (136-145)
[2019-03-12 16:41] LABS: Carbon Dioxide 32 mmol/L (23-31)
[2019-03-12 16:43] LABS: Anion Gap 22 mmol/L (10-20)
--- NOTE | 2019-03-12 17:21 | PRG ---
DATE OF SERVICE: 03/12/2019 SUBJECTIVE: Mr. Valentin status is unchanged. He continues to complaint shortness of breath. No other associated ameliorating or exacerbating factors present. OBJECTIVE: VITAL SIGNS: Blood pressure 94/60, pulse 80, temperature 97.8. GENERAL: Patient is a pleasant male who is in no acute distress. The patient appears their stated age. NEUROLOGIC: The patient is alert and oriented x3 with no focal neurologic deficits. HEENT: Sclerae without icterus. Mouth has moist mucous membranes with normal pallor. NECK: No JVD. Carotid upstroke brisk. No bruits bilaterally. LUNGS: Clear to auscultation with unlabored respirations. BACK: No scoliosis or kyphosis. CARDIAC: Regular rate and rhythm with normal S1 and S2. No S3 or S4 noted. No significant rubs, murmurs, thrills, or gallops noted throughout the precordium. PMI is not displaced. There is no parasternal heave. ABDOMEN: Soft, nontender, nondistended. No peritoneal signs present. No hepatosplenomegaly. No abnormal striae. EXTREMITIES: 2+ femoral and 2+ dorsalis pedis pulses. No cyanosis, or clubbing. 1+ pitting edema. SKIN: No gross abnormalities. PERTINENT LABORATORY DATA: Hemoglobin 12.5. Creatinine 1.57. IMPRESSION: 1. Shortness of breath. 2. Lower extremity edema. 3. Right-sided failure. RECOMMENDATIONS: Mr. Valentin current symptoms likely multifactorial. He likely has obstructive sleep apnea in addition to pulmonary hypertension. His RV appears dilated. At this point, continue with medical therapy. Options appear limited. The patient would like to proceed to rehab. He does have underlying diastolic dysfunction, which again can worsen his issue. His last LVEF was 60% to 65% with severe LV dilatation in addition to moderate tricuspid regurgitation and right ventricular systolic pressure of 65 mmHg. From my standpoint, I have no further recommendations. Job ID: [id number]
[2019-03-12] MEDS ORDERED: ALPRAZolam 0.25 MG TAB PO SCH (19:00)
[2019-03-12] MEDS: Atorvastatin Calcium 10 MG TAB PO SCH (20:50)
[2019-03-12] MEDS: Melatonin 3 MG TAB PO SCH (22:37)
[2019-03-13] MEDS: HumaLOG 300 UNITS/3 ML VIAL SC PRN ×3 (05:52→16:42)
[2019-03-13] MEDS: Mometasone/Formoterol 120 PUFF INHALER INH SCH ×2 (06:40→19:34)
--- NOTE | 2019-03-13 07:29 | PDOC.PN ---
- Subjective Encounter Start Date: 03/13/19 Encounter Start Time: 07:15 pt had anxiety last night and was tachypenic with dropping BP. He was given a Xanex and that helped him get through the night. BP stayed stable in low 110 SBP throughout the night. This morning he was tachypenic and alternating between sitting and standing with his walker every few mins to remain comfortable. said he has been doing this all morning and has had anxiety and SOB. - Objective Resuscitation Status - Order Detail: 03/07/19 11:24 Resuscitation Status Routine Resuscitation Status: DNAR: NO Resuscitation Discussed with: d/w POA: Ms.Alandra Belcher and Mrs.Martha Marvin Vital Signs & Weight: Vital Signs (12 hours) Temp Pulse Resp BP Pulse Ox 03/13/19 06:51 100 03/13/19 06:42 70 16 100 03/13/19 06:40 70 16 100 03/13/19 04:19 97.3 F L 81 14 118/80 98 03/13/19 02:49 80 16 98 03/12/19 22:39 84 16 98 03/12/19 20:00 98 Weight Weight 70.851 kg Most Recent Monitor Data Heart Rate from ECG 76 NIBP 135/61 NIBP BP-Mean 85 Respiration from ECG 21 SpO2 97 I&O: 03/12/19 03/13/19 03/14/19 06:59 06:59 06:59 Intake Total 720 Output Total 100 Balance 620 Result Diagrams: 03/11/19 04:40 03/12/19 15:29 Additional Labs: Accuchecks 03/13/19 03/12/19 03/12/19 04:28 20:57 16:17 POC Glucose 216 H 368 H 186 H 03/12/19 03/12/19 03/11/19 11:43 05:09 20:20 POC Glucose 275 H 185 H 253 H Phys Exam - Physical Examination Respiratory: no wheezing, clear to auscultation bilateral tachypenic Cardiovascular: RRR Gastrointestinal: soft Slight distention minimal edema in LE Neurological: non-focal A little somnolent at times and a little anxious at times. Deviation from normal: appears distressed Dx/Plan (1) Right heart failure due to pulmonary hypertension Code(s): I27.29 - OTHER SECONDARY PULMONARY HYPERTENSION; I50.810 - RIGHT HEART FAILURE, UNSPECIFIED Status: Acute (2) Acute respiratory failure with hypoxia and hypercapnia Code(s): J96.01 - ACUTE RESPIRATORY FAILURE WITH HYPOXIA; J96.02 - ACUTE RESPIRATORY FAILURE WITH HYPERCAPNIA Status: Acute Comment: Baseline O2 3L/ min NC, continue pulmonary support, Duonebs, Prednisone (3) COPD exacerbation Code(s): J44.1 - CHRONIC OBSTRUCTIVE PULMONARY DISEASE W (ACUTE) EXACERBATION Status: Acute Comment: oral steroids, nebs, oxygen (4) Right heart failure Status: Acute Qualifiers: (5) Diabetes mellitus, type 2 Status: Chronic Comment: ISS, ADA, blood sugar elevated due to steroids, Metformin (6) HLD (hyperlipidemia) Code(s): E78.5 - HYPERLIPIDEMIA, UNSPECIFIED Status: Chronic Qualifiers: Hyperlipidemia type: unspecified Qualified Code(s): E78.5 - Hyperlipidemia , unspecified (7) HTN (hypertension) Code(s): I10 - ESSENTIAL (PRIMARY) HYPERTENSION Status: Chronic Qualifiers: (8) Pulmonary hypertension Code(s): I27.20 - PULMONARY HYPERTENSION, UNSPECIFIED Status: Acute - Plan He is have a bit of a waxing and waning with his breathing. Partially related to the anxiety component. Looks comfortable at the time of the exam. He was seen in conjunction with Dr. Hill and Dr. Jean. 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 Plan for discharge to rehab today. They had more questions. I used the [employer] to discuss the situation again. He did actually attempt a sleep study once, but was unable to do it because he could not sleep and he does not sleep in a bed. He cannot effective use CPAP/BIPAP with settings and sleep study. We could attempt it, but if the settings are not correct, he may feel worse. They do not want to try that. They are willing to go to rehab. They can follow up as OP with Pulm to see if there is anything more that can be done. Apparently could not get him going early enough today, so he will go in the morning.
[2019-03-13] MEDS: Tamsulosin HCl 0.4 MG CAP PO SCH (08:35)
[2019-03-13] MEDS: Acetaminophen 325 MG TAB PO PRN ×2 (08:35→16:45)
[2019-03-13] MEDS: AcetaZOLAMIDE 250 MG TAB PO SCH (08:35)
[2019-03-13] MEDS: Potassium Chloride 10 MEQ TAB PO SCH (08:35)
[2019-03-13] MEDS: metFORMIN 500 MG TAB PO SCH (08:35)
[2019-03-13] MEDS: predniSONE 20 MG TAB PO SCH (08:35)
[2019-03-13] MEDS: Finasteride 5 MG TAB PO SCH (08:36)
[2019-03-13] MEDS: Lisinopril 5 MG TAB PO SCH (08:36)
[2019-03-13] MEDS: Aspirin Chewable 81 MG TAB PO SCH (08:36)
[2019-03-13] MEDS: Benzonatate 100 MG CAP PO SCH (08:36)
[2019-03-13] MEDS: Enoxaparin Sodium 40 MG/0.4 ML SYRINGE SC SCH (08:36)
[2019-03-13] MEDS: Famotidine 20 MG TAB PO SCH (08:36)
[2019-03-13] MEDS ORDERED: Sodium Chloride 0.9% 500 ML IV SCH (08:45)
--- NOTE | 2019-03-13 09:18 | PRG ---
DATE OF SERVICE: 03/13/2019 SUBJECTIVE: This morning, he is awake, responsive. He is anxious. He denies difficulty breathing. OBJECTIVE: VITAL SIGNS: Saturations are 100% on 3 L, respirations 16, temperature 97, and blood pressure 118/80. CHEST: Decreased breath sounds. No wheezing. CARDIAC: Normal S1 and S2. No gallops. ABDOMEN: No masses. LABORATORY DATA: BUN and creatinine slightly elevated. ASSESSMENT: 1. Right-sided failure. 2. Hypertension probably from diuretics. PLAN: Decrease diuretics. Continue supportive care. Eventually placement. We will follow. Job ID: [id number]
--- NOTE | 2019-03-13 13:07 | PRG ---
DATE OF SERVICE: 03/13/2019 SUBJECTIVE: Mr. Marvin continues to complain of shortness of breath. He was hypotensive today at 78/45. He was given IV fluids with increased blood pressure at 109/62. OBJECTIVE: VITAL SIGNS: As above including a heart rate of 83. LUNGS: Crackles noted bilaterally at bases, felt to be minimal. HEART: Regular rate and rhythm. ABDOMEN: Soft, nontender, and . EXTREMITIES: 1 to 2+ pitting edema. PERTINENT LABORATORY DATA: Hemoglobin 12.5. Creatinine 1.57 dated 03/12/2019. IMPRESSION: 1. [id number] pulmonary hypertension. 2. Right ventricular dilatation. 3. Diastolic dysfunction. RECOMMENDATIONS: Options appear limited. His right ventricle appears markedly enlarged and likely represent a primary pulmonary issue. This is complicated by some diastolic dysfunction. He was given IV fluids due to overdiuresis. We would attempt at using BiPAP all overnight in the hospital to see if the symptoms are better. From my standpoint, it would be okay for rehab. Otherwise, I have no further recommendations. We will sign off. Dr. Daugherty will be available, if questions arise. Job ID: [id number]
[2019-03-13] MEDS: Atorvastatin Calcium 10 MG TAB PO SCH (20:49)
[2019-03-13] MEDS: Melatonin 3 MG TAB PO SCH (20:49)
[2019-03-14 04:21] VITALS: TEMP 97.6
[2019-03-14] MEDS: Mometasone/Formoterol 120 PUFF INHALER INH SCH (06:51)
[2019-03-14] MEDS: Finasteride 5 MG TAB PO SCH (07:50)
[2019-03-14] MEDS: Aspirin Chewable 81 MG TAB PO SCH (07:51)
[2019-03-14] MEDS: Famotidine 20 MG TAB PO SCH (07:51)
[2019-03-14] MEDS: Tamsulosin HCl 0.4 MG CAP PO SCH (07:51)
[2019-03-14] MEDS: Potassium Chloride 10 MEQ TAB PO SCH (07:51)
[2019-03-14] MEDS: predniSONE 20 MG TAB PO SCH (07:52)
[2019-03-14] MEDS: metFORMIN 500 MG TAB PO SCH (07:52)
[2019-03-14] MEDS: AcetaZOLAMIDE 250 MG TAB PO SCH (07:53)
[2019-03-14] MEDS: Benzonatate 100 MG CAP PO SCH (07:53)
[2019-03-14 08:54] VITALS: BP 144/67
[2019-03-14] MEDS: Lisinopril 5 MG TAB PO SCH (08:54)
[2019-03-14] MEDS ORDERED: Enoxaparin Sodium 30 MG/0.3 ML SYRINGE SC SCH (09:00)
--- NOTE | 2019-03-14 12:24 | EKG ---
Test Reason : Blood Pressure : / mmHG Vent. Rate : 091 BPM Atrial Rate : 091 BPM P-R Int : 148 ms QRS Dur : 152 ms QT Int : 404 ms P-R-T Axes : 036 -23 -21 degrees QTc Int : 496 ms Sinus rhythm with frequent Premature ventricular complexes Possible Left atrial enlargement Right bundle branch block T wave abnormality, consider lateral ischemia Abnormal ECG Confirmed by DAVID BONNER ([id number]), online content editor NICOLE ATKINS ([id number]) on 03/14/2019 12:24:10 PM Referred By: Confirmed By:DAVID BONNER
== END 2019-03-14 09:41 | DRG 291 ==
LOC: ERS 06:30 → IMCU/EMU 09:12 → T4-A 03-11 07:16
PROVIDERS: ADMIT Internal Medicine; ATTEND Internal Medicine
DX: I11.0 Hypertensive heart disease with heart failure (principal); J96.01 Acute respiratory failure with hypoxia; J96.02 Acute respiratory failure with hypercapnia; J44.1 Chronic obstructive pulmonary disease with (acute) exacerbation; E87.4 Mixed disorder of acid-base balance; Z66 Do not resuscitate; I50.43 Acute on chronic combined systolic (congestive) and diastolic (congestive) heart failure; E78.00 Pure hypercholesterolemia, unspecified; G47.33 Obstructive sleep apnea (adult) (pediatric); N40.0 Benign prostatic hyperplasia without lower urinary tract symptoms; D69.6 Thrombocytopenia, unspecified; G47.00 Insomnia, unspecified; I27.29 Other secondary pulmonary hypertension; E11.65 Type 2 diabetes mellitus with hyperglycemia; I25.10 Atherosclerotic heart disease of native coronary artery without angina pectoris; D64.9 Anemia, unspecified; I95.9 Hypotension, unspecified; F41.9 Anxiety disorder, unspecified; Z87.891 Personal history of nicotine dependence; Z79.84 Long term (current) use of oral hypoglycemic drugs; Z95.0 Presence of cardiac pacemaker; Z79.82 Long term (current) use of aspirin; Z79.899 Other long term (current) drug therapy
CPT/HCPCS: 36415; 36416; 71045; 80048; 80053; 81003; 82805; 83605; 83735; 83880; 84484; 85007; 85025; 85027; 87040; 87804; 93005; 93798; 94640; 94760; 96365; 96367; 96375; J0696; J1650; J1940; J1956; J2060; J2920; J2930; J3475; J7512; J7620

== ENCOUNTER 2019-04-14 14:01 | Inpatient (IN) | payer MEDICARE, MEDICAID ==
[2019-04-14 15:00] LABS: #Lymphocytes 0.5 thou/uL (1.20-3.40); #Monocytes 0.3 thou/uL (0.11-0.59); #Neutrophils 11.1 thou/uL (1.40-6.50); %Eosinophils 0.1 % (0.0-10.0); %Lymphocytes 3.8 % (21.0-51.0); %Monocytes 2.3 % (0.0-10.0); %Neutrophils 93.8 % (42.0-75.0); Hemoglobin 12.8 g/dL (14.0-18.0); Mean Corpuscular HGB CONC 30.3 g/dL (32.0-36.0); Mean Corpuscular Volume 92.6 fL (78.0-98.0); Platelet Count 142 thou/uL (130-400); Red Blood Cell (RBC) Count 4.57 mill/uL (4.70-6.10); White Blood Cell (WBC) Count 11.9 thou/uL (4.8-10.8)
[2019-04-14 15:01] LABS: Bilirubin Negative (Negative); Blood, Urine Negative (Negative); Clarity Clear (Clear); Glucose, Urine (Dipstick) Greater than 1000 mg/dL (Negative); Leukocyte Negative Leu/uL (Negative); Nitrite Negative (Negative); Protein, Urine (Dipstick) Negative (Neg-Trace); Urobilinogen Normal mg/dL (Less than 2)
[2019-04-14 15:19] LABS: ALT (SGPT) 24 U/L (8-55); AST (SGOT) 23 U/L (5-34); Albumin 3.4 g/dL (3.4-4.8); Alkaline Phosphatase 145 U/L (40-150); Anion Gap 16 mmol/L (10-20); BUN (Urea Nitrogen) 47 mg/dL (8.4-25.7); Bilirubin, Total 1.3 mg/dL (0.2-1.2); CK (CPK) 35 U/L (30-200); Calc. Creatinine Clearance 0 mL/min (70-130); Calcium 9.6 mg/dL (7.8-10.44); Carbon Dioxide 32 mmol/L (23-31); Chloride 87 mmol/L (98-107); Estimated GFR-MDRD 35; Globulin 2.6 g/dL (2.4-3.5); Lipase 54 U/L (8-78); Magnesium 2.1 mg/dL (1.6-2.6); Phosphorus 4.7 mg/dL (2.3-4.7); Potassium 5.7 mmol/L (3.5-5.1); Sodium 129 mmol/L (136-145)
[2019-04-14 15:37] LABS: Glucose 729 mg/dL (83-110)
[2019-04-14] MEDS ORDERED: Insulin Regular 100 units/100 ml in NS IVPB SCH (15:45)
[2019-04-14 15:53] LABS: CKMB 3.8 ng/mL (0-6.6)
[2019-04-14] MEDS ORDERED: Insulin Regular 300 UNITS/3 ML VIAL ONE (15:53)
[2019-04-14 16:22] LABS: Base Excess-Venous 2.4 mmol/L (-2.0 to 3.0); Bicarbonate (HCO3v) 28.5 mmol/L (22.0-28.0); Calcium, Ionized 1.03 mmol/L (See Comments:); Chloride 100 mmol/L (98-107); Hemoglobin - Calc 13.1 g/dL (14.0-18.0); Potassium 4.8 mmol/L (3.5-5.1); Sodium 135 mmol/L (138-145)
--- NOTE | 2019-04-14 16:23 | RAD ---
EXAM: CHEST ONE VIEW PORTABLE: 04/14/19 HISTORY: Shortness of breath, breathing treatment around noon, congestion in upper lungs. COMPARISON: 03/07/19. FINDINGS: Left ICD. Moderate right hemidiaphragm elevation. Bilateral vascular congestion with some linear and parenchymal changes in the left perihilar region and right lung base with little change from prior st udy. IMPRESSION: Poor inspiratory effort with marked right hemidiaphragm elevation and some linear and parenchymal genevieve nges in the right lower lobe and left perihilar region with little change from prior study. No signif icant new process. No confluent pneumonia. POS: RRE
[2019-04-14] MEDS ORDERED: Lorazepam 2 MG/ML VIAL ONE (17:40)
[2019-04-14] MEDS ORDERED: Piperacillin/Tazobactam 4.5 GM VIAL ONE (18:13)
[2019-04-14] MEDS ORDERED: Sodium Chloride 0.9% 100 ML ONE (18:13)
--- NOTE | 2019-04-14 19:22 | CT ---
CT HEAD WITHOUT CONTRAST: 04/14/19 INDICATIONS: Altered mental status. COMPARISON: 09/30/18. Mild cortical volume loss. Ventricles are upper normal size but stable. No mass, edema, infarct, or o ther acute process identified. No interval change apparent. On soft tissue images, there is increased density of the subcutaneous tissues of the scalp overlying the right parietal region. This is unchanged from 09/30/18 and appears to represent some chronic subcut aneous density. IMPRESSION: No acute process apparent. POS: NATASHAH
[2019-04-14] MEDS ORDERED: Ondansetron ODT 4 MG TAB PO PRN (20:41)
[2019-04-14] MEDS ORDERED: Acetaminophen 650 MG Suppository PR PRN (20:41)
[2019-04-14] MEDS ORDERED: Ondansetron PF 4 MG/2 ML Vial IVP PRN (20:41)
[2019-04-14] MEDS ORDERED: Dextrose 5% in Water 1,000 ML IV PRN (20:43)
[2019-04-14] MEDS ORDERED: Dextrose 50% Abboject 50 ML SYRINGE SLOW IVP PRN (20:43)
[2019-04-14 21:10] VITALS: BMI 25.2
--- NOTE | 2019-04-14 22:22 | HP ---
CODE STATUS: DNR/DNR as discussed with the family at bedside. CHIEF COMPLAINT: Change in mental status. TIME OF EVALUATION: 8:00 p.m. HISTORY OF PRESENT ILLNESS: This is an 84-year-old male patient with past medical history of multiple comorbidities, including diabetes, hyperlipidemia, hypertension, congestive heart failure, pacemaker placement, COPD, was brought into the hospital from [facility] since the patient was having change in mental status. As per daughters, they were told that the patient has had a change in mentation has been insidiously, has been gradually getting worse with no clear triggers, no alleviating factors. He was found to have very elevated blood sugar. In the ER, he has been given some fluids and some treatment has been started. The patient during my examination is more talkative, is lethargic, but he is able to answer simple questions. The patient has also some associated headaches. REVIEW OF SYSTEMS: CONSTITUTIONAL: The patient had no fever or chills. The patient had generalized weakness. RESPIRATORY: The patient had shortness of breath and cough. No sputum production. CARDIOVASCULAR: No chest pain or palpitations. GASTROINTESTINAL: No nausea, no vomiting, diarrhea, or abdominal pain. 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 GENITOURINARY: The patient has history of urinary retention. EXTREMITIES: Bilateral leg swelling. All other systems were reviewed and negative except for the findings mentioned above. Information was gathered from patient and from daughters since the patient is not fully cooperative due to mental status. PAST MEDICAL HISTORY: As mentioned in the HPI. PAST SURGICAL HISTORY: The patient has left knee replacement and left shoulder surgery. PSYCHIATRIC HISTORY: Anxiety, depression and insomnia. SOCIAL HISTORY: Lives in long-term care facility for rehab. As per daughters, once he is better, he can go home. FAMILY HISTORY: Reviewed and noncontributory for current presentation. KNOWN ALLERGIES: No known drug allergies. REPORTED MEDICATIONS: 1. Advair Diskus. 2. Atorvastatin. 3. Benzonatate. 4. Melatonin. 5. Milk of magnesia. 6. Proventil HFA. 7. Tamsulosin. 8. Acetaminophen. 9. Aspirin. 10. Lasix. 11. Lisinopril. 12. Metformin. 13. Potassium chloride. 14. Prednisone. 15. Proscar. 16. Dulcolax. 17. Pepcid. 18. Senokot. PHYSICAL EXAMINATION: VITAL SIGNS: On presentation, blood pressure 125/66, respiratory rate 20, temperature 98, oxygen saturation 94% on room air, heart rate 101. GENERAL: The patient is lethargic and arousal, after hydration seems to be better. HEENT: Eyes, normal conjunctivae. Dry oral mucosa. Anicteric. No JVD. RESPIRATORY: Bilateral air entry. No rales or wheezes. Symmetric expansion. CARDIOVASCULAR: Normal rate, regular rhythm. No murmurs. No gallop. Bilateral leg edema. ABDOMEN: Soft. Normal bowel sounds. MUSCULOSKELETAL: Baseline range of motion and tenderness. SKIN: Warm and intact. No pallor. No rash. No redness. Capillary refill seems to be intact. NEURO: The patient is confused, unable to fully explore. No evidence of any new focal weakness. Cranial nerves seems to be intact. PSYCH: The patient is confused, unable to fully explore. IMAGING DATA: EKG was reviewed. The patient has normal sinus rhythm with a rate of 93, T-wave inversions consistent with lateral ischemia, RBBB. RADIOLOGY: Head CT without contrast showed no bleed, no mass, no acute ischemic stroke, no acute changes. Chest x-ray shows poor inspiratory effort with marked right hemidiaphragm elevation and some linear parenchymal changes in the right lower lobe, left perihilar region, a little change from prior study. No significant new process. No cough or pneumonia. LABORATORY DATA: Reviewed. The patient has a white count 11.9, hemoglobin 12.8, MCV 92, platelet count 142. VBG was done, pH was 7.37. Sodium 129, potassium 5.7, chloride 87, carbon dioxide 32, anion gap 16, BUN 47 with creatinine 1.85, previous creatinine in February was 1.57, GFR 35, glucose 729, the repeat one corrected was 271. Lactic acid 3.7, phosphorus 4.7, magnesium 2.1, total bilirubin 1.3. LFTs were negative. Troponin initial was 0.031, the second one 0.020. Albumin 3.4, lipase 54. Urine done was negative. Beta hydroxybutyrate was 0.65. ASSESSMENT AND PLAN: The patient will be placed in the hospital with following medical problems: 1. Acute encephalopathy, likely metabolic. The patient has presented confused, with findings of severe hyperglycemia due to uncontrolled diabetes. No evidence of acidosis was found. The patient has improved after correction of the metabolic derangements. We will continue to monitor. We will give some support as inpatient. 2. Uncontrolled diabetes. The patient presented with blood sugar in the 700 range. This has corrected after initial approach in the ER. The patient has been given fluids, we gave some insulin. We will continue to monitor upstairs where we will put him on sliding scale. The patient is not eating very well. Reconcile home medications once updated. 3. Hypertonic hyponatremia secondary to hyperglycemia. This has corrected after blood sugar has been in control. 4. Hyperkalemia of 5.7. This problem has also corrected after hydration and insulin. 5. Metabolic alkalosis. This is likely secondary to contraction alkalosis secondary to dehydration. Bicarb was 32. 6. Chronic kidney disease stage 3 with GFR 35. Creatinine today is 1.8, previous admission was 1.57. No criteria for acute kidney injury. However, this increase in creatinine may be related to dehydration. We are expecting the creatinine to improve after initial IV fluids. We will continue to monitor kidney function. We will treat accordingly. 7. Lactic acidosis could be related to uncontrolled diabetes. However, sepsis has remained in the differential. We will treat underlying condition. 8. Mildly elevated troponin 0.031, the second one is normal. This is unlikely to be acute coronary syndrome. 9. Underlying dementia, unclear how much there is a change in mental status; however, [facility] [facility] and family members reported that the patient was worse. We will give support as inpatient. 10. Controlled hypertension, reconcile home medications. We will adjust accordingly. 11. History of benign prostatic hyperplasia. The patient has some difficulty urinating, however, no Ad[place] is in place at this point. We will try to avoid it. 12. Hyperlipidemia. Low-cholesterol diet is advised. Reconcile home medications. 13. History of atrioventricular block status post pacemaker. This seems to be stable, chronic, we will monitor. 14. Deep venous thrombosis prophylaxis. Job ID: [id number]
[2019-04-14 22:53] LABS: Lactic Acid 1.3 mmol/L (0.5-2.2)
[2019-04-14 22:56] LABS: Troponin I 0.036 ng/mL (< 0.028)
[2019-04-14] MEDS: Lorazepam 2 MG/ML VIAL SLOW IVP PRN (23:52)
[2019-04-15 05:33] LABS: #Eosinphils 0.1 thou/uL (0.0-0.7); #Lymphocytes 1.3 thou/uL (1.20-3.40); #Monocytes 1.1 thou/uL (0.11-0.59); #Neutrophils 11.4 thou/uL (1.40-6.50); %Basophils 0.2 % (0.0-1.0); %Eosinophils 0.4 % (0.0-10.0); %Lymphocytes 9.1 % (21.0-51.0); %Monocytes 8.1 % (0.0-10.0); %Neutrophils 82.3 % (42.0-75.0); Hemoglobin 12.7 g/dL (14.0-18.0); Mean Corpuscular HGB CONC 30.6 g/dL (32.0-36.0); Mean Corpuscular Hemoglobin 27.4 pg (27.0-31.0); Mean Corpuscular Volume 89.7 fL (78.0-98.0); Mean Platelet Volume 10.8 fL (7.4-10.4); Platelet Count 145 thou/uL (130-400); RBC Distribution Width 16.7 % (11.5-14.5); Red Blood Cell (RBC) Count 4.62 mill/uL (4.70-6.10); White Blood Cell (WBC) Count 13.9 thou/uL (4.8-10.8)
[2019-04-15 05:49] LABS: Anion Gap 11 mmol/L (10-20); BUN (Urea Nitrogen) 30 mg/dL (8.4-25.7); Calc. Creatinine Clearance 48 mL/min (70-130); Calcium 9.3 mg/dL (7.8-10.44); Carbon Dioxide 32 mmol/L (23-31); Chloride 99 mmol/L (98-107); Estimated GFR-MDRD 62; Glucose 294 mg/dL (83-110); Potassium 4.6 mmol/L (3.5-5.1); Sodium 137 mmol/L (136-145)
[2019-04-15] MEDS: Lorazepam 2 MG/ML VIAL SLOW IVP PRN ×3 (06:43→18:29)
[2019-04-15] MEDS: Enoxaparin Sodium 30 MG/0.3 ML SYRINGE SC SCH (08:54)
--- NOTE | 2019-04-15 09:31 | CON ---
DATE OF CONSULTATION: HISTORY OF PRESENT ILLNESS: An 84-year-old gentleman who is a DNR, recurrent admission to the hospital, was just discharged, presented again. According to the , his symptoms of mental status change. CT head is negative. Apparently, he was given some Ativan for restlessness, became lethargic and unresponsive, therefore brought to the hospital. His chest x-ray looks like with stable findings, elevated right hemidiaphragm without any acute infiltrates. On arrival, he was confused and disoriented. Apparently this morning, he is no longer confused and disoriented. He denies any difficulty breathing. No pain. PAST MEDICAL HISTORY: Positive for severe pulmonary hypertension secondary to a combination of COPD and sleep apnea, history of advanced age, history of DNR, history of diabetes, coronary artery disease, status post multiple surgeries. PAST SURGICAL HISTORY: Pacemaker, shoulder, knee. HOME MEDICATIONS: Includes; 1. Trazodone. 2. Prednisone. 3. Metformin 500. 4. Flomax 0.4. 5. Lisinopril 5. 6. Nebulizer. 7. Ativan. 8. Advair 100. 9. Proscar 5. 10. Pepcid. 11. Aspirin. 12. Lipitor. ALLERGIES: NO ALLERGIES. SOCIAL HISTORY: No alcohol. MCFP. No tobacco. PHYSICAL EXAMINATION: VITAL SIGNS: Saturations are 100% on 2 L, temperature 97, respirations 22, and blood pressure is 120/80. CHEST: Reveals no wheezing. No crackles. CARDIAC: Normal S1 and S2. No gallops. ABDOMEN: No masses. LABORATORY DATA: White count 13,000, H and H of 12 and 41, and platelet count 47. Creatinine 1.3, BUN 30, glucose elevated 238. ASSESSMENT: 1. Metabolic encephalopathy, etiology unclear, possibly medication related. 2. Chronic obstructive pulmonary disease. 3. hemidiaphragm. 4. Pulmonary hypertension. PLAN: He appears to be at his baseline. I would avoid any kind of excessive sedation. I agree with neb treatments when he discharged back to the retirement. Consultation note, 70 minutes, 50% direct patient care. Job ID: [id number]
[2019-04-15] MEDS ORDERED: Bisacodyl 10 MG SUPP PR PRN (11:09)
--- NOTE | 2019-04-15 12:03 | PDOC.HOSPP ---
- Subjective Subjective: Patient seen and examined. pt is confused, No overnight events - Objective Vital Signs & Weight: Vital Signs (12 hours) Temp Pulse Resp Pulse Ox 04/15/19 11:05 98.1 F 04/15/19 10:52 90 16 100 04/15/19 07:54 98 04/15/19 07:27 89 22 H 100 04/15/19 07:04 97.1 F L 04/15/19 03:57 97.9 F 04/15/19 02:21 99 24 H Weight Weight 151 lb 7.321 oz Most Recent Monitor Data Heart Rate from ECG 96 NIBP 132/81 NIBP BP-Mean 98 Respiration from ECG 17 SpO2 95 I&O: 04/14/19 04/15/19 04/16/19 06:59 06:59 06:59 Intake Total 991 Balance 991 Result Diagrams: 04/15/19 05:14 04/15/19 05:14 Additional Labs: Accuchecks 04/15/19 04/15/19 04/14/19 06:17 00:04 19:49 POC Glucose 238 H 308 H 271 H 04/14/19 04/14/19 17:23 16:28 POC Glucose 350 H 510 H EKG Reviewed by me: Yes ROS - Review of Systems ROS unobtainable: due to mental status All systems: All other ROS were reviewed and found negative. - Medication Medications: Active Medications Generic Name Dose Route Start Last Admin Trade Name Freq PRN Reason Stop Dose Admin Albuterol/Ipratropium 3 ml 04/14/19 22:30 04/15/19 10:52 Duoneb NEB 3 ml [id number] KEEGAN Administration Enoxaparin Sodium 30 mg 04/15/19 09:00 04/15/19 08:54 Lovenox SC 30 mg 0900 KEEGAN Administration Lorazepam 0.5 mg 04/14/19 21:52 04/15/19 06:43 Ativan SLOW IVP 0.5 mg Q6H PRN Administration ANXIETY/AGITATION - Exam NAD Eye: PERRL, anicteric sclera ENT: normocephalic atraumatic, no oropharyngeal lesions Neck: supple, symmetric, no JVD Heart: RRR, no murmur, no gallops Respiratory: no wheezes, no rales, no ronchi Gastrointestinal: soft, non-tender, non-distended, normal bowel sounds Extremities: no cyanosis, no clubbing, no edema Skin: normal turgor, no lesions Neurological: no focal deficits Musculoskeletal: normal tone, normal strength Hosp A/P (1) Acute metabolic encephalopathy Code(s): G93.41 - METABOLIC ENCEPHALOPATHY Status: Acute (2) Demand ischemia Code(s): I24.8 - OTHER FORMS OF ACUTE ISCHEMIC HEART DISEASE Status: Acute (3) Hyperkalemia Code(s): E87.5 - HYPERKALEMIA Status: Acute (4) Hyponatremia Code(s): E87.1 - HYPO-OSMOLALITY AND HYPONATREMIA Status: Acute (5) Lactic acidosis Code(s): E87.2 - ACIDOSIS Status: Acute (6) Metabolic acidosis Code(s): E87.2 - ACIDOSIS Status: Acute (7) COPD (chronic obstructive pulmonary disease) Status: Chronic (8) Chronic stage c diastolic heart failure Code(s): I50.32 - CHRONIC DIASTOLIC (CONGESTIVE) HEART FAILURE Status: Chronic (9) Dementia Code(s): F03.90 - UNSPECIFIED DEMENTIA WITHOUT BEHAVIORAL DISTURBANCE Status: Chronic (10) Diabetes mellitus, type 2 Status: Chronic (11) HLD (hyperlipidemia) Code(s): E78.5 - HYPERLIPIDEMIA, UNSPECIFIED Status: Chronic Qualifiers: (12) HTN (hypertension) Code(s): I10 - ESSENTIAL (PRIMARY) HYPERTENSION Status: Chronic Qualifiers: (13) Physical deconditioning Code(s): R53.81 - OTHER MALAISE Status: Chronic (14) Right heart failure due to pulmonary hypertension Code(s): I27.29 - OTHER SECONDARY PULMONARY HYPERTENSION; I50.810 - RIGHT HEART FAILURE, UNSPECIFIED Status: Chronic - Plan old records reviewed/req, plan discussed w/ family, mental health social worker bedside sallow evaluation and then start diet medication reviewed as below symptomatic treatment control diabetes his blood test improving DC V/Q scan
[2019-04-15] MEDS: HumaLOG 300 UNITS/3 ML VIAL SC PRN (18:28)
[2019-04-15] MEDS: Mometasone/Formoterol 120 PUFF INHALER INH SCH (18:28)
[2019-04-15] MEDS: Tamsulosin HCl 0.4 MG CAP PO SCH (20:46)
[2019-04-15] MEDS: traZODone HCl 50 MG TAB PO SCH (20:47)
[2019-04-15] MEDS: Atorvastatin Calcium 10 MG TAB PO SCH (20:47)
[2019-04-16] MEDS: Lorazepam 2 MG/ML VIAL SLOW IVP PRN (03:49)
[2019-04-16] MEDS: Mometasone/Formoterol 120 PUFF INHALER INH SCH ×2 (07:25→18:54)
[2019-04-16 08:43] LABS: #Eosinphils 0.1 thou/uL (0.0-0.7); #Neutrophils 9.8 thou/uL (1.40-6.50); %Basophils 0.4 % (0.0-1.0); %Eosinophils 0.5 % (0.0-10.0); %Lymphocytes 8.6 % (21.0-51.0); %Monocytes 8.2 % (0.0-10.0); %Neutrophils 82.3 % (42.0-75.0); Hemoglobin 13.4 g/dL (14.0-18.0); Mean Corpuscular HGB CONC 31.9 g/dL (32.0-36.0); Mean Corpuscular Hemoglobin 28.6 pg (27.0-31.0); Mean Corpuscular Volume 89.8 fL (78.0-98.0); Mean Platelet Volume 10.7 fL (7.4-10.4); Platelet Count 145 thou/uL (130-400); Red Blood Cell (RBC) Count 4.67 mill/uL (4.70-6.10); White Blood Cell (WBC) Count 11.9 thou/uL (4.8-10.8)
[2019-04-16 09:03] LABS: Anion Gap 10 mmol/L (10-20); BUN (Urea Nitrogen) 20 mg/dL (8.4-25.7); Calc. Creatinine Clearance 57 mL/min (70-130); Calcium 9.5 mg/dL (7.8-10.44); Carbon Dioxide 33 mmol/L (23-31); Chloride 99 mmol/L (98-107); Estimated GFR-MDRD 75; Glucose 206 mg/dL (83-110); Potassium 4.5 mmol/L (3.5-5.1); Sodium 137 mmol/L (136-145)
--- NOTE | 2019-04-16 09:12 | PRG ---
DATE OF SERVICE: 04/16/2019 SUBJECTIVE: Patrice Marvin this morning is awake, alert, and responsive. OBJECTIVE: VITAL SIGNS: Sats 100% on 2 L, temperature 98, blood pressure 140/ 96, resp 16 . Family is feeding him. They were talking about a feeding tube yesterday. CHEST: Decreased breath sounds. No wheezing. CARDIAC: Normal S1 and S2. No gallops. ABDOMEN: No masses. IMPRESSION: 1. Respiratory failure, chronic obstructive pulmonary disease, pulmonary hypertension. 2. Diastolic dysfunction. 3. He is a DNR. PLAN: I am going [facility] to_ see the patient regarding comfort care. Clearly, he is not a candidate for a feeding tube. We will follow. Job ID: [id number] [facility]
[2019-04-16] MEDS: Furosemide 20 MG TAB PO SCH (09:21)
[2019-04-16] MEDS: Famotidine 20 MG TAB PO SCH (09:21)
[2019-04-16] MEDS: Finasteride 5 MG TAB PO SCH (09:21)
[2019-04-16] MEDS: Enoxaparin Sodium 30 MG/0.3 ML SYRINGE SC SCH (09:22)
[2019-04-16] MEDS: Lisinopril 5 MG TAB PO SCH (09:22)
[2019-04-16] MEDS: HumaLOG 300 UNITS/3 ML VIAL SC PRN ×2 (12:14→17:12)
--- NOTE | 2019-04-16 13:11 | PDOC.HOSPP ---
- Subjective Subjective: Patient seen and examined. No new complaints. No overnight events - Objective Vital Signs & Weight: Vital Signs (12 hours) Temp Pulse Resp BP Pulse Ox 04/16/19 12:45 90 18 111/55 L 99 04/16/19 10:41 98.2 F 04/16/19 09:22 90 04/16/19 08:00 100 04/16/19 07:10 98.0 F 04/16/19 04:00 98.4 F Weight Admit Weight 151 lb 7.321 oz Weight 151 lb 7.321 oz Most Recent Monitor Data Heart Rate from ECG 89 NIBP 106/90 NIBP BP-Mean 95 Respiration from ECG 33 SpO2 99 I&O: 04/15/19 04/16/19 04/17/19 06:59 06:59 06:59 Intake Total 991 60 Balance 991 60 Result Diagrams: 04/16/19 08:15 04/16/19 08:15 Additional Labs: Accuchecks 04/16/19 04/16/19 04/16/19 12:02 05:59 00:18 POC Glucose 224 H 165 H 157 H 04/15/19 04/14/19 18:08 14:41 POC Glucose 284 H Greater than 550 H* ROS - Review of Systems All systems: All other ROS were reviewed and found negative. ENT: denies: ear pain, ear discharge, nose pain, nose discharge, nose congestion , mouth pain, mouth swelling, throat pain, throat swelling, other Respiratory: denies: cough, dry, shortness of breath, hemoptysis, SOB with excertion, pleuritic pain, sputum, wheezing, other Cardiovascular: denies: chest pain, palpitations, orthopnea, paroxysmal noc. dyspnea, edema, light headedness, other Gastrointestinal: denies: nausea, vomitting, abdominal pain, diarrhea, constipation, melena, hematochezia, other Genitourinary: denies: dysuria, frequency, incontinence, hematuria, retention, other Musculoskeletal: denies: neck pain, shoulder pain, arm pain, back pain, hand pain, leg pain, foot pain, other - Medication Medications: Active Medications Generic Name Dose Route Start Last Admin Trade Name Freq PRN Reason Stop Dose Admin Atorvastatin Calcium 10 mg 04/15/19 21:00 04/15/19 20:47 Lipitor PO 10 mg HS KEEGAN Administration Bisacodyl 10 mg 07/24/19 11:09 04/15/19 15:52 Dulcolax PA 10 mg DAILY PRN Administration Constipation Enoxaparin Sodium 30 mg 04/15/19 09:00 04/16/19 09:22 Lovenox SC 30 mg 0900 KEEGAN Administration Famotidine 20 mg 04/16/19 09:00 04/16/19 09:21 Pepcid PO 20 mg DAILY KEEGAN Administration Finasteride 5 mg 04/16/19 09:00 04/16/19 09:21 Proscar PO 5 mg DAILY KEEGAN Administration Furosemide 20 mg 04/16/19 09:00 04/16/19 09:21 Lasix PO 20 mg DAILY KEEGAN Administration Insulin Human Lispro 0 units 04/14/19 20:43 04/16/19 12:14 Humalog SC 3 units .MILD SLIDING SCALE PRN Administration Mild Correctional Scale Lisinopril 5 mg 04/16/19 09:00 04/16/19 09:22 Zestril PO 5 mg DAILY KEEGAN Administration Mometasone Furoate/Formoterol Fumar 2 puff 04/15/19 18:30 04/16/19 07:25 Dulera 100 Mcg/5 Mcg Inhaler INH Not Given BID-RT KEEGAN Tamsulosin HCl 0.4 mg 04/15/19 21:00 04/15/19 20:46 Flomax PO 0.4 mg HS KEEGAN Administration Trazodone HCl 50 mg 04/15/19 21:00 04/15/19 20:47 Desyrel PO 50 mg HS KEEGAN Administration - Exam NAD, awake alert Eye: PERRL, anicteric sclera ENT: normocephalic atraumatic, no oropharyngeal lesions Neck: symmetric, no JVD Heart: RRR, no murmur, no gallops Respiratory: CTAB, no wheezes, no rales, no ronchi Gastrointestinal: soft, non-tender, non-distended, normal bowel sounds Extremities: no cyanosis, no clubbing, no edema Skin: normal turgor, no lesions Neurological: CN's grossly intact, no focal deficits Musculoskeletal: normal tone, normal strength Psychiatric: normal affect, normal behavior Hosp A/P (1) Acute metabolic encephalopathy Code(s): G93.41 - METABOLIC ENCEPHALOPATHY Status: Acute (2) Demand ischemia Code(s): I24.8 - OTHER FORMS OF ACUTE ISCHEMIC HEART DISEASE Status: Acute (3) Hyperkalemia Code(s): E87.5 - HYPERKALEMIA Status: Acute (4) Hyponatremia Code(s): E87.1 - HYPO-OSMOLALITY AND HYPONATREMIA Status: Acute (5) Lactic acidosis Code(s): E87.2 - ACIDOSIS Status: Acute (6) Metabolic acidosis Code(s): E87.2 - ACIDOSIS Status: Acute (7) COPD (chronic obstructive pulmonary disease) Status: Chronic (8) Chronic stage c diastolic heart failure Code(s): I50.32 - CHRONIC DIASTOLIC (CONGESTIVE) HEART FAILURE Status: Chronic (9) Dementia Code(s): F03.90 - UNSPECIFIED DEMENTIA WITHOUT BEHAVIORAL DISTURBANCE Status: Chronic (10) Diabetes mellitus, type 2 Status: Chronic (11) HLD (hyperlipidemia) Code(s): E78.5 - HYPERLIPIDEMIA, UNSPECIFIED Status: Chronic Qualifiers: (12) HTN (hypertension) Code(s): I10 - ESSENTIAL (PRIMARY) HYPERTENSION Status: Chronic Qualifiers: (13) Physical deconditioning Code(s): R53.81 - OTHER MALAISE Status: Chronic (14) 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
[2019-04-16] MEDS: metFORMIN 500 MG TAB PO SCH ×2 (17:13→18:15)
[2019-04-16] MEDS: traZODone HCl 50 MG TAB PO SCH (20:09)
[2019-04-16] MEDS: Tamsulosin HCl 0.4 MG CAP PO SCH (20:09)
[2019-04-16] MEDS: Atorvastatin Calcium 10 MG TAB PO SCH (20:09)
[2019-04-16] MEDS ORDERED: Lorazepam 0.5 MG TAB PO SCH (22:45)
[2019-04-16] MEDS ORDERED: Melatonin 3 MG TAB PO SCH (22:45)
[2019-04-17] MEDS: Acetaminophen 325 MG TAB PO PRN ×2 (00:50→14:25)
[2019-04-17] MEDS: Mometasone/Formoterol 120 PUFF INHALER INH SCH ×2 (07:11→19:15)
--- NOTE | 2019-04-17 09:30 | PRG ---
DATE OF SERVICE: 04/17/2019 SUBJECTIVE: An 84-year-old gentleman, primary care saw yesterday. He was given medicine for sedation. Apparently, Hospice is going to see him for home-based hospice care. OBJECTIVE: VITAL SIGNS: This morning, his sats are 92% on 2 L, respiratory rate 18, temperature 99, blood pressure 93/57. CHEST: Decreased breath sounds. No wheezing. CARDIAC: Normal S1 and S2. No gallops. IMPRESSION: 1. End-stage respiratory failure. 2. Pulmonary hypertension. 3. Severe deconditioning. 4. Dysphagia. PLAN: Home-based hospice. Supportive care. Job ID: [id number]
[2019-04-17] MEDS: Enoxaparin Sodium 30 MG/0.3 ML SYRINGE SC SCH (10:36)
[2019-04-17] MEDS: metFORMIN 500 MG TAB PO SCH ×2 (10:36→16:41)
[2019-04-17] MEDS: Famotidine 20 MG TAB PO SCH (10:37)
[2019-04-17] MEDS: Furosemide 20 MG TAB PO SCH (10:37)
[2019-04-17] MEDS: Finasteride 5 MG TAB PO SCH (10:37)
[2019-04-17] MEDS: Lisinopril 5 MG TAB PO SCH (10:38)
--- NOTE | 2019-04-17 14:22 | PDOC.HOSPP ---
- Subjective Subjective: f/u for metabolic encephalopathy, chronic CHF, deconditioning. Family reports pursuing hospice after returning home but concerned as the pt's is alone with her at night without any help. Pt having difficulty sleeping, waking frequently and intermittently confused. - Objective Vital Signs & Weight: Vital Signs (12 hours) Temp Pulse Resp BP BP BP Pulse Ox 04/17/19 11:24 97.6 F 77 18 93/54 L 95 04/17/19 10:49 109/63 04/17/19 10:38 74 109/63 04/17/19 09:00 98.0 F 74 18 97 04/17/19 04:02 99.4 F 74 20 93/57 L 92 L Weight Admit Weight 151 lb 7.321 oz Weight 151 lb 7.321 oz Most Recent Monitor Data Heart Rate from ECG 89 NIBP 106/90 NIBP BP-Mean 95 Respiration from ECG 33 SpO2 99 I&O: 04/16/19 04/17/19 04/18/19 06:59 06:59 06:59 Intake Total 60 220 Balance 60 220 Result Diagrams: 04/16/19 08:15 04/16/19 08:15 Additional Labs: Accuchecks 04/17/19 04/17/19 04/16/19 11:25 04:25 18:56 POC Glucose 160 H 186 H 183 H 04/16/19 16:47 POC Glucose 192 H Radiology Reviewed by me: Yes (CT brain - negative) ROS - Review of Systems All systems: All other ROS were reviewed and found negative. - Medication Medications: Active Medications Generic Name Dose Route Start Last Admin Trade Name Freq PRN Reason Stop Dose Admin Acetaminophen 650 mg 04/14/19 20:41 04/17/19 00:50 Tylenol PO 650 mg Q4H PRN Administration Headache/Fever/Mild Pain (1-3) Atorvastatin Calcium 10 mg 04/15/19 21:00 04/16/19 20:09 Lipitor PO 10 mg HS KEEGAN Administration Bisacodyl 10 mg 04/15/19 11:09 04/15/19 15:52 Dulcolax [place] 10 mg DAILY PRN Administration Constipation Enoxaparin Sodium 30 mg 04/15/19 09:00 04/17/19 10:36 Lovenox SC 30 mg 0900 KEEGAN Administration Famotidine 20 mg 04/16/19 09:00 04/17/19 10:37 Pepcid PO 20 mg DAILY KEEGAN Administration Finasteride 5 mg 04/16/19 09:00 04/17/19 10:37 Proscar PO 5 mg DAILY KEEGAN Administration Furosemide 20 mg 04/16/19 09:00 04/17/19 10:37 Lasix PO 20 mg DAILY KEEGAN Administration Insulin Human Lispro 0 units 04/14/19 20:43 04/16/19 17:12 Humalog SC 2 units .MILD SLIDING SCALE PRN Administration Mild Correctional Scale Lisinopril 5 mg 04/16/19 09:00 04/17/19 10:38 Zestril PO 5 mg DAILY KEEGAN Administration Metformin HCl 500 mg 04/16/19 17:00 04/17/19 10:36 Glucophage PO Not Given BID-WM KEEGAN Mometasone Furoate/Formoterol Fumar 2 puff 04/15/19 18:30 04/17/19 07:11 Dulera 100 Mcg/5 Mcg Inhaler INH Not Given BID-RT KEEGAN Tamsulosin HCl 0.4 mg 04/15/19 21:00 04/16/19 20:09 Flomax PO 0.4 mg HS KEEGAN Administration Trazodone HCl 50 mg 04/15/19 21:00 04/16/19 20:09 Desyrel PO 50 mg HS KEEGAN Administration - Exam NAD, awake alert Eye: PERRL, anicteric sclera ENT: normocephalic atraumatic, no oropharyngeal lesions Neck: supple, symmetric, no JVD, no Thyromegaly Heart: RRR, no murmur, no gallops, no rubs Respiratory: CTAB, no wheezes, rhonchi (bilat scattered rhonchi) Gastrointestinal: soft, non-tender, non-distended, normal bowel sounds Extremities: no cyanosis, no clubbing, 1+ LE edema Neurological: CN's grossly intact, no new deficit Musculoskeletal: normal tone Psychiatric: normal behavior Hosp A/P (1) Acute metabolic encephalopathy Code(s): G93.41 - METABOLIC ENCEPHALOPATHY Status: Acute Plan: Likely multifactorial given multiple co-morbid conditions and sleep deprivation , supportive mgmt (2) Hyponatremia Code(s): E87.1 - HYPO-OSMOLALITY AND HYPONATREMIA Status: Acute Plan: Resolved (3) COPD (chronic obstructive pulmonary disease) Status: Chronic Plan: Continue Duonebs, Dulera (4) Chronic stage c diastolic heart failure Code(s): I50.32 - CHRONIC DIASTOLIC (CONGESTIVE) HEART FAILURE Status: Chronic Plan: Continue Lasix daily, appears compensated currently (5) Dementia Code(s): F03.90 - UNSPECIFIED DEMENTIA WITHOUT BEHAVIORAL DISTURBANCE Status: Chronic Plan: Likely Alzheimer's type, supportive mgmt (6) Diabetes mellitus, type 2 Status: Chronic Plan: ISS, Metformin, serial accuchecks (7) Physical deconditioning Code(s): R53.81 - OTHER MALAISE Status: Chronic - Plan plan discussed w/ family, social service coordinator, DVT proph w/SCDs Consults: Palliative Care Continue supportive mgmt Increase Seroquel 50mg HS Continue Melatonin 9mg HS Continue Trazodone Family met with [facility] and will transition to Hospice at home after d/c Likely home with hospice in 24h
[2019-04-17] MEDS: HumaLOG 300 UNITS/3 ML VIAL SC PRN ×2 (16:41→22:07)
[2019-04-17] MEDS: Atorvastatin Calcium 10 MG TAB PO SCH (20:16)
[2019-04-17] MEDS: traZODone HCl 50 MG TAB PO SCH (20:16)
[2019-04-17] MEDS: Tamsulosin HCl 0.4 MG CAP PO SCH (20:18)
[2019-04-17] MEDS ORDERED: Melatonin 3 MG TAB PO SCH (21:00)
[2019-04-18] MEDS: Mometasone/Formoterol 120 PUFF INHALER INH SCH (06:12)
[2019-04-18 07:33] VITALS: TEMP 98.4
[2019-04-18] MEDS: Finasteride 5 MG TAB PO SCH (08:37)
[2019-04-18] MEDS: Acetaminophen 325 MG TAB PO PRN (08:38)
[2019-04-18] MEDS: metFORMIN 500 MG TAB PO SCH (08:38)
[2019-04-18] MEDS: Furosemide 20 MG TAB PO SCH (08:38)
[2019-04-18] MEDS: Famotidine 20 MG TAB PO SCH (08:38)
[2019-04-18] MEDS: Enoxaparin Sodium 30 MG/0.3 ML SYRINGE SC SCH (08:38)
[2019-04-18] MEDS: Lisinopril 5 MG TAB PO SCH (08:42)
[2019-04-18 10:26] VITALS: BP 81/47
--- NOTE | 2019-04-20 07:46 | DIS ---
DATE OF ADMISSION: 04/14/2019 DATE OF DISCHARGE: 04/18/2019 DISCHARGE DIAGNOSES: 1. Acute metabolic encephalopathy. 2. Pseudohyponatremia. 3. Severe hyperglycemia and diabetes mellitus. 4. Metabolic alkalosis. 5. Chronic kidney disease stage 3. 6. Lactic acidosis. 7. Non-ST elevation myocardial infarction type 2 with demand ischemia. 8. Chronic stage III diastolic congestive heart failure. 9. Pulmonary hypertension with cor pulmonale. 10. Dementia. 11. Hypertension. 12. BPH. 13. Hyperlipidemia. 14. Chronic obstructive pulmonary disease. HISTORY OF PRESENT ILLNESS: This patient is an 84-year-old male who presented via the emergency department with complaints of some altered mental status. His workup at that time revealed severe hyperglycemia with pseudohyponatremia as well as some metabolic alkalosis and lactic acidosis. The patient also had some slight elevation of his troponins consistent with demand ischemia. HOSPITAL COURSE: The patient was placed in the hospital. He was hydrated and given aggressive sliding scale insulin in order to cover his hyperglycemia. He had improvement of his overall electrolytes and labs. However, he continued to have some intermittent episodes of confusion and encephalopathy. Ultimately, medications were added in order to try to help with his overall behavior and sleep. He had Seroquel and trazodone at bedtime along with melatonin. The family had initiated pursuits of hospice care while the patient was in the hospital and ultimately decided to pursue discharge with hospice care. Arrangements were made for the patient to go home with [facility] and his DME was delivered to his home. The family had made arrangements for transportation home via ambulance service, and on the day of discharge and at the time of my arrival, ambulance was there to pick the patient up and take him home for the hospice care. Therefore , he was felt to be appropriate for discharge. PHYSICAL EXAMINATION: VITAL SIGNS: On the day of discharge, temperature is 98.4, pulse 85, BP 102/63 with repeat of 81/47. He was 95% on 2 L nasal cannula. GENERAL: He was awake and alert. HEART: Regular rate and rhythm with no murmurs, gallops, or rubs. LUNGS: Clear bilaterally. ABDOMEN: Soft, nontender, and nondistended. EXTREMITIES: No cyanosis, clubbing, or edema. DISPOSITION: The patient is discharged to home with home hospice through [facility]. ACTIVITIES: As tolerated. DIET: He will be on a diabetic diet. MEDICATIONS: He will continue with, 1. Aspirin 81 mg daily. 2. Metformin 500 mg b.i.d. 3. Humalog as needed. He will continue his usual home medications including, 1. Atorvastatin. 2. Tamsulosin. 3. DuoNebs. 4. Magnesium. 5. Finasteride. 6. Melatonin. 7. Lisinopril. 8. Lasix. 9. Acetaminophen. 10. Senokot S. 11. Trazodone. 12. Lorazepam. 13. Advair. 14. Dulcolax. FOLLOWUP: He can follow up with Dr. Milan Sloan and remainder of his care going forward will be through the hospice providers. Time spent in discharge activities, including face to face time with the patient , was 33 min. Job ID: [id number] [id number]
== END 2019-04-18 09:30 | disposition hospice, home (50) | DRG 637 ==
LOC: ERS 14:01 → IMCU/EMU 18:00 → T4-B 04-16 16:06
PROVIDERS: ADMIT Internal Medicine; ATTEND Internal Medicine
DX: E11.65 Type 2 diabetes mellitus with hyperglycemia (principal); G93.41 Metabolic encephalopathy; E87.1 Hypo-osmolality and hyponatremia; E87.3 Alkalosis; I13.0 Hypertensive heart and chronic kidney disease with heart failure and stage 1 through stage 4 chronic kidney disease, or unspecified chronic kidney disease; I24.8 Other forms of acute ischemic heart disease; I50.32 Chronic diastolic (congestive) heart failure; E78.5 Hyperlipidemia, unspecified; Z66 Do not resuscitate; J44.9 Chronic obstructive pulmonary disease, unspecified; F41.9 Anxiety disorder, unspecified; F32.9 Major depressive disorder, single episode, unspecified; G47.00 Insomnia, unspecified; E87.5 Hyperkalemia; E86.0 Dehydration; N18.3 Chronic kidney disease, stage 3 (moderate); F03.90 Unspecified dementia, unspecified severity, without behavioral disturbance, psychotic disturbance, mood disturbance, and anxiety; E11.22 Type 2 diabetes mellitus with diabetic chronic kidney disease; G47.30 Sleep apnea, unspecified; I25.10 Atherosclerotic heart disease of native coronary artery without angina pectoris; I27.29 Other secondary pulmonary hypertension; I50.810 Right heart failure, unspecified; Z96.652 Presence of left artificial knee joint; R13.10 Dysphagia, unspecified; Z79.899 Other long term (current) drug therapy; Z95.0 Presence of cardiac pacemaker; Z79.52 Long term (current) use of systemic steroids; Z79.84 Long term (current) use of oral hypoglycemic drugs; Z79.51 Long term (current) use of inhaled steroids
CPT/HCPCS: 36415; 36416; 70450; 71045; 80048; 80053; 81003; 82010; 82330; 82550; 82553; 82803; 83605; 83690; 83735; 84100; 84145; 84484; 85025; 85379; 87040; 87086; 93005; 94640; 94760; 96361; 96365; 96367; 96374; 96375; J1650; J1815; J2060; J2543; J3370; J3490; J7620